=== PATIENT | female | born 1955 | race Caucasian/White ===

== ENCOUNTER 2017-12-09 11:39 | Inpatient (IN) | payer MEDICARE ==
[2017-12-09] MEDS ORDERED: Bisacodyl SUPP* 10 MG SUPP PR PRN (16:04)
[2017-12-09] MEDS ORDERED: fentaNYL PATCH 25 MCG/HR TRANSDERM SCH (17:00)
[2017-12-09] MEDS: Atorvastatin* 40 MG TAB PO SCH (17:30)
[2017-12-09] MEDS ORDERED: fentaNYL Patch Check Q Shift 1 NOTE SCH (19:00)
[2017-12-09] MEDS: Cilostazol TAB* 100 MG PO SCH (21:00)
[2017-12-09] MEDS: Docusate CAP* 100 MG PO SCH (21:00)
[2017-12-09] MEDS ORDERED: oxyCODONE SR TAB(*) 10 MG TAB.SR PO SCH (21:00)
[2017-12-09] MEDS: amLODIPine TAB* 5 MG PO SCH (21:01)
--- NOTE | 2017-12-09 22:26 | HP ---
ADMISSION HISTORY AND PHYSICAL: DATE OF ADMISSION: 12/09/17 REASON FOR ADMISSION: T10 incomplete paraplegia. HISTORY OF ILLNESS: Evelyn Ortiz is a 62-year-old female with a past medical history significant for chronic kidney disease stage 5 as well as polycystic kidney disease. The patient also has coronary artery disease and has had a stent placed in her left anterior descending artery. The patient has had ongoing episodes of hematuria. She first presented to [facility] on 11/14. She was found to have a urinalysis that showed a large amount of red blood cells. Her creatinine had increased to 7.2. A CAT scan of her abdomen showed polycystic kidney disease with marked renal enlargement. She was given an aspirin and a dose of ceftriaxone and transferred to [facility]. At [facility], she had Urology consulted for consideration of bilateral nephrectomies. Urology recommended continuous bladder irrigation because of her hematuria. Her pain did not improve and her hematuria did not improve. Interventional Radiology was consulted for possible renal artery embolization in the setting of severe refractory pain and hematuria. She had bilateral renal embolization done and immediately following the procedure, she was not able to move her legs. MRI of the lumbar spine was done and thoracic spine showing a patchy infarct of her anterior spine extending from T10 to L1. Proprioception was spared; however, she had no functional movement in her legs. Pain also seemed to be absent in her legs. The patient had an EMG done, which showed a normal conduction. Her Plavix was stopped in the setting of hematuria. She did not have DVT prophylaxis except for SCDs because of the hematuria. She was started on dialysis while at [facility]. Her continuous bladder irrigation was stopped today. Her urine remains bloody. She had a lot of difficulty with pain in her flanks, which was felt to be secondary to infarct kidneys. She was on Duragesic, OxyContin, and oxycodone. Because of a paraplegia, she is felt to have acute rehab needs. She is now being admitted for inpatient rehab, so that she might return to independent living. PAST MEDICAL HISTORY: Significant for the aforementioned chronic kidney disease , she has a history of hypertension, gastroesophageal reflux disease, coronary artery disease. ALLERGIES: The patient has allergies listed to CLONIDINE where she gets mouth and lip swelling. She has also had GI reactions to FLAGYL and CIPRO, and reports other reactions to TRENTAL and ZOCOR. SOCIAL HISTORY: She is a nonsmoker, nondrinker. She lives in a trailer with a couple steps to enter with her . REVIEW OF SYSTEMS: The patient reports no current shortness of breath or chest pain. Some flank pain is noted. PHYSICAL EXAMINATION VITAL SIGNS: The patient's temperature is 98.7, blood pressure is 123/56, pulse is 87, respirations 18. HEENT: Extraocular movements appeared to be intact. LUNGS: Sounded clear to auscultation bilaterally. HEART: Sounds were regular. S1 and S2 audible. ABDOMEN: Soft and nontender. EXTREMITIES: Lower extremities showed slightly decreased tone. Her peripheral pulses are intact. NEUROLOGIC: She was awake, alert, and oriented. Muscle strength in her upper extremities appeared to be 5/5. Her sensation changed at about the T10 level at about the level of her umbilicus. Below that level, she did have intact light touch sensation, but decreased pain sensation. Proprioception appeared to be intact. Her muscle strength showed perhaps some medial quadriceps in her right leg 2/5 strength. She could wiggle her toes on both sides. She did not have functional movement of either leg. FUNCTIONAL EXAM: Her transfers are dependent. ASSESSMENT: T10 class C incomplete paraplegia. PLAN: We are going to integrate her into comprehensive and therapeutic rehab program with the following goals: 1. Physical Therapy work with the patient. They are going to work on functional, transfer training, ambulation training with a walker. 2. Occupational Therapy will see the patient, work on her activities of daily living including toileting and toilet transfers. 3. SCDs for DVT prophylaxis. 4. Consult with Dr. Serrato and dialysis 3 times a week for her renal failure. 5. For her pain from the renal infarcts, we will continue her Duragesic patch and her oxycodone. 6. For her coronary artery disease, we are going to continue aspirin, Lipitor, and her beta-rea. We will resume Plavix when her urine clears. 7. For her hematuria, we are continuing to hold Plavix and pharmacologic DVT prophylaxis. We will irrigate as necessary. She does have indwelling Guzman for now. 8. For neurogenic bowel, we will do suppositories as necessary. We will have her on bowel medications. 9. Continue Protonix for gastroesophageal reflux disease. 10. For hypertension, continue Norvasc and her beta-rea. 11. Peripheral vascular disease. Continue Pletal. 12. cloud services architect will be closely involved to make sure that any services and equipment the patient requires are in place prior to discharge. 13. Family training as appropriate. 14. Home with appropriate services. ESTIMATED LENGTH OF STAY: Five weeks. [id number]/CPS #: [id number] YAMILE
[2017-12-10] MEDS: fentaNYL Patch Check Q Shift 1 NOTE SCH ×4 (01:23→23:48)
[2017-12-10] MEDS: Cilostazol TAB* 100 MG PO SCH ×2 (11:05→20:09)
[2017-12-10] MEDS: CMC:Pantoprazole TAB (NF) 40 MG TAB PO SCH (11:05)
[2017-12-10] MEDS: Bisoprolol TAB* 5 MG PO SCH (11:05)
[2017-12-10] MEDS: oxyCODONE TAB* 5 MG TAB PO PRN (11:06)
[2017-12-10] MEDS: Aspirin EC Low Dose* 81 MG TAB.EC PO SCH (11:06)
[2017-12-10] MEDS: Docusate CAP* 100 MG PO SCH ×2 (11:08→20:10)
--- NOTE | 2017-12-10 12:35 | PMRUTEAM ---
PMRU: Goals Current Status: Nursing: Current Status Skin Deviations [Left Buttocks Other ] Skin Deviations [Coccyx] Other Skin Deviations [Right Groin] Previous Access Point Skin Deviations [Left Arm] Bruise Skin Deviations [Left Upper Abrasion Chest] Skin Deviation Description [ stage 1 to l buttock-2cm x3cm. orange barrier Left Buttocks] cream applied Skin Deviation Description [ redness Coccyx] Skin Deviation Description [ Pressure dressing in place Right Groin] Skin Deviation Description [ multiple bruises Left Arm] Physical Therapy: Current Status Bed Mobility Assistance Mod Assist Transfer Moblility Assistance Dependent Ambulation Assistance N/A Occupational Therapy: Current Status Upper Body Dressing Min Assist Lower Body Dressing Total Assist,2 Person Assist Bathing Max Asst Toileting Total Assist Eating Independent Rec Therapy: Current Status Summary of Assessment and New admission - introduce RT services today (12/10 / Clinical Impression 18). Social Work: Current Status Discharge Plan return home with home care svs and family support Potential for Family Training pt's is involved and supportive Anticipated Discharge Home Destination Discharge With home care svs and family support Goals: Occupational Therapy: Initial Goals Goals to be Completed in (Days 21-28 ) Upper Body Bathing Routine Independent Lower Body Bathing Routine Modified Independent with Upper Body Dressing Routine Independent Lower Body Dressing Routine Modified Independent with Toilet Hygeine and Clothing Modified Independent with Management Routine Toilet Transfer Routine Modified Independent with Toilet Transfer Assistive slideboard Devices Functional Transfers for ADL Modified Independent with Functional Transfers for ADl slideboard Assistive Devices Grooming Routine Independent Feeding Routine Independent Social Work: Goals Discharge Plan return home with home care svs and family support Potential for Family Training pt's is involved and supportive Anticipated Discharge Home Destination Discharge With home care svs and family support PHYSICAL THERAPY: Independent bed mobility, independent transfers independent wheelchair mobility Care Plan: Care Plan Cardiovascular- Improve/Maintain Start: 12/10/17 02:01 Freq: QSHIFT Status: Active Target: Protocol: Activity Type Activity Date Activity User E-Sign Co-Sign Detail Recorded Client Recorded Date Recorded By Document 12/10/17 11:44 [id number] [id number] 12/10/17 11:47 [id number] 12/10/17 11:44 PMRU Outcome: Cardiovascular Vital Signs q Shift for 48hrs Then BID Yes Daily Weight Ordered No Current Cardiovascular Outcome/Goal Maintain/ Achieve Baseline HR, BP , Perfusion Maintain/ Achieve Hemodynamic Stability Free of Abnormal Cardiac Symptoms Progression Toward Outcome/Goal Progressing Coping/Psych-Improve/Maintain Start: 12/10/17 02:01 Freq: QSHIFT Status: Active Target: Protocol: Activity Type Activity Date Activity User E-Sign Co-Sign Detail Recorded Client Recorded Date Recorded By Document 12/10/17 11:44 [id number] [id number] 12/10/17 11:47 [id number] 12/10/17 11:44 PMRU Outcome: Coping/Psychosocial Coping Outcome/Goals Verbalization of Acceptance of Rehab Admit Verbalization of Sense of Control Over Health Status Utilization of Appropriate Problem Solving Techniques Willingness to Participate in Treatment Plan and Basic Needs Utilization of Available Support Systems Psychosocial Outcome/Goals Maintain/ Improve Emotional Health Demonstrates Knowledge of Healthy Coping Mechanisms Available Cooperate/ Participate in Plan Progression Toward Outcome/Goals - Progressing Coping Progression Toward Outcome/Goals - Progressing Psychosocial DVT Prophylaxis- Improve/Maintain Start: 12/10/17 02:01 Freq: QSHIFT Status: Active Target: Protocol: Activity Type Activity Date Activity User E-Sign Co-Sign Detail Recorded Client Recorded Date Recorded By Document 12/10/17 11:44 [id number] [id number] 12/10/17 11:47 [id number] 12/10/17 11:44 PMRU Outcome: DVT Prophylaxis Outcome/Goals Remains Free of DVT Demonstrates Knowledge of DVT Prevention/ Treatment Progression Toward Outcome/Goals Progressing Outcome/Goals Met Comment SCD's in place Discharge Planning - Improve/Maintain Start: 12/10/17 02:01 Freq: QSHIFT Status: Active Target: Protocol: Activity Type Activity Date Activity User E-Sign Co-Sign Detail Recorded Client Recorded Date Recorded By Document 12/10/17 02:01 [id number] [email or web address] 12/10/17 02:03 [id number] 12/10/17 02:01 PMRU Outcome: Discharge Planning Update Patient Family No Outcome/Goals Demonstrates Understanding of Discharge Plan Education-Improve/Maintain Start: 12/10/17 02:01 Freq: QSHIFT Status: Active Target: Protocol: Activity Type Activity Date Activity User E-Sign Co-Sign Detail Recorded Client Recorded Date Recorded By Document 12/10/17 11:44 [id number] 12/10/17 11:47 [id number] 12/10/17 11:44 PMRU Outcome: Education Outcome/Goals Demonstrate/ Verbalize Understanding of Written Discharge Instructions Encourage Questions Progression Toward Outcome/Goals Progressing /GI-Improve/Maintain Start: 12/10/17 02:01 Freq: QSHIFT Status: Active Target: Protocol: Activity Type Activity Date Activity User E-Sign Co-Sign Detail Recorded Client Recorded Date Recorded By Document 12/10/17 11:44 [id number] [email or web address] 12/10/17 11:47 [id number] 12/10/17 11:44 PMRU Outcome: Genitourinary/ Gastrointestinal Genitourinary- Outcome/Goals Maintain/ Achieve Urinary Continence Remain Free of Hospital- Acquired UTI Gastrointestinal-Outcome/Goals Maintain/ Achieve Bowel Regularity in Accordance with Pt's Baseline Prevent Constipation Progression Toward Outcome/Goals - Progressing Progression Toward Outcome/Goals - GI Progressing Outcome/Goals Met Comment Guzman in place. dialysis this am Medication Administration Start: 12/10/17 02:01 Freq: QSHIFT Status: Active Target: Protocol: Activity Type Activity Date Activity User E-Sign Co-Sign Detail Recorded Client Recorded Date Recorded By Document 12/10/17 11:44 [id number] [email or web address] 12/10/17 11:47 [id number] 12/10/17 11:44 PMRU Outcome: Medication Administration Assess Patient Knowledge/Teach Med No Education for all Meds Outcome/Goals Patient Independent with Medication Administration at Home Demonstrates Understanding Progression Towards Outcome/Goals Progressing Is Patient Going Home on Lovenox? No Neurological- Improve/Maintain Start: 12/10/17 02:01 Freq: QSHIFT Status: Active Target: Protocol: Activity Type Activity Date Activity User E-Sign Co-Sign Detail Recorded Client Recorded Date Recorded By Document 12/10/17 11:44 [id number] [email or web address] 12/10/17 11:47 [id number] 12/10/17 11:44 PMRU Outcome: Neurological Weakness/Aphasia Weakness Outcome/Goals Maintain/ Achieve Baseline Neurological Status Maintain/ Improve Strength/ROM Progression Toward Outcome/Goals Progressing Outcome/Goals Met Comment Bilateral leg weakness Pain/Comfort- Improve/Maintain Start: 12/10/17 02:01 Freq: QSHIFT Status: Active Target: Protocol: Activity Type Activity Date Activity User E-Sign Co-Sign Detail Recorded Client Recorded Date Recorded By Document 12/10/17 11:44 [id number] 12/10/17 11:47 [id number] 12/10/17 11:44 PMRU Outcome: Pain/Comfort Outcome/Goals Demonstrates Knowledge and Use of Available Comfort Measures Achieves Acceptable Comfort/Pain Level as Determined by Patient/Condit Maintain Comfort Level Allowing Patient to Fully Participate in Rehab Other Outcome/Goals oxycodone given this am Progression Toward Outcome/Goals Progressing Outcome/Goals Met Comment denies pain at this time Safety- Improve/Maintain Start: 12/10/17 02:01 Freq: QSHIFT Status: Active Target: Protocol: Activity Type Activity Date Activity User E-Sign Co-Sign Detail Recorded Client Recorded Date Recorded By Document 12/10/17 11:44 [id number] [email or web address] 12/10/17 11:47 [id number] 12/10/17 11:44 PMRU Outcome: Safety Outcome/Goals Remain Free of Injury or Harm Prevent Falls/ Injury Progression Toward Outcome/Goals Progressing Medicine Note: Length of Stay: 5 weeks Anticipated Discharge Destination: Home Tentative Discharge Date: January 14, 2018 Discharged to: Home
[2017-12-10] MEDS: Atorvastatin* 40 MG TAB PO SCH (17:12)
--- NOTE | 2017-12-10 17:29 | PN ---
Progress Note Date of Service: 12/10/17 Note: USAMA KAPADIA was visited. Therapy notes read and reviewed. Usama was discussed in interdisciplinary team rounds. Goals set. She may need adjustment in therapy times to account for dialysis. She expresses feelings of depression and being overwhelmed. Current Medications: Active Medications Generic Name Dose Route Start Last Admin Trade Name Freq PRN Reason Stop Dose Admin Acetaminophen 650 mg 12/09/17 16:04 Tylenol Tab* PO Q6H PRN FEVER/PAIN Amlodipine Besylate 5 mg 12/09/17 21:00 12/09/17 21:01 Norvasc Tab* PO Not Given 2100 [facility] Ascorbic Acid 500 mg 12/11/17 09:00 Vitamin C Tab* PO DAILY [facility] Aspirin 81 mg 12/10/17 09:00 12/10/17 11:06 Aspirin Ec Low Dose* PO 81 mg DAILY [facility] Administration Atorvastatin Calcium 40 mg 12/09/17 17:00 12/10/17 17:12 Lipitor* PO 40 mg 1700 BR[facility]TON Administration Bisacodyl 10 mg 12/09/17 16:04 Dulcolax Supp* [place] DAILY PRN CONSTIPATION Bisoprolol Fumarate 5 mg 12/10/17 09:00 12/10/17 11:05 Zebeta Tab* PO 5 mg DAILY [facility] Administration Cilostazol 50 mg 12/09/17 21:00 12/10/17 11:05 Pletal Tab* PO 50 mg BID [facility] Administration Docusate Sodium 100 mg 12/09/17 21:00 12/10/17 11:08 Colace Cap* PO Not Given BID [facility] Fentanyl 25 mcg 12/09/17 17:00 12/09/17 19:42 Duragesic Patch 25 Mcg/Hr* TRANSDERM Not Given Q72H [facility] Oxycodone HCl 5 mg 12/09/17 16:22 12/10/17 11:06 Roxycodone Tab* PO 5 mg Q4H PRN Administration PAIN - MODERATE TO SEVERE Pantoprazole Sodium 40 mg 12/10/17 09:00 12/10/17 11:05 Protonix Tab (Nf) PO 40 mg DAILY [facility] Administration Pharmacy Profile Note 1 note 12/09/17 23:00 12/10/17 15:17 Fentanyl Patch Check Q Shift N/A 1 note 0700,1500,2300 BR[facility] Administration Senna 2 tab 12/09/17 16:04 Senokot Tab* PO BEDTIME PRN CONSTIPATION Sertraline HCl 25 mg 12/11/17 09:00 Zoloft* PO DAILY [facility] Vital Signs: Vital Signs Temp Pulse Resp BP Pulse Ox 99.0 F 78 12 126/59 100 12/10/17 16:03 12/10/17 16:03 12/10/17 16:03 12/10/17 16:03 12/10/17 16:03 Exam: LUNGS: Clear bilaterally HEART: reg rhythm ABDOMEN: Soft, +BS EXTREMITIES: No edema : Holley in place draining bloody urine NEUROLOGIC: Decreased sensation below T10. Some quadriceps in RLE, able to wiggle toes bilat. Assessment/Plan: 12/10/17 17:26 1. T10 JAC Class "C" Paraplegia: PT/OT 2. Hematuria: Continue to hold Plavix. May ask urology to comment if Plavix can resume 3. CKD/Renal failure: Hemodialysis. Renal diet 4. Pain from renal infarcts: Fentanyl/Oxycodone 5. Neurogenic bladder: holley. May transition to ICP 6. Neurogenic bowel: Bowel program 7. PVD: Pletal 8. DVT Prophylaxis: SCDs. 9. Anemia of chronic disease: Check CBC in AM 10. Advanced directives: full code 11. Depression: Zoloft starts tomorrow
[2017-12-10] MEDS: amLODIPine TAB* 5 MG PO SCH (20:10)
[2017-12-11] MEDS: fentaNYL Patch Check Q Shift 1 NOTE SCH ×3 (07:16→18:01)
[2017-12-11 08:24] LABS: ABS Basophils 0.1 10^3/ul (0-0.2); ABS Eosinophils 0.1 10^3/ul (0-0.6); ABS Lymphocytes 0.6 10^3/ul (1.0-4.8); ABS Monocytes 0.5 10^3/ul (0-0.8); ABS Neutrophils 5.4 10^3/ul (1.5-7.7); ABS Nucleated RBC 0 10^3/ul; Eosinophil % 1.4 % (0-6); Hematocrit 23 % (35-47); Hemoglobin 7.7 g/dl (12.0-16.0); Lymphocyte % 9.1 % (25-47); Mean Corpuscular HGB Conc 33 g/dl (31-36); Mean Corpuscular Hemoglobin 29 pg (27-31); Mean Corpuscular Volume 87 fL (80-97); Mean Platelet Volume 8 um3 (7.4-10.4); Nucleated Red Blood Cells % 0; Platelet Count 200 10^3/ul (150-450); Red Blood Count 2.65 10^6/ul (4.0-5.4); Red Cell Distribution Width 15 % (10.5-15); White Blood Count 6.6 10^3/ul (3.5-10.8)
[2017-12-11 08:36] LABS: EGFR Non-African American 10.1 (>60)
[2017-12-11] MEDS: Docusate CAP* 100 MG PO SCH ×2 (08:45→20:09)
[2017-12-11] MEDS: CMC:Pantoprazole TAB (NF) 40 MG TAB PO SCH (08:45)
[2017-12-11] MEDS: Sertraline* 25 MG TAB PO SCH (08:45)
[2017-12-11] MEDS: Cilostazol TAB* 100 MG PO SCH ×2 (08:45→20:00)
[2017-12-11] MEDS: Bisoprolol TAB* 5 MG PO SCH (08:45)
[2017-12-11] MEDS: Aspirin EC Low Dose* 81 MG TAB.EC PO SCH (08:45)
[2017-12-11] MEDS: Ascorbic Acid TAB* 500 MG PO SCH (08:45)
[2017-12-11] MEDS ORDERED: fentaNYL PATCH 25 MCG/HR TRANSDERM SCH (11:00)
--- NOTE | 2017-12-11 17:41 | PN ---
Progress Note Date of Service: 12/11/17 Note: USAMA KAPADIA was visited. Therapy notes read and reviewed. She complains of terrible nausea and has little appetite. I wonder if this is from opioids. Will stop Fentanyl. Hope to resume Plavix by Saturday. Holley sill draining bloody urine. Hb/Hct slightly lower Current Medications: Active Medications Generic Name Dose Route Start Last Admin Trade Name Freq PRN Reason Stop Dose Admin Acetaminophen 650 mg 12/09/17 16:04 Tylenol Tab* PO Q6H PRN FEVER/PAIN Amlodipine Besylate 5 mg 12/09/17 21:00 12/10/17 20:10 Norvasc Tab* PO Not Given 2100 BRITTON Ascorbic Acid 500 mg 12/11/17 09:00 12/11/17 08:45 Vitamin C Tab* PO 500 mg DAILY [facility] Administration Aspirin 81 mg 12/10/17 09:00 12/11/17 08:45 Aspirin Ec Low Dose* PO 81 mg DAILY [facility] Administration Atorvastatin Calcium 40 mg 12/09/17 17:00 12/10/17 17:12 Lipitor* PO 40 mg 1700 BRITTON Administration Bisacodyl 10 mg 12/09/17 16:04 Dulcolax Supp* [place] DAILY PRN CONSTIPATION Bisoprolol Fumarate 5 mg 12/10/17 09:00 12/11/17 08:45 Zebeta Tab* PO 5 mg DAILY [facility] Administration Cilostazol 50 mg 12/09/17 21:00 12/11/17 08:45 Pletal Tab* PO 50 mg BID [facility] Administration Docusate Sodium 100 mg 12/09/17 21:00 12/11/17 08:45 Colace Cap* PO 100 mg BID [facility] Administration Oxycodone HCl 5 mg 12/09/17 16:22 12/10/17 11:06 Roxycodone Tab* PO 5 mg Q4H PRN Administration PAIN - MODERATE TO SEVERE Pantoprazole Sodium 40 mg 12/10/17 09:00 12/11/17 08:45 Protonix Tab (Nf) PO 40 mg DAILY [facility] Administration Senna 2 tab 12/09/17 16:04 Senokot Tab* PO BEDTIME PRN CONSTIPATION Sertraline HCl 25 mg 12/11/17 09:00 12/11/17 08:45 Zoloft* PO 25 mg DAILY [facility] Administration Vital Signs: Vital Signs Temp Pulse Resp BP Pulse Ox 98.1 F 74 16 129/62 100 12/11/17 15:54 12/11/17 15:54 12/11/17 15:54 12/11/17 15:54 12/11/17 15:54 Lab Results: Laboratory Results - last 24 hr 12/11/17 12/11/17 08:15 08:15 WBC 6.6 RBC 2.65 L Hgb 7.7 L Hct 23 L MCV 87 MCH 29 MCHC 33 RDW 15 Plt Count 200 MPV 8 Neut % (Auto) 81.5 Lymph % (Auto) 9.1 L Cobb % (Auto) 7.0 Eos % (Auto) 1.4 Baso % (Auto) 1.0 Absolute Neuts (auto) 5.4 Absolute Lymphs (auto) 0.6 L Absolute Monos (auto) 0.5 Absolute Eos (auto) 0.1 Absolute Basos (auto) 0.1 Absolute Nucleated RBC 0 Nucleated RBC % 0 Sodium 136 Potassium 4.4 Chloride 99 L Carbon Dioxide 24 Anion Gap 13 H BUN 28 H Creatinine 4.45 H Est GFR ( Amer) 13.0 Est GFR (Non-Af Amer) 10.1 BUN/Creatinine Ratio 6.3 L Glucose 65 L Calcium 8.3 L Total Bilirubin 0.80 AST 16 ALT 11 Alkaline Phosphatase 101 Total Protein 5.2 L Albumin 2.5 L Globulin 2.7 Albumin/Globulin Ratio 0.9 L Exam: LUNGS: Clear bilaterally HEART: reg rhythm ABDOMEN: Soft, +BS EXTREMITIES: No edema : Holley in place draining bloody urine NEUROLOGIC: Decreased sensation below T10. Some quadriceps in RLE, able to wiggle toes bilat. Assessment/Plan: 12/11/17 17:41 1. T10 JAC Class "C" Paraplegia: PT/OT 2. Hematuria: Continue to hold Plavix. May resume Saturday 3. CKD/Renal failure: Hemodialysis. Renal diet. Follow urine output 4. 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 5. Neurogenic bladder: holley. May transition to ICP 6. Neurogenic bowel: Bowel program 7. PVD: Pletal 8. DVT Prophylaxis: SCDs. 9. Anemia of chronic disease: Check CBC in AM 10. Advanced directives: full code 11. Depression: Zoloft starts tomorrow 12. Nausea: Stop Fentanyl
[2017-12-11] MEDS: Atorvastatin* 40 MG TAB PO SCH (18:02)
[2017-12-11] MEDS: amLODIPine TAB* 5 MG PO SCH (20:00)
[2017-12-12] MEDS: CMC:Pantoprazole TAB (NF) 40 MG TAB PO SCH (14:13)
[2017-12-12] MEDS: Docusate CAP* 100 MG PO SCH ×2 (14:13→19:47)
[2017-12-12] MEDS: Aspirin EC Low Dose* 81 MG TAB.EC PO SCH (14:13)
[2017-12-12] MEDS: Sertraline* 25 MG TAB PO SCH (14:13)
[2017-12-12] MEDS: Bisoprolol TAB* 5 MG PO SCH (14:13)
[2017-12-12] MEDS: Cilostazol TAB* 100 MG PO SCH ×2 (14:13→19:57)
[2017-12-12] MEDS: Ascorbic Acid TAB* 500 MG PO SCH (14:13)
[2017-12-12] MEDS: Ondansetron ODT TAB* 4 MG PO PRN (14:19)
[2017-12-12] MEDS: Atorvastatin* 40 MG TAB PO SCH (16:50)
--- NOTE | 2017-12-12 18:26 | PN ---
Progress Note Date of Service: 12/12/17 Note: USAMA KAPADIA was visited. Therapy notes read and reviewed.She was quite nauseated yesterday. Stopped Fentanyl. Her pain was not significantly worse but her nausea persisted. Started Zofran with good results. Able to drink a shake and eat a little bit today Current Medications: Active Medications Generic Name Dose Route Start Last Admin Trade Name Freq PRN Reason Stop Dose Admin Acetaminophen 650 mg 12/09/17 16:04 Tylenol Tab* PO Q6H PRN FEVER/PAIN Ascorbic Acid 500 mg 12/11/17 09:00 12/12/17 14:13 Vitamin C Tab* PO Not Given DAILY [facility] Aspirin 81 mg 12/10/17 09:00 12/12/17 14:13 Aspirin Ec Low Dose* PO Not Given DAILY [facility] Atorvastatin Calcium 40 mg 12/09/17 17:00 12/12/17 16:50 Lipitor* PO 40 mg 1700 BRITTON Administration Bisacodyl 10 mg 12/09/17 16:04 Dulcolax Supp* [place] DAILY PRN CONSTIPATION Bisoprolol Fumarate 5 mg 12/10/17 09:00 12/12/17 14:13 Zebeta Tab* PO Not Given DAILY [facility] Cilostazol 50 mg 12/09/17 21:00 12/12/17 14:13 Pletal Tab* PO Not Given BID [facility] Docusate Sodium 100 mg 12/09/17 21:00 12/12/17 14:13 Colace Cap* PO Not Given BID [facility] Ondansetron HCl 4 mg 12/12/17 12:50 12/12/17 14:19 Zofran Odt Tab* PO 4 mg Q6H PRN Administration NAUSEA/VOMITING Oxycodone HCl 5 mg 12/09/17 16:22 12/10/17 11:06 Roxycodone Tab* PO 5 mg Q4H PRN Administration PAIN - MODERATE TO SEVERE Pantoprazole Sodium 40 mg 12/10/17 09:00 12/12/17 14:13 Protonix Tab (Nf) PO Not Given DAILY [facility] Senna 2 tab 12/09/17 16:04 Senokot Tab* PO BEDTIME PRN CONSTIPATION Sertraline HCl 25 mg 12/11/17 09:00 12/12/17 14:13 Zoloft* PO Not Given DAILY [facility] Vital Signs: Vital Signs Temp Pulse Resp BP Pulse Ox 98.2 F 87 18 127/60 99 12/12/17 05:35 12/12/17 05:35 12/12/17 05:35 12/12/17 05:35 12/12/17 14:42 Exam: LUNGS: Clear bilaterally HEART: reg rhythm ABDOMEN: Soft, +BS EXTREMITIES: No edema : Holley in place draining dark, bloody urine NEUROLOGIC: Decreased sensation below T10. Some quadriceps in RLE, able to wiggle toes bilat. Assessment/Plan: 12/12/17 18:27 1. T10 JAC Class "C" Paraplegia: PT/OT 2. Hematuria: Continue to hold Plavix. May resume Saturday 3. CKD/Renal failure: Hemodialysis. Renal diet. Follow urine output 4. 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 5. Neurogenic bladder: holley. May transition to ICP 6. Neurogenic bowel: Bowel program 7. PVD: Pletal 8. DVT Prophylaxis: SCDs. 9. Anemia of chronic disease: Check CBC in AM 10. Advanced directives: full code 11. Depression: Zoloft started 12. Nausea: Stopped Fentanyl. Zofran PRN
[2017-12-13] MEDS: oxyCODONE TAB* 5 MG TAB PO PRN (09:39)
[2017-12-13] MEDS: CMC:Pantoprazole TAB (NF) 40 MG TAB PO SCH (09:39)
[2017-12-13] MEDS: Bisoprolol TAB* 5 MG PO SCH (09:39)
[2017-12-13] MEDS: Sertraline* 25 MG TAB PO SCH (09:39)
[2017-12-13] MEDS: Ascorbic Acid TAB* 500 MG PO SCH (09:39)
[2017-12-13] MEDS: Aspirin EC Low Dose* 81 MG TAB.EC PO SCH (09:39)
[2017-12-13] MEDS: Clopidogrel TAB* 75 MG PO SCH (09:39)
[2017-12-13] MEDS: Cilostazol TAB* 100 MG PO SCH ×2 (09:40→21:07)
[2017-12-13] MEDS: Docusate CAP* 100 MG PO SCH ×2 (09:47→20:45)
--- NOTE | 2017-12-13 17:10 | PN ---
Progress Note Date of Service: 12/13/17 Note: USAMA KAPADIA was visited. Therapy notes read and reviewed. She is eating slightly better. Her urine remains bloody. Will check Hb/Hct on Saturday Current Medications: Active Medications Generic Name Dose Route Start Last Admin Trade Name Freq PRN Reason Stop Dose Admin Acetaminophen 650 mg 12/09/17 16:04 Tylenol Tab* PO Q6H PRN FEVER/PAIN Ascorbic Acid 500 mg 12/11/17 09:00 12/13/17 09:39 Vitamin C Tab* PO 500 mg DAILY [facility] Administration Aspirin 81 mg 12/10/17 09:00 12/13/17 09:39 Aspirin Ec Low Dose* PO 81 mg DAILY [facility] Administration Atorvastatin Calcium 40 mg 12/09/17 17:00 12/12/17 16:50 Lipitor* PO 40 mg 1700 [facility] Administration Bisacodyl 10 mg 12/09/17 16:04 Dulcolax Supp* [place] DAILY PRN CONSTIPATION Bisoprolol Fumarate 5 mg 12/10/17 09:00 12/13/17 09:39 Zebeta Tab* PO 5 mg DAILY [facility] Administration Cilostazol 50 mg 12/09/17 21:00 12/13/17 09:40 Pletal Tab* PO 50 mg BID [facility] Administration Clopidogrel Bisulfate 75 mg 12/13/17 09:00 12/13/17 09:39 Plavix Tab* PO 75 mg DAILY [facility] Administration Docusate Sodium 100 mg 12/09/17 21:00 12/13/17 09:47 Colace Cap* PO Not Given BID [facility] Ondansetron HCl 4 mg 12/12/17 12:50 12/12/17 14:19 Zofran Odt Tab* PO 4 mg Q6H PRN Administration NAUSEA/VOMITING Oxycodone HCl 5 mg 12/09/17 16:22 12/13/17 09:39 Roxycodone Tab* PO 5 mg Q4H PRN Administration PAIN - MODERATE TO SEVERE Pantoprazole Sodium 40 mg 12/10/17 09:00 12/13/17 09:39 Protonix Tab (Nf) PO 40 mg DAILY [facility] Administration Senna 2 tab 12/09/17 16:04 Senokot Tab* PO BEDTIME PRN CONSTIPATION Sertraline HCl 25 mg 12/11/17 09:00 12/13/17 09:39 Zoloft* PO 25 mg DAILY [facility] Administration Vital Signs: Vital Signs Temp Pulse Resp BP Pulse Ox 99.5 F 86 18 122/56 98 12/13/17 06:00 12/13/17 06:00 12/13/17 16:31 12/13/17 06:00 12/13/17 08:00 Exam: LUNGS: Clear bilaterally HEART: reg rhythm ABDOMEN: Soft, +BS EXTREMITIES: No edema : Holley in place draining dark, bloody urine NEUROLOGIC: Decreased sensation below T10. Some quadriceps in RLE, able to wiggle toes bilat. Assessment/Plan: 12/13/17 17:10 1. T10 JAC Class "C" Paraplegia: PT/OT 2. Hematuria: Started Plavix. Check CBC 3. CKD/Renal failure: Hemodialysis. Renal diet. Follow urine output 4. 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 5. Neurogenic bladder: holley. May transition to ICP 6. Neurogenic bowel: Bowel program 7. PVD: Pletal 8. DVT Prophylaxis: SCDs. 9. Anemia of chronic disease: Check CBC in AM Saturday 10. Advanced directives: full code 11. Depression: Zoloft started 12. Nausea: Stopped Fentanyl. Zofran PRN
[2017-12-13] MEDS: Atorvastatin* 40 MG TAB PO SCH (17:25)
[2017-12-14] MEDS: oxyCODONE TAB* 5 MG TAB PO PRN (10:37)
[2017-12-14] MEDS: Ascorbic Acid TAB* 500 MG PO SCH (12:28)
[2017-12-14] MEDS: CMC:Pantoprazole TAB (NF) 40 MG TAB PO SCH (12:28)
[2017-12-14] MEDS: Aspirin EC Low Dose* 81 MG TAB.EC PO SCH (12:28)
[2017-12-14] MEDS: Clopidogrel TAB* 75 MG PO SCH (12:28)
[2017-12-14] MEDS: Sertraline* 25 MG TAB PO SCH (12:28)
[2017-12-14] MEDS: Cilostazol TAB* 100 MG PO SCH ×2 (12:29→21:40)
[2017-12-14] MEDS: Bisoprolol TAB* 5 MG PO SCH (12:29)
[2017-12-14] MEDS: Docusate CAP* 100 MG PO SCH ×2 (12:59→21:37)
--- NOTE | 2017-12-14 16:37 | PN ---
Progress Note Date of Service: 12/14/17 Note: USAMA KAPADIA was visited. Therapy notes read and reviewed. She was quite wiped out from dialysis this morning. She has been tolerating Plavix. Can irrigate bladder nightly. Current Medications: Active Medications Generic Name Dose Route Start Last Admin Trade Name Freq PRN Reason Stop Dose Admin Acetaminophen 650 mg 12/09/17 16:04 Tylenol Tab* PO Q6H PRN FEVER/PAIN Ascorbic Acid 500 mg 12/11/17 09:00 12/14/17 12:28 Vitamin C Tab* PO 500 mg DAILY [facility] Administration Aspirin 81 mg 12/10/17 09:00 12/14/17 12:28 Aspirin Ec Low Dose* PO 81 mg DAILY [facility] Administration Atorvastatin Calcium 40 mg 12/09/17 17:00 12/13/17 17:25 Lipitor* PO 40 mg 1700 [facility] Administration Bisacodyl 10 mg 12/09/17 16:04 Dulcolax Supp* [place] DAILY PRN CONSTIPATION Bisoprolol Fumarate 5 mg 12/10/17 09:00 12/14/17 12:29 Zebeta Tab* PO 5 mg DAILY [facility] Administration Cilostazol 50 mg 12/09/17 21:00 12/14/17 12:29 Pletal Tab* PO 50 mg BID [facility] Administration Clopidogrel Bisulfate 75 mg 12/13/17 09:00 12/14/17 12:28 Plavix Tab* PO 75 mg DAILY [facility] Administration Docusate Sodium 100 mg 12/09/17 21:00 12/14/17 12:59 Colace Cap* PO Not Given BID [facility] Ondansetron HCl 4 mg 12/12/17 12:50 12/12/17 14:19 Zofran Odt Tab* PO 4 mg Q6H PRN Administration NAUSEA/VOMITING Oxycodone HCl 5 mg 12/09/17 16:22 12/14/17 10:37 Roxycodone Tab* PO 5 mg Q4H PRN Administration PAIN - MODERATE TO SEVERE Pantoprazole Sodium 40 mg 12/10/17 09:00 12/14/17 12:28 Protonix Tab (Nf) PO 40 mg DAILY [facility] Administration Senna 2 tab 12/09/17 16:04 Senokot Tab* PO BEDTIME PRN CONSTIPATION Sertraline HCl 25 mg 12/11/17 09:00 12/14/17 12:28 Zoloft* PO 25 mg DAILY [facility] Administration Vital Signs: Vital Signs Temp Pulse Resp BP Pulse Ox 98.8 F 76 16 137/66 98 12/14/17 15:51 12/14/17 15:51 12/14/17 15:51 12/14/17 15:51 12/14/17 15:51 Exam: LUNGS: Clear bilaterally HEART: reg rhythm ABDOMEN: Soft, +BS EXTREMITIES: No edema : Holley in place draining dark, bloody urine NEUROLOGIC: Decreased sensation below T10. Some quadriceps in RLE, able to wiggle toes bilat. Assessment/Plan: 12/14/17 16:38 1. T10 JAC Class "C" Paraplegia: PT/OT 2. Hematuria: Started Plavix. Check CBC 3. CKD/Renal failure: Hemodialysis. Renal diet. Follow urine output 4. 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 5. Neurogenic bladder: holley. May transition to ICP 6. Neurogenic bowel: Bowel program. Stools have been loose 7. PVD: Pletal 8. DVT Prophylaxis: SCDs. 9. Anemia of chronic disease: Check CBC in AM Saturday 10. Advanced directives: full code 11. Depression: Zoloft started 12. Nausea: Stopped Fentanyl. Zofran PRN
[2017-12-14] MEDS: Atorvastatin* 40 MG TAB PO SCH (17:28)
[2017-12-15] MEDS: Aspirin EC Low Dose* 81 MG TAB.EC PO SCH (11:51)
[2017-12-15] MEDS: Bisoprolol TAB* 5 MG PO SCH (11:52)
[2017-12-15] MEDS: Ascorbic Acid TAB* 500 MG PO SCH (11:52)
[2017-12-15] MEDS: Clopidogrel TAB* 75 MG PO SCH (11:52)
[2017-12-15] MEDS: Cilostazol TAB* 100 MG PO SCH ×2 (11:52→22:14)
[2017-12-15] MEDS: CMC:Pantoprazole TAB (NF) 40 MG TAB PO SCH (11:52)
[2017-12-15] MEDS: Sertraline* 50 MG TAB PO SCH (11:52)
[2017-12-15] MEDS: Docusate CAP* 100 MG PO SCH ×2 (11:54→22:10)
[2017-12-15] MEDS ORDERED: Prochlorperazine SUPP* 25 MG SUPP PR PRN (16:03)
--- NOTE | 2017-12-15 16:06 | PN ---
Progress Note Date of Service: 12/15/17 Note: USAMA KAPADIA was visited. Nursing notes read and reviewed. Very nauseated today. She doesn't want the Zofran. It makes her gag. Will try compazine suppository Current Medications: Active Medications Generic Name Dose Route Start Last Admin Trade Name Freq PRN Reason Stop Dose Admin Acetaminophen 650 mg 12/09/17 16:04 Tylenol Tab* PO Q6H PRN FEVER/PAIN Ascorbic Acid 500 mg 12/11/17 09:00 12/15/17 11:52 Vitamin C Tab* PO 500 mg DAILY [facility] Administration Aspirin 81 mg 12/10/17 09:00 12/15/17 11:51 Aspirin Ec Low Dose* PO 81 mg DAILY [facility] Administration Atorvastatin Calcium 40 mg 12/09/17 17:00 12/14/17 17:28 Lipitor* PO 40 mg 1700 [facility] Administration Bisacodyl 10 mg 12/09/17 16:04 Dulcolax Supp* [place] DAILY PRN CONSTIPATION Bisoprolol Fumarate 5 mg 12/10/17 09:00 12/15/17 11:52 Zebeta Tab* PO 5 mg DAILY [facility] Administration Cilostazol 50 mg 12/09/17 21:00 12/15/17 11:52 Pletal Tab* PO 50 mg BID [facility] Administration Clopidogrel Bisulfate 75 mg 12/13/17 09:00 12/15/17 11:52 Plavix Tab* PO 75 mg DAILY [facility] Administration Docusate Sodium 100 mg 12/09/17 21:00 12/15/17 11:54 Colace Cap* PO Not Given BID [facility] Ondansetron HCl 4 mg 12/12/17 12:50 12/12/17 14:19 Zofran Odt Tab* PO 4 mg Q6H PRN Administration NAUSEA/VOMITING Oxycodone HCl 5 mg 12/09/17 16:22 12/14/17 10:37 Roxycodone Tab* PO 5 mg Q4H PRN Administration PAIN - MODERATE TO SEVERE Pantoprazole Sodium 40 mg 12/10/17 09:00 12/15/17 11:52 Protonix Tab (Nf) PO 40 mg DAILY [facility] Administration Prochlorperazine 25 mg 12/15/17 16:03 Compazine Supp* [place] Q12H PRN NAUSEA Senna 2 tab 12/09/17 16:04 Senokot Tab* PO BEDTIME PRN CONSTIPATION Sertraline HCl 50 mg 12/15/17 09:00 12/15/17 11:52 Zoloft* PO 50 mg DAILY [facility] Administration Vital Signs: Vital Signs Temp Pulse Resp BP Pulse Ox 99.0 F 99 16 119/63 100 12/15/17 15:35 12/15/17 15:35 12/15/17 15:35 12/15/17 15:35 12/15/17 15:35 Exam: LUNGS: Clear bilaterally HEART: reg rhythm ABDOMEN: Soft, +BS EXTREMITIES: No edema : Holley in place draining dark, bloody urine NEUROLOGIC: Decreased sensation below T10. Some quadriceps in RLE, able to wiggle toes bilat. Assessment/Plan: 12/15/17 16:06 1. T10 JAC Class "C" Paraplegia: PT/OT 2. Hematuria: Started Plavix. Check CBC 3. CKD/Renal failure: Hemodialysis. Renal diet. Follow urine output 4. 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 5. Neurogenic bladder: holley. May transition to ICP 6. Neurogenic bowel: Bowel program. Stools have been loose 7. PVD: Pletal 8. DVT Prophylaxis: SCDs. 9. Anemia of chronic disease: Check CBC in AM Saturday 10. Advanced directives: full code 11. Depression: Zoloft started 12. Nausea: Compazine Suppository PRN
[2017-12-15] MEDS: Atorvastatin* 40 MG TAB PO SCH (17:23)
[2017-12-16] MEDS: Sertraline* 50 MG TAB PO SCH (10:30)
[2017-12-16] MEDS: Clopidogrel TAB* 75 MG PO SCH (10:30)
[2017-12-16] MEDS: Bisoprolol TAB* 5 MG PO SCH (10:30)
[2017-12-16] MEDS: Ascorbic Acid TAB* 500 MG PO SCH (10:30)
[2017-12-16] MEDS: Docusate CAP* 100 MG PO SCH ×2 (10:30→19:33)
[2017-12-16] MEDS: Aspirin EC Low Dose* 81 MG TAB.EC PO SCH (10:30)
[2017-12-16] MEDS: Cilostazol TAB* 100 MG PO SCH ×2 (10:30→19:33)
[2017-12-16] MEDS: CMC:Pantoprazole TAB (NF) 40 MG TAB PO SCH (10:30)
--- NOTE | 2017-12-16 17:35 | PN ---
Progress Note Date of Service: 12/16/17 Note: USAMA KAPADIA was visited. Therapy notes read and reviewed. She remains nauseated and doesn't want to eat much. She is also a little apathetic. tried a Compazine Suppository with little effect. Will ask Dr. Serrato for any advice Current Medications: Active Medications Generic Name Dose Route Start Last Admin Trade Name Freq PRN Reason Stop Dose Admin Acetaminophen 650 mg 12/09/17 16:04 Tylenol Tab* PO Q6H PRN FEVER/PAIN Ascorbic Acid 500 mg 12/11/17 09:00 12/16/17 10:30 Vitamin C Tab* PO Not Given DAILY [facility] Aspirin 81 mg 12/10/17 09:00 12/16/17 10:30 Aspirin Ec Low Dose* PO Not Given DAILY [facility] Atorvastatin Calcium 40 mg 12/09/17 17:00 12/15/17 17:23 Lipitor* PO Not Given 1700 [facility] Bisacodyl 10 mg 12/09/17 16:04 Dulcolax Supp* [place] DAILY PRN CONSTIPATION Bisoprolol Fumarate 5 mg 12/10/17 09:00 12/16/17 10:30 Zebeta Tab* PO Not Given DAILY [facility] Cilostazol 50 mg 12/09/17 21:00 12/16/17 10:30 Pletal Tab* PO Not Given BID [facility] Clopidogrel Bisulfate 75 mg 12/13/17 09:00 12/16/17 10:30 Plavix Tab* PO Not Given DAILY [facility] Docusate Sodium 100 mg 12/09/17 21:00 12/16/17 10:30 Colace Cap* PO Not Given BID [facility] Ondansetron HCl 4 mg 12/12/17 12:50 12/12/17 14:19 Zofran Odt Tab* PO 4 mg Q6H PRN Administration NAUSEA/VOMITING Oxycodone HCl 5 mg 12/09/17 16:22 12/14/17 10:37 Roxycodone Tab* PO 5 mg Q4H PRN Administration PAIN - MODERATE TO SEVERE Pantoprazole Sodium 40 mg 12/10/17 09:00 12/16/17 10:30 Protonix Tab (Nf) PO Not Given DAILY [facility] Prochlorperazine 25 mg 12/15/17 16:03 12/16/17 11:29 Compazine Supp* [place] 25 mg Q12H PRN Administration NAUSEA Senna 2 tab 12/09/17 16:04 Senokot Tab* PO BEDTIME PRN CONSTIPATION Sertraline HCl 50 mg 12/15/17 09:00 12/16/17 10:30 Zoloft* PO Not Given DAILY [facility] Vital Signs: Vital Signs Temp Pulse Resp BP Pulse Ox 98.8 F 98 12 125/61 99 12/16/17 06:50 12/16/17 06:50 12/16/17 06:50 12/16/17 06:50 12/16/17 06:50 Exam: LUNGS: Clear bilaterally HEART: reg rhythm ABDOMEN: Soft, +BS EXTREMITIES: No edema : Holley in place draining dark, bloody urine NEUROLOGIC: Decreased sensation below T10. Some quadriceps in RLE, able to wiggle toes bilat. Assessment/Plan: 12/16/17 17:35 1. T10 JAC Class "C" Paraplegia: PT/OT 2. Hematuria: On Plavix. Stable 3. CKD/Renal failure: Hemodialysis. Renal diet. Follow urine output 4. 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 5. Neurogenic bladder: holley. May transition to ICP 6. Neurogenic bowel: Bowel program. Stools have been loose 7. PVD: Pletal 8. DVT Prophylaxis: SCDs. 9. Anemia of chronic disease: Check CBC 10. Advanced directives: full code 11. Depression: Zoloft started. Unclear if any effect 12. Nausea: Compazine Suppository PRN, Consider Marinol
[2017-12-16] MEDS: Atorvastatin* 40 MG TAB PO SCH (17:38)
--- NOTE | 2017-12-17 13:00 | PMRUTEAM ---
PMRU: Goals Current Status: Nursing: Current Status Skin Deviations [Left Buttocks Other ] Skin Deviations [Coccyx] Skin Tear Skin Deviations [Right Groin] Previous Access Point Skin Deviations [Left Arm] Bruise Skin Deviations [Left Upper Abrasion Chest] Skin Deviation Description [ redness Left Buttocks] Skin Deviation Description [ open area, dressing applied Coccyx] Skin Deviation Description [ redness Right Groin] Skin Deviation Description [ multiple bruises Left Arm] Skin Deviation Description [ healing Left Upper Chest] Bladder Current Status Holley in place Bowel Current Status incontinent Nutrition Current Status inadequate Medication Current Status declining medications at this time. Physical Therapy: Current Status Bed Mobility Assistance Max Assist,2 or More Person Assist Transfer Moblility Assistance Total Assist,2 or More Person Assist Transfer/Bed Mobility Tunde Lift Recommended Devices Ambulation Assistance Unable Manual Wheelchair Control/ Bilateral UE's Technique Wheelchair Propulsion Ability Standby Assistance Wheelchair Distance (ft) 110' Occupational Therapy: Current Status Upper Body Dressing Mod Assist Lower Body Dressing Total Assist Bathing Max Asst Toileting Total Assist Toilet Transfer Total Assist,2 Person Assist Shower Transfer Total Assist,2 Person Assist Eating Supervision Rec Therapy: Current Status Summary of Assessment and RT assessment complete and pt. is aware of RT Clinical Impression services. Pt. has been resting or with visitors much of the afternoon time. Pt. did express interest in continued leisure visits which will be provided to her. Treatment Goals Pt. will engage in leisure activities while on the unit. Treatment Plan Provide RT services and encourage involvement. Provide emotional support as needed. Social Work: Current Status Discharge Plan return home with home care svs and family support Potential for Family Training pt's is involved and supportive Anticipated Discharge Home Destination Discharge With home care svs and family support Nutrition: Current Status Monitoring poor po intake; follow-up planned this afternoon. Most meds also refused by pt. c/o nausea; Compazine given; no Zofran since 12/12. Zoloft started 12/15. K 4.4 (12/11); anticipate weekly labs tomorrow. Goals: Physical Therapy: Initial Goals Bed Mobility Assistance Independent Transfer Mobility Assistance Independent Transfer/Bed Mobility Slide Board Recommended Devices Wheelchair Propulsion Ability Independent Occupational Therapy: Initial Goals Goals to be Completed in (Days 21-28 ) Upper Body Bathing Routine Independent Lower Body Bathing Routine Modified Independent with Upper Body Dressing Routine Independent Lower Body Dressing Routine Modified Independent with Toilet Hygeine and Clothing Modified Independent with Management Routine Toilet Transfer Routine Modified Independent with Toilet Transfer Assistive slideboard Devices Functional Transfers for ADL Modified Independent with Functional Transfers for ADl slideboard Assistive Devices Grooming Routine Independent Feeding Routine Independent Nursing: Goals Bladder Goal independent straight catheterization Bowel Goal changing self Nutrition Goal 75% of meals Medication Goal independent Nutrition: Goals Intervention Goals 1. Improved oral intake to support maintenance of lean body mass and rehab progress. 2. Maintain controlled renal labs per dialysis parameters. 3. Pt verbalizes understanding of renal diet. 4. Tolerates oral intake w/o GI distress. Social Work: Goals Discharge Plan return home with home care svs and family support Potential for Family Training pt's is involved and supportive Anticipated Discharge Home Destination Discharge With home care svs and family support Care Plan: Care Plan ADL's - Improve/Maintain Start: 12/10/17 02:01 Freq: DAILY Status: Active Target: Protocol: Activity Type Activity Date Activity User E-Sign Co-Sign Detail Recorded Client Recorded Date Recorded By Document 12/13/17 14:32 [id number] 12/13/17 14:32 [id number] 12/13/17 14:32 PMRU Outcome: ADL's/ADL Transfers Orders/Interventions Occupational Therapy Evaluation & Treatment Communication Tool in Patient Room Patient to receive OT 5x/wk for 60-120 Therex min/day Self Care Management Group Therapy UE/LE ADL's with Assist Yes: mod I ADL Transfers with Assist Yes: mod I Toileting: Transfers,Clothing Management Yes: mod I ,Hygeine w/Assist Progression Toward Outcome/Goals Progressing Outcome/Goals Met Pt tolerates heavier weights , more reps and more activity today compared to yesterday. Spirits are higher. Endurance improving. Cardiovascular- Improve/Maintain Start: 12/10/17 02:01 Freq: DAILY Status: Active Target: Protocol: Activity Type Activity Date Activity User E-Sign Co-Sign Detail Recorded Client Recorded Date Recorded By Document 12/17/17 11:52 [id number] 12/17/17 11:53 [id number] 12/17/17 11:52 PMRU Outcome: Cardiovascular Vital Signs q Shift for 48hrs Then BID Yes Daily Weight Ordered No Current Cardiovascular Outcome/Goal Maintain/ Achieve Baseline HR, BP , Perfusion Maintain/ Achieve Hemodynamic Stability Free of Abnormal Cardiac Symptoms Progression Toward Outcome/Goal Progressing Coping/Psych-Improve/Maintain Start: 12/10/17 02:01 Freq: DAILY Status: Active Target: Protocol: Activity Type Activity Date Activity User E-Sign Co-Sign Detail Recorded Client Recorded Date Recorded By Document 12/17/17 11:52 [id number] 12/17/17 11:53 [id number] 12/17/17 11:52 PMRU Outcome: Coping/Psychosocial Coping Outcome/Goals Verbalization of Acceptance of Rehab Admit Verbalization of Sense of Control Over Health Status Utilization of Appropriate Problem Solving Techniques Willingness to Participate in Treatment Plan and Basic Needs Utilization of Available Support Systems Psychosocial Outcome/Goals Maintain/ Improve Emotional Health Demonstrates Knowledge of Healthy Coping Mechanisms Available Cooperate/ Participate in Plan Progression Toward Outcome/Goals - Not Progressing Coping Progression Toward Outcome/Goals - Not Progressing Psychosocial DVT Prophylaxis- Improve/Maintain Start: 12/10/17 02:01 Freq: DAILY Status: Active Target: Protocol: Activity Type Activity Date Activity User E-Sign Co-Sign Detail Recorded Client Recorded Date Recorded By Document 12/17/17 11:52 [id number] 12/17/17 11:53 [id number] 12/17/17 11:52 PMRU Outcome: DVT Prophylaxis Outcome/Goals Remains Free of DVT Demonstrates Knowledge of DVT Prevention/ Treatment Progression Toward Outcome/Goals Progressing Discharge Planning - Improve/Maintain Start: 12/10/17 02:01 Freq: DAILY Status: Active Target: Protocol: Activity Type Activity Date Activity User E-Sign Co-Sign Detail Recorded Client Recorded Date Recorded By Document 12/17/17 11:52 [id number] 12/17/17 11:53 [id number] 12/17/17 11:52 PMRU Outcome: Discharge Planning Identify Patient Needs yes Update Patient Family No Outcome/Goals Demonstrates Understanding of Discharge Plan Progression Toward Outcome/Goals Progressing Education-Improve/Maintain Start: 12/10/17 02:01 Freq: DAILY Status: Active Target: Protocol: Activity Type Activity Date Activity User E-Sign Co-Sign Detail Recorded Client Recorded Date Recorded By Document 12/17/17 11:52 [id number] 12/17/17 11:53 [id number] 12/17/17 11:52 PMRU Outcome: Education Outcome/Goals Demonstrate/ Verbalize Understanding of Written Discharge Instructions Encourage Questions Progression Toward Outcome/Goals Progressing /GI-Improve/Maintain Start: 12/10/17 02:01 Freq: DAILY Status: Active Target: Protocol: Activity Type Activity Date Activity User E-Sign Co-Sign Detail Recorded Client Recorded Date Recorded By Document 12/17/17 11:52 [id number] [id number] 12/17/17 11:53 [id number] 12/17/17 11:52 PMRU Outcome: Genitourinary/ Gastrointestinal Genitourinary- Outcome/Goals Maintain/ Achieve Urinary Continence Remain Free of Hospital- Acquired UTI Gastrointestinal-Outcome/Goals Maintain/ Achieve Bowel Regularity in Accordance with Pt's Baseline Prevent Constipation Progression Toward Outcome/Goals - Not Progressing Progression Toward Outcome/Goals - GI Not Progressing Outcome/Goals Met Comment holley in place, pt nauseous - did not want any inverventions Medication Administration Start: 12/10/17 02:01 Freq: DAILY Status: Active Target: Protocol: Activity Type Activity Date Activity User E-Sign Co-Sign Detail Recorded Client Recorded Date Recorded By Document 12/17/17 11:52 [id number] 12/17/17 11:53 [id number] 12/17/17 11:52 PMRU Outcome: Medication Administration Assess Patient Knowledge/Teach Med No Education for all Meds Outcome/Goals Patient Independent with Medication Administration at Home Demonstrates Understanding Progression Towards Outcome/Goals Progressing Outcome/Goals Met Comment declining meds Is Patient Going Home on Lovenox? No Mobility- Improve/Maintain Start: 12/10/17 02:01 Freq: DAILY Status: Active Target: Protocol: Activity Type Activity Date Activity User E-Sign Co-Sign Detail Recorded Client Recorded Date Recorded By Document 12/13/17 17:11 [id number] 12/13/17 17:11 [id number] 12/13/17 17:11 PMRU Outcome: Mobility Physical Therapy Evaluation and Yes Treatment Activity OOB with Assistance Yes Assistance Yes Patient to be seen 5x/wk for 60-120 min/ Therex day for: Mobility Training W/C Mobility Balance Outcome/Goals Improve Mobility Status Demonstrates Proper Use of Assistive Devices Free from Complications of Immobility Progression Toward Outcome/Goals Progressing Bed Mobility Yes: independent Transfers Yes: independent with slide board W/C Mobility x ft Yes: independent W/C mobility to 150' Neurological- Improve/Maintain Start: 12/10/17 02:01 Freq: DAILY Status: Active Target: Protocol: Activity Type Activity Date Activity User E-Sign Co-Sign Detail Recorded Client Recorded Date Recorded By Document 12/17/17 11:52 [id number] 12/17/17 11:53 [id number] 12/17/17 11:52 PMRU Outcome: Neurological Weakness/Aphasia Weakness Outcome/Goals Maintain/ Achieve Baseline Neurological Status Maintain/ Improve Strength/ROM Progression Toward Outcome/Goals Not Progressing Pain/Comfort- Improve/Maintain Start: 12/10/17 02:01 Freq: DAILY Status: Active Target: Protocol: Activity Type Activity Date Activity User E-Sign Co-Sign Detail Recorded Client Recorded Date Recorded By Document 12/17/17 11:52 [id number] 12/17/17 11:53 [id number] 12/17/17 11:52 PMRU Outcome: Pain/Comfort Outcome/Goals Demonstrates Knowledge and Use of Available Comfort Measures Achieves Acceptable Comfort/Pain Level as Determined by Patient/Condit Maintain Comfort Level Allowing Patient to Fully Participate in Rehab Progression Toward Outcome/Goals Progressing Outcome/Goals Met Comment denies at this time Safety- Improve/Maintain Start: 12/10/17 02:01 Freq: DAILY Status: Active Target: Protocol: Activity Type Activity Date Activity User E-Sign Co-Sign Detail Recorded Client Recorded Date Recorded By Document 12/17/17 11:52 [id number] 12/17/17 11:53 [id number] 12/17/17 11:52 PMRU Outcome: Safety Outcome/Goals Remain Free of Injury or Harm Prevent Falls/ Injury Progression Toward Outcome/Goals Progressing Medicine Note: Length of Stay: 4 weeks Anticipated Discharge Destination: Home Tentative Discharge Date: 01/14/18 Discharged to: home
[2017-12-17] MEDS: Clopidogrel TAB* 75 MG PO SCH (13:15)
[2017-12-17] MEDS: Sertraline* 50 MG TAB PO SCH (13:15)
[2017-12-17] MEDS: Docusate CAP* 100 MG PO SCH ×2 (13:18→19:08)
[2017-12-17] MEDS: Aspirin EC Low Dose* 81 MG TAB.EC PO SCH (14:04)
[2017-12-17] MEDS: Ascorbic Acid TAB* 500 MG PO SCH (14:05)
[2017-12-17] MEDS: Cilostazol TAB* 100 MG PO SCH ×2 (14:41→19:08)
[2017-12-17] MEDS: Bisoprolol TAB* 5 MG PO SCH (14:41)
[2017-12-17] MEDS: CMC:Pantoprazole TAB (NF) 40 MG TAB PO SCH (14:41)
[2017-12-17] MEDS: Atorvastatin* 40 MG TAB PO SCH (15:55)
--- NOTE | 2017-12-17 16:45 | PN ---
Progress Note Date of Service: 12/17/17 Note: USAMA KAPADIA was visited. Therapy notes read and reviewed. Usama was discussed in interdisciplinary team rounds. She has been limited by nausea and fatigue but feels good today. Will try Reglan for bowels/nausea Current Medications: Active Medications Generic Name Dose Route Start Last Admin Trade Name Freq PRN Reason Stop Dose Admin Acetaminophen 650 mg 12/09/17 16:04 Tylenol Tab* PO Q6H PRN FEVER/PAIN Ascorbic Acid 500 mg 12/11/17 09:00 12/17/17 14:05 Vitamin C Tab* PO 500 mg DAILY BR[facility]TON Administration Aspirin 81 mg 12/10/17 09:00 12/17/17 14:04 Aspirin Ec Low Dose* PO 81 mg DAILY [facility] Administration Atorvastatin Calcium 40 mg 12/09/17 17:00 12/17/17 15:55 Lipitor* PO 40 mg 1700 BR[facility]TON Administration Bisacodyl 10 mg 12/09/17 16:04 Dulcolax Supp* [place] DAILY PRN CONSTIPATION Bisoprolol Fumarate 5 mg 12/10/17 09:00 12/17/17 14:41 Zebeta Tab* PO 5 mg DAILY [facility]TON Administration Cilostazol 50 mg 12/09/17 21:00 12/17/17 14:41 Pletal Tab* PO 50 mg BID BRITTON Administration Clopidogrel Bisulfate 75 mg 12/13/17 09:00 12/17/17 13:15 Plavix Tab* PO 75 mg DAILY [facility] Administration Docusate Sodium 100 mg 12/09/17 21:00 12/17/17 13:18 Colace Cap* PO Not Given BID BR[facility]TON Metoclopramide HCl 5 mg 12/17/17 16:30 Reglan Tab* PO AC BR[facility]TON Ondansetron HCl 4 mg 12/12/17 12:50 12/12/17 14:19 Zofran Odt Tab* PO 4 mg Q6H PRN Administration NAUSEA/VOMITING Oxycodone HCl 5 mg 12/09/17 16:22 12/14/17 10:37 Roxycodone Tab* PO 5 mg Q4H PRN Administration PAIN - MODERATE TO SEVERE Pantoprazole Sodium 40 mg 12/10/17 09:00 12/17/17 14:41 Protonix Tab (Nf) PO 40 mg DAILY [facility] Administration Prochlorperazine 25 mg 12/15/17 16:03 12/16/17 11:29 Compazine Supp* [place] 25 mg Q12H PRN Administration NAUSEA Senna 2 tab 12/09/17 16:04 Senokot Tab* PO BEDTIME PRN CONSTIPATION Sertraline HCl 50 mg 12/15/17 09:00 12/17/17 13:15 Zoloft* PO 50 mg DAILY BR[facility] Administration Vital Signs: Vital Signs Temp Pulse Resp BP Pulse Ox 98.7 F 94 18 130/69 99 12/17/17 16:01 12/17/17 16:01 12/17/17 16:01 12/17/17 16:01 12/17/17 16:01 Exam: LUNGS: Clear bilaterally HEART: reg rhythm ABDOMEN: Soft, +BS EXTREMITIES: No edema : Holley in place draining dark, bloody urine NEUROLOGIC: Decreased sensation below T10. Some quadriceps in RLE, able to wiggle toes bilat. Assessment/Plan: 12/17/17 16:46 1. T10 JAC Class "C" Paraplegia: PT/OT 2. Hematuria: Stable 3. CKD/Renal failure: Hemodialysis. Renal diet. Follow urine output 4. 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 5. Neurogenic bladder: holley. May transition to ICP 6. Neurogenic bowel: Bowel program. Stools have been loose 7. PVD: Pletal 8. DVT Prophylaxis: SCDs. 9. Anemia of chronic disease: Check CBC 10. Advanced directives: full code 11. Depression: Zoloft started. Unclear if any effect 12. Nausea: Compazine Suppository PRN, Consider Marinol. Will add Reglan
[2017-12-17] MEDS: Metoclopramide TAB* 10 MG PO SCH (16:47)
[2017-12-18] MEDS: Metoclopramide TAB* 10 MG PO SCH ×3 (06:36→16:54)
[2017-12-18 07:22] LABS: Hematocrit 21 % (35-47); Hemoglobin 6.8 g/dl (12.0-16.0); Mean Corpuscular HGB Conc 33 g/dl (31-36); Mean Corpuscular Hemoglobin 29 pg (27-31); Mean Corpuscular Volume 88 fL (80-97); Mean Platelet Volume 8 um3 (7.4-10.4); Platelet Count 141 10^3/ul (150-450); Red Blood Count 2.37 10^6/ul (4.0-5.4); Red Cell Distribution Width 15 % (10.5-15); White Blood Count 5.4 10^3/ul (3.5-10.8)
[2017-12-18 07:40] LABS: EGFR Non-African American 11.9 (>60)
[2017-12-18 07:46] LABS: ABS Basophils 0 10^3/ul (0-0.2); ABS Eosinophils 0 10^3/ul (0-0.6); ABS Lymphocytes 0.3 10^3/ul (1.0-4.8); ABS Monocytes 0.4 10^3/ul (0-0.8); ABS Neutrophils 4.5 10^3/ul (1.5-7.7); ABS Nucleated RBC 0 10^3/ul; Eosinophil % 0.9 % (0-6); Lymphocyte % 5.7 % (25-47); Nucleated Red Blood Cells % 0
[2017-12-18] MEDS: Aspirin EC Low Dose* 81 MG TAB.EC PO SCH (08:24)
[2017-12-18] MEDS: Clopidogrel TAB* 75 MG PO SCH (08:24)
[2017-12-18] MEDS: Cilostazol TAB* 100 MG PO SCH ×2 (09:07→20:47)
[2017-12-18] MEDS: CMC:Pantoprazole TAB (NF) 40 MG TAB PO SCH (09:08)
[2017-12-18] MEDS: Docusate CAP* 100 MG PO SCH ×2 (09:09→20:47)
[2017-12-18] MEDS: Bisoprolol TAB* 5 MG PO SCH (09:09)
[2017-12-18] MEDS: Ascorbic Acid TAB* 500 MG PO SCH (09:51)
[2017-12-18] MEDS: Sertraline* 50 MG TAB PO SCH (09:51)
[2017-12-18] MEDS: Scopolamine 1.5 mg* PATCH TRANSDERM SCH (18:05)
--- NOTE | 2017-12-18 18:25 | PN ---
Progress Note Date of Service: 12/18/17 Note: USAMA KAPADIA was visited. Therapy notes read and reviewed. She continue to have trouble with nausea but refuses Zofran and didn't think Compazine suppositories helped. Her oral intake is not good. Will ask hospitalists to consult. She is anemic and likely needs Epogen. Will d/w Dr. Serrato. She remains on HD //. Her BP dropped in therapy, likely due to long periods of bedrest and paraplegia. Will ask therapy to work on sitting up more Current Medications: Active Medications Generic Name Dose Route Start Last Admin Trade Name Freq PRN Reason Stop Dose Admin Acetaminophen 650 mg 12/09/17 16:04 Tylenol Tab* PO Q6H PRN FEVER/PAIN Ascorbic Acid 500 mg 12/11/17 09:00 12/18/17 09:51 Vitamin C Tab* PO 500 mg DAILY [facility] Administration Aspirin 81 mg 12/10/17 09:00 12/18/17 08:24 Aspirin Ec Low Dose* PO 81 mg DAILY [facility] Administration Atorvastatin Calcium 40 mg 12/09/17 17:00 12/17/17 15:55 Lipitor* PO 40 mg 1700 BR[facility]TON Administration Bisacodyl 10 mg 12/09/17 16:04 Dulcolax Supp* [place] DAILY PRN CONSTIPATION Bisoprolol Fumarate 5 mg 12/10/17 09:00 12/18/17 09:09 Zebeta Tab* PO 5 mg DAILY BR[facility] Administration Cilostazol 50 mg 12/09/17 21:00 12/18/17 09:07 Pletal Tab* PO 50 mg BID BR[facility]TON Administration Clopidogrel Bisulfate 75 mg 12/13/17 09:00 12/18/17 08:24 Plavix Tab* PO 75 mg DAILY BR[facility]TON Administration Docusate Sodium 100 mg 12/09/17 21:00 12/18/17 09:09 Colace Cap* PO Not Given BID BR[facility]TON Metoclopramide HCl 5 mg 12/17/17 16:30 12/18/17 16:54 Reglan Tab* PO Not Given AC BRITTON Ondansetron HCl 4 mg 12/12/17 12:50 12/12/17 14:19 Zofran Odt Tab* PO 4 mg Q6H PRN Administration NAUSEA/VOMITING Oxycodone HCl 5 mg 12/09/17 16:22 12/14/17 10:37 Roxycodone Tab* PO 5 mg Q4H PRN Administration PAIN - MODERATE TO SEVERE Pantoprazole Sodium 40 mg 12/10/17 09:00 12/18/17 09:08 Protonix Tab (Nf) PO 40 mg DAILY [facility] Administration Scopolamine 1 patch 12/18/17 18:00 12/18/17 18:05 Transderm-Scop 1.5 Mg Patch* TRANSDERM 1 patch Q72H [facility] Administration Senna 2 tab 12/09/17 16:04 Senokot Tab* PO BEDTIME PRN CONSTIPATION Sertraline HCl 50 mg 12/15/17 09:00 12/18/17 09:51 Zoloft* PO 50 mg DAILY BR[facility] Administration Vital Signs: Vital Signs Temp Pulse Resp BP Pulse Ox 98.4 F 92 12 117/62 99 12/18/17 16:30 12/18/17 16:30 12/18/17 16:45 12/18/17 16:30 12/18/17 16:45 Lab Results: Laboratory Results - last 24 hr 12/18/17 12/18/17 06:55 06:55 WBC 5.4 RBC 2.37 L Hgb 6.8 L Hct 21 L MCV 88 MCH 29 MCHC 33 RDW 15 Plt Count 141 L MPV 8 Neut % (Auto) 85.7 H Lymph % (Auto) 5.7 L [place] % (Auto) 6.9 Eos % (Auto) 0.9 Baso % (Auto) 0.8 Absolute Neuts (auto) 4.5 Absolute Lymphs (auto) 0.3 L Absolute Monos (auto) 0.4 Absolute Eos (auto) 0 Absolute Basos (auto) 0 Absolute Nucleated RBC 0 Nucleated RBC % 0 Sodium 132 L Potassium 3.9 Chloride 96 L Carbon Dioxide 25 Anion Gap 11 BUN 18 Creatinine 3.85 H Est GFR ( Amer) 15.4 Est GFR (Non-Af Amer) 11.9 BUN/Creatinine Ratio 4.7 L Glucose 91 Calcium 8.3 L Total Bilirubin 0.80 AST 13 ALT 4 L Alkaline Phosphatase 70 Total Protein 5.1 L Albumin 2.3 L Globulin 2.8 Albumin/Globulin Ratio 0.8 L Exam: LUNGS: Clear bilaterally HEART: reg rhythm ABDOMEN: Soft, BS audible EXTREMITIES: No edema : Holley in place draining dark, bloody urine NEUROLOGIC: Decreased sensation below T10. Some quadriceps in RLE, able to wiggle toes bilat. Assessment/Plan: 12/18/17 18:25 1. T10 JAC Class "C" Paraplegia: PT/OT 2. Hematuria: Stable 3. CKD/Renal failure: Hemodialysis. Renal diet. Follow urine output 4. 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 5. Neurogenic bladder: holley. May transition to ICP 6. Neurogenic bowel: Bowel program. Stools have been loose 7. PVD: Pletal 8. DVT Prophylaxis: SCDs. 9. Anemia of chronic disease: Check CBC 10. Advanced directives: full code 11. Depression: Zoloft started. Unclear if any effect. Will ask for psychiatry consult 12. Nausea: Try Scopolamine patch. Have asked hospitalists to see, Consider Marinol. Added Adonay, patient refused this at 430 pm today
[2017-12-18] MEDS: Atorvastatin* 40 MG TAB PO SCH (20:47)
[2017-12-19] MEDS: Ondansetron ODT TAB* 4 MG PO PRN (11:31)
[2017-12-19] MEDS: Metoclopramide TAB* 10 MG PO SCH ×2 (12:23→16:42)
[2017-12-19] MEDS: Ascorbic Acid TAB* 500 MG PO SCH (12:24)
[2017-12-19] MEDS: Cilostazol TAB* 100 MG PO SCH ×2 (13:11→20:52)
[2017-12-19] MEDS: Docusate CAP* 100 MG PO SCH ×2 (13:11→20:52)
[2017-12-19] MEDS: Aspirin EC Low Dose* 81 MG TAB.EC PO SCH (13:11)
[2017-12-19] MEDS: Sertraline* 50 MG TAB PO SCH (13:11)
[2017-12-19] MEDS: CMC:Pantoprazole TAB (NF) 40 MG TAB PO SCH (13:11)
[2017-12-19] MEDS: Bisoprolol TAB* 5 MG PO SCH (13:11)
[2017-12-19] MEDS: Clopidogrel TAB* 75 MG PO SCH (13:11)
[2017-12-19] MEDS: Atorvastatin* 40 MG TAB PO SCH (16:42)
--- NOTE | 2017-12-19 17:40 | PN ---
Progress Note Date of Service: 12/19/17 Note: USAMA KAPADIA was visited. Therapy notes read and reviewed. The Envelope Sealing Machine Operator and I met with Usama and her . She is quite resistant to all suggestions to help her with regards to living situation, dialysis, etc. Often refuses pills to help with nausea. She had a CT scan of abd/pelvis in [place]. She has little appetite and complains of nausea. When I ask why she's refusing medicines ordered to help with nausea, she replies, "I don't want any more pills." I have asked psychiatry to see. I have told her she won't be able to stay if she doesn't try to do therapy. Current Medications: Active Medications Generic Name Dose Route Start Last Admin Trade Name Freq PRN Reason Stop Dose Admin Acetaminophen 650 mg 12/09/17 16:04 Tylenol Tab* PO Q6H PRN FEVER/PAIN Ascorbic Acid 500 mg 12/11/17 09:00 12/19/17 12:24 Vitamin C Tab* PO Not Given DAILY [facility] Aspirin 81 mg 12/10/17 09:00 12/19/17 13:11 Aspirin Ec Low Dose* PO Not Given DAILY [facility] Atorvastatin Calcium 40 mg 12/09/17 17:00 12/19/17 16:42 Lipitor* PO Not Given 1700 BR[facility] Bisacodyl 10 mg 12/09/17 16:04 Dulcolax Supp* [place] DAILY PRN CONSTIPATION Bisoprolol Fumarate 5 mg 12/10/17 09:00 12/19/17 13:11 Zebeta Tab* PO Not Given DAILY [facility] Cilostazol 50 mg 12/09/17 21:00 12/19/17 13:11 Pletal Tab* PO Not Given BID BR[facility]TON Clopidogrel Bisulfate 75 mg 12/13/17 09:00 12/19/17 13:11 Plavix Tab* PO Not Given DAILY BR[facility] Docusate Sodium 100 mg 12/09/17 21:00 12/19/17 13:11 Colace Cap* PO Not Given BID BRITTON Metoclopramide HCl 5 mg 12/17/17 16:30 12/19/17 16:42 Reglan Tab* PO Not Given AC BRITTON Ondansetron HCl 4 mg 12/12/17 12:50 12/19/17 11:31 Zofran Odt Tab* PO 4 mg Q6H PRN Administration NAUSEA/VOMITING Oxycodone HCl 5 mg 12/09/17 16:22 12/14/17 10:37 Roxycodone Tab* PO 5 mg Q4H PRN Administration PAIN - MODERATE TO SEVERE Pantoprazole Sodium 40 mg 12/10/17 09:00 12/19/17 13:11 Protonix Tab (Nf) PO Not Given DAILY [facility] Pharmacy Profile Note 1 note 12/21/17 18:00 Scopolamine Patch Remove* PATCH OFF Q72H BR[facility]TON Scopolamine 1 patch 12/18/17 18:00 12/18/17 18:05 Transderm-Scop 1.5 Mg Patch* TRANSDERM 1 patch Q72H [facility] Administration Senna 2 tab 12/09/17 16:04 Senokot Tab* PO BEDTIME PRN CONSTIPATION Sertraline HCl 50 mg 12/15/17 09:00 12/19/17 13:11 Zoloft* PO Not Given DAILY [facility] Vital Signs: Vital Signs Temp Pulse Resp BP Pulse Ox 98.9 F 97 16 124/60 94 12/19/17 15:01 12/19/17 15:01 12/19/17 15:01 12/19/17 15:01 12/19/17 16:43 Exam: LUNGS: Clear bilaterally HEART: reg rhythm ABDOMEN: Soft, BS audible EXTREMITIES: No edema, LE starting to atrophy : Holley in place draining dark, bloody urine NEUROLOGIC: Decreased sensation below T10. Some quadriceps in RLE, able to wiggle toes bilat. Assessment/Plan: 12/19/17 17:41 1. T10 JAC Class "C" Paraplegia: PT/OT 2. Hematuria: Stable 3. CKD/Renal failure: Hemodialysis. Renal diet. Follow urine output 4. 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 5. Neurogenic bladder: holley. May transition to ICP 6. Neurogenic bowel: Bowel program. Stools have been loose 7. PVD: Pletal 8. DVT Prophylaxis: SCDs. 9. Anemia of chronic disease: Check CBC 10. Advanced directives: full code 11. Depression: Zoloft started. Unclear if any effect. Will ask for psychiatry consult 12. Nausea: Try Scopolamine patch. Have asked hospitalists to see, Consider Marinol. Added Reglan, patient often refuses
[2017-12-20] MEDS: Metoclopramide TAB* 10 MG PO SCH ×3 (06:15→16:44)
[2017-12-20] MEDS: Cilostazol TAB* 100 MG PO SCH ×2 (09:11→21:05)
[2017-12-20] MEDS: Ascorbic Acid TAB* 500 MG PO SCH (09:12)
[2017-12-20] MEDS: Clopidogrel TAB* 75 MG PO SCH (09:12)
[2017-12-20] MEDS: Sertraline* 50 MG TAB PO SCH (09:12)
[2017-12-20] MEDS: Aspirin EC Low Dose* 81 MG TAB.EC PO SCH (09:12)
[2017-12-20] MEDS: CMC:Pantoprazole TAB (NF) 40 MG TAB PO SCH (09:12)
[2017-12-20] MEDS: Ondansetron ODT TAB* 4 MG PO PRN (09:12)
[2017-12-20] MEDS: Bisoprolol TAB* 5 MG PO SCH (09:12)
[2017-12-20] MEDS: Docusate CAP* 100 MG PO SCH (09:17)
--- NOTE | 2017-12-20 10:28 | PN ---
Progress Note Date of Service: 12/20/17 Note: USAMA KAPADIA was visited. Therapy and nursing notes read and reviewed. She ate a few crackers this morning. Yesterday she had a boost in dialysis and vomited it in PT. She has a very poor appetite and is even not interested in fluids. She normally does not eat much, but more than she is now. She notes when she sits up she does feel some abdominal discomfort as if something is pulling her inside and then she will often ask to lay back down. Stools are noted to be loose and not formed. She has been incontinent of stool. She has rectal sensation but is not aware when she has liquid stool. No chest pain, shortness of breath or abdominal pain. Current Medications: Active Medications Generic Name Dose Route Start Last Admin Trade Name Freq PRN Reason Stop Dose Admin Acetaminophen 650 mg 12/09/17 16:04 Tylenol Tab* PO Q6H PRN FEVER/PAIN Ascorbic Acid 500 mg 12/11/17 09:00 12/20/17 09:12 Vitamin C Tab* PO 500 mg DAILY [facility] Administration Aspirin 81 mg 12/10/17 09:00 12/20/17 09:12 Aspirin Ec Low Dose* PO 81 mg DAILY [facility] Administration Atorvastatin Calcium 40 mg 12/09/17 17:00 12/19/17 16:42 Lipitor* PO Not Given 1700 BR[facility]TON Bisacodyl 10 mg 12/09/17 16:04 Dulcolax Supp* [place] DAILY PRN CONSTIPATION Bisoprolol Fumarate 5 mg 12/10/17 09:00 12/20/17 09:12 Zebeta Tab* PO 5 mg DAILY [facility] Administration Cilostazol 50 mg 12/09/17 21:00 12/20/17 09:11 Pletal Tab* PO 50 mg BID BR[facility]TON Administration Clopidogrel Bisulfate 75 mg 12/13/17 09:00 12/20/17 09:12 Plavix Tab* PO 75 mg DAILY [facility] Administration Docusate Sodium 100 mg 12/20/17 10:06 Colace Cap* PO BID PRN CONSTIPATION Metoclopramide HCl 5 mg 12/17/17 16:30 12/20/17 06:15 Reglan Tab* PO 5 mg AC BR[facility]TON Administration Ondansetron HCl 4 mg 12/12/17 12:50 12/20/17 09:12 Zofran Odt Tab* PO 4 mg Q6H PRN Administration NAUSEA/VOMITING Oxycodone HCl 5 mg 12/09/17 16:22 12/14/17 10:37 Roxycodone Tab* PO 5 mg Q4H PRN Administration PAIN - MODERATE TO SEVERE Pantoprazole Sodium 40 mg 12/10/17 09:00 12/20/17 09:12 Protonix Tab (Nf) PO 40 mg DAILY BR[facility]TON Administration Pharmacy Profile Note 1 note 12/21/17 18:00 Scopolamine Patch Remove* PATCH OFF Q72H BR[facility]TON Psyllium Hydrophilic Mucilloid 1 pkt 12/20/17 11:00 Metamucil Macho* PO DAILY BRITTON Scopolamine 1 patch 12/18/17 18:00 12/18/17 18:05 Transderm-Scop 1.5 Mg Patch* TRANSDERM 1 patch Q72H [facility] Administration Senna 2 tab 12/09/17 16:04 Senokot Tab* PO BEDTIME PRN CONSTIPATION Sertraline HCl 50 mg 12/15/17 09:00 12/20/17 09:12 Zoloft* PO 50 mg DAILY BRITTON Administration Vital Signs: Vital Signs Temp Pulse Resp BP Pulse Ox 98.0 F 91 14 131/59 96 12/20/17 06:10 12/20/17 06:10 12/20/17 06:10 12/20/17 06:10 12/20/17 06:10 Exam: Exam: GEN: No acute distress. Alert and appropriate. LUNGS: Clear bilaterally HEART: regular rate and rhythm ABDOMEN: Soft, +BS, non-distended. Mild discomfort to palpation in LLQ. EXTREMITIES: No edema : Holley in place draining dark, bloody urine NEUROLOGIC: She can feel light touch below the level of the injury and into her feet. She just demonstrates trace toe movements. 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 1. T10 JAC B Paraplegia with lack of significant anti-gravity motor function below the level of injury. I d/w her noted dizziness when up with therapy and reasons why this can happen (venostasis, deconditioned autonomics from being supine, dialysis, hydration status). Will start to ARUNA wrap legs to groin QAM before out of bed and consider abdominal binder. If BP drops are consistently noted consider use of midodrine or florinef. 2. Hematuria: Stable 3. CKD/Renal failure: Hemodialysis. Renal diet. Follow urine output 4. 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 Could consider low dose gabapentin. 5. Neurogenic bladder: holley. May transition to ICP 6. Neurogenic bowel: Bowel program. Stools have been loose. Change colace to prn and add metamucil to bulk stool. I d/w patient this may take a few days and also depends on her oral intake. 7. PVD: Pletal. Also on plavix. 8. DVT Prophylaxis: SCDs. 9. Anemia of chronic disease: Check CBC tomorrow. 10. Advanced directives: full code 11. Depression: Zoloft started. Unclear if any effect. Pending psychiatry consult 12. Nausea: On Scopolamine patch. I called hospitalists this morning to remind of consult as nothing documented yet. Patient thinks may have seen someone yesterday. Consider Marinol. On Reglan but patient often refuses. 12/20/17 10:28
--- NOTE | 2017-12-20 12:44 | CONSULT ---
Consult Consult: Pt seen 12/19 7pm. Full consult dictated. in re: intractable nausea. Challenging case. # Would continue the zofran, reglan, compazine and scopalamine patch. Only intermittently taking the anti-nausea medications which obviously have impact on their effectiveness. Per RN seems to be fixated on the devastating injury complication and acute depression may be playing a role. # Consider gastric empyting study if not performed at [facility]. Given embolization gone awry may have been possible to effect envervation of stomach or GI tract? # Consider blood transfusion given continued hematuria, tachycardia and hgb 6.8 on 12/18. # is hyponatremic but not markedly so and Uremia seems controlled. Continue HD.
[2017-12-20] MEDS: Psyllium PAK PO SCH (13:37)
[2017-12-20] MEDS: Atorvastatin* 40 MG TAB PO SCH (16:45)
--- NOTE | 2017-12-20 20:37 | CONS ---
CONSULTATION REPORT: DATE OF EVALUATION: 12/19/17 CONSULTING PROVIDER: Brice Bey MD CONSULTING HOSPITALIST: Lawson Vaughan MD REASON FOR CONSULT: Intractable nausea in the setting of T10 incomplete paraplegia. HISTORY OF PRESENT ILLNESS: Evelyn Ortiz is an unfortunate 62-year-old female with past medical history of polycystic kidney disease with end-stage renal disease, coronary artery disease, status post stents to the left anterior descending artery. She had presented to [facility] on November 14 with complaints of ongoing hematuria and pain. This was confirmed on UA and the CT of her abdomen demonstrated polycystic kidney disease with marked renal enlargement. She was transferred to [facility] where Urology evaluated her and recommended continuous bladder irrigation. However, her pain did not improve neither did her hematuria. At the [facility], Interventional Radiology was consulted for possible renal artery embolization and in the setting of her refractory pain and hematuria and she had this bilateral renal embolization done. Extremely unfortunately, she had complication as immediately following the procedure, she was unable to move her legs and MRI of the lumbar spine and thoracic spine showed patchy infarct of her anterior spine extending from T10 to L1. Proprioception was spared and pain was absent and she had weakness. The EMG demonstrated normal conduction. There was concern that the embolization affected the artery of Adamkiewicz. She needed to be started on dialysis at [facility]. Her CBI was stopped. She had been on Duragesic, OxyContin and oxycodone. She was transferred on 12/09/17 to [facility] for acute rehab needs with the goal of returning to independent living. Since that time and she states immediately after the surgery, she has had intractable nausea and dry heaving. She states nothing helps including Reglan, Zofran, Compazine. She has been only intermittently accepting these medications. Today , she was able to tolerate 2 saltine crackers. She did vomit a shake almost immediately after returning from hemodialysis. She did get scopolamine patch yesterday and Compazine suppository on 12/16/17. She had Zofran today. Prior today, she has not had any Zofran since the first. She got Reglan on 12/17/17 p.m. and 12/18/17 a.m., but had refused since then. Per nursing report, the patient seems to not have come to terms with devastating injury complications that she had suffered and talks about it with her family members constantly. She also attest to some left lower quadrant abdominal pain and that seems worse when working with physical therapy. She does have intact sensation she says in her lower extremities and can wiggle her toes. CURRENT MEDICATIONS: Include; 1. Tylenol 650 mg p.o. q.6 hours p.r.n. 2. Ascorbic acid 500 mg p.o. daily. 3. Aspirin 81 mg daily. 4. Atorvastatin 40 mg q.h.s. 5. Dulcolax suppository 10 mg P.R. daily p.r.n. 6. Zebeta 5 mg p.o. daily. 7. Cilostazol 50 mg p.o. b.i.d. 8. Plavix 75 mg p.o. daily. 9. Docusate 100 mg p.o. b.i.d. p.r.n. 10. Reglan 5 mg p.o. q.a.c. 11. Zofran 4 mg p.o. q. 6 hours p.r.n. 12. Oxycodone 5 mg p.o. q.4 hours p.r.n. 13. Protonix 40 mg p.o. daily. 14. Saline 1 packet daily. 15. Scopolamine patch 1 patch transdermally q.72 hours. 16. Senna 2 tabs p.o. at bedtime p.r.n. 17. Zoloft 50 mg p.o. daily. ALLERGIES: Include: 1. CLONIDINE causing severe swelling of the face, lips, and throat. 2. CIPRO causing GI upset. 3. SIMVASTATIN, unknown. 4. CODEINE, GI upset. 5. FLAGYL, GI upset. FAMILY MEDICAL HISTORY: Significant for brain cancer and uterine cancer (sister ). SOCIAL HISTORY: She is a nonsmoker, nondrinker. Lives in a trailer with her . REVIEW OF SYSTEMS: The patient denies chest pain, shortness of breath. Does attest to left lower quadrant abdominal pain. Per Nursing, she does have continued hematuria and she is incontinent of her bowel function. She has a Guzman in place. PHYSICAL EXAM: General Appearance: No acute distress, lying in bed. Vital Signs: Temperature 98.9, blood pressure 124/60, satting 94% on room air with respiratory rate 16, heart rate 97. HEENT: Normocephalic, atraumatic. Pupils are equal, round and reactive to light. No scleral icterus. Lungs: Clear to auscultation anteriorly. Cardiovascular: Regular rate and rhythm. No murmurs , rubs, or gallops. Abdomen: Slight tenderness to left lower quadrant. Soft, nondistended. Skin: No lesions. No rashes. Neuro Exam: The patient preserved care program resident strength bilaterally, able to wiggle her toes bilaterally. Attest to being able to feel in her thighs. Guzman with dark maroon urine. DIAGNOSTIC STUDIES/LAB DATA: Labs from 12/18/17 showed a hemoglobin of 6.8, hematocrit of 21, platelets of 141. Sodium of 132, potassium 3.9, chloride 96, carbon dioxide 25, BUN 18, creatinine 3.85. IMAGING: None here. ASSESSMENT AND PLAN: Evelyn Ortiz is a very unfortunate 62-year-old female with history of polycystic disease, recent hematuria and attempted bilateral renal artery embolization, which was complicated by substantial damage or embolization to the artery of Adamkiewicz resulting in partial T10 paraplegia and this course has been complicated by intractable nausea and dry heaving. This nausea started ever since her neurological insult. The patient seems and per report of nurse to be anxious/depression and possibly has not accepted her devastating neurological injury, which is of course quite unfortunate. On review of the MAR, it seems like she is intermittently able to swallow and keep down her pills, but only intermittently getting the antinausea medications. Of course, it is a little difficult to see if the Reglan, Zofran, and Compazine ( now with addition of scopolamine patch) will work if she is not actually taking them. It seems like she is now able to handle at least some crackers today in the setting of actually giving the Zofran. Consideration could be given for either a GI consult or gastric emptying study to see if she has functional gastroparesis. She is now end-stage renal disease and potential uremia could have been a cause, but she seems to be controlled in that aspect and obviously we will need to continue her hemodialysis as per original schedule. Her sodium is a little bit low at 132, not likely to cause this level of nausea. Would continue to check BMPs no less frequently than 1 week. She is anemic to 6.8 on last check and tachycardic. Could consider transfusing 1 unit especially given that she has continued bloody output in her Guzman and it might make her feel a little bit better. Otherwise, it is a challenging case. Will have to do more research about artery of Adamkiewicz injury to see if there is any other further etiology of her nausea, but will continue the Zofran, Phenergan, Compazine, and scopolamine patches you are doing and perhaps a psychiatric consult if she is not improving mood zhao. Thank you for this interesting consult. [id number]/CPS #: [id number] YAMILE
--- NOTE | 2017-12-20 22:08 | PN ---
Subjective Date of Service: 12/20/17 Interval History: Patient states that she is feeling better today, was able to drink some fluids today. Denies vomit or nausea at this time, Denies chest pain or shortness of breath. Family History: Unchanged from Admission Social History: Unchanged from Admission Past Medical History: Unchanged from Admission Objective Active Medications: Acetaminophen (Tylenol Tab*) 650 mg PO Q6H PRN PRN Reason: FEVER/PAIN Ascorbic Acid (Vitamin C Tab*) 500 mg PO DAILY [facility] Last Admin: 12/20/17 09:12 Dose: 500 mg Aspirin (Aspirin Ec Low Dose*) 81 mg PO DAILY [facility] Last Admin: 12/20/17 09:12 Dose: 81 mg Atorvastatin Calcium (Lipitor*) 40 mg PO 1700 [facility] Last Admin: 12/20/17 16:45 Dose: 40 mg Bisacodyl (Dulcolax Supp*) 10 mg [place] DAILY PRN PRN Reason: CONSTIPATION Bisoprolol Fumarate (Zebeta Tab*) 5 mg PO DAILY [facility] Last Admin: 12/20/17 09:12 Dose: 5 mg Cilostazol (Pletal Tab*) 50 mg PO BID [facility] Last Admin: 12/20/17 09:11 Dose: 50 mg Clopidogrel Bisulfate (Plavix Tab*) 75 mg PO DAILY [facility] Last Admin: 12/20/17 09:12 Dose: 75 mg Docusate Sodium (Colace Cap*) 100 mg PO BID PRN PRN Reason: CONSTIPATION Metoclopramide HCl (Reglan Tab*) 5 mg PO AC [facility] Last Admin: 12/20/17 16:44 Dose: 5 mg Ondansetron HCl (Zofran Odt Tab*) 4 mg PO Q6H PRN PRN Reason: NAUSEA/VOMITING Last Admin: 12/20/17 09:12 Dose: 4 mg Oxycodone HCl (Roxycodone Tab*) 5 mg PO Q4H PRN PRN Reason: PAIN - MODERATE TO SEVERE Last Admin: 12/14/17 10:37 Dose: 5 mg Pantoprazole Sodium (Protonix Tab (Nf)) 40 mg PO DAILY [facility] Last Admin: 12/20/17 09:12 Dose: 40 mg Pharmacy Profile Note (Scopolamine Patch Remove*) 1 note PATCH OFF Q72H [facility] Psyllium Hydrophilic Mucilloid (Metamucil Macho*) 1 pkt PO DAILY [facility] Last Admin: 12/20/17 13:37 Dose: 1 pkt Scopolamine (Transderm-Scop 1.5 Mg Patch*) 1 patch TRANSDERM Q72H [facility] Last Admin: 12/18/17 18:05 Dose: 1 patch Senna (Senokot Tab*) 2 tab PO BEDTIME PRN PRN Reason: CONSTIPATION Sertraline HCl (Zoloft*) 50 mg PO DAILY [facility] Last Admin: 12/20/17 09:12 Dose: 50 mg Vital Signs - 8 hr 12/20/17 12/20/17 15:41 16:12 Temperature 99.1 F Pulse Rate 84 Respiratory 18 Rate Blood Pressure 113/55 (mmHg) O2 Sat by Pulse 100 100 Oximetry Oxygen Devices in Use Now: None Appearance: appears comfort resting in bed, smiling appears in good spirits Eyes: No Scleral Icterus Ears/Nose/Mouth/Throat: Clear Oropharnyx, Mucous Membranes Moist Neck: NL Appearance and Movements; NL JVP, Trachea Midline Respiratory: Symmetrical Chest Expansion and Respiratory Effort, Clear to Auscultation Cardiovascular: RRR, No Edema Abdominal: - - left lower abd with tenderness with palpation, soft, BS + x4 Extremities: No Edema, No Clubbing, Cyanosis Skin: No Rash or Ulcers Neurological: Alert and Oriented x 3 Nutrition: Taking PO's, - - sips Result Diagrams: 12/18/17 06:55 12/18/17 06:55 Assess/Plan/Problems-Billing IMPRESSION/PLAN: 62yo woman with PCKD s/p renal hemorrhage and 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 1. T10 JAC B Paraplegia with lack of significant anti-gravity motor function below the level of injury. I d/w her noted dizziness when up with therapy and reasons why this can happen (venostasis, deconditioned autonomics from being supine, dialysis, hydration status. - Patient Problems (1) Nausea Current Visit: Yes Status: Acute Code(s): R11.0 - NAUSEA SNOMED Code(s): 183112525 Comment: Patient was seen in follow up today for Nausea. Patient reports that she is feeling better, she has been tolerating her nausea medications. She reports that she went to the lobby today. ~ I agree with Dr. Vaughan recommendations; continue nausea medications; gastric study; ~GI consult if the nausea continue and is unrelieved with current medications ~could start remeron 15 mg po daily for appetite stimulation Status and Disposition: At this time we will sign off, thank you for this consultation. We will follow as needed in the future.
--- NOTE | 2017-12-20 22:58 | CONS ---
PSYCHIATRIC CONSULTATION: DATE OF ADMISSION: 12/09/17 DATE OF CONSULTATION: 12/20/17 ATTENDING PHYSICIAN: Brice Bey MD CONSULTING CLINICIAN: Koffi Flores MD REASON FOR CONSULT: Depression. SUBJECTIVE HISTORY: Psychiatry is asked to see this 62-year-old white female with no prior mental health history who arrived as a transfer from [facility] to the physical medicine and rehabilitation unit following an untoward event resulting from an Interventional Radiology bilateral renal artery embolization. Apparently, the patient procedure did not go well and she experienced an infarct to her anterior spine extending from T10 to L1. Although proprioception is spared, she has no functional movements in her legs and she is essentially paraplegic. The patient has been minimally cooperative with the therapies involved in her stay on physical medicine unit. She has been perceived as depressed and isolative. I did speak with attending clinician, Brice Bey, who states that he began becoming concerned about her mood and started her on a trial of sertraline 50 mg p.o. daily on 12/15/17. When I meet with the patient, she is currently being visited by her friends and family and seems to have experienced an emotional lift from this. There are some complicating psychosocial factors that they are working on with the staff including trying to find a handicap accessible place for her to live. A further complicating factor is that there are limitations in the availability of renal dialysis in [facility] and public transportation options will not cross [facility]. The primary team is trying to encourage her to consider moving to the [facility] so that she can access appropriate dialysis services; however, the patient is resistant to this. As I meet with her, she is calm and cooperative. When asked about her reactions to her recent bad news, she states "why me." The patient is resistant to moving out of [facility] stating that she enjoys watching her grandchildren on weekends and would like to remain in the [facility]. She does openly endorse depressed mood stating that she often cries, shuts her blinds and avoids watching TV or doing things for fun. She does indicate that she has good communication with her family and and that they are extremely supportive; however, she is feeling somewhat of a burden to them. When asked what her future game plan is, she is future oriented indicating that she wants to find a new home in the [facility] , which is handicap accessible. I did screen her for neurovegetative symptoms of depression and she endorse difficulty sleeping, poor energy, appetite loss, psychomotor retardation and thoughts that she would be better off . She did , however, deny any suicidal plan. She also denied anhedonia, guilt, or concentration disturbances. PAST PSYCHIATRIC HISTORY: Noncontributory for any history of psychiatric hospitalization, medication treatment or therapies. She has never had any suicidality. No history of violence or homicidality. She denies any history of abuse or neglect. She denies any history of traumatic brain injury. SUBSTANCE ABUSE HISTORY: Significant for social alcohol use but never more than 2 to 3 drinks at a time. She indicates that she quit smoking tobacco 20 years ago. The patient has no history of illicit drug abuse. PAST MEDICAL HISTORY: Significant for chronic kidney disease, hypertension, gastroesophageal reflux disease, coronary artery disease, and recent bilateral renal embolization of her renal arteries. CURRENT MEDICATIONS: Include Zoloft 50 mg p.o. daily. FAMILY HISTORY: Noncontributory. SOCIAL HISTORY: The patient was born and raised in [place]. She is the youngest of 4 children. She has 2 older siblings who are and she has a sister, who resides in [place]. The patient has been x1 for the past 23 years. They have 3 children together. She has 1 son and 1 daughter and then a second son, who was put up for adoption and is now estranged. She has a 10th grade education dropping out in order to start working. 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 She last worked 10 years ago but has been on disability since with kidney disease. The patient has 2 grand kids whom she enjoys taking care of. She has no history of service. She is neither shinto nor spiritual. She has no active legal problems. Her hobbies include playing euchre at the local [employer] club in [place]. MENTAL STATUS EXAM: The patient is an aging white female, who is paraplegic. She has braces on her bilateral lower extremities. She is clean, well-groomed, makes good eye contact and is fairly easy to establish a rapport with. Her speech has a normal rate, tone, and volume. Mood is depressed with a constricted affect. Thought process is linear, goal directed. Thought content is significant for her desire to leave the hospital and get into a new house, so that she can be with friends and family. She is denying formal suicidal ideations, although she does admit to passive thoughts of to the effect that she would perhaps be better off . She denies homicidality. The patient denies auditory or visual hallucinations. Insight and judgment are fair given her willingness to accept antidepressant therapy for depression. Cognitively, she is awake and alert with what would appear to be an average intellect. DIAGNOSES: Are as follows: [place] I: Major depressive disorder, single episode, severe without psychotic features. [place] II: Deferred. ASSESSMENT: The patient is a 62-year-old white female with no past psychiatric history who is currently experiencing bilateral paralysis secondary to infarct of her anterior spine resulting from bilateral renal embolization at an outside hospital. Since discovering she no longer has the use of her legs and is incontinent, she is understandably quite upset by this and experiencing symptoms of depression. She has accepted a trial of low dose sertraline therapy , although when I asked her about offering counseling or therapy in an outpatient setting, she declined this. RECOMMENDATIONS: Recommendations to primary team, Psychiatry feels that the patient is not a danger to herself and she is psychiatrically cleared for discharge back to the patient community. I do not see any benefit from her coming to the behavioral science unit. I do see that sertraline is a good option for her and she is tolerating this well so far. We recommend leaving the dose at 50 mg p.o. daily, although she could increase this as high as 200 mg in the future if needed for beneficial effect. Psychiatry will continue to follow the patient as long as she is on the rehab unit. If there are further questions or concerns, we can be contacted by the primary team. I want to thank you for the consult of this interesting and very tragic patient situation. [id number]/[facility] #: [id number] YAMILE
--- NOTE | 2017-12-21 10:06 | PN ---
Progress Note Date of Service: 12/21/17 Note: USAMA KAPADIA was visited in dialysis. Therapy and nursing notes read and reviewed. She had a pretty good day yesterday and ate her dinner. Appreciate consults from hospitalists and psychiatry. Usama did eat dinner last night. She has not had anything to eat or drink yet today. She agreed to try also using the abdominal binder to see if that helps her with some of her pain and trunk stability when up, but has not tried it yet. No chest pain, shortness of breath or abdominal pain. She is irritated by the holley right right and feels like she wants to push it out. Current Medications: Active Medications Generic Name Dose Route Start Last Admin Trade Name Freq PRN Reason Stop Dose Admin Acetaminophen 650 mg 12/09/17 16:04 Tylenol Tab* PO Q6H PRN FEVER/PAIN Ascorbic Acid 500 mg 12/11/17 09:00 12/20/17 09:12 Vitamin C Tab* PO 500 mg DAILY [facility] Administration Aspirin 81 mg 12/10/17 09:00 12/20/17 09:12 Aspirin Ec Low Dose* PO 81 mg DAILY [facility] Administration Atorvastatin Calcium 40 mg 12/09/17 17:00 12/20/17 16:45 Lipitor* PO 40 mg 1700 [facility] Administration Bisacodyl 10 mg 12/09/17 16:04 Dulcolax Supp* MA DAILY PRN CONSTIPATION Bisoprolol Fumarate 5 mg 12/10/17 09:00 12/20/17 09:12 Zebeta Tab* PO 5 mg DAILY [facility] Administration Cilostazol 50 mg 12/09/17 21:00 12/20/17 21:05 Pletal Tab* PO 50 mg BID [facility] Administration Clopidogrel Bisulfate 75 mg 12/13/17 09:00 12/20/17 09:12 Plavix Tab* PO 75 mg DAILY [facility] Administration Docusate Sodium 100 mg 12/20/17 10:06 Colace Cap* PO BID PRN CONSTIPATION Metoclopramide HCl 5 mg 12/17/17 16:30 12/20/17 16:44 Reglan Tab* PO 5 mg AC [facility] Administration Ondansetron HCl 4 mg 12/12/17 12:50 12/20/17 09:12 Zofran Odt Tab* PO 4 mg Q6H PRN Administration NAUSEA/VOMITING Oxycodone HCl 5 mg 12/09/17 16:22 12/14/17 10:37 Roxycodone Tab* PO 5 mg Q4H PRN Administration PAIN - MODERATE TO SEVERE Pantoprazole Sodium 40 mg 12/10/17 09:00 12/20/17 09:12 Protonix Tab (Nf) PO 40 mg DAILY [facility] Administration Pharmacy Profile Note 1 note 12/21/17 18:00 Scopolamine Patch Remove* PATCH OFF Q72H [facility] Psyllium Hydrophilic Mucilloid 1 pkt 12/20/17 11:00 12/20/17 13:37 Metamucil Macho* PO 1 pkt DAILY [facility] Administration Scopolamine 1 patch 12/18/17 18:00 12/18/17 18:05 Transderm-Scop 1.5 Mg Patch* TRANSDERM 1 patch Q72H [facility] Administration Senna 2 tab 12/09/17 16:04 Senokot Tab* PO BEDTIME PRN CONSTIPATION Sertraline HCl 50 mg 12/15/17 09:00 12/20/17 09:12 Zoloft* PO 50 mg DAILY [facility] Administration Vital Signs: Vital Signs Temp Pulse Resp BP Pulse Ox 99.2 F 91 18 123/56 95 12/21/17 06:06 12/21/17 06:06 12/21/17 06:06 12/21/17 06:06 12/21/17 06:06 Exam: GEN: No acute distress. Alert and appropriate. LUNGS: Clear bilaterally HEART: regular rate and rhythm ABDOMEN: Soft, +BS, non-distended. Mild discomfort to palpation in LLQ. EXTREMITIES: No edema : Holley in place draining dark, bloody urine NEUROLOGIC: She can feel light touch below the level of the injury and into her feet. She just demonstrates trace toe movements and trace right quads and hip movements. 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 1. T10 JAC C Paraplegia with lack of significant anti-gravity motor function below the level of injury. ARUNA wrap legs to groin QAM before out of bed and trial of abdominal binder. If BP drops are consistently noted consider use of midodrine or florinef. 2. Hematuria: Stable. 3. CKD/Renal failure: Hemodialysis. Renal diet. Follow urine output 4. Pain from renal infarcts and possible neuropathic pain in zone of partial preservation: Has Oxycodone PRN, that she has not used. Could consider low dose gabapentin. Trial of abdominal binder. 5. Neurogenic bladder: holley. May transition to ICP. I d/w nursing bladder scan x1 to make sure holley is draining since she feels urgency. Holley probably due for change next week. 6. Neurogenic bowel: Bowel program. Stools have been loose. Changed colace to prn and added metamucil to bulk stool. 7. PVD: Pletal. Also on plavix s/p cardiac stents. 8. DVT Prophylaxis: SCDs. 9. Anemia of chronic disease: Check CBC Saturday. Received EPO in dialysis last week. 10. Advanced directives: full code 11. Depression: Zoloft started. s/p psychiatry consult. Can consider increasing zoloft. 12. Nausea: Seemed better yesterday and so far this morning. On Scopolamine patch and scheduled reglan which she takes intermittently. prn zofran. s/p hospitalist consult. If persists consider GI consultation. Remeron may also help stimulate appetite, but if started should probably d/c zoloft. 12/21/17 10:15
[2017-12-21] MEDS: Metoclopramide TAB* 10 MG PO SCH ×3 (10:10→16:45)
[2017-12-21] MEDS: Psyllium PAK PO SCH (11:51)
[2017-12-21] MEDS: Sertraline* 50 MG TAB PO SCH (11:52)
[2017-12-21] MEDS: Ascorbic Acid TAB* 500 MG PO SCH (11:52)
[2017-12-21] MEDS: CMC:Pantoprazole TAB (NF) 40 MG TAB PO SCH (11:52)
[2017-12-21] MEDS: Bisoprolol TAB* 5 MG PO SCH (11:52)
[2017-12-21] MEDS: Cilostazol TAB* 100 MG PO SCH ×2 (11:53→20:52)
[2017-12-21] MEDS: Aspirin EC Low Dose* 81 MG TAB.EC PO SCH (11:53)
[2017-12-21] MEDS: Clopidogrel TAB* 75 MG PO SCH (11:53)
[2017-12-21] MEDS: Ondansetron ODT TAB* 4 MG PO PRN (14:48)
[2017-12-21] MEDS: Atorvastatin* 40 MG TAB PO SCH (16:45)
[2017-12-21] MEDS: Scopolamine 1.5 mg* PATCH TRANSDERM SCH (16:46)
[2017-12-21] MEDS: Scopolamine PATCH Remove* 1 NOTE MISC PATCH OFF SCH (16:47)
[2017-12-22 06:57] LABS: ABS Basophils 0 10^3/ul (0-0.2); ABS Eosinophils 0.1 10^3/ul (0-0.6); ABS Lymphocytes 0.4 10^3/ul (1.0-4.8); ABS Monocytes 0.7 10^3/ul (0-0.8); ABS Neutrophils 2.8 10^3/ul (1.5-7.7); ABS Nucleated RBC 0 10^3/ul; Eosinophil % 1.6 % (0-6); Hematocrit 18 % (35-47); Lymphocyte % 9.2 % (25-47); Mean Corpuscular HGB Conc 33 g/dl (31-36); Mean Corpuscular Hemoglobin 29 pg (27-31); Mean Corpuscular Volume 87 fL (80-97); Mean Platelet Volume 7 um3 (7.4-10.4); Nucleated Red Blood Cells % 0.3; Platelet Count 264 10^3/ul (150-450); Red Cell Distribution Width 15 % (10.5-15); White Blood Count 3.9 10^3/ul (3.5-10.8)
[2017-12-22] MEDS: Metoclopramide TAB* 10 MG PO SCH ×3 (07:43→17:04)
[2017-12-22] MEDS ORDERED: Epoetin Alfa* 10,000 UNITS/ML VIAL SUBCUT ONE (08:30)
[2017-12-22] MEDS: Aspirin EC Low Dose* 81 MG TAB.EC PO SCH (08:49)
[2017-12-22] MEDS: Cilostazol TAB* 100 MG PO SCH (08:49)
[2017-12-22] MEDS: CMC:Pantoprazole TAB (NF) 40 MG TAB PO SCH (08:49)
[2017-12-22] MEDS: Ascorbic Acid TAB* 500 MG PO SCH (08:49)
[2017-12-22] MEDS: Bisoprolol TAB* 5 MG PO SCH (08:49)
[2017-12-22] MEDS: Sertraline* 50 MG TAB PO SCH (08:49)
[2017-12-22] MEDS: Clopidogrel TAB* 75 MG PO SCH (08:52)
[2017-12-22] MEDS ORDERED: Acetaminophen TAB* 325 MG PO ONE (09:42)
[2017-12-22] MEDS ORDERED: diPHENhydraMINE PO* 25 MG PO ONE (09:42)
--- NOTE | 2017-12-22 10:16 | PN ---
Progress Note Date of Service: 12/22/17 Note: USAMA KAPADIA was visited. Nursing notes read and reviewed (no therapy yesterday). I was called this morning with CBC results. See below. No chest pain, shortness of breath or new abdominal pain. She feels discomfort in her lower abdomen when sitting up and attempts to lift her legs. She did not have this discomfort at other hospital but was not trying to mobilize down there. No vomiting yesterday, but did feel nauseous after metamucil. She did not take metamucil this morning after her pills, but plans to take it later. Had liquid stool yesterday. Ate some soup and fruit yesterday. No lightheadedness or dizziness. Current Medications: Active Medications Generic Name Dose Route Start Last Admin Trade Name Freq PRN Reason Stop Dose Admin Acetaminophen 650 mg 12/09/17 16:04 Tylenol Tab* PO Q6H PRN FEVER/PAIN Ascorbic Acid 500 mg 12/11/17 09:00 12/22/17 08:49 Vitamin C Tab* PO 500 mg DAILY [facility] Administration Aspirin 81 mg 12/10/17 09:00 12/22/17 08:49 Aspirin Ec Low Dose* PO 81 mg DAILY [facility] Administration Atorvastatin Calcium 40 mg 12/09/17 17:00 12/21/17 16:45 Lipitor* PO 40 mg 1700 [facility] Administration Bisacodyl 10 mg 12/09/17 16:04 Dulcolax Supp* ID DAILY PRN CONSTIPATION Bisoprolol Fumarate 5 mg 12/10/17 09:00 12/22/17 08:49 Zebeta Tab* PO 5 mg DAILY [facility] Administration Cilostazol 50 mg 12/09/17 21:00 12/22/17 08:49 Pletal Tab* PO 50 mg BID [facility] Administration Clopidogrel Bisulfate 75 mg 12/13/17 09:00 12/22/17 08:52 Plavix Tab* PO Not Given DAILY [facility] Docusate Sodium 100 mg 12/20/17 10:06 Colace Cap* PO BID PRN CONSTIPATION Metoclopramide HCl 5 mg 12/17/17 16:30 12/22/17 07:43 Reglan Tab* PO 5 mg AC [facility] Administration Ondansetron HCl 4 mg 12/12/17 12:50 12/21/17 14:48 Zofran Odt Tab* PO 4 mg Q6H PRN Administration NAUSEA/VOMITING Oxycodone HCl 5 mg 12/09/17 16:22 12/14/17 10:37 Roxycodone Tab* PO 5 mg Q4H PRN Administration PAIN - MODERATE TO SEVERE Pantoprazole Sodium 40 mg 12/10/17 09:00 12/22/17 08:49 Protonix Tab (Nf) PO 40 mg DAILY [facility] Administration Pharmacy Profile Note 1 note 12/21/17 18:00 12/21/17 16:47 Scopolamine Patch Remove* PATCH OFF 1 patch Q72H [facility] Administration Psyllium Hydrophilic Mucilloid 1 pkt 12/20/17 11:00 12/21/17 11:51 Metamucil Macho* PO 1 pkt DAILY [facility] Administration Scopolamine 1 patch 12/18/17 18:00 12/21/17 16:46 Transderm-Scop 1.5 Mg Patch* TRANSDERM 1 patch Q72H [facility] Administration Senna 2 tab 12/09/17 16:04 Senokot Tab* PO BEDTIME PRN CONSTIPATION Sertraline HCl 50 mg 12/15/17 09:00 12/22/17 08:49 Zoloft* PO 50 mg DAILY [facility] Administration Vital Signs: Vital Signs Temp Pulse Resp BP Pulse Ox 99.8 F 93 20 116/56 95 12/22/17 06:25 12/22/17 06:25 12/22/17 09:48 12/22/17 06:25 12/22/17 06:25 Lab Results: Laboratory Results - last 24 hr 12/22/17 12/22/17 06:16 06:16 WBC 3.9 RBC 2.10 L Hgb 6.0 L* Hct 18 L MCV 87 MCH 29 MCHC 33 RDW 15 Plt Count 264 MPV 7 L Neut % (Auto) 70.8 Lymph % (Auto) 9.2 L [place] % (Auto) 17.6 H Eos % (Auto) 1.6 Baso % (Auto) 0.8 Absolute Neuts (auto) 2.8 Absolute Lymphs (auto) 0.4 L Absolute Monos (auto) 0.7 Absolute Eos (auto) 0.1 Absolute Basos (auto) 0 Absolute Nucleated RBC 0 Nucleated RBC % 0.3 Hypochromasia 2+ Stomatocytes 1+ Blood Type O Negative Antibody Screen Negative Crossmatch See Detail Exam: GEN: No acute distress. Alert and appropriate. LUNGS: Clear bilaterally HEART: regular rate and rhythm ABDOMEN: Soft, +BS, non-distended. Mild discomfort to palpation in LLQ as before. With passive hip flexion she feels some discomfort bilaterally on the ipsilateral side, left more than right. EXTREMITIES: No edema : Holley in place draining dark, bloody urine NEUROLOGIC: She can feel light touch below the level of the injury and into her feet. She just demonstrates trace toe and ankle movements bilaterally and right quads and hip. 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 1. T10 JAC C Paraplegia with lack of significant anti-gravity motor function below the level of injury. ARUNA wrap legs to groin QAM before out of bed and trial of abdominal binder. If BP drops are consistently noted consider use of midodrine or florinef. 2. Anemia/Hematuria: Ongoing. Unclear how much kidneys contribute to slow blood loss. I discussed case with Dr. Serrato this morning due to worsening anemia despite EPO in dialysis. He advised she is not a transplant candidate and therefore can give 2u pRBCs blood transfusion and also additional dose of 10, 000 units of EPO today. He also recommended iron panel and hemeoccult stool. She is on pletal for PVD and plavix for cardiac stent. I asked nursing to hold AM plavix and have consulted the hospitalists to assist with any further evaluation of her blood loss and management (question need for additional imaging when last CT Abd/Pelvis at [facility] was 12/03/17; as well as risk/ benefit of anti-platelet agents in setting of her anemia). Iron panel and Vit B12 and folate added onto lab draws from 12/18/17 on recommendation of hospitalists since they would be pre-transfusion. I d/w patient and her all the above. I advised of risks of transfusion as well including mismatch, itching, fever, infectious diseases. She consented to transfusions. She has had them before, including at [facility]. Recheck CBC this afternoon after transfusion and tomorrow AM. 3. CKD/Renal failure: Hemodialysis Q Tu/Th/Sat. Renal diet. Follow urine output 4. Lower Abdominal Pain has been presumed from renal infarcts, but worses with passive and active attempts at ROM. Could be musculoskeletal, neuropathic or intra-abdominal. Once again, await input of hospitalists on utility of any additional imaging. Has Oxycodone PRN. Trial of abdominal binder. 5. Neurogenic bladder: holley. May transition to ICP. Bladder scan last night was 0cc. Holley probably due for change next week. 6. Neurogenic bowel: Bowel program. Stools have been loose. Changed colace to prn and added metamucil to bulk stool. 7. PVD: Pletal. Also on plavix s/p cardiac stents, which was held this AM due to anemia. Await hospitalist input on risks/benefits. 8. DVT Prophylaxis: SCDs. Anti-coagulation is contraindicated due to bleeding. 9. Anemia of chronic disease: Has been getting EPO in dialysis. See above. 10. Depression: Zoloft started. s/p psychiatry consult. Can consider increasing zoloft. 11. Nausea/Poor appetite: Seems better since did not vomit yesterday. On Scopolamine patch and scheduled reglan which she takes intermittently. prn zofran. s/p hospitalist consult. If persists consider GI consultation. Remeron may also help stimulate appetite, but if started should probably d/c zoloft. 12. Advanced directives: full code 12/22/17 10:24
--- NOTE | 2017-12-22 15:53 | PN ---
Subjective Date of Service: 12/22/17 Interval History: Asked to see patient due to hemoglobin of 6.0. Patient transfused 2u pRBC this morning and given 10,000u of Epogen in addition to having received it several times at dialysis. Dr. Serrato also believes that her drop in Hemoglobin is greater than just a lack of erythropoesis. Reticulocyte count unable to be added on to lab work this morning due to type and screen. Patient is feeling ok , denies nausea. Feeling like Reglan is helping greatly. Denies palpitations, CP , SOB, has gotten lightheaded a couple times with exertion in therapy. Complains of 4/10 pain in B/L lower quadrants. Persistent 4/10 pain in flanks unchanged from previous admission. Review of old records shows a hemoglobin of 8.5 on 12/03. Hemoglobin listed on D/C summary 10.5. Patient states she was transfused at [place], but cannot remember date. Patient states she has also needed transfusions before but cannot remember what her blood counts were. Patient states that she was on Pletal for claudication with ambulation and that it helped significantly. Patient has not been able to walk in PT. Patient had a stent placed in 2004 and follows with a distribution center supervisor through [place] who has kept her on the Plavix since then but patient cannot explain a rationale. Family History: Unchanged from Admission Social History: Unchanged from Admission Past Medical History: Unchanged from Admission Objective Active Medications: Acetaminophen (Tylenol Tab*) 650 mg PO Q6H PRN PRN Reason: FEVER/PAIN Ascorbic Acid (Vitamin C Tab*) 500 mg PO DAILY [facility] Last Admin: 12/22/17 08:49 Dose: 500 mg Aspirin (Aspirin Ec Low Dose*) 81 mg PO DAILY [facility] Last Admin: 12/22/17 08:49 Dose: 81 mg Atorvastatin Calcium (Lipitor*) 40 mg PO 1700 [facility] Last Admin: 12/21/17 16:45 Dose: 40 mg Bisacodyl (Dulcolax Supp*) 10 mg [place] DAILY PRN PRN Reason: CONSTIPATION Bisoprolol Fumarate (Zebeta Tab*) 5 mg PO DAILY [facility] Last Admin: 12/22/17 08:49 Dose: 5 mg Docusate Sodium (Colace Cap*) 100 mg PO BID PRN PRN Reason: CONSTIPATION Metoclopramide HCl (Reglan Tab*) 5 mg PO AC [facility] Last Admin: 12/22/17 12:08 Dose: 5 mg Ondansetron HCl (Zofran Odt Tab*) 4 mg PO Q6H PRN PRN Reason: NAUSEA/VOMITING Last Admin: 12/21/17 14:48 Dose: 4 mg Oxycodone HCl (Roxycodone Tab*) 5 mg PO Q4H PRN PRN Reason: PAIN - MODERATE TO SEVERE Last Admin: 12/14/17 10:37 Dose: 5 mg Pantoprazole Sodium (Protonix Tab (Nf)) 40 mg PO DAILY [facility] Last Admin: 12/22/17 08:49 Dose: 40 mg Pharmacy Profile Note (Scopolamine Patch Remove*) 1 note PATCH OFF Q72H [facility] Last Admin: 12/21/17 16:47 Dose: 1 patch Psyllium Hydrophilic Mucilloid (Metamucil Macho*) 1 pkt PO DAILY [facility] Last Admin: 12/21/17 11:51 Dose: 1 pkt Scopolamine (Transderm-Scop 1.5 Mg Patch*) 1 patch TRANSDERM Q72H [facility] Last Admin: 12/21/17 16:46 Dose: 1 patch Senna (Senokot Tab*) 2 tab PO BEDTIME PRN PRN Reason: CONSTIPATION Sertraline HCl (Zoloft*) 50 mg PO DAILY [facility] Last Admin: 12/22/17 08:49 Dose: 50 mg Vital Signs - 8 hr 12/22/17 12/22/17 12/22/17 09:48 09:49 10:22 Temperature 98.6 F 99.5 F Pulse Rate 98 96 Respiratory 20 Rate Blood Pressure 114/56 121/60 (mmHg) O2 Sat by Pulse 95 97 Oximetry 12/22/17 12/22/17 12/22/17 10:27 12:03 12:09 Temperature 98.2 F Pulse Rate 91 Respiratory 18 18 Rate Blood Pressure 112/59 (mmHg) O2 Sat by Pulse 97 99 Oximetry 12/22/17 12/22/17 12/22/17 12:39 13:06 14:25 Temperature 98.4 F 98.2 F 98.5 F Pulse Rate 92 85 86 Respiratory 18 16 Rate Blood Pressure 117/54 114/69 127/73 (mmHg) O2 Sat by Pulse 98 99 99 Oximetry Oxygen Devices in Use Now: None Appearance: Patient is a 62yo female who appears stated age and is sitting in the bed in NAD. Eyes: No Scleral Icterus, PERRLA Ears/Nose/Mouth/Throat: NL Teeth, Lips, Gums, Clear Oropharnyx, Mucous Membranes Moist Neck: NL Appearance and Movements; NL JVP, Trachea Midline, - - Dialysis catheter present. Respiratory: Symmetrical Chest Expansion and Respiratory Effort, Clear to Auscultation Cardiovascular: NL Sounds; No Murmurs; No JVD, RRR, No Edema, - - Pulses 2+ in radial, 1+ in DP/PT. Abdominal: No Hepatosplenomegaly, - - Normal sounds, Tenderness to palpation in B/L LQ. No mass palpable. No pulsations or ecchymosis. Lymphatic: No Cervical Adenopathy Extremities: No Edema, No Clubbing, Cyanosis, - - Fistula with palpable thrill in right antecubitum. Bruise on left upper arm. Skin: No Nodules or Sclerosis, - - Area of ecchymosis on left upper arm. Neurological: Alert and Oriented x 3, - - 5/5 strength in B/L UE. 1/5 in B/L LE. Sensation to light touch intact to B/L LE. Reflexes 2+ in left biceps. 3+ in B/L Patellar and achilles areas. Babinski's non-reactive. 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 A/P: Anemia: Patient's anemia is likely somewhat multifactorial from Anemia of Chronic Disease, CKD, and acute blood loss anemia. Patient has been treated with Epogen with dialysis and this likely should be continued. Patient may have had a drop in her hemoglobin of 3 points from discharge from [place] to Admission to [facility] if the hemoglobin listed in the discharge summary is correct. CT scan of abdomen without contrast ordered to look for hematoma. Patient has continues hematuria with at least 1 blood clot noted in the holley tubing on examination. This is a likely source of patient's anemia. Patient is on 3 current agents with anti-platelet properties. Will discontinue Plavix and Pletal , continue aspirin. These should be resumed based on clinical course. Plavix should be held until follow up with cardiology. Reticulocyte count not able to be ordered. Iron studies indicated AOCD and ferritin is >1500, lot likely SARAH BETH. Recheck H/H this afternoon and tomorrow morning as ordered. CAD: Patient had a stent placed in 2004. Unknown type, but there is no indication for dual antiplatelet therapy at this point. Continue Aspirin, Lipitor, and Bisoprolol. No signs of ACS. Hemoglobin target should be above 8.0 due to coronary disease. Paraplegia: Continue PT/OT per primary team N/V: Continue scheduled reglan Thank you for this consult, we will continue to follow along. Status and Disposition: At this time we will sign off, thank you for this consultation. We will follow as needed in the future.
[2017-12-22 16:43] LABS: ABS Basophils 0 10^3/ul (0-0.2); ABS Eosinophils 0.1 10^3/ul (0-0.6); ABS Lymphocytes 0.4 10^3/ul (1.0-4.8); ABS Monocytes 0.9 10^3/ul (0-0.8); ABS Neutrophils 3.1 10^3/ul (1.5-7.7); ABS Nucleated RBC 0 10^3/ul; Eosinophil % 2.3 % (0-6); Hematocrit 25 % (35-47); Hemoglobin 8.4 g/dl (12.0-16.0); Lymphocyte % 9.6 % (25-47); Mean Corpuscular HGB Conc 34 g/dl (31-36); Mean Corpuscular Hemoglobin 28 pg (27-31); Mean Corpuscular Volume 84 fL (80-97); Mean Platelet Volume 7 um3 (7.4-10.4); Nucleated Red Blood Cells % 0.1; Platelet Count 290 10^3/ul (150-450); Red Blood Count 2.99 10^6/ul (4.0-5.4); Red Cell Distribution Width 17 % (10.5-15); White Blood Count 4.5 10^3/ul (3.5-10.8)
--- NOTE | 2017-12-22 16:59 | RAD ---
INDICATION: Abdominal pain. Paraplegic. Concern for hematoma. COMPARISON: No relevant prior exams available on the [facility] PACS for comparison. TECHNIQUE: Multidetector CT images were obtained from the lung bases to the ischial tuberosities. Evaluation of the viscera is limited without IV contrast. Multiplanar reformation. REPORT: Small dependent pleural effusions with mild associated basilar atelectasis. Small pericardial effusion. Bilateral markedly enlarged kidneys with innumerable cysts and additional cysts within the liver consistent with polycystic kidney disease. A few bilateral renal stones are noted. Negative for ureteral dilatation or stone. Phleboliths noted adjacent to the distal ureters. Catheterized decompressed urinary bladder. No uterus visualized. Unremarkable adnexal regions. Post cholecystectomy likely accounting for prominence of the common bile duct measuring up to 1.5 cm diameter. No conspicuous calcified stone or lesion evident along the common bile duct. Unremarkable pancreas and spleen. No suspicious finding of the unopacified upper GI, small bowel, or retrocecal appendix. Moderate colonic diverticulosis at the sigmoid colon without findings of acute diverticulitis. Negative for ascites, free air, hernias. Negative for lymphadenopathy. Atherosclerotic calcification of normal diameter abdominal aorta and iliac arteries. Physiologic partial distention of the IVC. Negative for suspicious focal osseous lesions or fractures. Bilateral subcutaneous edema at the flanks, dependent posterior back subcutaneous tissue plane, and visualized thighs. Negative for superficial or deep soft tissue hematoma. IMPRESSION: 1. No evidence for superficial soft tissue or retroperitoneal hematoma. 2. Massively enlarged kidneys due to polycystic kidney disease. Small burden of nephrolithiasis without evidence for obstructive uropathy. 3. Post cholecystectomy likely accounting for prominence of the common bile duct measuring up to 1.5 cm diameter. No conspicuous calcified stone or lesion evident along the common bile duct. 4. Normal appendix documented. Colonic diverticulosis without findings of diverticulitis.
[2017-12-22] MEDS: Psyllium PAK PO SCH (17:04)
[2017-12-22] MEDS: Atorvastatin* 40 MG TAB PO SCH (17:04)
[2017-12-23 06:23] LABS: ABS Basophils 0 10^3/ul (0-0.2); ABS Eosinophils 0.1 10^3/ul (0-0.6); ABS Lymphocytes 0.4 10^3/ul (1.0-4.8); ABS Monocytes 0.7 10^3/ul (0-0.8); ABS Neutrophils 2.8 10^3/ul (1.5-7.7); ABS Nucleated RBC 0 10^3/ul; Eosinophil % 1.3 % (0-6); Hematocrit 25 % (35-47); Hemoglobin 8.2 g/dl (12.0-16.0); Lymphocyte % 9.8 % (25-47); Mean Corpuscular HGB Conc 33 g/dl (31-36); Mean Corpuscular Hemoglobin 28 pg (27-31); Mean Corpuscular Volume 84 fL (80-97); Mean Platelet Volume 7 um3 (7.4-10.4); Nucleated Red Blood Cells % 0.1; Platelet Count 296 10^3/ul (150-450); Red Blood Count 2.93 10^6/ul (4.0-5.4); Red Cell Distribution Width 17 % (10.5-15)
[2017-12-23] MEDS: oxyCODONE TAB* 5 MG TAB PO PRN ×4 (07:21→16:42)
[2017-12-23] MEDS: Ascorbic Acid TAB* 500 MG PO SCH (09:52)
[2017-12-23] MEDS: CMC:Pantoprazole TAB (NF) 40 MG TAB PO SCH (09:52)
[2017-12-23] MEDS: Sertraline* 50 MG TAB PO SCH (09:52)
[2017-12-23] MEDS: Aspirin EC Low Dose* 81 MG TAB.EC PO SCH (09:53)
[2017-12-23] MEDS: Bisoprolol TAB* 5 MG PO SCH (09:53)
[2017-12-23] MEDS: Metoclopramide TAB* 10 MG PO SCH ×3 (09:53→16:38)
[2017-12-23] MEDS ORDERED: Morphine INJ* 2 MG/ML 1 ML CARPUJECT IV ONE ×2 (11:13→13:07)
[2017-12-23] MEDS: Psyllium PAK PO SCH (11:13)
[2017-12-23] MEDS ORDERED: oxyCODONE TAB* 5 MG TAB PO ONE (12:15)
--- NOTE | 2017-12-23 17:05 | PN ---
Progress Note Date of Service: 12/23/17 Note: USAMA KAPADIA was visited. Therapy notes read and reviewed. Events of weekend noted. She dropped her crit and was transfused. She is reporting a lot of pain in her LLQ today. Had CT of Abd over weekend. Large cystic kidneys, no hematomas , no diverticular disease. Current Medications: Active Medications Generic Name Dose Route Start Last Admin Trade Name Freq PRN Reason Stop Dose Admin Acetaminophen 650 mg 12/09/17 16:04 Tylenol Tab* PO Q6H PRN FEVER/PAIN Ascorbic Acid 500 mg 12/11/17 09:00 12/23/17 09:52 Vitamin C Tab* PO 500 mg DAILY [facility] Administration Aspirin 81 mg 12/10/17 09:00 12/23/17 09:53 Aspirin Ec Low Dose* PO 81 mg DAILY [facility] Administration Atorvastatin Calcium 40 mg 12/09/17 17:00 12/22/17 17:04 Lipitor* PO 40 mg 1700 [facility] Administration Bisacodyl 10 mg 12/09/17 16:04 Dulcolax Supp* IN DAILY PRN CONSTIPATION Bisoprolol Fumarate 5 mg 12/10/17 09:00 12/23/17 09:53 Zebeta Tab* PO 5 mg DAILY [facility] Administration Docusate Sodium 100 mg 12/20/17 10:06 Colace Cap* PO BID PRN CONSTIPATION Metoclopramide HCl 5 mg 12/17/17 16:30 12/23/17 16:38 Reglan Tab* PO 5 mg AC [facility] Administration Ondansetron HCl 4 mg 12/12/17 12:50 12/21/17 14:48 Zofran Odt Tab* PO 4 mg Q6H PRN Administration NAUSEA/VOMITING Oxycodone HCl 5 mg 12/09/17 16:22 12/23/17 16:42 Roxycodone Tab* PO 5 mg Q4H PRN Administration PAIN - MODERATE TO SEVERE Pantoprazole Sodium 40 mg 12/10/17 09:00 12/23/17 09:52 Protonix Tab (Nf) PO 40 mg DAILY [facility] Administration Pharmacy Profile Note 1 note 12/21/17 18:00 12/21/17 16:47 Scopolamine Patch Remove* PATCH OFF 1 patch Q72H [facility] Administration Psyllium Hydrophilic Mucilloid 1 pkt 12/20/17 11:00 12/23/17 11:13 Metamucil Macho* PO Not Given DAILY [facility] Scopolamine 1 patch 12/18/17 18:00 12/21/17 16:46 Transderm-Scop 1.5 Mg Patch* TRANSDERM 1 patch Q72H [facility] Administration Senna 2 tab 12/09/17 16:04 Senokot Tab* PO BEDTIME PRN CONSTIP[facility] Sertraline HCl 50 mg 12/15/17 09:00 12/23/17 09:52 Zoloft* PO 50 mg DAILY [facility] Administration Vital Signs: Vital Signs Temp Pulse Resp BP Pulse Ox 98.2 F 82 18 115/58 97 12/23/17 15:35 12/23/17 15:35 12/23/17 16:44 12/23/17 15:35 12/23/17 15:46 Lab Results: Laboratory Results - last 24 hr 12/23/17 05:51 WBC 4.0 RBC 2.93 L Hgb 8.2 L Hct 25 L MCV 84 MCH 28 MCHC 33 RDW 17 H Plt Count 296 MPV 7 L Neut % (Auto) 69.9 Lymph % (Auto) 9.8 L [place] % (Auto) 18.3 H Eos % (Auto) 1.3 Baso % (Auto) 0.7 Absolute Neuts (auto) 2.8 Absolute Lymphs (auto) 0.4 L Absolute Monos (auto) 0.7 Absolute Eos (auto) 0.1 Absolute Basos (auto) 0 Absolute Nucleated RBC 0 Nucleated RBC % 0.1 Exam: LUNGS: Clear bilaterally HEART: reg rhythm ABDOMEN: Soft, BS audible EXTREMITIES: No edema, LE starting to atrophy : Holley in place draining dark, bloody urine NEUROLOGIC: Decreased sensation below T10. Some quadriceps in RLE, able to wiggle toes bilat. Assessment/Plan: 1. T10 JAC Class "C" Paraplegia: PT/OT 2. Hematuria/Anemia: Transfused 2 units over weekend. Off Plavix and pletal now. Last Hb/Hct Stable 3. CKD/Renal failure: Hemodialysis. Renal diet. Follow urine output 4. 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 Required Morphine IV today. Oxycodone PRN. 5. Neurogenic bladder: holley needs to be changed. May transition to ICP 6. Neurogenic bowel: Bowel program. Stools have been loose 7. PVD: off pletal 8. DVT Prophylaxis: SCDs. 9. Anemia of chronic disease: See above. Had drop in crit. CT scan did not show any diverticulum 10. Advanced directives: full code 11. Depression: Zoloft started. Unclear if any effect. Psychiatrist will follow up and may increase Zoloft 12. Nausea: Try Scopolamine patch. Have asked hospitalists to see, Consider Marinol. Added Adonay 12/23/17 17:05 12/23/17 17:07 12/23/17 17:12
[2017-12-23] MEDS: Atorvastatin* 40 MG TAB PO SCH (18:46)
--- NOTE | 2017-12-23 18:55 | PN ---
Subjective Date of Service: 12/23/17 Interval History: Left lower abdominal pain worse today Family History: Unchanged from Admission Social History: Unchanged from Admission Past Medical History: Unchanged from Admission Objective Active Medications: Acetaminophen (Tylenol Tab*) 650 mg PO Q6H PRN PRN Reason: FEVER/PAIN Ascorbic Acid (Vitamin C Tab*) 500 mg PO DAILY [facility] Last Admin: 12/23/17 09:52 Dose: 500 mg Aspirin (Aspirin Ec Low Dose*) 81 mg PO DAILY [facility] Last Admin: 12/23/17 09:53 Dose: 81 mg Atorvastatin Calcium (Lipitor*) 40 mg PO 1700 [facility] Last Admin: 12/23/17 18:46 Dose: Not Given Bisacodyl (Dulcolax Supp*) 10 mg [place] DAILY PRN PRN Reason: CONSTIPATION Bisoprolol Fumarate (Zebeta Tab*) 5 mg PO DAILY [facility] Last Admin: 12/23/17 09:53 Dose: 5 mg Docusate Sodium (Colace Cap*) 100 mg PO BID PRN PRN Reason: CONSTIPATION Metoclopramide HCl (Reglan Tab*) 5 mg PO AC [facility] Last Admin: 12/23/17 16:38 Dose: 5 mg Morphine Sulfate (Morphine Inj (Syringe)*) 2 mg IV Q6H PRN PRN Reason: PAIN - MODERATE TO SEVERE Ondansetron HCl (Zofran Odt Tab*) 4 mg PO Q6H PRN PRN Reason: NAUSEA/VOMITING Last Admin: 12/21/17 14:48 Dose: 4 mg Oxycodone HCl (Roxycodone Tab*) 5 mg PO Q4H PRN PRN Reason: PAIN - MODERATE TO SEVERE Last Admin: 12/23/17 16:42 Dose: 5 mg Pantoprazole Sodium (Protonix Tab (Nf)) 40 mg PO DAILY [facility] Last Admin: 12/23/17 09:52 Dose: 40 mg Pharmacy Profile Note (Scopolamine Patch Remove*) 1 note PATCH OFF Q72H [facility] Last Admin: 12/21/17 16:47 Dose: 1 patch Psyllium Hydrophilic Mucilloid (Metamucil Macho*) 1 pkt PO DAILY [facility] Last Admin: 12/23/17 11:13 Dose: Not Given Scopolamine (Transderm-Scop 1.5 Mg Patch*) 1 patch TRANSDERM Q72H [facility] Last Admin: 12/21/17 16:46 Dose: 1 patch Senna (Senokot Tab*) 2 tab PO BEDTIME PRN PRN Reason: CONSTIPATION Sertraline HCl (Zoloft*) 50 mg PO DAILY [facility] Last Admin: 12/23/17 09:52 Dose: 50 mg Vital Signs - 8 hr 12/23/17 12/23/17 12/23/17 11:03 11:26 12:12 Temperature Pulse Rate 91 Respiratory 22 20 Rate Blood Pressure 125/61 (mmHg) O2 Sat by Pulse 99 Oximetry 12/23/17 12/23/17 12/23/17 12:44 13:51 15:35 Temperature 98.2 F Pulse Rate 82 Respiratory 20 20 18 Rate Blood Pressure 115/58 (mmHg) O2 Sat by Pulse 97 Oximetry 12/23/17 12/23/17 12/23/17 15:39 15:46 16:42 Temperature Pulse Rate Respiratory 18 18 Rate Blood Pressure (mmHg) O2 Sat by Pulse 97 Oximetry 12/23/17 12/23/17 16:44 18:47 Temperature Pulse Rate Respiratory 18 18 Rate Blood Pressure (mmHg) O2 Sat by Pulse Oximetry Oxygen Devices in Use Now: None Appearance: chronically ill, NAD Eyes: No Scleral Icterus, PERRLA Ears/Nose/Mouth/Throat: Mucous Membranes Moist Neck: NL Appearance and Movements; NL JVP, Trachea Midline Respiratory: Symmetrical Chest Expansion and Respiratory Effort, Clear to Auscultation Cardiovascular: RRR Abdominal: - - TTP LLQ Neurological: Alert and Oriented x 3 Lines/Tubes/Other Access: Clean, Dry and Intact Guzman - draining blood and clots Result Diagrams: 12/23/17 05:51 12/18/17 06:55 Assess/Plan/Problems-Billing 62 F h/o PCKD on ESRD admitted to [facility] s/p renal artery embolization complicated by paraplegia now with anemia - Patient Problems (1) Anemia Comment: Only clear source of loss is hematuria Receiving epo per nephrology recommendations Continue to trend. Holding plavix and platel If continues to downtrend would recommend uro consult but options are limited ( ie nephroctomy? (2) Hematuria Comment: Holding antiplatelets and blood thinners except ASA (3) Abdominal pain Comment: Suspect PCKD monitor no e/o for other source from CT A/P Status and Disposition: Will sign off Please call with additional questions
[2017-12-24] MEDS: Morphine INJ* 2 MG/ML 1 ML CARPUJECT IV PRN ×2 (05:41→11:12)
[2017-12-24] MEDS: Metoclopramide TAB* 10 MG PO SCH ×3 (07:30→16:51)
--- NOTE | 2017-12-24 12:39 | PMRUTEAM ---
PMRU: Goals Current Status: Nursing: Current Status Skin Deviations [Bilateral Pressure Ulcer Heel] Skin Deviations [Left Buttocks Abrasion ] Skin Deviations [Coccyx] Other Skin Deviations [Right Groin] Other Skin Deviations [Left Arm] Bruise Skin Deviations [Left Upper Abrasion Chest] Skin Deviation Description [ lotion in place Bilateral Heel] Skin Deviation Description [ Mepilex in place Left Buttocks] Skin Deviation Description [ mepelex Coccyx] Skin Deviation Description [ redness catheter possitioning leg bag switch sites Right Groin] . Skin Deviation Description [ multiple bruises Left Arm] Skin Deviation Description [ healing Left Upper Chest] Bladder Current Status Holley in place Bowel Current Status incontinent Nutrition Current Status inadequate Medication Current Status declining medications at this time. Physical Therapy: Current Status Bed Mobility Assistance Total Assist,2 or More Person Assist Transfer Moblility Assistance Max Assist Transfer/Bed Mobility Tunde Lift Recommended Devices Ambulation Assistance Unable Manual Wheelchair Control/ Bilateral UE's Technique Wheelchair Propulsion Ability Standby Assistance Wheelchair Distance (ft) 450 Objective Comments patient demonstrates improving overall mobility in W/C this session self propelling over longer distance and demonstrating improving conservation of movement. patient demosntrates improved short radius turns. Occupational Therapy: Current Status Upper Body Dressing Mod Assist Lower Body Dressing Total Assist,2 Person Assist Bathing Max Asst Toileting Total Assist,2 Person Assist Toilet Transfer Total Assist,2 Person Assist Shower Transfer Total Assist,2 Person Assist Eating Supervision Rec Therapy: Current Status Summary of Assessment and RT assessment complete and pt. is aware of RT Clinical Impression services. Pt. has been engaged in leisure visits during which patient expresses herself openly about her emotions. Pt. has not been interested in leisure activities but states she enjoys visits . Treatment Goals Pt. will engage in leisure activities as tolerated while on the unit. Treatment Plan Provide RT services and encourage involvement. Provide emotional support as needed. Social Work: Current Status Discharge Plan return home with home care svs and family support Potential for Family Training pt's is involved and supportive Anticipated Discharge Home Destination Discharge With home care svs and family support Nutrition: Current Status Monitoring pt just returned from dialysis. Anticipate weekly labs in a.m. Received 2 units PRBCs 12/23. Following today's dialysis, c/o abd pain and nausea; depression, nausea, poor intake continue ( however, she IS accepting Zoloft, Reglan, and scop patch this week; Zofran last given 12/21). Despite med compliance, po intake insignificant with only a few crackers and bites of soups and fruit eaten in the past few days; vanilla Ensure Enlive noted for pt in unit pantry. c/o "constant , cramping, stabbing" pain. Last BM 12/21 ( neurogenic bowel and bladder); morphine (2mg prn) continues. Will cont to stay involved and encourage po intake. When/if pt willing to take prescribed meds, suggest daily MVI and ? Marinol to help stimulate appetite. She is presently meeting criteria for severe protein-calorie malnutrition in setting of acute illness (wt loss 16.5% in past two weeks and <50% intake of EEE for > 5 days). Goals: Physical Therapy: Initial Goals Bed Mobility Assistance Independent Transfer Mobility Assistance Independent Transfer/Bed Mobility Slide Board Recommended Devices Wheelchair Propulsion Ability Independent Occupational Therapy: Initial Goals Goals to be Completed in (Days 21-28 ) Upper Body Bathing Routine Independent Lower Body Bathing Routine Modified Independent with Upper Body Dressing Routine Independent Lower Body Dressing Routine Modified Independent with Toilet Hygeine and Clothing Modified Independent with Management Routine Toilet Transfer Routine Modified Independent with Toilet Transfer Assistive slideboard Devices Functional Transfers for ADL Modified Independent with Functional Transfers for ADl slideboard Assistive Devices Grooming Routine Independent Feeding Routine Independent Nursing: Goals Bladder Goal independent straight catheterization Bowel Goal changing self Nutrition Goal 75% of meals Medication Goal independent Nutrition: Goals Intervention Goals 1. Improved oral intake to support maintenance of lean body mass and rehab progress. 2. Maintain controlled renal labs per dialysis parameters. 3. Pt verbalizes understanding of renal diet. 4. Tolerates oral intake w/o GI distress. Social Work: Goals Discharge Plan return home with home care svs and family support Potential for Family Training pt's is involved and supportive Anticipated Discharge Home Destination Discharge With home care svs and family support Care Plan: Care Plan ADL's - Improve/Maintain Start: 12/10/17 02:01 Freq: DAILY Status: Active Target: Protocol: Activity Type Activity Date Activity User E-Sign Co-Sign Detail Recorded Client Recorded Date Recorded By Document 12/24/17 11:50 [id number] 12/24/17 11:50 [id number] 12/24/17 11:50 PMRU Outcome: ADL's/ADL Transfers Orders/Interventions Occupational Therapy Evaluation & Treatment Communication Tool in Patient Room Patient to receive OT 5x/wk for 60-120 Therex min/day Self Care Management Group Therapy UE/LE ADL's with Assist Yes: mod I ADL Transfers with Assist Yes: mod I Toileting: Transfers,Clothing Management Yes: mod I ,Hygeine w/Assist Progression Toward Outcome/Goals Not Progressing Outcome/Goals Met Pt continues to be significantly limited by LLQ pain that pt reports is " expanding". Pt moaning, grimacing and asking process description writer " what are they going to do with me now?" Seems very distraught. Nsg in to provide pain medication and MD in to visit with pt shortly after. Cardiovascular- Improve/Maintain Start: 12/10/17 02:01 Freq: DAILY Status: Active Target: Protocol: Activity Type Activity Date Activity User E-Sign Co-Sign Detail Recorded Client Recorded Date Recorded By Document 12/24/17 00:20 [id number] 12/24/17 00:21 [id number] 12/24/17 00:20 PMRU Outcome: Cardiovascular Vital Signs q Shift for 48hrs Then BID Yes Daily Weight Ordered No Current Cardiovascular Outcome/Goal Maintain/ Achieve Baseline HR, BP , Perfusion Maintain/ Achieve Hemodynamic Stability Free of Abnormal Cardiac Symptoms Progression Toward Outcome/Goal Progressing Coping/Psych-Improve/Maintain Start: 12/10/17 02:01 Freq: DAILY Status: Active Target: Protocol: Activity Type Activity Date Activity User E-Sign Co-Sign Detail Recorded Client Recorded Date Recorded By Document 12/24/17 00:20 [id number] [id number] 12/24/17 00:21 [id number] 12/24/17 00:20 PMRU Outcome: Coping/Psychosocial Coping Outcome/Goals Verbalization of Acceptance of Rehab Admit Verbalization of Sense of Control Over Health Status Utilization of Appropriate Problem Solving Techniques Willingness to Participate in Treatment Plan and Basic Needs Utilization of Available Support Systems Psychosocial Outcome/Goals Maintain/ Improve Emotional Health Demonstrates Knowledge of Healthy Coping Mechanisms Available Cooperate/ Participate in Plan Progression Toward Outcome/Goals - Progressing Coping Progression Toward Outcome/Goals - Progressing Psychosocial DVT Prophylaxis- Improve/Maintain Start: 12/10/17 02:01 Freq: DAILY Status: Active Target: Protocol: Activity Type Activity Date Activity User E-Sign Co-Sign Detail Recorded Client Recorded Date Recorded By Document 12/24/17 00:20 [id number] 12/24/17 00:21 [id number] 12/24/17 00:20 PMRU Outcome: DVT Prophylaxis Outcome/Goals Remains Free of DVT Demonstrates Knowledge of DVT Prevention/ Treatment Progression Toward Outcome/Goals Progressing Discharge Planning - Improve/Maintain Start: 12/10/17 02:01 Freq: DAILY Status: Active Target: Protocol: Activity Type Activity Date Activity User E-Sign Co-Sign Detail Recorded Client Recorded Date Recorded By Document 12/24/17 00:20 [id number] 12/24/17 00:21 [id number] 12/24/17 00:20 PMRU Outcome: Discharge Planning Identify Patient Needs yes Update Patient Family No Outcome/Goals Demonstrates Understanding of Discharge Plan Progression Toward Outcome/Goals Progressing Education-Improve/Maintain Start: 12/10/17 02:01 Freq: DAILY Status: Active Target: Protocol: Activity Type Activity Date Activity User E-Sign Co-Sign Detail Recorded Client Recorded Date Recorded By Document 12/24/17 00:20 [id number] 12/24/17 00:21 [id number] 12/24/17 00:20 PMRU Outcome: Education Outcome/Goals Demonstrate/ Verbalize Understanding of Written Discharge Instructions Encourage Questions Progression Toward Outcome/Goals Progressing /GI-Improve/Maintain Start: 12/10/17 02:01 Freq: DAILY Status: Active Target: Protocol: Activity Type Activity Date Activity User E-Sign Co-Sign Detail Recorded Client Recorded Date Recorded By Document 12/24/17 00:20 [id number] 12/24/17 00:21 [id number] 12/24/17 00:20 PMRU Outcome: Genitourinary/ Gastrointestinal Genitourinary- Outcome/Goals Maintain/ Achieve Adequate Urinary Output Remain Free of Hospital- Acquired UTI Gastrointestinal-Outcome/Goals Maintain/ Achieve Bowel Regularity in Accordance with Pt's Baseline Prevent Constipation Progression Toward Outcome/Goals - Not Progressing Progression Toward Outcome/Goals - GI Not Progressing Outcome/Goals Met Comment holley in place Medication Administration Start: 12/10/17 02:01 Freq: DAILY Status: Active Target: Protocol: Activity Type Activity Date Activity User E-Sign Co-Sign Detail Recorded Client Recorded Date Recorded By Document 12/24/17 00:20 [id number] 12/24/17 00:21 [id number] 12/24/17 00:20 PMRU Outcome: Medication Administration Assess Patient Knowledge/Teach Med No Education for all Meds Outcome/Goals Patient Independent with Medication Administration at Home Demonstrates Understanding Progression Towards Outcome/Goals Progressing Is Patient Going Home on Lovenox? No Mobility- Improve/Maintain Start: 12/10/17 02:01 Freq: DAILY Status: Active Target: Protocol: Activity Type Activity Date Activity User E-Sign Co-Sign Detail Recorded Client Recorded Date Recorded By Document 12/20/17 17:38 [id number] 12/20/17 17:38 [id number] 12/20/17 17:38 PMRU Outcome: Mobility Physical Therapy Evaluation and Yes Treatment Activity OOB with Assistance Yes Assistance Yes Patient to be seen 5x/wk for 60-120 min/ Therex day for: Mobility Training W/C Mobility Balance Outcome/Goals Improve Mobility Status Demonstrates Proper Use of Assistive Devices Free from Complications of Immobility Progression Toward Outcome/Goals Progressing Bed Mobility Yes: independent Transfers Yes: independent with slide board W/C Mobility x ft Yes: independent W/C mobility to 150' Neurological- Improve/Maintain Start: 12/10/17 02:01 Freq: DAILY Status: Active Target: Protocol: Activity Type Activity Date Activity User E-Sign Co-Sign Detail Recorded Client Recorded Date Recorded By Document 12/24/17 00:20 [id number] [email or web address] 12/24/17 00:21 [id number] 12/24/17 00:20 PMRU Outcome: Neurological Weakness/Aphasia Weakness Outcome/Goals Maintain/ Achieve Baseline Neurological Status Maintain/ Improve Strength/ROM Progression Toward Outcome/Goals Not Progressing Pain/Comfort- Improve/Maintain Start: 12/10/17 02:01 Freq: DAILY Status: Active Target: Protocol: Activity Type Activity Date Activity User E-Sign Co-Sign Detail Recorded Client Recorded Date Recorded By Document 12/24/17 00:20 [id number] [id number] 12/24/17 00:21 [id number] 12/24/17 00:20 PMRU Outcome: Pain/Comfort Outcome/Goals Demonstrates Knowledge and Use of Available Comfort Measures Achieves Acceptable Comfort/Pain Level as Determined by Patient/Condit Maintain Comfort Level Allowing Patient to Fully Participate in Rehab Progression Toward Outcome/Goals Not Progressing Safety- Improve/Maintain Start: 12/10/17 02:01 Freq: DAILY Status: Active Target: Protocol: Activity Type Activity Date Activity User E-Sign Co-Sign Detail Recorded Client Recorded Date Recorded By Document 12/24/17 00:20 [id number] [id number] 12/24/17 00:21 [id number] 12/24/17 00:20 PMRU Outcome: Safety Outcome/Goals Remain Free of Injury or Harm Prevent Falls/ Injury Progression Toward Outcome/Goals Progressing Medicine Note: Length of Stay: TBD Anticipated Discharge Destination: SNF vs. Home Tentative Discharge Date: TBD Discharged to: SNF vs. Home
[2017-12-24] MEDS: fentaNYL PATCH 25 MCG/HR TRANSDERM SCH (13:53)
--- NOTE | 2017-12-24 14:11 | CONSULT ---
Identification - Patient Identification Reason for Psychiatric Consultation: Patient Distress -: Patient is a 62 year old, F admitted on 12/09/17. - MHU Identification Employment Status: Disabled Hx Psychiatric Hospitalization: No History - Objective HPI: Evelyn is seen for follow up. Over the past day and a half she has developed new -onset LLQ abdominal pain that is very troubling to her and she clearly demonstrates somatic distress. I met with [facility] staff, who indicate that she remains disengaged with rehabilitative treatment and is not improving in terms of adaptive functioning, s/p paraplegia. On exam, Evelyn is calm and interactive , albeit frustrated with her pain situation. She remains insistent that she return to [facility] to reside, despite logistical limitations with respect to the availability of hemodialysis. She is tolerating sertraline well and continues to deny SI. Lab Results: Laboratory Tests 12/11/17 12/11/17 12/18/17 08:15 08:15 06:55 WBC 6.6 5.4 RBC 2.65 L 2.37 L RBC (Retic) Hgb 7.7 L 6.8 L Hct 23 L 21 L HCT (Retic) MCV 87 88 MCH 29 29 MCHC 33 33 RDW 15 15 Plt Count 200 141 L MPV 8 8 Neut % (Auto) 81.5 85.7 H Lymph % (Auto) 9.1 L 5.7 L [place] % (Auto) 7.0 6.9 Eos % (Auto) 1.4 0.9 Baso % (Auto) 1.0 0.8 Absolute Neuts (auto) 5.4 4.5 Absolute Lymphs (auto) 0.6 L 0.3 L Absolute Monos (auto) 0.5 0.4 Absolute Eos (auto) 0.1 0 Absolute Basos (auto) 0.1 0 Absolute Nucleated RBC 0 0 Nucleated RBC % 0 0 Hypochromasia Stomatocytes Retic Count, Calc Corrected Retic Count Retic Shift Factor Retic Production Index Immature Retic Fraction Mean Retic Volume Sodium 136 Potassium 4.4 Chloride 99 L Carbon Dioxide 24 Anion Gap 13 H BUN 28 H Creatinine 4.45 H Est GFR ( Amer) 13.0 Est GFR (Non-Af Amer) 10.1 BUN/Creatinine Ratio 6.3 L Glucose 65 L Calcium 8.3 L Iron TIBC % Saturation Unsat Iron Binding Ferritin Total Bilirubin 0.80 AST 16 ALT 11 Alkaline Phosphatase 101 Total Protein 5.2 L Albumin 2.5 L Globulin 2.7 Albumin/Globulin Ratio 0.9 L Vitamin B12 Folate Blood Type Antibody Screen Crossmatch 12/18/17 12/22/17 12/22/17 06:55 06:16 06:16 WBC 3.9 RBC 2.10 L RBC (Retic) Cancelled Hgb 6.0 L* Hct 18 L HCT (Retic) Cancelled MCV 87 MCH 29 MCHC 33 RDW 15 Plt Count 264 MPV 7 L Neut % (Auto) 70.8 Lymph % (Auto) 9.2 L [place] % (Auto) 17.6 H Eos % (Auto) 1.6 Baso % (Auto) 0.8 Absolute Neuts (auto) 2.8 Absolute Lymphs (auto) 0.4 L Absolute Monos (auto) 0.7 Absolute Eos (auto) 0.1 Absolute Basos (auto) 0 Absolute Nucleated RBC 0 Nucleated RBC % 0.3 Hypochromasia 2+ Stomatocytes 1+ Retic Count, Calc Cancelled Corrected Retic Count Cancelled Retic Shift Factor Cancelled Retic Production Index Cancelled Immature Retic Fraction Cancelled Mean Retic Volume Cancelled Sodium 132 L Potassium 3.9 Chloride 96 L Carbon Dioxide 25 Anion Gap 11 BUN 18 Creatinine 3.85 H Est GFR ( Amer) 15.4 Est GFR (Non-Af Amer) 11.9 BUN/Creatinine Ratio 4.7 L Glucose 91 Calcium 8.3 L Iron 26 L TIBC 105 L % Saturation 25 Unsat Iron Binding 79 Ferritin > 1500.0 H Total Bilirubin 0.80 AST 13 ALT 4 L Alkaline Phosphatase 70 Total Protein 5.1 L Albumin 2.3 L Globulin 2.8 Albumin/Globulin Ratio 0.8 L Vitamin B12 795 Folate 5.85 Blood Type O Negative Antibody Screen Negative Crossmatch See Detail 12/22/17 12/23/17 16:35 05:51 WBC 4.5 4.0 RBC 2.99 L 2.93 L RBC (Retic) Hgb 8.4 L 8.2 L Hct 25 L 25 L HCT (Retic) MCV 84 84 MCH 28 28 MCHC 34 33 RDW 17 H 17 H Plt Count 290 296 MPV 7 L 7 L Neut % (Auto) 67.7 69.9 Lymph % (Auto) 9.6 L 9.8 L [place] % (Auto) 19.3 H 18.3 H Eos % (Auto) 2.3 1.3 Baso % (Auto) 1.1 0.7 Absolute Neuts (auto) 3.1 2.8 Absolute Lymphs (auto) 0.4 L 0.4 L Absolute Monos (auto) 0.9 H 0.7 Absolute Eos (auto) 0.1 0.1 Absolute Basos (auto) 0 0 Absolute Nucleated RBC 0 0 Nucleated RBC % 0.1 0.1 Hypochromasia Stomatocytes Retic Count, Calc Corrected Retic Count Retic Shift Factor Retic Production Index Immature Retic Fraction Mean Retic Volume Sodium Potassium Chloride Carbon Dioxide Anion Gap BUN Creatinine Est GFR ( Amer) Est GFR (Non-Af Amer) BUN/Creatinine Ratio Glucose Calcium Iron TIBC % Saturation Unsat Iron Binding Ferritin Total Bilirubin AST ALT Alkaline Phosphatase Total Protein Albumin Globulin Albumin/Globulin Ratio Vitamin B12 Folate Blood Type Antibody Screen Crossmatch Exam Appearance: Other - Frail appearing Hygiene: Normal Grooming: Fairly Well Kept Psychomotor Activities: Abnormal-Decreased Exhibits Abnormal Movement: No Attitude and Relatedness: Cooperative - Speech Quality: Unpressured Latencies: Normal Quantity: Appropriate Patient's Decription of Mood: "Sad" Observed Affect: Constricted Affect Consistent with: Dysphoria Patient's Thought Process: Coherent Thought Content: No Passive Wish, No Suicidal Planning, No Homicidal Ideation, No Paranoid Ideation Experiencing Hallucinations: No, Sensorium is Clear Type of Hallucinations: Visual: No, Auditory: No, Command: No Level of Consciousness: Alert Orientation: Yes Intact, Yes Orientated to Time, Yes Orientated to Place, Yes Orientated to Person Impulse Control: Tenuous Insight and Judgement: Fair Impression - Impression Clinical Impression: 62 y.o. , white female with no prior mental health history admitted to [facility] following inadvertent ischemic event following bilateral renal artery embolization at outside hospital rendering her paraplegic at T10 spinal level. The patient is depressed with associated neurovegetative symptoms of depression necessitating antidepressant therapy. Merits Inpatient Hospitalization: No Problem List - MHU Problems Type of Problem: Mood Status of Problem: Active Plan - Treatment Plan Treatment Plan: We recommend increase of sertraline from 50 to 100mg daily. Psychiatry will continue to follow and provide supportive care. Continued Medication Management: Start Medication Medications: Current Medications Acetaminophen (Tylenol Tab*) 650 mg PO Q6H PRN PRN Reason: FEVER/PAIN Ascorbic Acid (Vitamin C Tab*) 500 mg PO DAILY [facility] Last Admin: 12/23/17 09:52 Dose: 500 mg Aspirin (Aspirin Ec Low Dose*) 81 mg PO DAILY [facility] Last Admin: 12/23/17 09:53 Dose: 81 mg Atorvastatin Calcium (Lipitor*) 40 mg PO 1700 [facility] Last Admin: 12/23/17 18:46 Dose: Not Given Bisacodyl (Dulcolax Supp*) 10 mg [place] DAILY PRN PRN Reason: CONSTIPATION Bisoprolol Fumarate (Zebeta Tab*) 5 mg PO DAILY [facility] Last Admin: 12/23/17 09:53 Dose: 5 mg Docusate Sodium (Colace Cap*) 100 mg PO BID PRN PRN Reason: CONSTIPATION Fentanyl (Duragesic Patch 25 Mcg/Hr*) 25 mcg TRANSDERM Q72H [facility] Last Admin: 12/24/17 13:53 Dose: 25 mcg Metoclopramide HCl (Reglan Tab*) 5 mg PO AC [facility] Last Admin: 12/24/17 12:00 Dose: Not Given Morphine Sulfate (Morphine Inj (Syringe)*) 2 mg IV Q6H PRN PRN Reason: PAIN - MODERATE TO SEVERE Last Admin: 12/24/17 11:12 Dose: 2 mg Ondansetron HCl (Zofran Odt Tab*) 4 mg PO Q6H PRN PRN Reason: NAUSEA/VOMITING Last Admin: 12/21/17 14:48 Dose: 4 mg Oxycodone HCl (Roxycodone Tab*) 5 mg PO Q4H PRN PRN Reason: PAIN - MODERATE TO SEVERE Last Admin: 12/23/17 16:42 Dose: 5 mg Pantoprazole Sodium (Protonix Tab (Nf)) 40 mg PO DAILY [facility] Last Admin: 12/23/17 09:52 Dose: 40 mg Pharmacy Profile Note (Scopolamine Patch Remove*) 1 note PATCH OFF Q72H [facility] Last Admin: 12/21/17 16:47 Dose: 1 patch Pharmacy Profile Note (Fentanyl Patch Check Q Shift) 1 note N/A 0700,1900 [facility] Psyllium Hydrophilic Mucilloid (Metamucil Macho*) 1 pkt PO DAILY [facility] Last Admin: 12/23/17 11:13 Dose: Not Given Scopolamine (Transderm-Scop 1.5 Mg Patch*) 1 patch TRANSDERM Q72H [facility] Last Admin: 12/21/17 16:46 Dose: 1 patch Senna (Senokot Tab*) 2 tab PO BEDTIME PRN PRN Reason: CONSTIPATION Sertraline HCl (Zoloft*) 100 mg PO DAILY [facility]
[2017-12-24] MEDS: CMC:Pantoprazole TAB (NF) 40 MG TAB PO SCH (15:28)
[2017-12-24] MEDS: Ascorbic Acid TAB* 500 MG PO SCH (15:28)
[2017-12-24] MEDS: Aspirin EC Low Dose* 81 MG TAB.EC PO SCH (15:29)
[2017-12-24] MEDS: Bisoprolol TAB* 5 MG PO SCH (15:29)
[2017-12-24] MEDS: Psyllium PAK PO SCH (15:53)
[2017-12-24] MEDS: Sertraline* 50 MG TAB PO SCH (16:08)
--- NOTE | 2017-12-24 16:37 | PN ---
Progress Note Date of Service: 12/24/17 Note: USAMA KAPADIA was visited. Therapy notes read and reviewed. She was discussed in interdisciplinary team rounds. She was having more LLQ pain since Saturday. I have restarted her on a Fentanyl patch. I have asked for her holley to be changed. She had a low grade fever today. Current Medications: Active Medications Generic Name Dose Route Start Last Admin Trade Name Freq PRN Reason Stop Dose Admin Acetaminophen 650 mg 12/09/17 16:04 Tylenol Tab* PO Q6H PRN FEVER/PAIN Ascorbic Acid 500 mg 12/11/17 09:00 12/24/17 15:28 Vitamin C Tab* PO 500 mg DAILY [facility] Administration Aspirin 81 mg 12/10/17 09:00 12/24/17 15:29 Aspirin Ec Low Dose* PO 81 mg DAILY [facility] Administration Atorvastatin Calcium 40 mg 12/09/17 17:00 12/23/17 18:46 Lipitor* PO Not Given 1700 [facility] Bisacodyl 10 mg 12/09/17 16:04 Dulcolax Supp* [place] DAILY PRN CONSTIPATION Bisoprolol Fumarate 5 mg 12/10/17 09:00 12/24/17 15:29 Zebeta Tab* PO 5 mg DAILY [facility] Administration Docusate Sodium 100 mg 12/20/17 10:06 Colace Cap* PO BID PRN CONSTIPATION Fentanyl 25 mcg 12/24/17 12:00 12/24/17 13:53 Duragesic Patch 25 Mcg/Hr* TRANSDERM 25 mcg Q72H [facility] Administration Metoclopramide HCl 5 mg 12/17/17 16:30 12/24/17 12:00 Reglan Tab* PO Not Given AC [facility] Morphine Sulfate 2 mg 12/23/17 17:15 12/24/17 11:12 Morphine Inj (Syringe)* IV 2 mg Q6H PRN Administration PAIN - MODERATE TO SEVERE Ondansetron HCl 4 mg 12/12/17 12:50 12/21/17 14:48 Zofran Odt Tab* PO 4 mg Q6H PRN Administration NAUSEA/VOMITING Oxycodone HCl 5 mg 12/09/17 16:22 12/23/17 16:42 Roxycodone Tab* PO 5 mg Q4H PRN Administration PAIN - MODERATE TO SEVERE Pantoprazole Sodium 40 mg 12/10/17 09:00 12/24/17 15:28 Protonix Tab (Nf) PO 40 mg DAILY [facility] Administration Pharmacy Profile Note 1 note 12/21/17 18:00 12/21/17 16:47 Scopolamine Patch Remove* PATCH OFF 1 patch Q72H [facility] Administration Pharmacy Profile Note 1 note 12/24/17 19:00 Fentanyl Patch Check Q Shift N/A 0700,1900 [facility] Psyllium Hydrophilic Mucilloid 1 pkt 12/20/17 11:00 12/24/17 15:53 Metamucil Macho* PO Not Given DAILY [facility] Scopolamine 1 patch 12/18/17 18:00 12/21/17 16:46 Transderm-Scop 1.5 Mg Patch* TRANSDERM 1 patch Q72H [facility] Administration Senna 2 tab 12/09/17 16:04 Senokot Tab* PO BEDTIME PRN CONSTIPATION Sertraline HCl 100 mg 12/25/17 09:00 Zoloft* PO DAILY [facility] Vital Signs: Vital Signs Temp Pulse Resp BP Pulse Ox 100.8 F 105 18 126/57 97 12/24/17 15:31 12/24/17 15:31 12/24/17 15:31 12/24/17 15:31 12/24/17 15:31 Lab Results: Laboratory Results - last 24 hr 12/18/17 06:55 Transferrin 73 L Exam: LUNGS: Clear bilaterally HEART: reg rhythm ABDOMEN: Soft. LLQ tender to palpation. Bowel sounds audible EXTREMITIES: No edema, LE starting to atrophy. Lower extremity girths were symmetric. : Holley in place draining dark, bloody urine NEUROLOGIC: Decreased sensation below T10. Some quadriceps in RLE, able to wiggle toes bilat. Assessment/Plan: 1. T10 JAC Class "C" Paraplegia: PT/OT 2. Hematuria/Anemia: Transfused 2 units over weekend. Off Plavix and pletal now. Last Hb/Hct Stable 3. CKD/Renal failure: Hemodialysis. Renal diet. Follow urine output 4. 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 Started Fentanyl Patch, 25 mcg/hr today. Oxycodone PRN. 5. Neurogenic bladder: holley needs to be changed. 6. Neurogenic bowel: Bowel program. Stools have been loose 7. PVD: off pletal 8. DVT Prophylaxis: SCDs. 9. Anemia of chronic disease: See above. Had drop in crit. CT scan did not show any diverticulum by report (no contrast) 10. Advanced directives: full code 11. Depression: Zoloft started. Unclear if any effect. Psychiatrist will follow up and may increase Zoloft 12. Nausea: On Scopolamine patch. Have asked hospitalists to see, Consider Marinol. Added Reglan 12/24/17 16:39 12/24/17 16:39 12/24/17 16:42
[2017-12-24] MEDS: Acetaminophen TAB* 325 MG PO PRN (16:51)
[2017-12-24] MEDS: Atorvastatin* 40 MG TAB PO SCH (16:51)
[2017-12-24] MEDS: Scopolamine 1.5 mg* PATCH TRANSDERM SCH (18:06)
[2017-12-24] MEDS: Scopolamine PATCH Remove* 1 NOTE MISC PATCH OFF SCH (18:09)
[2017-12-24] MEDS: fentaNYL Patch Check Q Shift 1 NOTE SCH (23:36)
[2017-12-25] MEDS: Morphine INJ* 2 MG/ML 1 ML CARPUJECT IV PRN (05:45)
[2017-12-25] MEDS: Metoclopramide TAB* 10 MG PO SCH ×3 (05:51→16:42)
[2017-12-25] MEDS: fentaNYL Patch Check Q Shift 1 NOTE SCH ×2 (07:15→23:19)
[2017-12-25 08:09] LABS: ABS Basophils 0 10^3/ul (0-0.2); ABS Eosinophils 0.1 10^3/ul (0-0.6); ABS Lymphocytes 0.4 10^3/ul (1.0-4.8); ABS Monocytes 0.7 10^3/ul (0-0.8); ABS Neutrophils 5.1 10^3/ul (1.5-7.7); ABS Nucleated RBC 0 10^3/ul; Hematocrit 25 % (35-47); Hemoglobin 8.4 g/dl (12.0-16.0); Lymphocyte % 6.3 % (25-47); Mean Corpuscular HGB Conc 33 g/dl (31-36); Mean Corpuscular Hemoglobin 29 pg (27-31); Mean Corpuscular Volume 86 fL (80-97); Mean Platelet Volume 7 um3 (7.4-10.4); Nucleated Red Blood Cells % 0; Platelet Count 279 10^3/ul (150-450); Red Blood Count 2.96 10^6/ul (4.0-5.4); Red Cell Distribution Width 17 % (10.5-15); White Blood Count 6.4 10^3/ul (3.5-10.8)
[2017-12-25 08:11] LABS: EGFR Non-African American 13.7 (>60)
[2017-12-25] MEDS: Aspirin EC Low Dose* 81 MG TAB.EC PO SCH (09:12)
[2017-12-25] MEDS: Ascorbic Acid TAB* 500 MG PO SCH (09:12)
[2017-12-25] MEDS: Sertraline* 100 MG TAB PO SCH (09:12)
[2017-12-25] MEDS: oxyCODONE TAB* 5 MG TAB PO PRN (09:13)
[2017-12-25] MEDS: Psyllium PAK PO SCH (09:18)
[2017-12-25] MEDS: CMC:Pantoprazole TAB (NF) 40 MG TAB PO SCH (09:23)
[2017-12-25] MEDS: Bisoprolol TAB* 5 MG PO SCH (09:23)
[2017-12-25] MEDS: Atorvastatin* 40 MG TAB PO SCH (16:42)
--- NOTE | 2017-12-25 18:24 | PN ---
Progress Note Date of Service: 12/25/17 Note: USAMA KAPADIA was visited. Therapy notes read and reviewed. She had a fairly good day today. She was able to participate in therapy and she ate better. Pain was better controlled. Current Medications: Active Medications Generic Name Dose Route Start Last Admin Trade Name Freq PRN Reason Stop Dose Admin Acetaminophen 650 mg 12/09/17 16:04 12/24/17 16:51 Tylenol Tab* PO 650 mg Q6H PRN Administration FEVER/PAIN Ascorbic Acid 500 mg 12/11/17 09:00 12/25/17 09:12 Vitamin C Tab* PO 500 mg DAILY [facility] Administration Aspirin 81 mg 12/10/17 09:00 12/25/17 09:12 Aspirin Ec Low Dose* PO 81 mg DAILY [facility] Administration Atorvastatin Calcium 40 mg 12/09/17 17:00 12/25/17 16:42 Lipitor* PO 40 mg 1700 [facility] Administration Bisacodyl 10 mg 12/09/17 16:04 Dulcolax Supp* [place] DAILY PRN CONSTIPATION Bisoprolol Fumarate 5 mg 12/10/17 09:00 12/25/17 09:23 Zebeta Tab* PO 5 mg DAILY [facility] Administration Docusate Sodium 100 mg 12/20/17 10:06 Colace Cap* PO BID PRN CONSTIPATION Fentanyl 25 mcg 12/24/17 12:00 12/24/17 13:53 Duragesic Patch 25 Mcg/Hr* TRANSDERM 25 mcg Q72H [facility] Administration Metoclopramide HCl 5 mg 12/17/17 16:30 12/25/17 16:42 Reglan Tab* PO 5 mg AC [facility] Administration Morphine Sulfate 2 mg 12/23/17 17:15 12/25/17 05:45 Morphine Inj (Syringe)* IV 2 mg Q6H PRN Administration PAIN - MODERATE TO SEVERE Ondansetron HCl 4 mg 12/12/17 12:50 12/21/17 14:48 Zofran Odt Tab* PO 4 mg Q6H PRN Administration NAUSEA/VOMITING Oxycodone HCl 5 mg 12/09/17 16:22 12/25/17 09:13 Roxycodone Tab* PO 5 mg Q4H PRN Administration PAIN - MODERATE TO SEVERE Pantoprazole Sodium 40 mg 12/10/17 09:00 12/25/17 09:23 Protonix Tab (Nf) PO 40 mg DAILY [facility] Administration Pharmacy Profile Note 1 note 12/21/17 18:00 12/24/17 18:09 Scopolamine Patch Remove* PATCH OFF 1 patch Q72H [facility] Administration Pharmacy Profile Note 1 note 12/24/17 19:00 12/25/17 07:15 Fentanyl Patch Check Q Shift N/A 1 note 0700,1900 [facility] Administration Psyllium Hydrophilic Mucilloid 1 pkt 12/20/17 11:00 12/25/17 09:18 Metamucil Macho* PO Not Given DAILY [facility] Scopolamine 1 patch 12/18/17 18:00 12/24/17 18:06 Transderm-Scop 1.5 Mg Patch* TRANSDERM 1 patch Q72H [facility] Administration Senna 2 tab 12/09/17 16:04 Senokot Tab* PO BEDTIME PRN CONSTIPATION Sertraline HCl 100 mg 12/25/17 09:00 12/25/17 09:12 Zoloft* PO 100 mg DAILY [facility] Administration Vital Signs: Vital Signs Temp Pulse Resp BP Pulse Ox 99.8 F 93 18 99/50 95 12/25/17 15:33 12/25/17 15:33 12/25/17 15:33 12/25/17 15:33 12/25/17 17:52 Lab Results: Laboratory Results - last 24 hr 12/25/17 12/25/17 07:18 07:18 WBC 6.4 RBC 2.96 L Hgb 8.4 L Hct 25 L MCV 86 MCH 29 MCHC 33 RDW 17 H Plt Count 279 MPV 7 L Neut % (Auto) 80.6 Lymph % (Auto) 6.3 L Garland % (Auto) 11.5 H Eos % (Auto) 1.0 Baso % (Auto) 0.6 Absolute Neuts (auto) 5.1 Absolute Lymphs (auto) 0.4 L Absolute Monos (auto) 0.7 Absolute Eos (auto) 0.1 Absolute Basos (auto) 0 Absolute Nucleated RBC 0 Nucleated RBC % 0 Sodium 135 Potassium 4.0 Chloride 99 L Carbon Dioxide 30 Anion Gap 6 BUN 19 Creatinine 3.42 H Est GFR ( Amer) 17.6 Est GFR (Non-Af Amer) 13.7 BUN/Creatinine Ratio 5.6 L Glucose 107 H Calcium 8.1 L Total Bilirubin 0.70 AST 13 ALT 4 L Alkaline Phosphatase 101 Total Protein 5.1 L Albumin 2.1 L Globulin 3.0 Albumin/Globulin Ratio 0.7 L Exam: LUNGS: Clear bilaterally HEART: reg rhythm ABDOMEN: Soft. LLQ tender to palpation. Bowel sounds audible EXTREMITIES: No edema, LE starting to atrophy. Lower extremity girths were symmetric. : Holley in place draining dark, bloody urine NEUROLOGIC: Decreased sensation below T10. Some quadriceps in RLE, able to wiggle toes bilat, some dorsiflexion Assessment/Plan: 1. T10 JAC Class "C" Paraplegia: PT/OT 2. Hematuria/Anemia: Transfused 2 units over weekend. Off Plavix and pletal now. Today's Hb/Hct Stable 3. CKD/Renal failure: Hemodialysis. Renal diet. Follow urine output 4. 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 Started Fentanyl Patch, 25 mcg/hr today. Morphine IV, Oxycodone PRN. 5. Neurogenic bladder: holley needs to be changed. 6. Neurogenic bowel: Bowel program. Stools have been loose 7. PVD: off pletal 8. DVT Prophylaxis: SCDs. 9. Anemia of chronic disease: See above. Had drop in crit. CT scan did not show any diverticulum by report (no contrast) 10. Advanced directives: full code 11. Depression: Zoloft increased to [address] Flores. 12. Nausea: On Scopolamine patch. Added Reglan. Better today 12/25/17 18:25
[2017-12-26] MEDS: Morphine INJ* 2 MG/ML 1 ML CARPUJECT IV PRN (05:31)
[2017-12-26] MEDS: Metoclopramide TAB* 10 MG PO SCH ×3 (06:23→16:04)
[2017-12-26] MEDS: Bisoprolol TAB* 5 MG PO SCH (12:34)
[2017-12-26] MEDS: Ascorbic Acid TAB* 500 MG PO SCH (12:34)
[2017-12-26] MEDS: CMC:Pantoprazole TAB (NF) 40 MG TAB PO SCH (12:34)
[2017-12-26] MEDS: Sertraline* 100 MG TAB PO SCH (12:34)
[2017-12-26] MEDS: Aspirin EC Low Dose* 81 MG TAB.EC PO SCH (12:34)
[2017-12-26] MEDS: Psyllium PAK PO SCH (12:36)
[2017-12-26] MEDS: fentaNYL Patch Check Q Shift 1 NOTE SCH ×2 (12:37→23:08)
[2017-12-26] MEDS: Atorvastatin* 40 MG TAB PO SCH (16:57)
--- NOTE | 2017-12-26 20:25 | PN ---
Progress Note Date of Service: 12/26/17 Note: USAMA KAPADIA was visited. Therapy notes read and reviewed. She had a good day today and was able to participate in therapies. Her pain is better controlled. Current Medications: Active Medications Generic Name Dose Route Start Last Admin Trade Name Freq PRN Reason Stop Dose Admin Acetaminophen 650 mg 12/09/17 16:04 12/24/17 16:51 Tylenol Tab* PO 650 mg Q6H PRN Administration FEVER/PAIN Ascorbic Acid 500 mg 12/11/17 09:00 12/26/17 12:34 Vitamin C Tab* PO 500 mg DAILY [facility] Administration Aspirin 81 mg 12/10/17 09:00 12/26/17 12:34 Aspirin Ec Low Dose* PO 81 mg DAILY [facility] Administration Atorvastatin Calcium 40 mg 12/09/17 17:00 12/26/17 16:57 Lipitor* PO 40 mg 1700 [facility] Administration Bisacodyl 10 mg 12/09/17 16:04 Dulcolax Supp* [place] DAILY PRN CONSTIPATION Bisoprolol Fumarate 5 mg 12/10/17 09:00 12/26/17 12:34 Zebeta Tab* PO 5 mg DAILY [facility] Administration Docusate Sodium 100 mg 12/20/17 10:06 Colace Cap* PO BID PRN CONSTIPATION Fentanyl 25 mcg 12/24/17 12:00 12/24/17 13:53 Duragesic Patch 25 Mcg/Hr* TRANSDERM 25 mcg Q72H [facility] Administration Metoclopramide HCl 5 mg 12/17/17 16:30 12/26/17 16:04 Reglan Tab* PO Not Given [facility] Morphine Sulfate 2 mg 12/23/17 17:15 12/26/17 05:31 Morphine Inj (Syringe)* IV 2 mg Q6H PRN Administration PAIN - MODERATE TO SEVERE Ondansetron HCl 4 mg 12/12/17 12:50 12/21/17 14:48 Zofran Odt Tab* PO 4 mg Q6H PRN Administration NAUSEA/VOMITING Oxycodone HCl 5 mg 12/09/17 16:22 12/25/17 09:13 Roxycodone Tab* PO 5 mg Q4H PRN Administration PAIN - MODERATE TO SEVERE Pantoprazole Sodium 40 mg 12/10/17 09:00 12/26/17 12:34 Protonix Tab (Nf) PO 40 mg DAILY [facility] Administration Pharmacy Profile Note 1 note 12/21/17 18:00 12/24/17 18:09 Scopolamine Patch Remove* PATCH OFF 1 patch Q72H [facility] Administration Pharmacy Profile Note 1 note 12/24/17 19:00 12/26/17 12:37 Fentanyl Patch Check Q Shift N/A 1 note 0700,1900 [facility] Administration Psyllium Hydrophilic Mucilloid 1 pkt 12/20/17 11:00 12/26/17 12:36 Metamucil Macho* PO Not Given DAILY [facility] Scopolamine 1 patch 12/18/17 18:00 12/24/17 18:06 Transderm-Scop 1.5 Mg Patch* TRANSDERM 1 patch Q72H [facility] Administration Senna 2 tab 12/09/17 16:04 Senokot Tab* PO BEDTIME PRN CONSTIPATION Sertraline HCl 100 mg 12/25/17 09:00 12/26/17 12:34 Zoloft* PO 100 mg DAILY [facility] Administration Vital Signs: Vital Signs Temp Pulse Resp BP Pulse Ox 98.3 F 94 18 103/55 95 12/26/17 16:07 12/26/17 16:07 12/26/17 16:07 12/26/17 16:07 12/26/17 16:07 Exam: LUNGS: Clear bilaterally HEART: reg rhythm ABDOMEN: Soft. LLQ tender to palpation. Bowel sounds audible EXTREMITIES: No edema, LE starting to atrophy. Lower extremity girths were symmetric. : Holley in place draining dark, bloody urine NEUROLOGIC: Decreased sensation below T10. Some quadriceps in RLE, able to wiggle toes bilat, some dorsiflexion Assessment/Plan: 1. T10 JAC Class "C" Paraplegia: PT/OT 2. Hematuria/Anemia: Transfused 2 units last weekend. Off Plavix and pletal now. Hb/Hct Stable 3. CKD/Renal failure: Hemodialysis. Renal diet. Follow urine output 4. 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 On Fentanyl Patch, 25 mcg/hr. Morphine IV, Oxycodone PRN. 5. Neurogenic bladder: holley changed. 6. Neurogenic bowel: Bowel program. Stools have been loose 7. PVD: off pletal 8. DVT Prophylaxis: SCDs. 9. Anemia of chronic disease: See above. Had drop in crit. CT scan did not show any diverticulum by report (no contrast) 10. Advanced directives: full code 11. Depression: Zoloft increased to [address] Flores. 12. Nausea: On Scopolamine patch. Added Reglan. Better today 12/26/17 20:25
[2017-12-27] MEDS: fentaNYL Patch Check Q Shift 1 NOTE SCH ×3 (07:01→23:01)
[2017-12-27] MEDS: Ascorbic Acid TAB* 500 MG PO SCH (08:23)
[2017-12-27] MEDS: Aspirin EC Low Dose* 81 MG TAB.EC PO SCH (08:23)
[2017-12-27] MEDS: Bisoprolol TAB* 5 MG PO SCH (08:23)
[2017-12-27] MEDS: Sertraline* 100 MG TAB PO SCH (08:23)
[2017-12-27] MEDS: Metoclopramide TAB* 10 MG PO SCH ×3 (08:23→16:37)
[2017-12-27] MEDS: CMC:Pantoprazole TAB (NF) 40 MG TAB PO SCH (08:23)
[2017-12-27] MEDS: Psyllium PAK PO SCH (08:24)
[2017-12-27] MEDS: Docusate CAP* 100 MG PO PRN ×2 (10:41→17:27)
[2017-12-27] MEDS: oxyCODONE TAB* 5 MG TAB PO PRN (10:41)
[2017-12-27] MEDS: fentaNYL PATCH 25 MCG/HR TRANSDERM SCH (12:44)
--- NOTE | 2017-12-27 15:54 | PN ---
Progress Note Date of Service: 12/27/17 Note: USAMA KAPADIA was visited. Therapy notes read and reviewed. She was again able to do all her therapy. She has not had a bowel movement in a few days. Will make sure she gets Colace and Senokot. Current Medications: Active Medications Generic Name Dose Route Start Last Admin Trade Name Freq PRN Reason Stop Dose Admin Acetaminophen 650 mg 12/09/17 16:04 12/24/17 16:51 Tylenol Tab* PO 650 mg Q6H PRN Administration FEVER/PAIN Ascorbic Acid 500 mg 12/11/17 09:00 12/27/17 08:23 Vitamin C Tab* PO 500 mg DAILY [facility] Administration Aspirin 81 mg 12/10/17 09:00 12/27/17 08:23 Aspirin Ec Low Dose* PO 81 mg DAILY [facility] Administration Atorvastatin Calcium 40 mg 12/09/17 17:00 12/26/17 16:57 Lipitor* PO 40 mg 1700 [facility] Administration Bisacodyl 10 mg 12/09/17 16:04 Dulcolax Supp* [place] DAILY PRN CONSTIPATION Bisoprolol Fumarate 5 mg 12/10/17 09:00 12/27/17 08:23 Zebeta Tab* PO 5 mg DAILY [facility] Administration Docusate Sodium 100 mg 12/20/17 10:06 12/27/17 10:41 Colace Cap* PO 100 mg BID PRN Administration CONSTIPATION Fentanyl 25 mcg 12/24/17 12:00 12/27/17 12:44 Duragesic Patch 25 Mcg/Hr* TRANSDERM 25 mcg Q72H [facility] Administration Metoclopramide HCl 5 mg 12/17/17 16:30 12/27/17 12:27 Reglan Tab* PO 5 mg AC [facility] Administration Morphine Sulfate 2 mg 12/23/17 17:15 12/26/17 05:31 Morphine Inj (Syringe)* IV 2 mg Q6H PRN Administration PAIN - MODERATE TO SEVERE Ondansetron HCl 4 mg 12/12/17 12:50 12/21/17 14:48 Zofran Odt Tab* PO 4 mg Q6H PRN Administration NAUSEA/VOMITING Oxycodone HCl 5 mg 12/09/17 16:22 12/27/17 10:41 Roxycodone Tab* PO 5 mg Q4H PRN Administration PAIN - MODERATE TO SEVERE Pantoprazole Sodium 40 mg 12/10/17 09:00 12/27/17 08:23 Protonix Tab (Nf) PO 40 mg DAILY [facility] Administration Pharmacy Profile Note 1 note 12/21/17 18:00 12/24/17 18:09 Scopolamine Patch Remove* PATCH OFF 1 patch Q72H [facility] Administration Pharmacy Profile Note 1 note 12/24/17 19:00 12/27/17 15:00 Fentanyl Patch Check Q Shift N/A 1 note 0700,1900 [facility] Administration Psyllium Hydrophilic Mucilloid 1 pkt 12/20/17 11:00 12/27/17 08:24 Metamucil Macho* PO Not Given DAILY [facility] Scopolamine 1 patch 12/18/17 18:00 12/24/17 18:06 Transderm-Scop 1.5 Mg Patch* TRANSDERM 1 patch Q72H [facility] Administration Senna 2 tab 12/09/17 16:04 Senokot Tab* PO BEDTIME PRN CONSTIPATION Sertraline HCl 100 mg 12/25/17 09:00 12/27/17 08:23 Zoloft* PO 100 mg DAILY [facility] Administration Vital Signs: Vital Signs Temp Pulse Resp BP Pulse Ox 99.8 F 89 18 123/59 96 12/27/17 06:21 12/27/17 06:21 12/27/17 12:44 12/27/17 06:21 12/27/17 09:12 Exam: LUNGS: Clear bilaterally HEART: reg rhythm ABDOMEN: Soft. LLQ tender to palpation. Bowel sounds audible EXTREMITIES: No edema, LE starting to atrophy. Lower extremity girths were symmetric. : Holley in place draining dark, bloody urine NEUROLOGIC: Decreased sensation below T10. Some quadriceps in RLE, able to wiggle toes bilat, some dorsiflexion Assessment/Plan: 1. T10 JAC Class "C" Paraplegia: PT/OT 2. Hematuria/Anemia: Transfused 2 units last weekend. Off Plavix and pletal now. Hb/Hct Stable 3. CKD/Renal failure: Hemodialysis. Renal diet. Follow urine output 4. 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 On Fentanyl Patch, 25 mcg/hr. Morphine IV, Oxycodone PRN. 5. Neurogenic bladder: holley changed. 6. Neurogenic bowel: Bowel program. 7. PVD: off pletal 8. DVT Prophylaxis: SCDs. 9. Anemia of chronic disease: See above. Had drop in crit. CT scan did not show any diverticulum by report (no contrast) 10. Advanced directives: full code 11. Depression: Zoloft increased to [address] Flores. 12. Nausea: On Scopolamine patch. Added Reglan. Better today 12/26/17 20:25 12/27/17 15:54
[2017-12-27] MEDS: Senna TAB PO PRN (17:26)
[2017-12-27] MEDS: Scopolamine 1.5 mg* PATCH TRANSDERM SCH (17:27)
[2017-12-27] MEDS: Scopolamine PATCH Remove* 1 NOTE MISC PATCH OFF SCH (17:27)
[2017-12-27] MEDS: Atorvastatin* 40 MG TAB PO SCH (17:27)
[2017-12-28] MEDS: oxyCODONE TAB* 5 MG TAB PO PRN ×2 (05:36→16:50)
[2017-12-28] MEDS: fentaNYL Patch Check Q Shift 1 NOTE SCH ×3 (07:03→19:12)
--- NOTE | 2017-12-28 10:39 | PN ---
Progress Note Date of Service: 12/28/17 Note: USAMA KAPADIA was visited. Nursing notes read and reviewed. She is back from dialysis. Overall doing okay. Pain still present but controlled. Current Medications: Active Medications Generic Name Dose Route Start Last Admin Trade Name Freq PRN Reason Stop Dose Admin Acetaminophen 650 mg 12/09/17 16:04 12/24/17 16:51 Tylenol Tab* PO 650 mg Q6H PRN Administration FEVER/PAIN Ascorbic Acid 500 mg 12/11/17 09:00 12/27/17 08:23 Vitamin C Tab* PO 500 mg DAILY [facility] Administration Aspirin 81 mg 12/10/17 09:00 12/27/17 08:23 Aspirin Ec Low Dose* PO 81 mg DAILY [facility] Administration Atorvastatin Calcium 40 mg 12/09/17 17:00 12/27/17 17:27 Lipitor* PO 40 mg 1700 [facility] Administration Bisacodyl 10 mg 12/09/17 16:04 Dulcolax Supp* [place] DAILY PRN CONSTIPATION Bisoprolol Fumarate 5 mg 12/10/17 09:00 12/27/17 08:23 Zebeta Tab* PO 5 mg DAILY [facility] Administration Docusate Sodium 100 mg 12/20/17 10:06 12/27/17 17:27 Colace Cap* PO 100 mg BID PRN Administration CONSTIPATION Fentanyl 25 mcg 12/24/17 12:00 12/27/17 12:44 Duragesic Patch 25 Mcg/Hr* TRANSDERM 25 mcg Q72H [facility] Administration Metoclopramide HCl 5 mg 12/17/17 16:30 12/27/17 16:37 Reglan Tab* PO Not Given [facility] Morphine Sulfate 2 mg 12/23/17 17:15 12/26/17 05:31 Morphine Inj (Syringe)* IV 2 mg Q6H PRN Administration PAIN - MODERATE TO SEVERE Ondansetron HCl 4 mg 12/12/17 12:50 12/21/17 14:48 Zofran Odt Tab* PO 4 mg Q6H PRN Administration NAUSEA/VOMITING Oxycodone HCl 5 mg 12/09/17 16:22 12/28/17 05:36 Roxycodone Tab* PO 5 mg Q4H PRN Administration PAIN - MODERATE TO SEVERE Pantoprazole Sodium 40 mg 12/10/17 09:00 12/27/17 08:23 Protonix Tab (Nf) PO 40 mg DAILY [facility] Administration Pharmacy Profile Note 1 note 12/21/17 18:00 12/27/17 17:27 Scopolamine Patch Remove* PATCH OFF 1 patch Q72H [facility] Administration Pharmacy Profile Note 1 note 12/24/17 19:00 12/28/17 07:03 Fentanyl Patch Check Q Shift N/A Not Given 0700,1900 [facility] Psyllium Hydrophilic Mucilloid 1 pkt 12/20/17 11:00 12/27/17 08:24 Metamucil Macho* PO Not Given DAILY [facility] Scopolamine 1 patch 12/18/17 18:00 12/27/17 17:27 Transderm-Scop 1.5 Mg Patch* TRANSDERM 1 patch Q72H [facility] Administration Senna 2 tab 12/09/17 16:04 12/27/17 17:26 Senokot Tab* PO 2 tab BEDTIME PRN Administration CONSTIPATION Sertraline HCl 100 mg 12/25/17 09:00 12/27/17 08:23 Zoloft* PO 100 mg DAILY [facility] Administration Vital Signs: Vital Signs Temp Pulse Resp BP Pulse Ox 99.1 F 91 18 125/61 97 12/28/17 05:35 12/28/17 05:35 12/28/17 05:36 12/28/17 05:35 12/28/17 05:35 Exam: LUNGS: Clear bilaterally HEART: reg rhythm ABDOMEN: Soft. LLQ tender to palpation. Bowel sounds audible EXTREMITIES: No edema, LE starting to atrophy. Lower extremity girths were symmetric. : Holley in place draining dark, bloody urine NEUROLOGIC: Decreased sensation below T10. Some quadriceps in RLE, able to wiggle toes bilat Assessment/Plan: 1. T10 JAC Class "C" Paraplegia: PT/OT 2. Hematuria/Anemia: Transfused 2 units last weekend. Off Plavix and pletal now. Hb/Hct Stable. CT scan did not show any diverticulum by report (no contrast ) 3. CKD/Renal failure: Hemodialysis. Renal diet. Follow urine output 4. 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 On Fentanyl Patch, 25 mcg/hr. Morphine IV, Oxycodone PRN. 5. Neurogenic bladder: holley changed. 6. Neurogenic bowel: Bowel program. 7. PVD: off pletal 8. DVT Prophylaxis: SCDs. 9. Advanced directives: full code 10. Depression: Zoloft increased to [address] Flores. Spirits better 11. Nausea: On Scopolamine patch. Often refuses Reglan. Better still considering Marinol 12/28/17 10:40
[2017-12-28] MEDS: Metoclopramide TAB* 10 MG PO SCH ×3 (11:37→16:47)
[2017-12-28] MEDS: Psyllium PAK PO SCH (11:39)
[2017-12-28] MEDS: CMC:Pantoprazole TAB (NF) 40 MG TAB PO SCH (11:39)
[2017-12-28] MEDS: Sertraline* 100 MG TAB PO SCH (11:39)
[2017-12-28] MEDS: Bisoprolol TAB* 5 MG PO SCH (11:39)
[2017-12-28] MEDS: Ascorbic Acid TAB* 500 MG PO SCH (11:39)
[2017-12-28] MEDS: Aspirin EC Low Dose* 81 MG TAB.EC PO SCH (11:39)
[2017-12-28] MEDS: Atorvastatin* 40 MG TAB PO SCH (16:47)
[2017-12-29] MEDS: fentaNYL Patch Check Q Shift 1 NOTE SCH ×2 (07:11→19:15)
[2017-12-29] MEDS: Metoclopramide TAB* 10 MG PO SCH ×3 (08:00→16:57)
[2017-12-29] MEDS: CMC:Pantoprazole TAB (NF) 40 MG TAB PO SCH (08:41)
[2017-12-29] MEDS: Ascorbic Acid TAB* 500 MG PO SCH (08:41)
[2017-12-29] MEDS: Aspirin EC Low Dose* 81 MG TAB.EC PO SCH (08:41)
[2017-12-29] MEDS: Bisoprolol TAB* 5 MG PO SCH (08:41)
[2017-12-29] MEDS: Sertraline* 100 MG TAB PO SCH (08:41)
[2017-12-29] MEDS: Psyllium PAK PO SCH (09:12)
[2017-12-29] MEDS: Ondansetron ODT TAB* 4 MG PO PRN (09:17)
[2017-12-29] MEDS: Morphine INJ* 2 MG/ML 1 ML CARPUJECT IV PRN (10:44)
--- NOTE | 2017-12-29 11:32 | PN ---
Progress Note Date of Service: 12/29/17 Note: USAMA KAPADIA was visited. Nursing notes read and reviewed. She is coomplaining of a sore throat. LLQ pain remains. Holley draining bloody urine. Appetite remains poor Current Medications: Active Medications Generic Name Dose Route Start Last Admin Trade Name Freq PRN Reason Stop Dose Admin Acetaminophen 650 mg 12/09/17 16:04 12/24/17 16:51 Tylenol Tab* PO 650 mg Q6H PRN Administration FEVER/PAIN Ascorbic Acid 500 mg 12/11/17 09:00 12/29/17 08:41 Vitamin C Tab* PO 500 mg DAILY [facility] Administration Aspirin 81 mg 12/10/17 09:00 12/29/17 08:41 Aspirin Ec Low Dose* PO 81 mg DAILY [facility] Administration Atorvastatin Calcium 40 mg 12/09/17 17:00 12/28/17 16:47 Lipitor* PO 40 mg 1700 [facility] Administration Bisacodyl 10 mg 12/09/17 16:04 Dulcolax Supp* [place] DAILY PRN CONSTIPATION Bisoprolol Fumarate 5 mg 12/10/17 09:00 12/29/17 08:41 Zebeta Tab* PO 5 mg DAILY [facility] Administration Docusate Sodium 100 mg 12/20/17 10:06 12/27/17 17:27 Colace Cap* PO 100 mg BID PRN Administration CONSTIPATION Fentanyl 25 mcg 12/24/17 12:00 12/27/17 12:44 Duragesic Patch 25 Mcg/Hr* TRANSDERM 25 mcg Q72H [facility] Administration Metoclopramide HCl 5 mg 12/17/17 16:30 12/29/17 08:00 Reglan Tab* PO Not Given [facility] Morphine Sulfate 2 mg 12/23/17 17:15 12/29/17 10:44 Morphine Inj (Syringe)* IV 2 mg Q6H PRN Administration PAIN - MODERATE TO SEVERE Ondansetron HCl 4 mg 12/12/17 12:50 12/29/17 09:17 Zofran Odt Tab* PO 4 mg Q6H PRN Administration NAUSEA/VOMITING Oxycodone HCl 5 mg 12/09/17 16:22 12/28/17 16:50 Roxycodone Tab* PO 5 mg Q4H PRN Administration PAIN - MODERATE TO SEVERE Pantoprazole Sodium 40 mg 12/10/17 09:00 12/29/17 08:41 Protonix Tab (Nf) PO 40 mg DAILY [facility] Administration Pharmacy Profile Note 1 note 12/21/17 18:00 12/27/17 17:27 Scopolamine Patch Remove* PATCH OFF 1 patch Q72H [facility] Administration Pharmacy Profile Note 1 note 12/24/17 19:00 12/29/17 07:11 Fentanyl Patch Check Q Shift N/A 1 note 0700,1900 [facility] Administration Psyllium Hydrophilic Mucilloid 1 pkt 12/20/17 11:00 12/29/17 09:12 Metamucil Macho* PO Not Given DAILY [facility] Scopolamine 1 patch 12/18/17 18:00 12/27/17 17:27 Transderm-Scop 1.5 Mg Patch* TRANSDERM 1 patch Q72H [facility] Administration Senna 2 tab 12/09/17 16:04 12/27/17 17:26 Senokot Tab* PO 2 tab BEDTIME PRN Administration CONSTIPATION Sertraline HCl 100 mg 12/25/17 09:00 12/29/17 08:41 Zoloft* PO 100 mg DAILY [facility] Administration Vital Signs: Vital Signs Temp Pulse Resp BP Pulse Ox 99.8 F 89 18 128/60 98 12/29/17 06:41 12/29/17 06:41 12/29/17 10:44 12/29/17 06:41 12/29/17 08:00 Exam: HEENT: Throat examined. No injection, no thrush LUNGS: Clear bilaterally HEART: reg rhythm ABDOMEN: Soft. LLQ tender to palpation. Bowel sounds audible EXTREMITIES: No edema, LE starting to atrophy. Lower extremity girths were symmetric. : Holley in place draining dark, bloody urine NEUROLOGIC: Decreased sensation below T10. Some quadriceps in RLE, able to wiggle toes bilat Assessment/Plan: 1. T10 JAC Class "C" Paraplegia: PT/OT 2. Hematuria/Anemia: Transfused 2 units last weekend. Off Plavix and pletal now. Hb/Hct Stable. CT scan did not show any diverticulum by report (no contrast ) 3. CKD/Renal failure: Hemodialysis. Renal diet. Follow urine output 4. 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 On Fentanyl Patch, 25 mcg/hr. Morphine IV, Oxycodone PRN. 5. Neurogenic bladder: holley changed. 6. Neurogenic bowel: Bowel program. 7. PVD: off pletal 8. DVT Prophylaxis: SCDs. 9. Advanced directives: full code 10. Depression: Zoloft increased to [address] Flores. Spirits better 11. Nausea: On Scopolamine patch. Often refuses Reglan. Better still considering Marinol 12. Sore Throat: will order salt water rinse 12/29/17 11:33
[2017-12-29] MEDS ORDERED: Phenol 1.4% Spray* 177 ML BTL MT PRN (11:39)
[2017-12-29] MEDS: Atorvastatin* 40 MG TAB PO SCH (16:57)
[2017-12-30] MEDS: fentaNYL Patch Check Q Shift 1 NOTE SCH ×2 (07:06→23:01)
[2017-12-30] MEDS: Metoclopramide TAB* 10 MG PO SCH ×3 (08:46→17:23)
[2017-12-30] MEDS: Aspirin EC Low Dose* 81 MG TAB.EC PO SCH (08:47)
[2017-12-30] MEDS: Sertraline* 100 MG TAB PO SCH (08:47)
[2017-12-30] MEDS: Ascorbic Acid TAB* 500 MG PO SCH (08:47)
[2017-12-30] MEDS: CMC:Pantoprazole TAB (NF) 40 MG TAB PO SCH (08:47)
[2017-12-30] MEDS: Bisoprolol TAB* 5 MG PO SCH (08:47)
[2017-12-30] MEDS: Docusate CAP* 100 MG PO PRN ×2 (08:47→17:23)
[2017-12-30] MEDS: Psyllium PAK PO SCH (08:48)
[2017-12-30] MEDS: fentaNYL PATCH 25 MCG/HR TRANSDERM SCH (13:44)
--- NOTE | 2017-12-30 14:12 | CONSULT ---
Identification - Patient Identification Reason for Psychiatric Consultation: Patient Distress -: Patient is a 62 year old, F admitted on 12/09/17. - MHU Identification Employment Status: Disabled Hx Psychiatric Hospitalization: No History - Objective HPI: Evelyn is seen for follow up. She is in the treatment gym and my understanding from [facility] staff is that she has been more participatory, with an improved affect , over the past week. "I think I'm gonna be here until about the 14 of January. My found a new place for us to move into and he's working on getting a van." I note that she appears more comfortable than at our last meeting. She still complains of LLQ abdominal pain, but states that it's under control with pain meds. She is tolerating sertraline well and continues to deny SI. Lab Results: Laboratory Tests 12/11/17 12/11/17 12/18/17 08:15 08:15 06:55 WBC 6.6 5.4 RBC 2.65 L 2.37 L RBC (Retic) Hgb 7.7 L 6.8 L Hct 23 L 21 L HCT (Retic) MCV 87 88 MCH 29 29 MCHC 33 33 RDW 15 15 Plt Count 200 141 L MPV 8 8 Neut % (Auto) 81.5 85.7 H Lymph % (Auto) 9.1 L 5.7 L [place] % (Auto) 7.0 6.9 Eos % (Auto) 1.4 0.9 Baso % (Auto) 1.0 0.8 Absolute Neuts (auto) 5.4 4.5 Absolute Lymphs (auto) 0.6 L 0.3 L Absolute Monos (auto) 0.5 0.4 Absolute Eos (auto) 0.1 0 Absolute Basos (auto) 0.1 0 Absolute Nucleated RBC 0 0 Nucleated RBC % 0 0 Hypochromasia Stomatocytes Retic Count, Calc Corrected Retic Count Retic Shift Factor Retic Production Index Immature Retic Fraction Mean Retic Volume Sodium 136 Potassium 4.4 Chloride 99 L Carbon Dioxide 24 Anion Gap 13 H BUN 28 H Creatinine 4.45 H Est GFR ( Amer) 13.0 Est GFR (Non-Af Amer) 10.1 BUN/Creatinine Ratio 6.3 L Glucose 65 L Calcium 8.3 L Iron TIBC % Saturation Unsat Iron Binding Transferrin Ferritin Total Bilirubin 0.80 AST 16 ALT 11 Alkaline Phosphatase 101 Total Protein 5.2 L Albumin 2.5 L Globulin 2.7 Albumin/Globulin Ratio 0.9 L Vitamin B12 Folate Blood Type Antibody Screen Crossmatch 12/18/17 12/18/17 12/22/17 06:55 06:55 06:16 WBC 3.9 RBC 2.10 L RBC (Retic) Cancelled Hgb 6.0 L* Hct 18 L HCT (Retic) Cancelled MCV 87 MCH 29 MCHC 33 RDW 15 Plt Count 264 MPV 7 L Neut % (Auto) 70.8 Lymph % (Auto) 9.2 L [place] % (Auto) 17.6 H Eos % (Auto) 1.6 Baso % (Auto) 0.8 Absolute Neuts (auto) 2.8 Absolute Lymphs (auto) 0.4 L Absolute Monos (auto) 0.7 Absolute Eos (auto) 0.1 Absolute Basos (auto) 0 Absolute Nucleated RBC 0 Nucleated RBC % 0.3 Hypochromasia 2+ Stomatocytes 1+ Retic Count, Calc Cancelled Corrected Retic Count Cancelled Retic Shift Factor Cancelled Retic Production Index Cancelled Immature Retic Fraction Cancelled Mean Retic Volume Cancelled Sodium 132 L Potassium 3.9 Chloride 96 L Carbon Dioxide 25 Anion Gap 11 BUN 18 Creatinine 3.85 H Est GFR ( Amer) 15.4 Est GFR (Non-Af Amer) 11.9 BUN/Creatinine Ratio 4.7 L Glucose 91 Calcium 8.3 L Iron 26 L TIBC 105 L % Saturation 25 Unsat Iron Binding 79 Transferrin 73 L Ferritin > 1500.0 H Total Bilirubin 0.80 AST 13 ALT 4 L Alkaline Phosphatase 70 Total Protein 5.1 L Albumin 2.3 L Globulin 2.8 Albumin/Globulin Ratio 0.8 L Vitamin B12 795 Folate 5.85 Blood Type Antibody Screen Crossmatch 12/22/17 12/22/17 12/23/17 06:16 16:35 05:51 WBC 4.5 4.0 RBC 2.99 L 2.93 L RBC (Retic) Hgb 8.4 L 8.2 L Hct 25 L 25 L HCT (Retic) MCV 84 84 MCH 28 28 MCHC 34 33 RDW 17 H 17 H Plt Count 290 296 MPV 7 L 7 L Neut % (Auto) 67.7 69.9 Lymph % (Auto) 9.6 L 9.8 L [place] % (Auto) 19.3 H 18.3 H Eos % (Auto) 2.3 1.3 Baso % (Auto) 1.1 0.7 Absolute Neuts (auto) 3.1 2.8 Absolute Lymphs (auto) 0.4 L 0.4 L Absolute Monos (auto) 0.9 H 0.7 Absolute Eos (auto) 0.1 0.1 Absolute Basos (auto) 0 0 Absolute Nucleated RBC 0 0 Nucleated RBC % 0.1 0.1 Hypochromasia Stomatocytes Retic Count, Calc Corrected Retic Count Retic Shift Factor Retic Production Index Immature Retic Fraction Mean Retic Volume Sodium Potassium Chloride Carbon Dioxide Anion Gap BUN Creatinine Est GFR ( Amer) Est GFR (Non-Af Amer) BUN/Creatinine Ratio Glucose Calcium Iron TIBC % Saturation Unsat Iron Binding Transferrin Ferritin Total Bilirubin AST ALT Alkaline Phosphatase Total Protein Albumin Globulin Albumin/Globulin Ratio Vitamin B12 Folate Blood Type O Negative Antibody Screen Negative Crossmatch See Detail 12/25/17 12/25/17 07:18 07:18 WBC 6.4 RBC 2.96 L RBC (Retic) Hgb 8.4 L Hct 25 L HCT (Retic) MCV 86 MCH 29 MCHC 33 RDW 17 H Plt Count 279 MPV 7 L Neut % (Auto) 80.6 Lymph % (Auto) 6.3 L [place] % (Auto) 11.5 H Eos % (Auto) 1.0 Baso % (Auto) 0.6 Absolute Neuts (auto) 5.1 Absolute Lymphs (auto) 0.4 L Absolute Monos (auto) 0.7 Absolute Eos (auto) 0.1 Absolute Basos (auto) 0 Absolute Nucleated RBC 0 Nucleated RBC % 0 Hypochromasia Stomatocytes Retic Count, Calc Corrected Retic Count Retic Shift Factor Retic Production Index Immature Retic Fraction Mean Retic Volume Sodium 135 Potassium 4.0 Chloride 99 L Carbon Dioxide 30 Anion Gap 6 BUN 19 Creatinine 3.42 H Est GFR ( Amer) 17.6 Est GFR (Non-Af Amer) 13.7 BUN/Creatinine Ratio 5.6 L Glucose 107 H Calcium 8.1 L Iron TIBC % Saturation Unsat Iron Binding Transferrin Ferritin Total Bilirubin 0.70 AST 13 ALT 4 L Alkaline Phosphatase 101 Total Protein 5.1 L Albumin 2.1 L Globulin 3.0 Albumin/Globulin Ratio 0.7 L Vitamin B12 Folate Blood Type Antibody Screen Crossmatch Exam Appearance: Other - Frail appearing Hygiene: Normal Grooming: Fairly Well Kept Psychomotor Activities: Normal Exhibits Abnormal Movement: No Attitude and Relatedness: Cooperative - Speech Quality: Unpressured Latencies: Normal Quantity: Appropriate Patient's Decription of Mood: "Okay" Observed Affect: Fair Affect Consistent with: Euthymia Patient's Thought Process: Coherent Thought Content: No Passive Wish, No Suicidal Planning, No Homicidal Ideation, No Paranoid Ideation Experiencing Hallucinations: No, Sensorium is Clear Type of Hallucinations: Visual: No, Auditory: No, Command: No Level of Consciousness: Alert Orientation: Yes Intact, Yes Orientated to Time, Yes Orientated to Place, Yes Orientated to Person Impulse Control: Tenuous Insight and Judgement: Fair Impression - Impression Clinical Impression: 62 y.o. 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 The patient is depressed with associated neurovegetative symptoms of depression necessitating antidepressant therapy. Merits Inpatient Hospitalization: No Problem List - MHU Problems Type of Problem: Mood Status of Problem: Resolved Plan - Treatment Plan Treatment Plan: The patient's mood appears to be improving. She is tolerating sertraline 100mg daily without untoward effects. Psychiatry will continue to follow and provide supportive care. Continued Medication Management: Start Medication Medications: Current Medications Acetaminophen (Tylenol Tab*) 650 mg PO Q6H PRN PRN Reason: FEVER/PAIN Last Admin: 12/24/17 16:51 Dose: 650 mg Ascorbic Acid (Vitamin C Tab*) 500 mg PO DAILY [facility] Last Admin: 12/30/17 08:47 Dose: 500 mg Aspirin (Aspirin Ec Low Dose*) 81 mg PO DAILY [facility] Last Admin: 12/30/17 08:47 Dose: 81 mg Atorvastatin Calcium (Lipitor*) 40 mg PO 1700 [facility] Last Admin: 12/29/17 16:57 Dose: 40 mg Bisacodyl (Dulcolax Supp*) 10 mg RI DAILY PRN PRN Reason: CONSTIPATION Bisoprolol Fumarate (Zebeta Tab*) 5 mg PO DAILY [facility] Last Admin: 12/30/17 08:47 Dose: 5 mg Docusate Sodium (Colace Cap*) 100 mg PO BID PRN PRN Reason: CONSTIPATION Last Admin: 12/30/17 08:47 Dose: 100 mg Fentanyl (Duragesic Patch 25 Mcg/Hr*) 25 mcg TRANSDERM Q72H [facility] Last Admin: 12/30/17 13:44 Dose: 25 mcg Metoclopramide HCl (Reglan Tab*) 5 mg PO AC [facility] Last Admin: 12/30/17 12:05 Dose: 5 mg Morphine Sulfate (Morphine Inj (Syringe)*) 2 mg IV Q6H PRN PRN Reason: PAIN - MODERATE TO SEVERE Last Admin: 12/29/17 10:44 Dose: 2 mg Ondansetron HCl (Zofran Odt Tab*) 4 mg PO Q6H PRN PRN Reason: NAUSEA/VOMITING Last Admin: 12/29/17 09:17 Dose: 4 mg Oxycodone HCl (Roxycodone Tab*) 5 mg PO Q4H PRN PRN Reason: PAIN - MODERATE TO SEVERE Last Admin: 12/28/17 16:50 Dose: 5 mg Pantoprazole Sodium (Protonix Tab (Nf)) 40 mg PO DAILY [facility] Last Admin: 12/30/17 08:47 Dose: 40 mg Pharmacy Profile Note (Scopolamine Patch Remove*) 1 note PATCH OFF Q72H [facility] Last Admin: 12/27/17 17:27 Dose: 1 patch Pharmacy Profile Note (Fentanyl Patch Check Q Shift) 1 note N/A 0700,1900 [facility] Last Admin: 12/30/17 07:06 Dose: 1 note Phenol/Menthol (Chloroseptic Throat [place]*) 1 spray [place] TID PRN PRN Reason: SORE THROAT Last Admin: 12/29/17 12:34 Dose: 1 spray Psyllium Hydrophilic Mucilloid (Metamucil [place]*) 1 pkt PO DAILY [facility] Last Admin: 12/30/17 08:48 Dose: Not Given Scopolamine (Transderm-Scop 1.5 Mg Patch*) 1 patch TRANSDERM Q72H [facility] Last Admin: 12/27/17 17:27 Dose: 1 patch Senna (Senokot Tab*) 2 tab PO BEDTIME PRN PRN Reason: CONSTIPATION Last Admin: 12/27/17 17:26 Dose: 2 tab Sertraline HCl (Zoloft*) 100 mg PO DAILY [facility] Last Admin: 12/30/17 08:47 Dose: 100 mg - Discharge Plan Discharge Plan: Outpatient Follow Up
[2017-12-30] MEDS: oxyCODONE TAB* 5 MG TAB PO PRN (14:42)
--- NOTE | 2017-12-30 17:21 | PN ---
Progress Note Date of Service: 12/30/17 Note: USAMA KAPADIA was visited. Therapy notes read and reviewed. Chlora_Septic spray helped with sore throat. Did 3 hours of therapy today and she has been a little more upbeat. Appetite not great. Current Medications: Active Medications Generic Name Dose Route Start Last Admin Trade Name Freq PRN Reason Stop Dose Admin Acetaminophen 650 mg 12/09/17 16:04 12/24/17 16:51 Tylenol Tab* PO 650 mg Q6H PRN Administration FEVER/PAIN Ascorbic Acid 500 mg 12/11/17 09:00 12/30/17 08:47 Vitamin C Tab* PO 500 mg DAILY [facility] Administration Aspirin 81 mg 12/10/17 09:00 12/30/17 08:47 Aspirin Ec Low Dose* PO 81 mg DAILY [facility] Administration Atorvastatin Calcium 40 mg 12/09/17 17:00 12/29/17 16:57 Lipitor* PO 40 mg 1700 [facility] Administration Bisacodyl 10 mg 12/09/17 16:04 Dulcolax Supp* [place] DAILY PRN CONSTIPATION Bisoprolol Fumarate 5 mg 12/10/17 09:00 12/30/17 08:47 Zebeta Tab* PO 5 mg DAILY [facility] Administration Docusate Sodium 100 mg 12/20/17 10:06 12/30/17 08:47 Colace Cap* PO 100 mg BID PRN Administration CONSTIPATION Fentanyl 25 mcg 12/24/17 12:00 12/30/17 13:44 Duragesic Patch 25 Mcg/Hr* TRANSDERM 25 mcg Q72H [facility] Administration Metoclopramide HCl 5 mg 12/17/17 16:30 12/30/17 12:05 Reglan Tab* PO 5 mg AC [facility] Administration Morphine Sulfate 2 mg 12/23/17 17:15 12/29/17 10:44 Morphine Inj (Syringe)* IV 2 mg Q6H PRN Administration PAIN - MODERATE TO SEVERE Ondansetron HCl 4 mg 12/12/17 12:50 12/29/17 09:17 Zofran Odt Tab* PO 4 mg Q6H PRN Administration NAUSEA/VOMITING Oxycodone HCl 5 mg 12/09/17 16:22 12/30/17 14:42 Roxycodone Tab* PO 5 mg Q4H PRN Administration PAIN - MODERATE TO SEVERE Pantoprazole Sodium 40 mg 12/10/17 09:00 12/30/17 08:47 Protonix Tab (Nf) PO 40 mg DAILY [facility] Administration Pharmacy Profile Note 1 note 12/21/17 18:00 12/27/17 17:27 Scopolamine Patch Remove* PATCH OFF 1 patch Q72H [facility] Administration Pharmacy Profile Note 1 note 12/24/17 19:00 12/30/17 07:06 Fentanyl Patch Check Q Shift N/A 1 note 0700,1900 [facility] Administration Phenol/Menthol 1 spray 12/29/17 11:39 12/29/17 12:34 Chloroseptic Throat [place]* MT 1 spray TID PRN Administration SORE THROAT Psyllium Hydrophilic Mucilloid 1 pkt 12/20/17 11:00 12/30/17 08:48 Metamucil Macho* PO Not Given DAILY [facility] Scopolamine 1 patch 12/18/17 18:00 12/27/17 17:27 Transderm-Scop 1.5 Mg Patch* TRANSDERM 1 patch Q72H [facility] Administration Senna 2 tab 12/09/17 16:04 12/27/17 17:26 Senokot Tab* PO 2 tab BEDTIME PRN Administration CONSTIPATION Sertraline HCl 100 mg 12/25/17 09:00 12/30/17 08:47 Zoloft* PO 100 mg DAILY [facility] Administration Vital Signs: Vital Signs Temp Pulse Resp BP Pulse Ox 98.4 F 81 18 85/41 96 12/30/17 16:19 12/30/17 16:19 12/30/17 17:19 12/30/17 16:19 12/30/17 16:19 Exam: LUNGS: Clear bilaterally HEART: reg rhythm ABDOMEN: Soft. LLQ tender to palpation. Bowel sounds audible EXTREMITIES: No edema, LE starting to atrophy. Lower extremity girths were symmetric. : Holley in place draining dark, bloody urine NEUROLOGIC: Decreased sensation below T10. Some quadriceps in RLE, able to wiggle toes bilat Assessment/Plan: 1. T10 JAC Class "C" Paraplegia: PT/OT 2. Hematuria/Anemia: Off Plavix and pletal now. Hb/Hct Stable. CT scan did not show any diverticulum by report (no contrast) 3. CKD/Renal failure: Hemodialysis. Renal diet. Follow urine output 4. 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 On Fentanyl Patch, 25 mcg/hr. Morphine IV, Oxycodone PRN. 5. Neurogenic bladder: holley changed. 6. Neurogenic bowel: Bowel program. 7. PVD: off pletal 8. DVT Prophylaxis: SCDs. 9. Advanced directives: full code 10. Depression: Zoloft increased [place] [address] Flores. Spirits better 11. Nausea: On Scopolamine patch. Often refuses Reglan. Better, but still considering Marinol 12. Sore Throat: responded to Chlora-Septic 12/30/17 17:22
[2017-12-30] MEDS: Scopolamine 1.5 mg* PATCH TRANSDERM SCH (17:23)
[2017-12-30] MEDS: Atorvastatin* 40 MG TAB PO SCH (17:24)
[2017-12-30] MEDS: Scopolamine PATCH Remove* 1 NOTE MISC PATCH OFF SCH (17:24)
[2017-12-31] MEDS: oxyCODONE TAB* 5 MG TAB PO PRN (05:43)
[2017-12-31] MEDS: fentaNYL Patch Check Q Shift 1 NOTE SCH ×3 (06:15→22:58)
[2017-12-31] MEDS: Metoclopramide TAB* 10 MG PO SCH ×3 (08:22→17:34)
[2017-12-31] MEDS: CMC:Pantoprazole TAB (NF) 40 MG TAB PO SCH (10:37)
[2017-12-31] MEDS: Bisoprolol TAB* 5 MG PO SCH (10:37)
[2017-12-31] MEDS: Aspirin EC Low Dose* 81 MG TAB.EC PO SCH (10:37)
[2017-12-31] MEDS: Ascorbic Acid TAB* 500 MG PO SCH (10:37)
[2017-12-31] MEDS: Sertraline* 100 MG TAB PO SCH (10:37)
[2017-12-31] MEDS: Psyllium PAK PO SCH (10:38)
--- NOTE | 2017-12-31 12:52 | PMRUTEAM ---
PMRU: Goals Current Status: Nursing: Current Status Skin Deviations [Bilateral Pressure Ulcer Heel] Skin Deviations [Left Buttocks Abrasion ] Skin Deviations [Coccyx] Pressure Ulcer Skin Deviations [Right Groin] Other Skin Deviations [Left Arm] Bruise Skin Deviations [Left Upper Abrasion Chest] Skin Deviation Description [ mepilex in place Bilateral Heel] Skin Deviation Description [ meplex in place Left Buttocks] Skin Deviation Description [ mepilex in place Coccyx] Skin Deviation Description [ redness catheter possitioning leg bag switch sites Right Groin] . Skin Deviation Description [ multiple bruises Left Arm] Skin Deviation Description [ healing Left Upper Chest] Bladder Current Status Holley in place Bowel Current Status incontinent Nutrition Current Status inadequate Medication Current Status declining medications at this time. Physical Therapy: Current Status Bed Mobility Assistance Total Assist,2 or More Person Assist Transfer Moblility Assistance Total Assist,2 or More Person Assist Transfer/Bed Mobility EZ Stand Recommended Devices Ambulation Assistance Unable Manual Wheelchair Control/ Bilateral UE's Technique Wheelchair Propulsion Ability Standby Assistance Wheelchair Distance (ft) 150' Objective Comments patient demonstrates improving overall mobility in W/C this session self propelling over longer distance and demonstrating improving conservation of movement. patient demosntrates improved short radius turns. Occupational Therapy: Current Status Upper Body Dressing Min Assist Lower Body Dressing Total Assist,2 Person Assist Bathing Mod Assist,2 Person Assist Toileting Total Assist,2 Person Assist Toilet Transfer Total Assist,2 Person Assist Toilet Transfer Progress N/A Shower Transfer Total Assist,2 Person Assist Shower Transfer Progress NAVARRO but unable d/t port Eating Supervision Eating Progress set-up Rec Therapy: Current Status Summary of Assessment and RT assessment complete and pt. is aware of RT Clinical Impression services. Pt. has been engaged in leisure visits during which patient expresses herself openly about her emotions. Pt. has not been interested in leisure activities but states she enjoys visits . Treatment Goals Pt. will engage in leisure activities as tolerated while on the unit. Treatment Plan Provide RT services and encourage involvement. Provide emotional support as needed. Social Work: Current Status Discharge Plan return home with home care and family support Potential for Family Training pt's is attentive and involved Anticipated Discharge Home Destination Discharge With home care svs and family support Nutrition: Current Status Monitoring pt dialyzed this a.m.; post-dialysis wt 141.5# ( add'l 2# wt loss since last 2/13). Weekly labs expected tomorrow a.m. PO intake remains poor despite various attempts to encourage. Had 50ml emesis 12/29. Only taking bites of soft fruit and some vanilla milkshake (sent daily at lunch; otherwise as requested). She is accepting daily Zoloft, most bowel meds (otherthan Metamucil), and scop patch. Last BM 12/28. Pt accepting minimal nutrition intervention, perhaps addition of Remeron would help. Will discuss at team meeting today. Goals: Physical Therapy: Initial Goals Bed Mobility Assistance Independent Transfer Mobility Assistance Independent Transfer/Bed Mobility Slide Board Recommended Devices Wheelchair Propulsion Ability Independent Physical Therapy: Updated Goals Bed Mobility Assistance Independent Transfer Mobility Assistance Independent Transfer/Bed Mobility Slide Board Recommended Devices Wheelchair Propulsion Ability Independent Wheelchair Distance (ft) 150' Occupational Therapy: Initial Goals Goals to be Completed in (Days 21-28 ) Upper Body Bathing Routine Independent Lower Body Bathing Routine Modified Independent with Upper Body Dressing Routine Independent Lower Body Dressing Routine Modified Independent with Toilet Hygeine and Clothing Modified Independent with Management Routine Toilet Transfer Routine Modified Independent with Toilet Transfer Assistive slideboard Devices Functional Transfers for ADL Modified Independent with Functional Transfers for ADl slideboard Assistive Devices Grooming Routine Independent Feeding Routine Independent Nursing: Goals Bladder Goal independent straight catheterization Bowel Goal changing self Nutrition Goal 75% of meals Medication Goal independent Nutrition: Goals Intervention Goals 1. Improved oral intake to support maintenance of lean body mass and rehab progress. 2. Maintain controlled renal labs per dialysis parameters. 3. Pt verbalizes understanding of renal diet. 4. Tolerates oral intake w/o GI distress. Social Work: Goals Discharge Plan return home with home care and family support Potential for Family Training pt's is attentive and involved Anticipated Discharge Home Destination Discharge With home care svs and family support Care Plan: Care Plan ADL's - Improve/Maintain Start: 12/10/17 02:01 Freq: DAILY Status: Active Target: Protocol: Activity Type Activity Date Activity User E-Sign Co-Sign Detail Recorded Client Recorded Date Recorded By Document 12/31/17 10:53 [id number] 12/31/17 10:53 [id number] 12/31/17 10:53 PMRU Outcome: ADL's/ADL Transfers Orders/Interventions Occupational Therapy Evaluation & Treatment Communication Tool in Patient Room Patient to receive OT 5x/wk for 60-120 Therex min/day Self Care Management Group Therapy UE/LE ADL's with Assist Yes: mod I ADL Transfers with Assist Yes: mod I Toileting: Transfers,Clothing Management Yes: mod I ,Hygeine w/Assist Progression Toward Outcome/Goals Not Progressing Outcome/Goals Met Limited functional progress d/t abdominal pain with hip flexion and dizziness when upright. Cardiovascular- Improve/Maintain Start: 12/10/17 02:01 Freq: DAILY Status: Active Target: Protocol: Activity Type Activity Date Activity User E-Sign Co-Sign Detail Recorded Client Recorded Date Recorded By Document 12/30/17 23:25 [id number] 12/30/17 23:28 [id number] 12/30/17 23:25 PMRU Outcome: Cardiovascular Vital Signs q Shift for 48hrs Then BID Yes Daily Weight Ordered No Current Cardiovascular Outcome/Goal Maintain/ Achieve Baseline HR, BP , Perfusion Maintain/ Achieve Hemodynamic Stability Free of Abnormal Cardiac Symptoms Progression Toward Outcome/Goal Progressing Coping/Psych-Improve/Maintain Start: 12/10/17 02:01 Freq: DAILY Status: Active Target: Protocol: Activity Type Activity Date Activity User E-Sign Co-Sign Detail Recorded Client Recorded Date Recorded By Document 12/30/17 23:25 [id number] 12/30/17 23:28 [id number] 12/30/17 23:25 PMRU Outcome: Coping/Psychosocial Coping Outcome/Goals Verbalization of Acceptance of Rehab Admit Verbalization of Sense of Control Over Health Status Utilization of Appropriate Problem Solving Techniques Willingness to Participate in Treatment Plan and Basic Needs Utilization of Available Support Systems Psychosocial Outcome/Goals Maintain/ Improve Emotional Health Demonstrates Knowledge of Healthy Coping Mechanisms Available Cooperate/ Participate in Plan Progression Toward Outcome/Goals - Not Progressing Coping Progression Toward Outcome/Goals - Not Progressing Psychosocial DVT Prophylaxis- Improve/Maintain Start: 12/10/17 02:01 Freq: DAILY Status: Active Target: Protocol: Activity Type Activity Date Activity User E-Sign Co-Sign Detail Recorded Client Recorded Date Recorded By Document 12/30/17 23:25 [id number] 12/30/17 23:28 [id number] 12/30/17 23:25 PMRU Outcome: DVT Prophylaxis Outcome/Goals Remains Free of DVT Demonstrates Knowledge of DVT Prevention/ Treatment TEDS Stockings on Every AM, Off at HS Progression Toward Outcome/Goals Progressing Discharge Planning - Improve/Maintain Start: 12/10/17 02:01 Freq: DAILY Status: Active Target: Protocol: Activity Type Activity Date Activity User E-Sign Co-Sign Detail Recorded Client Recorded Date Recorded By Document 12/30/17 10:41 [id number] 12/30/17 10:42 [id number] 12/30/17 10:41 PMRU Outcome: Discharge Planning Identify Patient Needs yes Update Patient Family No Outcome/Goals Demonstrates Understanding of Discharge Plan Progression Toward Outcome/Goals Progressing Education-Improve/Maintain Start: 12/10/17 02:01 Freq: DAILY Status: Active Target: Protocol: Activity Type Activity Date Activity User E-Sign Co-Sign Detail Recorded Client Recorded Date Recorded By Document 12/30/17 17:59 [id number] 12/30/17 18:03 [id number] 12/30/17 17:59 PMRU Outcome: Education Outcome/Goals Demonstrate/ Verbalize Understanding of Written Discharge Instructions Encourage Questions Progression Toward Outcome/Goals Not Progressing /GI-Improve/Maintain Start: 12/10/17 02:01 Freq: DAILY Status: Active Target: Protocol: Activity Type Activity Date Activity User E-Sign Co-Sign Detail Recorded Client Recorded Date Recorded By Document 12/30/17 23:25 [id number] 12/30/17 23:28 [id number] 12/30/17 23:25 PMRU Outcome: Genitourinary/ Gastrointestinal Genitourinary- Outcome/Goals Maintain/ Achieve Adequate Urinary Output Remain Free of Hospital- Acquired UTI Gastrointestinal-Outcome/Goals Maintain/ Achieve Bowel Regularity in Accordance with Pt's Baseline Prevent Constipation Progression Toward Outcome/Goals - Not Progressing Progression Toward Outcome/Goals - GI Not Progressing Outcome/Goals Met Comment holley in place Medication Administration Start: 12/10/17 02:01 Freq: DAILY Status: Active Target: Protocol: Activity Type Activity Date Activity User E-Sign Co-Sign Detail Recorded Client Recorded Date Recorded By Document 12/30/17 17:59 [id number] 12/30/17 18:03 [id number] 12/30/17 17:59 PMRU Outcome: Medication Administration Assess Patient Knowledge/Teach Med No Education for all Meds Outcome/Goals Patient Independent with Medication Administration at Home Demonstrates Understanding Progression Towards Outcome/Goals Progressing Is Patient Going Home on Lovenox? No Mobility- Improve/Maintain Start: 12/10/17 02:01 Freq: DAILY Status: Active Target: Protocol: Activity Type Activity Date Activity User E-Sign Co-Sign Detail Recorded Client Recorded Date Recorded By Document 12/30/17 12:13 [id number] 12/30/17 12:13 [id number] 12/30/17 12:13 PMRU Outcome: Mobility Physical Therapy Evaluation and Yes Treatment Activity OOB with Assistance Yes Assistance Yes Patient to be seen 5x/wk for 60-120 min/ Therex day for: Mobility Training W/C Mobility Balance Outcome/Goals Improve Mobility Status Demonstrates Proper Use of Assistive Devices Free from Complications of Immobility Progression Toward Outcome/Goals Progressing Bed Mobility Yes: independent Transfers Yes: independent with slide board W/C Mobility x ft Yes: independent W/C mobility to 150' Neurological- Improve/Maintain Start: 12/10/17 02:01 Freq: DAILY Status: Active Target: Protocol: Activity Type Activity Date Activity User E-Sign Co-Sign Detail Recorded Client Recorded Date Recorded By Document 12/30/17 23:25 [id number] [email or web address] 12/30/17 23:28 [id number] 12/30/17 23:25 PMRU Outcome: Neurological Weakness/Aphasia Weakness Outcome/Goals Maintain/ Achieve Baseline Neurological Status Maintain/ Improve Strength/ROM Progression Toward Outcome/Goals Not Progressing Pain/Comfort- Improve/Maintain Start: 12/10/17 02:01 Freq: DAILY Status: Active Target: Protocol: Activity Type Activity Date Activity User E-Sign Co-Sign Detail Recorded Client Recorded Date Recorded By Document 12/30/17 23:25 [id number] 12/30/17 23:28 [id number] 12/30/17 23:25 PMRU Outcome: Pain/Comfort Outcome/Goals Demonstrates Knowledge and Use of Available Comfort Measures Achieves Acceptable Comfort/Pain Level as Determined by Patient/Condit Maintain Comfort Level Allowing Patient to Fully Participate in Rehab Progression Toward Outcome/Goals Progressing Outcome/Goals Met Comment denies pain at this time Safety- Improve/Maintain Start: 12/10/17 02:01 Freq: DAILY Status: Active Target: Protocol: Activity Type Activity Date Activity User E-Sign Co-Sign Detail Recorded Client Recorded Date Recorded By Document 12/30/17 23:25 [id number] 12/30/17 23:28 [id number] 12/30/17 23:25 PMRU Outcome: Safety Outcome/Goals Remain Free of Injury or Harm Prevent Falls/ Injury Progression Toward Outcome/Goals Progressing Medicine Note: Length of Stay: 2 weeks Anticipated Discharge Destination: Home Tentative Discharge Date: 01/14/18 Discharged to: [facility]
--- NOTE | 2017-12-31 17:27 | PN ---
Progress Note Date of Service: 12/31/17 Note: USAMA KAPADIA was visited. Therapy notes read and reviewed. She was discussed in interdisciplinary team rounds. Remains with little appetite. Will try Remeron. Will give a bag of D5NS. She refuses NGT. Will have meeting with patient and Current Medications: Active Medications Generic Name Dose Route Start Last Admin Trade Name Freq PRN Reason Stop Dose Admin Acetaminophen 650 mg 12/09/17 16:04 12/24/17 16:51 Tylenol Tab* PO 650 mg Q6H PRN Administration FEVER/PAIN Ascorbic Acid 500 mg 12/11/17 09:00 12/31/17 10:37 Vitamin C Tab* PO 500 mg DAILY BRITTON Administration Aspirin 81 mg 12/10/17 09:00 12/31/17 10:37 Aspirin Ec Low Dose* PO 81 mg DAILY BRITTON Administration Atorvastatin Calcium 40 mg 12/09/17 17:00 12/30/17 17:24 Lipitor* PO 40 mg 1700 BRITTON Administration Bisacodyl 10 mg 12/09/17 16:04 Dulcolax Supp* [place] DAILY PRN CONSTIPATION Bisoprolol Fumarate 5 mg 12/10/17 09:00 12/31/17 10:37 Zebeta Tab* PO 5 mg DAILY BRITTON Administration Docusate Sodium 100 mg 12/20/17 10:06 12/30/17 17:23 Colace Cap* PO 100 mg BID PRN Administration CONSTIPATION Fentanyl 25 mcg 12/24/17 12:00 12/30/17 13:44 Duragesic Patch 25 Mcg/Hr* TRANSDERM 25 mcg Q72H BRITTON Administration Metoclopramide HCl 5 mg 12/17/17 16:30 12/31/17 10:37 Reglan Tab* PO 5 mg AC BRITTON Administration Mirtazapine 15 mg 12/31/17 21:00 Remeron Tab* PO BEDTIME BRITTON Morphine Sulfate 2 mg 12/23/17 17:15 12/29/17 10:44 Morphine Inj (Syringe)* IV 2 mg Q6H PRN Administration PAIN - MODERATE TO SEVERE Ondansetron HCl 4 mg 12/12/17 12:50 12/29/17 09:17 Zofran Odt Tab* PO 4 mg Q6H PRN Administration NAUSEA/VOMITING Oxycodone HCl 5 mg 12/09/17 16:22 12/31/17 05:43 Roxycodone Tab* PO 5 mg Q4H PRN Administration PAIN - MODERATE TO SEVERE Pantoprazole Sodium 40 mg 12/10/17 09:00 12/31/17 10:37 Protonix Tab (Nf) PO 40 mg DAILY BRITTON Administration Pharmacy Profile Note 1 note 12/21/17 18:00 12/30/17 17:24 Scopolamine Patch Remove* PATCH OFF 1 patch Q72H BRITTON Administration Pharmacy Profile Note 1 note 12/24/17 19:00 12/31/17 15:09 Fentanyl Patch Check Q Shift N/A 1 note 0700,1900 BRITTON Administration Phenol/Menthol 1 spray 12/29/17 11:39 12/29/17 12:34 Chloroseptic Throat [place]* MT 1 spray TID PRN Administration SORE THROAT Psyllium Hydrophilic Mucilloid 1 pkt 12/20/17 11:00 12/31/17 10:38 Metamucil [place]* PO Not Given DAILY BRITTON Scopolamine 1 patch 12/18/17 18:00 12/30/17 17:23 Transderm-Scop 1.5 Mg Patch* TRANSDERM 1 patch Q72H BRITTON Administration Senna 2 tab 12/09/17 16:04 12/27/17 17:26 Senokot Tab* PO 2 tab BEDTIME PRN Administration CONSTIPATION Sertraline HCl 100 mg 12/25/17 09:00 12/31/17 10:37 Zoloft* PO 100 mg DAILY BRITTON Administration Vital Signs: Vital Signs Temp Pulse Resp BP Pulse Ox 99.3 F 80 18 113/62 96 12/31/17 05:29 12/31/17 05:29 12/31/17 05:43 12/31/17 05:29 12/31/17 10:57 Exam: LUNGS: Clear bilaterally HEART: reg rhythm ABDOMEN: Soft. LLQ tender to palpation. Bowel sounds audible EXTREMITIES: No edema, LE atrophied. Lower extremity girths were symmetric. : Holley in place draining dark, bloody urine NEUROLOGIC: Decreased sensation below T10. Some quadriceps in RLE, able to wiggle toes bilat Assessment/Plan: 1. T10 JAC Class "C" Paraplegia: PT/OT 2. Hematuria/Anemia: Off Plavix and pletal now. Hb/Hct Stable. CT scan did not show any diverticulum by report (no contrast) 3. CKD/Renal failure: Hemodialysis. Renal diet. Follow urine output 4. 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 On Fentanyl Patch, 25 mcg/hr. Morphine IV, Oxycodone PRN. 5. Neurogenic bladder: holley changed. 6. Neurogenic bowel: Bowel program. 7. PVD: off pletal 8. DVT Prophylaxis: SCDs. 9. Advanced directives: full code 10. Depression: Zoloft increased [place] [address] Flores. Spirits better 11. Nausea: On Scopolamine patch. Often refuses Reglan. 12. Anorexia: will try Remeron 13. Sore Throat: responded to Chlora-Septic 12/31/17 17:28
[2017-12-31] MEDS: Atorvastatin* 40 MG TAB PO SCH (17:34)
[2017-12-31] MEDS: D5W 1/2 NS 1000 ML BAG* 1,000 ML IV SCH (19:00)
[2017-12-31] MEDS: Mirtazapine TAB* 15 MG PO SCH (20:04)
[2017-12-31] MEDS: Senna TAB PO PRN (20:04)
[2018-01-01] MEDS: fentaNYL Patch Check Q Shift 1 NOTE SCH ×2 (06:58→23:13)
[2018-01-01] MEDS: D5W 1/2 NS 1000 ML BAG* 1,000 ML IV SCH (07:12)
[2018-01-01 07:54] LABS: ABS Basophils 0 10^3/ul (0-0.2); ABS Eosinophils 0 10^3/ul (0-0.6); ABS Lymphocytes 0.4 10^3/ul (1.0-4.8); ABS Monocytes 0.5 10^3/ul (0-0.8); ABS Neutrophils 11.1 10^3/ul (1.5-7.7); ABS Nucleated RBC 0 10^3/ul; Eosinophil % 0.2 % (0-6); Hematocrit 22 % (35-47); Lymphocyte % 3.6 % (25-47); Mean Corpuscular HGB Conc 32 g/dl (31-36); Mean Corpuscular Hemoglobin 28 pg (27-31); Mean Corpuscular Volume 86 fL (80-97); Mean Platelet Volume 7 um3 (7.4-10.4); Nucleated Red Blood Cells % 0.1; Platelet Count 297 10^3/ul (150-450); Red Blood Count 2.52 10^6/ul (4.0-5.4); Red Cell Distribution Width 17 % (10.5-15); White Blood Count 12.1 10^3/ul (3.5-10.8)
[2018-01-01] MEDS: Ascorbic Acid TAB* 500 MG PO SCH (08:25)
[2018-01-01] MEDS: CMC:Pantoprazole TAB (NF) 40 MG TAB PO SCH (08:26)
[2018-01-01] MEDS: Bisoprolol TAB* 5 MG PO SCH (08:26)
[2018-01-01] MEDS: Metoclopramide TAB* 10 MG PO SCH ×3 (08:26→17:33)
[2018-01-01] MEDS: Psyllium PAK PO SCH (08:26)
[2018-01-01] MEDS: Sertraline* 100 MG TAB PO SCH (08:26)
[2018-01-01] MEDS: Aspirin EC Low Dose* 81 MG TAB.EC PO SCH (09:13)
[2018-01-01] MEDS ORDERED: Mineral Oil ENEMA* 1 BOTTLE PR ONE (11:00)
[2018-01-01] MEDS ORDERED: Midazolam* 1 MG/ML 10 ML VIAL (10 MG) ONE (13:45)
[2018-01-01] MEDS ORDERED: fentaNYL* 50 MCG/ML 2 ML VIAL (100 MCG VIAL) ONE (13:46)
[2018-01-01] MEDS: Atorvastatin* 40 MG TAB PO SCH (17:32)
--- NOTE | 2018-01-01 19:41 | PN ---
Progress Note Date of Service: 01/01/18 Note: USAMA KAPADIA was visited. Therapy notes read and reviewed. She had an episode of BRBPR today in the guest services officer. Labs showed Hemoglobin had dropped to 7. Gastro called and she had a colonoscopy which found a few small erosions in the rectum. Dr. Moncada felt she may have rectal ulcer syndrome from chronic constipation. Ordered Anusol HC suppositories and Miralax. She was transfused 1 unit PRBCs Current Medications: Active Medications Generic Name Dose Route Start Last Admin Trade Name Freq PRN Reason Stop Dose Admin Acetaminophen 650 mg 12/09/17 16:04 12/24/17 16:51 Tylenol Tab* PO 650 mg Q6H PRN Administration FEVER/PAIN Ascorbic Acid 500 mg 12/11/17 09:00 01/01/18 08:25 Vitamin C Tab* PO 500 mg DAILY BRITTON Administration Aspirin 81 mg 12/10/17 09:00 01/01/18 09:13 Aspirin Ec Low Dose* PO Not Given DAILY BRITTON Atorvastatin Calcium 40 mg 12/09/17 17:00 01/01/18 17:32 Lipitor* PO 40 mg 1700 BRITTON Administration Bisacodyl 10 mg 12/09/17 16:04 Dulcolax Supp* [place] DAILY PRN CONSTIPATION Bisoprolol Fumarate 5 mg 12/10/17 09:00 01/01/18 08:26 Zebeta Tab* PO 5 mg DAILY BRITTON Administration Docusate Sodium 100 mg 12/20/17 10:06 12/30/17 17:23 Colace Cap* PO 100 mg BID PRN Administration CONSTIPATION Fentanyl 25 mcg 12/24/17 12:00 12/30/17 13:44 Duragesic Patch 25 Mcg/Hr* TRANSDERM 25 mcg Q72H BRITTON Administration Hydrocortisone 25 mg 01/01/18 21:00 Anusol Hc Supp* LA BID BRITTON Dextrose/Sodium Chloride 1,000 mls @ 75 mls/hr 12/31/17 18:00 01/01/18 07:12 D5w 1/2 Ns 1000 Ml Bag* IV 75 mls/hr PER RATE BRITTON Administration Metoclopramide HCl 5 mg 12/17/17 16:30 01/01/18 17:33 Reglan Tab* PO 5 mg AC BRITTON Administration Mineral Oil 1 bottle 01/02/18 08:00 Fleet Mineral Oil Enema* LA 01/02/18 08:01 ONCE ONE Mirtazapine 15 mg 12/31/17 21:00 12/31/17 20:04 Remeron Tab* PO 15 mg BEDTIME BRITTON Administration Morphine Sulfate 2 mg 12/23/17 17:15 12/29/17 10:44 Morphine Inj (Syringe)* IV 2 mg Q6H PRN Administration PAIN - MODERATE TO SEVERE Ondansetron HCl 4 mg 12/12/17 12:50 12/29/17 09:17 Zofran Odt Tab* PO 4 mg Q6H PRN Administration NAUSEA/VOMITING Oxycodone HCl 5 mg 12/09/17 16:22 12/31/17 05:43 Roxycodone Tab* PO 5 mg Q4H PRN Administration PAIN - MODERATE TO SEVERE Pantoprazole Sodium 40 mg 12/10/17 09:00 01/01/18 08:26 Protonix Tab (Nf) PO 40 mg DAILY BRITTON Administration Pharmacy Profile Note 1 note 12/21/17 18:00 12/30/17 17:24 Scopolamine Patch Remove* PATCH OFF 1 patch Q72H BRITTON Administration Pharmacy Profile Note 1 note 12/24/17 19:00 01/01/18 06:58 Fentanyl Patch Check Q Shift N/A 1 note 0700,1900 BRITTON Administration Phenol/Menthol 1 spray 12/29/17 11:39 12/29/17 12:34 Chloroseptic Throat [place]* MT 1 spray TID PRN Administration SORE THROAT Polyethylene Glycol/Electrolytes 17 gm 01/02/18 09:00 Miralax* PO DAILY BRITTON Scopolamine 1 patch 12/18/17 18:00 12/30/17 17:23 Transderm-Scop 1.5 Mg Patch* TRANSDERM 1 patch Q72H BRITTON Administration Senna 2 tab 12/09/17 16:04 12/31/17 20:04 Senokot Tab* PO 2 tab BEDTIME PRN Administration CONSTIPATION Sertraline HCl 100 mg 12/25/17 09:00 01/01/18 08:26 Zoloft* PO 100 mg DAILY BRITTON Administration Vital Signs: Vital Signs Temp Pulse Resp BP Pulse Ox 99.2 F 88 16 106/57 96 01/01/18 16:00 01/01/18 16:00 01/01/18 16:00 01/01/18 16:00 01/01/18 16:00 Lab Results: Laboratory Results - last 24 hr 01/01/18 01/01/18 01/01/18 07:23 07:26 07:26 WBC 12.1 H RBC 2.52 L Hgb 7.0 L Hct 22 L MCV 86 MCH 28 MCHC 32 RDW 17 H Plt Count 297 MPV 7 L Neut % (Auto) 91.6 H Lymph % (Auto) 3.6 L [place] % (Auto) 4.4 Eos % (Auto) 0.2 Baso % (Auto) 0.2 Absolute Neuts (auto) 11.1 H Absolute Lymphs (auto) 0.4 L Absolute Monos (auto) 0.5 Absolute Eos (auto) 0 Absolute Basos (auto) 0 Absolute Nucleated RBC 0 Nucleated RBC % 0.1 Sodium 135 Potassium 3.5 Chloride 99 L Carbon Dioxide 31 Anion Gap 5 BUN 19 Creatinine 2.84 H Est GFR ( Amer) 21.8 Est GFR (Non-Af Amer) 17.0 BUN/Creatinine Ratio 6.7 L Glucose 120 H Calcium 7.9 L Total Bilirubin 0.80 AST 14 ALT 5 L Alkaline Phosphatase 139 H Total Protein 5.4 L Albumin 1.9 L Globulin 3.5 Albumin/Globulin Ratio 0.5 L Blood Type O Negative Antibody Screen Negative Crossmatch See Detail Exam: LUNGS: Clear bilaterally HEART: reg rhythm ABDOMEN: Soft. LLQ tender to palpation. Bowel sounds audible EXTREMITIES: No edema, LE atrophied. Lower extremity girths were symmetric. : Holley in place draining dark, bloody urine NEUROLOGIC: Decreased sensation below T10. Some quadriceps in RLE, able to wiggle toes bilat Assessment/Plan: 1. T10 JAC Class "C" Paraplegia: PT/OT 2. Anemia: Off Plavix and pletal now. Hb/Hct dropped. She had flex sig by Dr. Moncada showing ulcers in rectum 3. CKD/Renal failure: Hemodialysis. Renal diet. Follow urine output 4. 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 On Fentanyl Patch, 25 mcg/hr. Morphine IV, Oxycodone PRN. 5. Neurogenic bladder: holley changed. 6. Neurogenic bowel: Bowel program. 7. PVD: off pletal 8. DVT Prophylaxis: SCDs. 9. Advanced directives: full code 10. Depression: Zoloft increased [place] [address] Flores. Spirits better 11. Nausea: On Scopolamine patch. Often refuses Reglan. 12. Anorexia: started Remeron 13. Sore Throat: responded to Chlora-Septic 01/01/18 19:42
--- NOTE | 2018-01-01 19:47 | CONS ---
CC: Dr. Brice Bey * GASTROENTEROLOGY CONSULTATION: DATE OF CONSULT: 01/01/18 REFERRING PHYSICIAN: Dr. Brice Bey. HISTORY OF PRESENT ILLNESS: Thank you for asking me to see Ms. Ortiz. As you know, she is an unfortunate 62-year-old female with a history of stage V renal disease and polycystic kidney disease as well as coronary artery disease. In November, she was admitted to another facility with a hematocrit of 7.2. She underwent interventional radiology with renal artery embolization for severe pain and hematuria. 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 The patient is on dialysis and has been transferred to [facility] for inpatient rehab. The patient was admitted with markedly low hematocrit of 23; subsequently, this dropped to 18. On 12/22/17, the patient did receive transfusion. Her hematocrit has been running in the region of 25, but today has dropped back down to 22 and she has been noted to have some bright red blood per rectum. According to the patient and her , she has been severely constipated for quite some time. Apparent manual disimpaction was attempted yesterday, but unsuccessful. PAST MEDICAL HISTORY: As described above as well as hypertension; coronary artery disease, status post stent placement. ALLERGIES: To CLONIDINE, FLAGYL, CIPRO, TRENTAL, and ZOCOR. SOCIAL HISTORY: The patient has lived at home with her . No tobacco or alcohol abuse. REVIEW OF SYSTEMS: A 10-point review of systems is performed and is otherwise negative. PHYSICAL EXAM: Ms. Ortiz is a chronically ill-appearing 62-year-old female. Temperature is 99.4, heart rate of 88, blood pressure 101/53. HEENT Exam: There is no scleral icterus. Heart has regular rate and rhythm. Lungs are clear. Abdomen is soft. There is no significant distention or tenderness. Bowel sounds are present. Skin is warm and dry. Neuro Exam: Alert and oriented x3. PERTINENT LABORATORY STUDIES: As described above with an iron of 26, TIBC of 105, and percent saturation of 25, ferritin of greater than 1500. IMPRESSION: Ms. Ortiz seems to have anemia of chronic disease with normocytic , normochromic indices. She has had some recent rectal bleeding. She has been severely constipated. 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 RECOMMENDATIONS: We are going to perform flexible sigmoidoscopy following mineral oil enema to attempt to identify the source of bleeding. Further recommendations based on the results of that study. [id number]/[facility] #: [id number] [facility]
[2018-01-01] MEDS: Hydrocortisone SUPP* 25 MG SUPP (2.5%) PR SCH (21:57)
[2018-01-01] MEDS: Mirtazapine TAB* 15 MG PO SCH (21:58)
[2018-01-02] MEDS: Morphine INJ* 2 MG/ML 1 ML CARPUJECT IV PRN (05:35)
[2018-01-02] MEDS: Metoclopramide TAB* 10 MG PO SCH ×3 (05:41→17:47)
[2018-01-02] MEDS: fentaNYL Patch Check Q Shift 1 NOTE SCH ×2 (07:15→23:39)
[2018-01-02] MEDS ORDERED: Mineral Oil ENEMA* 1 BOTTLE PR ONE (08:00)
[2018-01-02 10:40] LABS: ABS Basophils 0 10^3/ul (0-0.2); ABS Eosinophils 0 10^3/ul (0-0.6); ABS Lymphocytes 0.5 10^3/ul (1.0-4.8); ABS Monocytes 0.7 10^3/ul (0-0.8); ABS Nucleated RBC 0 10^3/ul; Eosinophil % 0.1 % (0-6); Hematocrit 28 % (35-47); Lymphocyte % 3.2 % (25-47); Mean Corpuscular HGB Conc 32 g/dl (31-36); Mean Corpuscular Hemoglobin 28 pg (27-31); Mean Corpuscular Volume 85 fL (80-97); Mean Platelet Volume 7 um3 (7.4-10.4); Nucleated Red Blood Cells % 0; Platelet Count 303 10^3/ul (150-450); Red Blood Count 3.25 10^6/ul (4.0-5.4); Red Cell Distribution Width 17 % (10.5-15); White Blood Count 15.2 10^3/ul (3.5-10.8)
--- NOTE | 2018-01-02 10:50 | PRO ---
CC: Brice Bey MD. GASTROENTEROLOGY PROCEDURE REPORT: DATE OF PROCEDURE: 01/01/18 REFERRED BY: Brice Bey MD. PROCEDURE: Unprepped flexible sigmoidoscopy. PREOPERATIVE DIAGNOSIS: Rectal bleeding in this 62-year-old female with severe anemia and disease co nsistent with anemia of chronic disease. The patient does have known renal failure and is on dialysi s. She has had severe constipation. POSTOPERATIVE DIAGNOSES: 1. Extremely poor preparation with abundant retained stool within the rectum and distal sigmoid colo n, abundant irrigation is performed. 2. A few small erosions noted in the distal rectum consistent with rectal ulcer syndrome secondary t o severe constipation. PROCEDURE MEDICATIONS: Versed 1 mg IV. INSTRUMENT: PCF-190 Olympus variable high-definition pediatric colonoscope. DESCRIPTION OF PROCEDURE: Informed consent was obtained prior to performing this procedure. The ins trument was introduced into the anus and passed to the rectum under direct visualization. There was abundant soft stool present within the rectum and distal sigmoid colon, abundant irrigation was perfo rmed, visualization was extremely poor. There was however noted to be a couple of small erosions in the distal rectum that had overlying exudate. One actually started oozing slightly right above the a nal verge with irrigation and removal of the exudate. The instrument was withdrawn from the patient. The patient tolerated the procedure well and there were no complications. RECOMMENDATIONS: I suspect upon findings that this is rectal ulcer syndrome secondary to severe cons tipation. She is on multiple pain medications. I will stop her Metamucil and begin MiraLAX daily as well as mineral oil enema daily until good results. I will place her on a low fiber diet and began Anusol hydrocortisone suppositories twice a day for healing. Dulcolax suppository may be given as ne eded on top of what else I am prescribing. Monitor hematocrit and transfuse as needed. [id number]/[facility] #: [id number]
[2018-01-02] MEDS: fentaNYL PATCH 25 MCG/HR TRANSDERM SCH (13:28)
[2018-01-02] MEDS: Bisoprolol TAB* 5 MG PO SCH (15:53)
[2018-01-02] MEDS: Ascorbic Acid TAB* 500 MG PO SCH (15:53)
[2018-01-02] MEDS: CMC:Pantoprazole TAB (NF) 40 MG TAB PO SCH (15:53)
[2018-01-02] MEDS: Sertraline* 100 MG TAB PO SCH (15:53)
[2018-01-02] MEDS: Aspirin EC Low Dose* 81 MG TAB.EC PO SCH (15:53)
[2018-01-02] MEDS: Polyethylene Glycol 3350* 17 GM PACKET PO SCH (16:00)
[2018-01-02] MEDS: Hydrocortisone SUPP* 25 MG SUPP (2.5%) PR SCH ×2 (16:01→20:11)
[2018-01-02] MEDS: Scopolamine 1.5 mg* PATCH TRANSDERM SCH (17:42)
[2018-01-02] MEDS: Atorvastatin* 40 MG TAB PO SCH (17:48)
[2018-01-02] MEDS: Scopolamine PATCH Remove* 1 NOTE MISC PATCH OFF SCH (17:53)
--- NOTE | 2018-01-02 18:22 | RAD ---
INDICATION: Fever. Cough COMPARISON: None TECHNIQUE: An AP portable view obtained at 1805 hours is submitted. FINDINGS: Bones/Soft Tissues: There are no acute bony findings. There is double lumen right-sided central venous catheter in appropriate position. Cardiomediastinal: The cardiomediastinal silhouette is normal. Lungs: There are no infiltrates. There is minimal linear change left lung base most consistent with atelectasis. Pleura: There are no pleural effusions. Other: None IMPRESSION: NO ACTIVE DISEASE.
[2018-01-02] MEDS: Mirtazapine TAB* 15 MG PO SCH (20:10)
--- NOTE | 2018-01-02 20:17 | PN ---
Progress Note Date of Service: 01/02/18 Note: USAMA KAPADIA was visited. Therapy notes read and reviewed. Family meeting held today with patient, her daughter and to discuss post discharge plans. They acknowledge she cannot return to her current home. believes he has secured accessible housing. Will need to see when they can move in. Usama and her family realize she may have to go to a SNF if housing not available until March 11. Medically, her Hb up to 9 today. Still refuses to allow NGT feedings. Her WBC climbing and she had a slight fever this am. Blood cultures, CXR, U/A ordered. CXR: No active disease Current Medications: Active Medications Generic Name Dose Route Start Last Admin Trade Name Freq PRN Reason Stop Dose Admin Acetaminophen 650 mg 12/09/17 16:04 12/24/17 16:51 Tylenol Tab* PO 650 mg Q6H PRN Administration FEVER/PAIN Ascorbic Acid 500 mg 12/11/17 09:00 01/02/18 15:53 Vitamin C Tab* PO 500 mg DAILY [facility] Administration Aspirin 81 mg 12/10/17 09:00 01/02/18 15:53 Aspirin Ec Low Dose* PO 81 mg DAILY [facility] Administration Atorvastatin Calcium 40 mg 12/09/17 17:00 01/02/18 17:48 Lipitor* PO Not Given 1700 [facility] Bisacodyl 10 mg 12/09/17 16:04 Dulcolax Supp* [place] DAILY PRN CONSTIPATION Bisoprolol Fumarate 5 mg 12/10/17 09:00 01/02/18 15:53 Zebeta Tab* PO 5 mg DAILY [facility] Administration Docusate Sodium 100 mg 12/20/17 10:06 12/30/17 17:23 Colace Cap* PO 100 mg BID PRN Administration CONSTIPATION Fentanyl 25 mcg 12/24/17 12:00 01/02/18 13:28 Duragesic Patch 25 Mcg/Hr* TRANSDERM 25 mcg Q72H BR[facility] Administration Hydrocortisone 25 mg 01/01/18 21:00 01/02/18 20:11 Anusol Hc Supp* SD Not Given BID BR[facility]TON Metoclopramide HCl 5 mg 12/17/17 16:30 01/02/18 17:47 Reglan Tab* PO Not Given AC BR[facility] Mirtazapine 15 mg 12/31/17 21:00 01/02/18 20:10 Remeron Tab* PO 15 mg BEDTIME BR[facility] Administration Morphine Sulfate 2 mg 12/23/17 17:15 01/02/18 05:35 Morphine Inj (Syringe)* IV 2 mg Q6H PRN Administration PAIN - MODERATE TO SEVERE Ondansetron HCl 4 mg 12/12/17 12:50 12/29/17 09:17 Zofran Odt Tab* PO 4 mg Q6H PRN Administration NAUSEA/VOMITING Oxycodone HCl 5 mg 12/09/17 16:22 12/31/17 05:43 Roxycodone Tab* PO 5 mg Q4H PRN Administration PAIN - MODERATE TO SEVERE Pantoprazole Sodium 40 mg 12/10/17 09:00 01/02/18 15:53 Protonix Tab (Nf) PO 40 mg DAILY BR[facility] Administration Pharmacy Profile Note 1 note 12/21/17 18:00 01/02/18 17:53 Scopolamine Patch Remove* PATCH OFF 1 patch Q72H BR[facility] Administration Pharmacy Profile Note 1 note 12/24/17 19:00 01/02/18 07:15 Fentanyl Patch Check Q Shift N/A Not Given 0700,1900 [facility] Phenol/Menthol 1 spray 12/29/17 11:39 12/29/17 12:34 Chloroseptic Throat [place]* MT 1 spray TID PRN Administration SORE THROAT Polyethylene Glycol/Electrolytes 17 gm 01/02/18 09:00 01/02/18 16:00 Miralax* PO Not Given DAILY BR[facility] Scopolamine 1 patch 12/18/17 18:00 01/02/18 17:42 Transderm-Scop 1.5 Mg Patch* TRANSDERM 1 patch Q72H BR[facility] Administration Senna 2 tab 12/09/17 16:04 12/31/17 20:04 Senokot Tab* PO 2 tab BEDTIME PRN Administration CONSTIPATION Sertraline HCl 100 mg 12/25/17 09:00 01/02/18 15:53 Zoloft* PO 100 mg DAILY [facility] Administration Vital Signs: Vital Signs Temp Pulse Resp BP Pulse Ox 99.8 F 88 18 107/60 97 01/02/18 15:53 01/02/18 15:53 01/02/18 16:15 01/02/18 15:53 01/02/18 16:15 Lab Results: Laboratory Results - last 24 hr 01/02/18 10:28 WBC 15.2 H RBC 3.25 L Hgb 9.0 L Hct 28 L MCV 85 MCH 28 MCHC 32 RDW 17 H Plt Count 303 MPV 7 L Neut % (Auto) 92.0 H Lymph % (Auto) 3.2 L [place] % (Auto) 4.4 Eos % (Auto) 0.1 Baso % (Auto) 0.3 Absolute Neuts (auto) 14.0 H Absolute Lymphs (auto) 0.5 L Absolute Monos (auto) 0.7 Absolute Eos (auto) 0 Absolute Basos (auto) 0 Absolute Nucleated RBC 0 Nucleated RBC % 0 Exam: LUNGS: Clear bilaterally HEART: reg rhythm ABDOMEN: Soft. LLQ tender to palpation. Bowel sounds audible EXTREMITIES: No edema, LE atrophied. Lower extremity girths were symmetric. : Holley in place draining dark, bloody urine NEUROLOGIC: Decreased sensation below T10. Some quadriceps in RLE, able to wiggle toes bilat Assessment/Plan: 1. T10 JAC Class "C" Paraplegia: PT/OT 2. Anemia: Off Plavix and pletal now. Hb/Hct dropped, now up to 08/07. She had flex sig by Dr. Moncada showing ulcers in rectum 3. CKD/Renal failure: Hemodialysis. Renal diet. Follow urine output 4. 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 On Fentanyl Patch, 25 mcg/hr. Morphine IV, Oxycodone PRN. 5. Neurogenic bladder: holley changed. 6. Neurogenic bowel: Bowel program. 7. PVD: off pletal 8. DVT Prophylaxis: SCDs. 9. Advanced directives: full code 10. Depression: Zoloft increased to [address] Flores. Spirits better 11. Nausea: On Scopolamine patch. Often refuses Reglan. 12. Anorexia: started Remeron, ?results. Refuses NGT 13. Leukocytosis: follow up blood cultures, U/A 01/02/18 20:20
[2018-01-03] MEDS: fentaNYL Patch Check Q Shift 1 NOTE SCH ×2 (07:20→19:57)
[2018-01-03 07:56] LABS: ABS Basophils 0 10^3/ul (0-0.2); ABS Eosinophils 0 10^3/ul (0-0.6); ABS Lymphocytes 0.5 10^3/ul (1.0-4.8); ABS Monocytes 0.5 10^3/ul (0-0.8); ABS Neutrophils 9.9 10^3/ul (1.5-7.7); ABS Nucleated RBC 0 10^3/ul; Eosinophil % 0.4 % (0-6); Hematocrit 25 % (35-47); Lymphocyte % 4.6 % (25-47); Mean Corpuscular HGB Conc 32 g/dl (31-36); Mean Corpuscular Hemoglobin 27 pg (27-31); Mean Corpuscular Volume 85 fL (80-97); Mean Platelet Volume 7 um3 (7.4-10.4); Nucleated Red Blood Cells % 0; Platelet Count 285 10^3/ul (150-450); Red Blood Count 2.94 10^6/ul (4.0-5.4); Red Cell Distribution Width 17 % (10.5-15); White Blood Count 11.1 10^3/ul (3.5-10.8)
[2018-01-03] MEDS: Aspirin EC Low Dose* 81 MG TAB.EC PO SCH (08:43)
[2018-01-03] MEDS: Sertraline* 100 MG TAB PO SCH (08:43)
[2018-01-03] MEDS: CMC:Pantoprazole TAB (NF) 40 MG TAB PO SCH (08:43)
[2018-01-03] MEDS: Ascorbic Acid TAB* 500 MG PO SCH (08:43)
[2018-01-03] MEDS: Metoclopramide TAB* 10 MG PO SCH ×3 (08:43→16:58)
[2018-01-03] MEDS: Bisoprolol TAB* 5 MG PO SCH (08:43)
[2018-01-03] MEDS: Acetaminophen TAB* 325 MG PO PRN (08:44)
[2018-01-03] MEDS: Hydrocortisone SUPP* 25 MG SUPP (2.5%) PR SCH ×2 (08:46→20:07)
[2018-01-03] MEDS: Polyethylene Glycol 3350* 17 GM PACKET PO SCH (08:53)
--- NOTE | 2018-01-03 10:12 | PN ---
Progress Note Date of Service: 01/03/18 Note: USAMA KAPADIA was visited. Nursing and therapy notes read and reviewed. She had a fever this morning of 101.9 and received tylenol. She is now sweating. She has not been aware of feeling febrile or having chills. She actually feels pretty good today. No chest pain, shortness of breath or abdominal pain. The holley no longer irritates her as it was 2 weeks ago. No nausea, but her appetite is still poor. Current Medications: Active Medications Generic Name Dose Route Start Last Admin Trade Name Freq PRN Reason Stop Dose Admin Acetaminophen 650 mg 12/09/17 16:04 01/03/18 08:44 Tylenol Tab* PO 650 mg Q6H PRN Administration FEVER/PAIN Ascorbic Acid 500 mg 12/11/17 09:00 01/03/18 08:43 Vitamin C Tab* PO 500 mg DAILY BR[facility] Administration Aspirin 81 mg 12/10/17 09:00 01/03/18 08:43 Aspirin Ec Low Dose* PO 81 mg DAILY BR[facility] Administration Atorvastatin Calcium 40 mg 12/09/17 17:00 01/02/18 17:48 Lipitor* PO Not Given 1700 [facility] Bisacodyl 10 mg 12/09/17 16:04 Dulcolax Supp* [place] DAILY PRN CONSTIPATION Bisoprolol Fumarate 5 mg 12/10/17 09:00 01/03/18 08:43 Zebeta Tab* PO 5 mg DAILY [facility] Administration Docusate Sodium 100 mg 12/20/17 10:06 12/30/17 17:23 Colace Cap* PO 100 mg BID PRN Administration CONSTIPATION Fentanyl 25 mcg 12/24/17 12:00 01/02/18 13:28 Duragesic Patch 25 Mcg/Hr* TRANSDERM 25 mcg Q72H [facility] Administration Hydrocortisone 25 mg 01/01/18 21:00 01/03/18 08:46 Anusol Hc Supp* RI 25 mg BID BR[facility]TON Administration Metoclopramide HCl 5 mg 12/17/17 16:30 01/03/18 08:43 Reglan Tab* PO 5 mg AC [facility] Administration Mirtazapine 15 mg 12/31/17 21:00 01/02/18 20:10 Remeron Tab* PO 15 mg BEDTIME BR[facility] Administration Morphine Sulfate 2 mg 12/23/17 17:15 01/02/18 05:35 Morphine Inj (Syringe)* IV 2 mg Q6H PRN Administration PAIN - MODERATE TO SEVERE Ondansetron HCl 4 mg 12/12/17 12:50 12/29/17 09:17 Zofran Odt Tab* PO 4 mg Q6H PRN Administration NAUSEA/VOMITING Oxycodone HCl 5 mg 12/09/17 16:22 12/31/17 05:43 Roxycodone Tab* PO 5 mg Q4H PRN Administration PAIN - MODERATE TO SEVERE Pantoprazole Sodium 40 mg 12/10/17 09:00 01/03/18 08:43 Protonix Tab (Nf) PO 40 mg DAILY [facility] Administration Pharmacy Profile Note 1 note 12/21/17 18:00 01/02/18 17:53 Scopolamine Patch Remove* PATCH OFF 1 patch Q72H [facility] Administration Pharmacy Profile Note 1 note 12/24/17 19:00 01/03/18 07:20 Fentanyl Patch Check Q Shift N/A 1 note 0700,1900 [facility] Administration Phenol/Menthol 1 spray 12/29/17 11:39 12/29/17 12:34 Chloroseptic Throat [place]* MT 1 spray TID PRN Administration SORE THROAT Polyethylene Glycol/Electrolytes 17 gm 01/02/18 09:00 01/03/18 08:53 Miralax* PO Not Given DAILY [facility] Scopolamine 1 patch 12/18/17 18:00 01/02/18 17:42 Transderm-Scop 1.5 Mg Patch* TRANSDERM 1 patch Q72H [facility] Administration Senna 2 tab 12/09/17 16:04 12/31/17 20:04 Senokot Tab* PO 2 tab BEDTIME PRN Administration CONSTIPATION Sertraline HCl 100 mg 12/25/17 09:00 01/03/18 08:43 Zoloft* PO 100 mg DAILY [facility] Administration Vital Signs: Vital Signs 01/02/18 01/02/18 01/02/18 13:28 15:53 16:15 Temperature 99.8 F Pulse Rate 88 Respiratory 16 18 18 Rate Blood Pressure 107/60 (mmHg) O2 Sat by Pulse 97 97 Oximetry 01/03/18 06:27 Temperature 101.9 F Pulse Rate 87 Respiratory 18 Rate Blood Pressure 115/59 (mmHg) O2 Sat by Pulse 96 Oximetry Lab Results: Laboratory Results - last 24 hr 01/02/18 01/03/18 10:28 07:17 WBC 15.2 H 11.1 H RBC 3.25 L 2.94 L Hgb 9.0 L 8.0 L Hct 28 L 25 L MCV 85 85 MCH 28 27 MCHC 32 32 RDW 17 H 17 H Plt Count 303 285 MPV 7 L 7 L Neut % (Auto) 92.0 H 89.7 H Lymph % (Auto) 3.2 L 4.6 L [place] % (Auto) 4.4 4.9 Eos % (Auto) 0.1 0.4 Baso % (Auto) 0.3 0.4 Absolute Neuts (auto) 14.0 H 9.9 H Absolute Lymphs (auto) 0.5 L 0.5 L Absolute Monos (auto) 0.7 0.5 Absolute Eos (auto) 0 0 Absolute Basos (auto) 0 0 Absolute Nucleated RBC 0 0 Nucleated RBC % 0 0 Exam: GEN: no acute distress. alert and appropriate. LUNGS: Clear bilaterally HEART: regular rate and rhythm ABDOMEN: Soft. LLQ flaker tender to palpation. Bowel sounds audible. non distended. EXTREMITIES: No edema. Developing hammer toes at rest, but no rigid. : Holley in place draining gerber cloudy urine. NEUROLOGIC: Decreased sensation below T10. Some quadriceps in RLE, able to wiggle toes bilat Chest x-ray 01/02/18 was normal. 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 1. T10 JAC Class "C" Paraplegia: PT/OT 2. Anemia: Off Plavix and pletal. Gets EPO in dialysis. s/p transfusion on 01/01 and Hb/Hct was up to 9/ yesterday, but back down to 8/25 today. She had flex sig by Dr. Moncada showing ulcers in rectum. Recheck CBC in AM to see if stabilizing. 3. CKD/Renal failure: Hemodialysis //Sat. Renal diet. Follow urine output 4. 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 On Fentanyl Patch, 25 mcg/hr. Morphine IV, Oxycodone PRN. 5. Neurogenic bladder: holley changed since admit. 6. Neurogenic bowel: Bowel program now includes miralax and anusol hc per GI. 7. PVD: off pletal 8. DVT Prophylaxis: SCDs. 9. Advanced directives: full code 10. Depression: Zoloft increased to [address] Flores which seems to have helped. 11. Nausea: On Scopolamine patch. Often refuses scheduled Reglan. 12. Anorexia: started Remeron, but not clearly helping. Refuses NGT 13. Leukocytosis and fever: improved today, but higher fever than she has had. CXR was negative 01/02/18. Blood cultures drawn and pending. UA is just being sent now as nursing had difficulty getting enough urine for a specimen. follow up blood cultures and U/A. 01/03/18 10:12 01/03/18 10:18
[2018-01-03 11:27] LABS: Urine Blood 3+ (Negative); Urine Ketones Negative (Negative); Urine Protein 1+(30 mg/dL) (Negative); Urine Urobilinogen Negative (Negative)
[2018-01-03 11:29] LABS: Urine Appearance Turbid
[2018-01-03] MEDS ORDERED: Gentamicin ADULT (*) 150 MG in NS 0.9% 100 ML* 100 ML IVPB ONE (13:00)
[2018-01-03] MEDS: Atorvastatin* 40 MG TAB PO SCH (16:59)
[2018-01-03] MEDS: Mirtazapine TAB* 15 MG PO SCH (19:55)
[2018-01-04 05:52] LABS: ABS Basophils 0 10^3/ul (0-0.2); ABS Eosinophils 0 10^3/ul (0-0.6); ABS Lymphocytes 0.5 10^3/ul (1.0-4.8); ABS Monocytes 0.6 10^3/ul (0-0.8); ABS Neutrophils 12.3 10^3/ul (1.5-7.7); ABS Nucleated RBC 0 10^3/ul; Eosinophil % 0.2 % (0-6); Hematocrit 24 % (35-47); Hemoglobin 7.7 g/dl (12.0-16.0); Lymphocyte % 3.6 % (25-47); Mean Corpuscular HGB Conc 32 g/dl (31-36); Mean Corpuscular Hemoglobin 27 pg (27-31); Mean Corpuscular Volume 86 fL (80-97); Mean Platelet Volume 7 um3 (7.4-10.4); Nucleated Red Blood Cells % 0; Platelet Count 283 10^3/ul (150-450); Red Blood Count 2.84 10^6/ul (4.0-5.4); Red Cell Distribution Width 17 % (10.5-15); White Blood Count 13.4 10^3/ul (3.5-10.8)
[2018-01-04] MEDS: fentaNYL Patch Check Q Shift 1 NOTE SCH ×2 (07:34→19:54)
[2018-01-04] MEDS: Metoclopramide TAB* 10 MG PO SCH ×3 (07:35→16:57)
--- NOTE | 2018-01-04 09:58 | PN ---
Progress Note Date of Service: 01/04/18 Note: USAMA KAPADIA was visited. Nursing and therapy notes read and reviewed. Returned an hour early from dialysis due to stool incontinence. No chest pain, shortness of breath or new abdominal pain. Tolerated 1x dose of gentamycin yesterday afternoon. Current Medications: Active Medications Generic Name Dose Route Start Last Admin Trade Name Freq PRN Reason Stop Dose Admin Acetaminophen 650 mg 12/09/17 16:04 01/03/18 08:44 Tylenol Tab* PO 650 mg Q6H PRN Administration FEVER/PAIN Ascorbic Acid 500 mg 12/11/17 09:00 01/03/18 08:43 Vitamin C Tab* PO 500 mg DAILY [facility] Administration Aspirin 81 mg 12/10/17 09:00 01/03/18 08:43 Aspirin Ec Low Dose* PO 81 mg DAILY [facility] Administration Atorvastatin Calcium 40 mg 12/09/17 17:00 01/03/18 16:59 Lipitor* PO 40 mg 1700 [facility] Administration Bisacodyl 10 mg 12/09/17 16:04 Dulcolax Supp* [place] DAILY PRN CONSTIPATION Bisoprolol Fumarate 5 mg 12/10/17 09:00 01/03/18 08:43 Zebeta Tab* PO 5 mg DAILY [facility] Administration Docusate Sodium 100 mg 12/20/17 10:06 12/30/17 17:23 Colace Cap* PO 100 mg BID PRN Administration CONSTIPATION Fentanyl 25 mcg 12/24/17 12:00 01/02/18 13:28 Duragesic Patch 25 Mcg/Hr* TRANSDERM 25 mcg Q72H [facility] Administration Hydrocortisone 25 mg 01/01/18 21:00 01/03/18 20:07 Anusol Hc Supp* AL Not Given BID [facility] Metoclopramide HCl 5 mg 12/17/17 16:30 01/04/18 07:35 Reglan Tab* PO Not Given AC [facility] Mirtazapine 15 mg 12/31/17 21:00 01/03/18 19:55 Remeron Tab* PO 15 mg BEDTIME [facility] Administration Morphine Sulfate 2 mg 12/23/17 17:15 01/02/18 05:35 Morphine Inj (Syringe)* IV 2 mg Q6H PRN Administration PAIN - MODERATE TO SEVERE Ondansetron HCl 4 mg 12/12/17 12:50 12/29/17 09:17 Zofran Odt Tab* PO 4 mg Q6H PRN Administration NAUSEA/VOMITING Oxycodone HCl 5 mg 12/09/17 16:22 12/31/17 05:43 Roxycodone Tab* PO 5 mg Q4H PRN Administration PAIN - MODERATE TO SEVERE Pantoprazole Sodium 40 mg 12/10/17 09:00 01/03/18 08:43 Protonix Tab (Nf) PO 40 mg DAILY [facility] Administration Pharmacy Profile Note 1 note 12/21/17 18:00 01/02/18 17:53 Scopolamine Patch Remove* PATCH OFF 1 patch Q72H [facility] Administration Pharmacy Profile Note 1 note 12/24/17 19:00 01/04/18 07:34 Fentanyl Patch Check Q Shift N/A Not Given 0700,1900 [facility] Phenol/Menthol 1 spray 12/29/17 11:39 12/29/17 12:34 Chloroseptic Throat [place]* MT 1 spray TID PRN Administration SORE THROAT Polyethylene Glycol/Electrolytes 17 gm 01/02/18 09:00 01/03/18 08:53 Miralax* PO Not Given DAILY [facility] Scopolamine 1 patch 12/18/17 18:00 01/02/18 17:42 Transderm-Scop 1.5 Mg Patch* TRANSDERM 1 patch Q72H [facility] Administration Senna 2 tab 12/09/17 16:04 12/31/17 20:04 Senokot Tab* PO 2 tab BEDTIME PRN Administration CONSTIPATION Sertraline HCl 100 mg 12/25/17 09:00 01/03/18 08:43 Zoloft* PO 100 mg DAILY [facility] Administration Vital Signs: Vital Signs 01/03/18 01/03/18 01/03/18 15:47 19:04 19:39 Temperature 98.2 F Pulse Rate 75 Respiratory 18 Rate Blood Pressure 107/58 107/58 (mmHg) O2 Sat by Pulse 98 98 Oximetry 01/04/18 05:36 Temperature 100.8 F Pulse Rate 90 Respiratory 18 Rate Blood Pressure 115/60 (mmHg) O2 Sat by Pulse 95 Oximetry Lab Results: Laboratory Results - last 24 hr 01/03/18 01/04/18 10:15 05:26 WBC 13.4 H RBC 2.84 L Hgb 7.7 L Hct 24 L MCV 86 MCH 27 MCHC 32 RDW 17 H Plt Count 283 MPV 7 L Neut % (Auto) 91.6 H Lymph % (Auto) 3.6 L [place] % (Auto) 4.4 Eos % (Auto) 0.2 Baso % (Auto) 0.2 Absolute Neuts (auto) 12.3 H Absolute Lymphs (auto) 0.5 L Absolute Monos (auto) 0.6 Absolute Eos (auto) 0 Absolute Basos (auto) 0 Absolute Nucleated RBC 0 Nucleated RBC % 0 Urine Color Urine Appearance Turbid Urine pH 7.0 Ur Specific [place] 1.010 Urine Protein 1+(30 mg/dl) H Urine Ketones Negative Urine Blood 3+ H Urine Nitrate Negative Urine Bilirubin Negative Urine Urobilinogen Negative Ur Leukocyte Esterase 3+ H Urine WBC (Auto) 3+(>20/hpf) H Urine RBC (Auto) Trace(0-2/hpf) Urine Bacteria 2+ H Urine Glucose Negative Urine Ascorbic Acid * H Blood cultures negative to date. No information yet on urine culture. Exam: GEN: no acute distress. alert and appropriate. LUNGS: Clear bilaterally HEART: regular rate and rhythm ABDOMEN: +BS, soft. LLQ glass cut off tender to palpation. non distended. EXTREMITIES: No edema. : Holley in place draining gerber cloudy urine. NEUROLOGIC: Decreased sensation below T10. Some quadriceps in RLE, able to wiggle toes bilat Chest x-ray 01/02/18 was normal. 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 1. T10 JAC Class "C" Paraplegia: PT/OT 2. Anemia: Off Plavix and pletal. Gets EPO in dialysis. s/p transfusion on 01/01 and Hb/Hct was up to 08/07 but is drifting down again very slowly. She had flex sig by Dr. Moncada showing ulcers in rectum. Recheck CBC Saturday. 3. CKD/Renal failure: Hemodialysis //Sat. Renal diet. Follow urine output 4. 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 On Fentanyl Patch, 25 mcg/hr. Morphine IV, Oxycodone PRN. 5. Neurogenic bladder: holley changed since admit. 6. Neurogenic bowel: Bowel program now includes miralax and anusol hc per GI. 7. PVD: off pletal 8. DVT Prophylaxis: SCDs. 9. Advanced directives: full code 10. Depression: Zoloft increased [place] [address] Flores which seems to have helped. 11. Nausea: On Scopolamine patch. Often refuses scheduled Reglan. 12. Anorexia: started Remeron, but not clearly helping. Refuses NGT 13. Leukocytosis and fever with UA consistent with UTI/pyelonephritis: Blood and urine cultures pending. Received 1 dose of IV gentamycin 150mg on 01/03/18. 01/04/18 09:55
[2018-01-04] MEDS: Polyethylene Glycol 3350* 17 GM PACKET PO SCH (10:10)
[2018-01-04] MEDS: Sertraline* 100 MG TAB PO SCH (10:11)
[2018-01-04] MEDS: Bisoprolol TAB* 5 MG PO SCH (10:11)
[2018-01-04] MEDS: Ascorbic Acid TAB* 500 MG PO SCH (10:11)
[2018-01-04] MEDS: CMC:Pantoprazole TAB (NF) 40 MG TAB PO SCH (10:11)
[2018-01-04] MEDS: Aspirin EC Low Dose* 81 MG TAB.EC PO SCH (10:11)
[2018-01-04] MEDS: Hydrocortisone SUPP* 25 MG SUPP (2.5%) PR SCH ×2 (11:56→19:47)
[2018-01-04] MEDS: Atorvastatin* 40 MG TAB PO SCH (16:57)
[2018-01-04] MEDS: Mirtazapine TAB* 15 MG PO SCH (19:52)
[2018-01-05] MEDS: fentaNYL Patch Check Q Shift 1 NOTE SCH ×2 (06:58→18:55)
[2018-01-05] MEDS: Ondansetron ODT TAB* 4 MG PO PRN (09:36)
[2018-01-05] MEDS: Metoclopramide TAB* 10 MG PO SCH ×3 (09:53→17:19)
--- NOTE | 2018-01-05 09:59 | PN ---
Progress Note Date of Service: 01/05/18 Note: USAMA KAPADIA was visited. Nursing notes read and reviewed. She just "nibbiled " some dinner last night and is not interested in any breakfast this morning. No chest pain, shortness of breath or new abdominal pain. Current Medications: Active Medications Generic Name Dose Route Start Last Admin Trade Name Freq PRN Reason Stop Dose Admin Acetaminophen 650 mg 12/09/17 16:04 01/03/18 08:44 Tylenol Tab* PO 650 mg Q6H PRN Administration FEVER/PAIN Ascorbic Acid 500 mg 12/11/17 09:00 01/04/18 10:11 Vitamin C Tab* PO 500 mg DAILY BRITTON Administration Aspirin 81 mg 12/10/17 09:00 01/04/18 10:11 Aspirin Ec Low Dose* PO 81 mg DAILY BRITTON Administration Atorvastatin Calcium 40 mg 12/09/17 17:00 01/04/18 16:57 Lipitor* PO 40 mg 1700 BRITTON Administration Bisacodyl 10 mg 12/09/17 16:04 Dulcolax Supp* [place] DAILY PRN CONSTIPATION Bisoprolol Fumarate 5 mg 12/10/17 09:00 01/04/18 10:11 Zebeta Tab* PO 5 mg DAILY BRITTON Administration Docusate Sodium 100 mg 12/20/17 10:06 12/30/17 17:23 Colace Cap* PO 100 mg BID PRN Administration CONSTIPATION Fentanyl 25 mcg 12/24/17 12:00 01/02/18 13:28 Duragesic Patch 25 Mcg/Hr* TRANSDERM 25 mcg Q72H BRITTON Administration Hydrocortisone 25 mg 01/01/18 21:00 01/04/18 19:47 Anusol Hc Supp* [place] 25 mg BID BRITTON Administration Metoclopramide HCl 5 mg 12/17/17 16:30 01/04/18 16:57 Reglan Tab* PO 5 mg AC BRITTON Administration Mirtazapine 15 mg 12/31/17 21:00 01/04/18 19:52 Remeron Tab* PO 15 mg BEDTIME BRITTON Administration Morphine Sulfate 2 mg 12/23/17 17:15 01/02/18 05:35 Morphine Inj (Syringe)* IV 2 mg Q6H PRN Administration PAIN - MODERATE TO SEVERE Ondansetron HCl 4 mg 12/12/17 12:50 01/05/18 09:36 Zofran Odt Tab* PO 4 mg Q6H PRN Administration NAUSEA/VOMITING Oxycodone HCl 5 mg 12/09/17 16:22 12/31/17 05:43 Roxycodone Tab* PO 5 mg Q4H PRN Administration PAIN - MODERATE TO SEVERE Pantoprazole Sodium 40 mg 12/10/17 09:00 01/04/18 10:11 Protonix Tab (Nf) PO 40 mg DAILY BRITTON Administration Pharmacy Profile Note 1 note 12/21/17 18:00 01/02/18 17:53 Scopolamine Patch Remove* PATCH OFF 1 patch Q72H BRITTON Administration Pharmacy Profile Note 1 note 12/24/17 19:00 01/05/18 06:58 Fentanyl Patch Check Q Shift N/A 1 note 0700,1900 [facility] Administration Phenol/Menthol 1 spray 12/29/17 11:39 12/29/17 12:34 Chloroseptic Throat [place]* MT 1 spray TID PRN Administration SORE THROAT Polyethylene Glycol/Electrolytes 17 gm 01/02/18 09:00 01/04/18 10:10 Miralax* PO Not Given DAILY [facility] Scopolamine 1 patch 12/18/17 18:00 01/02/18 17:42 Transderm-Scop 1.5 Mg Patch* TRANSDERM 1 patch Q72H BRITTON Administration Senna 2 tab 12/09/17 16:04 12/31/17 20:04 Senokot Tab* PO 2 tab BEDTIME PRN Administration CONSTIPATION Sertraline HCl 100 mg 12/25/17 09:00 01/04/18 10:11 Zoloft* PO 100 mg DAILY BRITTON Administration Vital Signs: Vital Signs 01/04/18 01/04/18 01/04/18 10:30 17:02 20:00 Temperature 98.3 F Pulse Rate 86 Respiratory 18 18 Rate Blood Pressure 101/53 (mmHg) O2 Sat by Pulse 95 97 Oximetry 01/05/18 04:10 Temperature 98.5 F Pulse Rate 85 Respiratory 16 Rate Blood Pressure 115/55 (mmHg) O2 Sat by Pulse 97 Oximetry Lab Results: Microbiology 01/03/18 10:15 Urine Culture - Final Urine Pseudomonas Aeruginosa 01/02/18 18:59 Aerobic Blood Culture - Preliminary Blood Venous No Growth Day 2 Anaerobic Blood Culture - Preliminary No Growth Day 2 Exam: GEN: no acute distress. alert and appropriate. LUNGS: Clear bilaterally HEART: regular rate and rhythm ABDOMEN: +BS, soft. LLQ mixing machine tender to palpation. non distended. EXTREMITIES: No edema. : Holley in place draining cloudy urine which seems clearer. NEUROLOGIC: Decreased sensation below T10. 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 1. T10 JAC Class "C" Paraplegia: PT/OT 2. Anemia: Off Plavix and pletal. Gets EPO in dialysis. s/p transfusion on 01/01 and Hb/Hct was up to 08/07 but is drifting down again very slowly. She had flex sig by Dr. Moncada showing ulcers in rectum. Recheck CBC Saturday. 3. CKD/Renal failure: Hemodialysis //Sat. Renal diet. Follow urine output 4. 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 On Fentanyl Patch, 25 mcg/hr. Morphine IV, Oxycodone PRN. 5. Neurogenic bladder: holley changed since admit. 6. Neurogenic bowel: Bowel program now includes miralax and anusol hc per GI. 7. PVD: off pletal 8. DVT Prophylaxis: SCDs. 9. Advanced directives: full code 10. Depression: Zoloft increased [place] [address] Flores. Also on Remeron at hs. 11. Nausea: On Scopolamine patch. Often refuses scheduled Reglan. 12. Anorexia: started Remeron, but not clearly helping. Refuses NGT 13. Leukocytosis and fever with UTI/pyelonephritis of pseudomonas aeruginosa sensitive to gentamicin: No fever in 24hrs and last tylenol was 2 days ago. Blood cultures pending and negative to date. Received 1 dose of IV gentamycin 150mg on 01/03/18. 01/05/18 09:56
[2018-01-05] MEDS: Morphine INJ* 2 MG/ML 1 ML CARPUJECT IV PRN (10:36)
[2018-01-05] MEDS: Aspirin EC Low Dose* 81 MG TAB.EC PO SCH (12:30)
[2018-01-05] MEDS: Hydrocortisone SUPP* 25 MG SUPP (2.5%) PR SCH ×2 (12:30→20:14)
[2018-01-05] MEDS: CMC:Pantoprazole TAB (NF) 40 MG TAB PO SCH (12:30)
[2018-01-05] MEDS: Sertraline* 100 MG TAB PO SCH (12:30)
[2018-01-05] MEDS: Ascorbic Acid TAB* 500 MG PO SCH (12:31)
[2018-01-05] MEDS: Bisoprolol TAB* 5 MG PO SCH (12:31)
[2018-01-05] MEDS: Polyethylene Glycol 3350* 17 GM PACKET PO SCH (12:34)
[2018-01-05] MEDS: fentaNYL PATCH 25 MCG/HR TRANSDERM SCH (13:28)
[2018-01-05] MEDS: Atorvastatin* 40 MG TAB PO SCH (17:18)
[2018-01-05] MEDS: Scopolamine 1.5 mg* PATCH TRANSDERM SCH (17:19)
[2018-01-05] MEDS: Scopolamine PATCH Remove* 1 NOTE MISC PATCH OFF SCH (17:21)
[2018-01-05] MEDS: Mirtazapine TAB* 15 MG PO SCH (20:11)
[2018-01-06 06:53] LABS: ABS Basophils 0 10^3/ul (0-0.2); ABS Eosinophils 0 10^3/ul (0-0.6); ABS Lymphocytes 0.5 10^3/ul (1.0-4.8); ABS Monocytes 0.5 10^3/ul (0-0.8); ABS Neutrophils 10.8 10^3/ul (1.5-7.7); ABS Nucleated RBC 0 10^3/ul; Eosinophil % 0.3 % (0-6); Hematocrit 24 % (35-47); Hemoglobin 7.3 g/dl (12.0-16.0); Lymphocyte % 4.1 % (25-47); Mean Corpuscular HGB Conc 31 g/dl (31-36); Mean Corpuscular Hemoglobin 27 pg (27-31); Mean Corpuscular Volume 86 fL (80-97); Mean Platelet Volume 7 um3 (7.4-10.4); Nucleated Red Blood Cells % 0; Platelet Count 343 10^3/ul (150-450); Red Blood Count 2.77 10^6/ul (4.0-5.4); Red Cell Distribution Width 17 % (10.5-15); White Blood Count 11.9 10^3/ul (3.5-10.8)
[2018-01-06] MEDS: fentaNYL Patch Check Q Shift 1 NOTE SCH ×3 (06:57→23:06)
[2018-01-06] MEDS: Aspirin EC Low Dose* 81 MG TAB.EC PO SCH (10:03)
[2018-01-06] MEDS: CMC:Pantoprazole TAB (NF) 40 MG TAB PO SCH (10:03)
[2018-01-06] MEDS: Bisoprolol TAB* 5 MG PO SCH (10:03)
[2018-01-06] MEDS: Sertraline* 100 MG TAB PO SCH (10:03)
[2018-01-06] MEDS: Ascorbic Acid TAB* 500 MG PO SCH (10:03)
[2018-01-06] MEDS: Metoclopramide TAB* 10 MG PO SCH ×3 (10:03→16:00)
[2018-01-06] MEDS: Polyethylene Glycol 3350* 17 GM PACKET PO SCH (10:05)
[2018-01-06] MEDS: Hydrocortisone SUPP* 25 MG SUPP (2.5%) PR SCH ×2 (10:57→19:52)
[2018-01-06] MEDS: oxyCODONE TAB* 5 MG TAB PO PRN (11:45)
[2018-01-06] MEDS: Atorvastatin* 40 MG TAB PO SCH (16:00)
--- NOTE | 2018-01-06 17:14 | PN ---
Progress Note Date of Service: 01/06/18 Note: USAMA KAPADIA was visited. Therapy notes read and reviewed. Events of weekend noted. She received one dose of gent for pseudomonas in urine. No fevers since. Hb slowly drifting down, but Hct is still 24. Remains with little appetite Current Medications: Active Medications Generic Name Dose Route Start Last Admin Trade Name Freq PRN Reason Stop Dose Admin Acetaminophen 650 mg 12/09/17 16:04 01/03/18 08:44 Tylenol Tab* PO 650 mg Q6H PRN Administration FEVER/PAIN Ascorbic Acid 500 mg 12/11/17 09:00 01/06/18 10:03 Vitamin C Tab* PO 500 mg DAILY BRITTON Administration Aspirin 81 mg 12/10/17 09:00 01/06/18 10:03 Aspirin Ec Low Dose* PO 81 mg DAILY BRITTON Administration Atorvastatin Calcium 40 mg 12/09/17 17:00 01/06/18 16:00 Lipitor* PO 40 mg 1700 BRITTON Administration Bisacodyl 10 mg 12/09/17 16:04 Dulcolax Supp* [place] DAILY PRN CONSTIPATION Bisoprolol Fumarate 5 mg 12/10/17 09:00 01/06/18 10:03 Zebeta Tab* PO 5 mg DAILY BRITTON Administration Docusate Sodium 100 mg 12/20/17 10:06 12/30/17 17:23 Colace Cap* PO 100 mg BID PRN Administration CONSTIPATION Fentanyl 25 mcg 12/24/17 12:00 01/05/18 13:28 Duragesic Patch 25 Mcg/Hr* TRANSDERM 25 mcg Q72H BRITTON Administration Hydrocortisone 25 mg 01/01/18 21:00 01/06/18 10:57 Anusol Hc Supp* [place] 25 mg BID BRITTON Administration Metoclopramide HCl 5 mg 12/17/17 16:30 01/06/18 16:00 Reglan Tab* PO 5 mg AC BRITTON Administration Mirtazapine 15 mg 12/31/17 21:00 01/05/18 20:11 Remeron Tab* PO 15 mg BEDTIME BRITTON Administration Morphine Sulfate 2 mg 12/23/17 17:15 01/05/18 10:36 Morphine Inj (Syringe)* IV 2 mg Q6H PRN Administration PAIN - MODERATE TO SEVERE Ondansetron HCl 4 mg 12/12/17 12:50 01/05/18 09:36 Zofran Odt Tab* PO 4 mg Q6H PRN Administration NAUSEA/VOMITING Oxycodone HCl 5 mg 12/09/17 16:22 01/06/18 11:45 Roxycodone Tab* PO 5 mg Q4H PRN Administration PAIN - MODERATE TO SEVERE Pantoprazole Sodium 40 mg 12/10/17 09:00 01/06/18 10:03 Protonix Tab (Nf) PO 40 mg DAILY BRITTON Administration Pharmacy Profile Note 1 note 12/21/17 18:00 01/05/18 17:21 Scopolamine Patch Remove* PATCH OFF 1 patch Q72H BRITTON Administration Pharmacy Profile Note 1 note 12/24/17 19:00 01/06/18 06:57 Fentanyl Patch Check Q Shift N/A 1 note 0700,1900 [facility] Administration Phenol/Menthol 1 spray 12/29/17 11:39 12/29/17 12:34 Chloroseptic Throat [place]* MT 1 spray TID PRN Administration SORE THROAT Polyethylene Glycol/Electrolytes 17 gm 01/02/18 09:00 01/06/18 10:05 Miralax* PO Not Given DAILY [facility] Scopolamine 1 patch 12/18/17 18:00 01/05/18 17:19 Transderm-Scop 1.5 Mg Patch* TRANSDERM 1 patch Q72H BRITTON Administration Senna 2 tab 12/09/17 16:04 12/31/17 20:04 Senokot Tab* PO 2 tab BEDTIME PRN Administration CONSTIPATION Sertraline HCl 100 mg 12/25/17 09:00 01/06/18 10:03 Zoloft* PO 100 mg DAILY BRITTON Administration Vital Signs: Vital Signs Temp Pulse Resp BP Pulse Ox 99.7 F 88 24 101/51 95 01/06/18 15:57 01/06/18 15:57 01/06/18 15:57 01/06/18 15:57 01/06/18 15:57 Lab Results: Laboratory Results - last 24 hr 01/06/18 06:22 WBC 11.9 H RBC 2.77 L Hgb 7.3 L Hct 24 L MCV 86 MCH 27 MCHC 31 RDW 17 H Plt Count 343 MPV 7 L Neut % (Auto) 90.7 H Lymph % (Auto) 4.1 L Major % (Auto) 4.5 Eos % (Auto) 0.3 Baso % (Auto) 0.4 Absolute Neuts (auto) 10.8 H Absolute Lymphs (auto) 0.5 L Absolute Monos (auto) 0.5 Absolute Eos (auto) 0 Absolute Basos (auto) 0 Absolute Nucleated RBC 0 Nucleated RBC % 0 Exam: LUNGS: Clear bilaterally HEART: regular rate and rhythm ABDOMEN: +BS, soft. LLQ still runner to palpation. non distended. EXTREMITIES: No edema. : Holley in place draining cloudy urine which seems clearer. NEUROLOGIC: Decreased sensation below T10. Some quadriceps in RLE, able to wiggle toes bilat Assessment/Plan: 1. T10 JAC Class "C" Paraplegia: PT/OT 2. Anemia: Off Plavix and pletal. Gets EPO in dialysis. s/p transfusion on 01/01 and Hb/Hct was up to 08/07 but is drifting down again very slowly. She had flex sig by Dr. Moncada showing ulcers in rectum. 3. CKD/Renal failure: Hemodialysis //Sat. Renal diet. Follow urine output 4. 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 On Fentanyl Patch, 25 mcg/hr. Morphine IV, Oxycodone PRN. 5. Neurogenic bladder: holley changed since admit. 6. Neurogenic bowel: Bowel program now includes miralax and anusol hc per GI. 7. PVD: off pletal 8. DVT Prophylaxis: SCDs. 9. Advanced directives: full code 10. Depression: Zoloft increased to [address] Flores. Also on Remeron at hs. 11. Nausea: On Scopolamine patch. Often refuses scheduled Reglan. Nausea better 12. Anorexia: started Remeron, but not clearly helping. Refuses NGT 13. Leukocytosis and fever with UTI/pyelonephritis of pseudomonas aeruginosa sensitive to gentamicin: No fever since 01/04. Blood cultures negative. CXR: NAD. Received 1 dose of IV gentamycin 150mg. 01/06/18 17:17
[2018-01-06] MEDS: Mirtazapine TAB* 15 MG PO SCH (19:52)
[2018-01-07] MEDS: Morphine INJ* 2 MG/ML 1 ML CARPUJECT IV PRN (05:33)
[2018-01-07] MEDS: fentaNYL Patch Check Q Shift 1 NOTE SCH ×2 (07:24→18:56)
[2018-01-07] MEDS: Aspirin EC Low Dose* 81 MG TAB.EC PO SCH (08:17)
[2018-01-07] MEDS: Hydrocortisone SUPP* 25 MG SUPP (2.5%) PR SCH ×2 (08:17→19:13)
[2018-01-07] MEDS: Metoclopramide TAB* 10 MG PO SCH ×3 (08:18→16:46)
[2018-01-07] MEDS: Ascorbic Acid TAB* 500 MG PO SCH (08:18)
[2018-01-07] MEDS: CMC:Pantoprazole TAB (NF) 40 MG TAB PO SCH (08:18)
[2018-01-07] MEDS: Bisoprolol TAB* 5 MG PO SCH (08:18)
[2018-01-07] MEDS: Polyethylene Glycol 3350* 17 GM PACKET PO SCH ×2 (08:18→08:19)
[2018-01-07] MEDS: Sertraline* 100 MG TAB PO SCH (08:18)
--- NOTE | 2018-01-07 12:55 | PMRUTEAM ---
PMRU: Goals Current Status: Nursing: Current Status Skin Deviations [Bilateral Pressure Ulcer Heel] Skin Deviations [Left Buttocks Pressure Ulcer ] Skin Deviations [Coccyx] Pressure Ulcer Skin Deviations [Right Groin] Other Skin Deviations [Left Arm] Bruise Skin Deviations [Left Upper Abrasion Chest] Skin Deviation Description [ mepilex in place Bilateral Heel] Skin Deviation Description [ blanchable redness Left Buttocks] Skin Deviation Description [ mepilex in place Coccyx] Skin Deviation Description [ redness catheter possitioning leg bag switch sites Right Groin] . Skin Deviation Description [ - Left Arm] Skin Deviation Description [ healing Left Upper Chest] Bladder Current Status Guzman in place Bowel Current Status incontinent Nutrition Current Status inadequate Medication Current Status declining medications at this time. Physical Therapy: Current Status Bed Mobility Assistance Mod Assist Transfer Moblility Assistance Total Assist,2 or More Person Assist Transfer/Bed Mobility Tunde Lift Recommended Devices Ambulation Assistance Unable Manual Wheelchair Control/ Bilateral UE's Technique Wheelchair Propulsion Ability Standby Assistance Wheelchair Distance (ft) 150 Objective Comments patient demonstrates improving core stability and balance this date. patient improving envelope of controll for movement in unsuported sitting balance. patient continues to hve difficulty moving from semi reclined to upright and from forward flexed to upright without assist of hands, but again demosntrates expanding window. working on increasing sitting balance and UE strength to allow for progression to slide board transfer. patient also demonstrates improving endurance and skill in W/C mobiltiy this date. Occupational Therapy: Current Status Upper Body Dressing Mod Assist Lower Body Dressing Total Assist,2 Person Assist Bathing Mod Assist,2 Person Assist Toileting Total Assist Toilet Transfer Total Assist,2 Person Assist Toilet Transfer Progress N/A Shower Transfer Total Assist,2 Person Assist Shower Transfer Progress TUNDE but unable d/t port Eating Supervision Eating Progress set-up Rec Therapy: Current Status Summary of Assessment and RT assessment complete and pt. is aware of RT Clinical Impression services. Pt. has been engaged in leisure visits during which patient expresses herself openly about her emotions. Pt. has not been interested in leisure activities but states she enjoys visits . Treatment Goals Pt. will engage in leisure activities as tolerated while on the unit. Treatment Plan Provide RT services and encourage involvement. Provide emotional support as needed. Social Work: Current Status Discharge Plan transfer to a SNF for continued therapy Potential for Family Training n/a Anticipated Discharge [facility] Facility Destination Discharge With ongoing therapy at a [facility] Nutrition: Current Status Monitoring Intake remains 25-50% of meals. Pt still c/o poor appetite, but seems in better spirits than she has been lately per partner at bedside today. Pt receives a van milkshake with L; pt states she has been drinking most of it. Noted about half still left on bedside table this afternoon. Pt states that her partner helped her mend her dentures so should could wear them (they had gotten too large given her wt loss). Made some further suggestions for items she can request as needed; pt verbalized understanding. Partner had also brought in some items from home: canned soups, marshmallow Peeps. BMs noted every other day; some soft/liquid. Goals: Physical Therapy: Initial Goals Bed Mobility Assistance Independent Transfer Mobility Assistance Independent Transfer/Bed Mobility Slide Board Recommended Devices Wheelchair Propulsion Ability Independent Physical Therapy: Updated Goals Bed Mobility Assistance Independent Transfer Mobility Assistance Independent Transfer/Bed Mobility Slide Board Recommended Devices Wheelchair Propulsion Ability Independent Wheelchair Distance (ft) 150' Occupational Therapy: Initial Goals Goals to be Completed in (Days 21-28 ) Upper Body Bathing Routine Independent Lower Body Bathing Routine Modified Independent with Upper Body Dressing Routine Independent Lower Body Dressing Routine Modified Independent with Toilet Hygeine and Clothing Modified Independent with Management Routine Toilet Transfer Routine Modified Independent with Toilet Transfer Assistive slideboard Devices Functional Transfers for ADL Modified Independent with Functional Transfers for ADl slideboard Assistive Devices Grooming Routine Independent Feeding Routine Independent Nursing: Goals Bladder Goal independent straight catheterization Bowel Goal changing self Nutrition Goal 75% of meals Medication Goal independent Nutrition: Goals Intervention Goals 1. Improved oral intake to support maintenance of lean body mass and rehab progress. 2. Maintain controlled renal labs per dialysis parameters. 3. Pt verbalizes understanding of renal diet. 4. Tolerates oral intake w/o GI distress. Social Work: Goals Discharge Plan transfer to a SNF for continued therapy Potential for Family Training n/a Anticipated Discharge [facility] Facility Destination Discharge With ongoing therapy at a [facility] Care Plan: Care Plan ADL's - Improve/Maintain Start: 12/10/17 02:01 Freq: DAILY Status: Active Target: Protocol: Activity Type Activity Date Activity User E-Sign Co-Sign Detail Recorded Client Recorded Date Recorded By Document 01/07/18 11:03 [id number] [id number] 01/07/18 11:03 [id number] 01/07/18 11:03 PMRU Outcome: ADL's/ADL Transfers Orders/Interventions Occupational Therapy Evaluation & Treatment Communication Tool in Patient Room Patient to receive OT 5x/wk for 60-120 Therex min/day Self Care Management Group Therapy UE/LE ADL's with Assist Yes: mod I ADL Transfers with Assist Yes: mod I Toileting: Transfers,Clothing Management Yes: mod I ,Hygeine w/Assist Progression Toward Outcome/Goals Not Progressing Outcome/Goals Met Discharge planning in process. Pt has plateaued. Cardiovascular- Improve/Maintain Start: 12/10/17 02:01 Freq: DAILY Status: Active Target: Protocol: Activity Type Activity Date Activity User E-Sign Co-Sign Detail Recorded Client Recorded Date Recorded By Document 01/06/18 23:39 [id number] 01/06/18 23:40 [id number] 01/06/18 23:39 PMRU Outcome: Cardiovascular Vital Signs q Shift for 48hrs Then BID Yes Daily Weight Ordered No Current Cardiovascular Outcome/Goal Maintain/ Achieve Baseline HR, BP , Perfusion Improve HR Within Prescribed Parameters Maintain/ Achieve Hemodynamic Stability Free of Abnormal Cardiac Symptoms Progression Toward Outcome/Goal Progressing Coping/Psych-Improve/Maintain Start: 12/10/17 02:01 Freq: DAILY Status: Active Target: Protocol: Activity Type Activity Date Activity User E-Sign Co-Sign Detail Recorded Client Recorded Date Recorded By Document 01/06/18 23:39 [id number] 01/06/18 23:40 [id number] 01/06/18 23:39 PMRU Outcome: Coping/Psychosocial Coping Outcome/Goals Verbalization of Acceptance of Rehab Admit Verbalization of Sense of Control Over Health Status Utilization of Appropriate Problem Solving Techniques Willingness to Participate in Treatment Plan and Basic Needs Utilization of Available Support Systems Absence of Destructive Behavior to Self/Others Psychosocial Outcome/Goals Maintain/ Improve Emotional Health Demonstrates Knowledge of Healthy Coping Mechanisms Available Cooperate/ Participate in Plan Progression Toward Outcome/Goals - Not Progressing Coping Progression Toward Outcome/Goals - Not Progressing Psychosocial DVT Prophylaxis- Improve/Maintain Start: 12/10/17 02:01 Freq: DAILY Status: Active Target: Protocol: Activity Type Activity Date Activity User E-Sign Co-Sign Detail Recorded Client Recorded Date Recorded By Document 01/06/18 23:39 [id number] 01/06/18 23:40 [id number] 01/06/18 23:39 PMRU Outcome: DVT Prophylaxis Outcome/Goals Remains Free of DVT Complies with DVT Prophylaxis /Treatment Demonstrates Knowledge of DVT Prevention/ Treatment TEDS Stockings on Every AM, Off at HS Progression Toward Outcome/Goals Progressing Discharge Planning - Improve/Maintain Start: 12/10/17 02:01 Freq: DAILY Status: Active Target: Protocol: Activity Type Activity Date Activity User E-Sign Co-Sign Detail Recorded Client Recorded Date Recorded By Document 01/06/18 23:39 [id number] [id number] 01/06/18 23:40 [id number] 01/06/18 23:39 PMRU Outcome: Discharge Planning Identify Patient Needs yes Update Patient Family No Outcome/Goals Demonstrates Understanding of Discharge Plan Progression Toward Outcome/Goals Progressing Education-Improve/Maintain Start: 12/10/17 02:01 Freq: DAILY Status: Active Target: Protocol: Activity Type Activity Date Activity User E-Sign Co-Sign Detail Recorded Client Recorded Date Recorded By Document 01/06/18 23:39 [id number] [id number] 01/06/18 23:40 [id number] 01/06/18 23:39 PMRU Outcome: Education Outcome/Goals Demonstrate/ Verbalize Understanding of Written Discharge Instructions Demonstrates Skills Encourage Questions Progression Toward Outcome/Goals Progressing /GI-Improve/Maintain Start: 12/10/17 02:01 Freq: DAILY Status: Active Target: Protocol: Activity Type Activity Date Activity User E-Sign Co-Sign Detail Recorded Client Recorded Date Recorded By Document 01/06/18 23:39 [id number] [id number] 01/06/18 23:40 [id number] 01/06/18 23:39 PMRU Outcome: Genitourinary/ Gastrointestinal Genitourinary- Outcome/Goals Maintain/ Achieve Urinary Continence Maintain/ Achieve Adequate Urinary Output Gastrointestinal-Outcome/Goals Maintain/ Achieve Bowel Regularity in Accordance with Pt's Baseline Remain Free of Emesis Progression Toward Outcome/Goals - Not Progressing Progression Toward Outcome/Goals - GI Not Progressing Outcome/Goals Met Comment Guzman in place Medication Administration Start: 12/10/17 02:01 Freq: DAILY Status: Active Target: Protocol: Activity Type Activity Date Activity User E-Sign Co-Sign Detail Recorded Client Recorded Date Recorded By Document 01/06/18 23:39 [id number] [facility]-C03 01/06/18 23:40 [id number] 01/06/18 23:39 PMRU Outcome: Medication Administration Assess Patient Knowledge/Teach Med No Education for all Meds Outcome/Goals Patient Independent with Medication Administration at Home Family/ Caregiver Administer Medications at Home Progression Towards Outcome/Goals Progressing Is Patient Going Home on Lovenox? No Mobility- Improve/Maintain Start: 12/10/17 02:01 Freq: DAILY Status: Active Target: Protocol: Activity Type Activity Date Activity User E-Sign Co-Sign Detail Recorded Client Recorded Date Recorded By Document 01/03/18 18:20 [id number] 01/03/18 18:20 [id number] 01/03/18 18:20 PMRU Outcome: Mobility Physical Therapy Evaluation and Yes Treatment Activity OOB with Assistance Yes Assistance Yes Patient to be seen 5x/wk for 60-120 min/ Therex day for: Mobility Training W/C Mobility Balance Outcome/Goals Improve Mobility Status Demonstrates Proper Use of Assistive Devices Free from Complications of Immobility Progression Toward Outcome/Goals Progressing Bed Mobility Yes: independent Transfers Yes: independent with slide board W/C Mobility x ft Yes: independent W/C mobility to 150' Neurological- Improve/Maintain Start: 12/10/17 02:01 Freq: DAILY Status: Active Target: Protocol: Activity Type Activity Date Activity User E-Sign Co-Sign Detail Recorded Client Recorded Date Recorded By Document 01/06/18 23:39 [id number] 01/06/18 23:40 [id number] 01/06/18 23:39 PMRU Outcome: Neurological Weakness/Aphasia Weakness Weakness/Aphasia Comment paraplegia Outcome/Goals Maintain/ Achieve Baseline Neurological Status Improve Neurological Status Maintain/ Improve Strength/ROM Progression Toward Outcome/Goals Not Progressing Pain/Comfort- Improve/Maintain Start: 12/10/17 02:01 Freq: DAILY Status: Active Target: Protocol: Activity Type Activity Date Activity User E-Sign Co-Sign Detail Recorded Client Recorded Date Recorded By Document 01/06/18 23:39 [id number] 01/06/18 23:40 [id number] 01/06/18 23:39 PMRU Outcome: Pain/Comfort Outcome/Goals Demonstrates Knowledge and Use of Available Comfort Measures Achieves Acceptable Comfort/Pain Level as Determined by Patient/Condit Maintain Comfort Level Allowing Patient to Fully Participate in Rehab Progression Toward Outcome/Goals Progressing Outcome/Goals Met Comment pt denies at this time Safety- Improve/Maintain Start: 12/10/17 02:01 Freq: DAILY Status: Active Target: Protocol: Activity Type Activity Date Activity User E-Sign Co-Sign Detail Recorded Client Recorded Date Recorded By Document 01/06/18 23:39 [id number] 01/06/18 23:40 [id number] 01/06/18 23:39 PMRU Outcome: Safety Outcome/Goals Remain Free of Injury or Harm Cooperates with Safety Measures for Least Restrictive Environment Prevent Falls/ Injury Progression Toward Outcome/Goals Progressing Medicine Note: Length of Stay: 1 week Anticipated Discharge Destination: [facility] Facility Tentative Discharge Date: January 15, 2018 Discharged to: [facility]
[2018-01-07] MEDS: Atorvastatin* 40 MG TAB PO SCH (16:46)
--- NOTE | 2018-01-07 18:32 | PN ---
Progress Note Date of Service: 01/07/18 Note: USAMA KAPADIA was visited. Therapy notes read and reviewed. Discussed in interdisciplinary team rounds. She remains with anorexia. Nausea has diminished as has LLQ pain, though both present to some extent. Functional gains have been minimal. She will be transferred to subacute rehab until accessible home can be found. Need to arrange dialysis transportation to/from subacute rehab Current Medications: Active Medications Generic Name Dose Route Start Last Admin Trade Name Freq PRN Reason Stop Dose Admin Acetaminophen 650 mg 12/09/17 16:04 01/03/18 08:44 Tylenol Tab* PO 650 mg Q6H PRN Administration FEVER/PAIN Ascorbic Acid 500 mg 12/11/17 09:00 01/07/18 08:18 Vitamin C Tab* PO 500 mg DAILY [facility] Administration Aspirin 81 mg 12/10/17 09:00 01/07/18 08:17 Aspirin Ec Low Dose* PO 81 mg DAILY [facility] Administration Atorvastatin Calcium 40 mg 12/09/17 17:00 01/07/18 16:46 Lipitor* PO 40 mg 1700 [facility] Administration Bisacodyl 10 mg 12/09/17 16:04 Dulcolax Supp* [place] DAILY PRN CONSTIPATION Bisoprolol Fumarate 5 mg 12/10/17 09:00 01/07/18 08:18 Zebeta Tab* PO 5 mg DAILY [facility] Administration Docusate Sodium 100 mg 12/20/17 10:06 12/30/17 17:23 Colace Cap* PO 100 mg BID PRN Administration CONSTIPATION Fentanyl 25 mcg 12/24/17 12:00 01/05/18 13:28 Duragesic Patch 25 Mcg/Hr* TRANSDERM 25 mcg Q72H [facility] Administration Hydrocortisone 25 mg 01/01/18 21:00 01/07/18 08:17 Anusol Hc Supp* [place] 25 mg BID [facility] Administration Metoclopramide HCl 5 mg 12/17/17 16:30 01/07/18 16:46 Reglan Tab* PO 5 mg AC [facility] Administration Mirtazapine 15 mg 12/31/17 21:00 01/06/18 19:52 Remeron Tab* PO 15 mg BEDTIME [facility] Administration Morphine Sulfate 2 mg 12/23/17 17:15 01/07/18 05:33 Morphine Inj (Syringe)* IV 2 mg Q6H PRN Administration PAIN - MODERATE TO SEVERE Ondansetron HCl 4 mg 12/12/17 12:50 01/05/18 09:36 Zofran Odt Tab* PO 4 mg Q6H PRN Administration NAUSEA/VOMITING Oxycodone HCl 5 mg 12/09/17 16:22 01/06/18 11:45 Roxycodone Tab* PO 5 mg Q4H PRN Administration PAIN - MODERATE TO SEVERE Pantoprazole Sodium 40 mg 12/10/17 09:00 01/07/18 08:18 Protonix Tab (Nf) PO 40 mg DAILY [facility] Administration Pharmacy Profile Note 1 note 12/21/17 18:00 01/05/18 17:21 Scopolamine Patch Remove* PATCH OFF 1 patch Q72H [facility] Administration Pharmacy Profile Note 1 note 12/24/17 19:00 01/07/18 07:24 Fentanyl Patch Check Q Shift N/A 1 note 0700,1900 [facility] Administration Phenol/Menthol 1 spray 12/29/17 11:39 12/29/17 12:34 Chloroseptic Throat [place]* MT 1 spray TID PRN Administration SORE THROAT Polyethylene Glycol/Electrolytes 17 gm 01/02/18 09:00 01/07/18 08:19 Miralax* PO Not Given DAILY [facility] Scopolamine 1 patch 12/18/17 18:00 01/05/18 17:19 Transderm-Scop 1.5 Mg Patch* TRANSDERM 1 patch Q72H [facility] Administration Senna 2 tab 12/09/17 16:04 12/31/17 20:04 Senokot Tab* PO 2 tab BEDTIME PRN Administration CONSTIPATION Sertraline HCl 100 mg 12/25/17 09:00 01/07/18 08:18 Zoloft* PO 100 mg DAILY [facility] Administration Vital Signs: Vital Signs Temp Pulse Resp BP Pulse Ox 98.5 F 79 18 107/63 100 01/07/18 15:47 01/07/18 15:47 01/07/18 15:47 01/07/18 15:47 01/07/18 15:47 Exam: LUNGS: Clear bilaterally HEART: regular rate and rhythm ABDOMEN: +BS, soft. LLQ less tender to palpation. non distended. EXTREMITIES: No edema. : Holley in place draining cloudy urine which seems clearer. NEUROLOGIC: Decreased sensation below T10. Some quadriceps in RLE, able to wiggle toes bilat Assessment/Plan: 1. T10 JAC Class "C" Paraplegia: PT/OT 2. Anemia: Off Plavix and pletal. Gets EPO in dialysis. Seems likely to be coming from [facility] 3. ESRD: Hemodialysis //Sat. Follow urine output 4. 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 On Fentanyl Patch, 25 mcg/hr. Morphine IV, Oxycodone PRN. 5. Neurogenic bladder: holley changed December 25. 6. Neurogenic bowel: Bowel program now includes miralax and anusol hc per GI. 7. PVD: off pletal 8. DVT Prophylaxis: SCDs. 9. Advanced directives: full code 10. Depression: Zoloft increased to [address] Flores. Also on Remeron at hs. 11. Nausea: On Scopolamine patch. Has been taking Reglan. Nausea better 12. Anorexia: started Remeron, but not clearly helping. Refuses NGT. Diet liberalized to regular 13. Leukocytosis and fever with UTI/pyelonephritis of pseudomonas aeruginosa sensitive to gentamicin: No fever since 01/04. Blood cultures negative. CXR: NAD. Received 1 dose of IV gentamycin 150mg. 01/07/18 18:32 01/07/18 18:37
[2018-01-07] MEDS: Mirtazapine TAB* 15 MG PO SCH (19:16)
[2018-01-08] MEDS: Acetaminophen TAB* 325 MG PO PRN (06:24)
[2018-01-08] MEDS: fentaNYL Patch Check Q Shift 1 NOTE SCH ×2 (07:41→23:24)
[2018-01-08] MEDS: Metoclopramide TAB* 10 MG PO SCH ×3 (09:05→17:20)
[2018-01-08 09:10] LABS: ABS Basophils 0 10^3/ul (0-0.2); ABS Eosinophils 0 10^3/ul (0-0.6); ABS Lymphocytes 0.5 10^3/ul (1.0-4.8); ABS Monocytes 0.6 10^3/ul (0-0.8); ABS Nucleated RBC 0 10^3/ul; Eosinophil % 0.5 % (0-6); Hematocrit 22 % (35-47); Hemoglobin 6.9 g/dl (12.0-16.0); Lymphocyte % 5.3 % (25-47); Mean Corpuscular HGB Conc 32 g/dl (31-36); Mean Corpuscular Hemoglobin 27 pg (27-31); Mean Corpuscular Volume 85 fL (80-97); Mean Platelet Volume 7 um3 (7.4-10.4); Nucleated Red Blood Cells % 0; Platelet Count 345 10^3/ul (150-450); Red Blood Count 2.55 10^6/ul (4.0-5.4); Red Cell Distribution Width 17 % (10.5-15); White Blood Count 10.2 10^3/ul (3.5-10.8)
[2018-01-08 09:21] LABS: EGFR Non-African American 16.2 (>60)
[2018-01-08] MEDS: Hydrocortisone SUPP* 25 MG SUPP (2.5%) PR SCH ×2 (09:46→19:45)
[2018-01-08] MEDS: CMC:Pantoprazole TAB (NF) 40 MG TAB PO SCH (09:46)
[2018-01-08] MEDS: Sertraline* 100 MG TAB PO SCH (09:46)
[2018-01-08] MEDS: Ascorbic Acid TAB* 500 MG PO SCH (09:46)
[2018-01-08] MEDS: Aspirin EC Low Dose* 81 MG TAB.EC PO SCH (09:46)
[2018-01-08] MEDS: Bisoprolol TAB* 5 MG PO SCH (09:46)
[2018-01-08] MEDS: Polyethylene Glycol 3350* 17 GM PACKET PO SCH (10:00)
[2018-01-08] MEDS: fentaNYL PATCH 25 MCG/HR TRANSDERM SCH (14:27)
--- NOTE | 2018-01-08 14:36 | CONSULT ---
Identification - Patient Identification Reason for Psychiatric Consultation: Incapacitating Symptoms -: Patient is a 62 year old, F admitted on 12/09/17. - MHU Identification Employment Status: Disabled Hx Psychiatric Hospitalization: No History - Objective HPI: Evelyn is seen for follow up. She is in relatively good spirits and denies either depressed mood or suicidal thoughts. She is tolerating both sertraline and mirtazapine. Unfortunately, her appetite remains poor with very limited intake and some associated loss of weight. "I try to eat, it just doesn't appeal to me." Evelyn is apparently out of hospital days for the acute rehab setting and has been accepted for step-down to subacute rehab. The patient disagrees with this, first, because she continues to have blood loss and anemia , likely secondary to hematuria, and second, because she doesn't want to go to [facility] here in [facility]. Her and her , Sushil, who is interviewed separately in her room, would prefer [facility] placement at [facility], because it's closer to home. There is question about dialysis availability, but they indicate they could take the shuttle to [facility] for this and her would accompany her. Despite these stressors, the patient indicates that her mood is improving and her concurs with this. Lab Results: Laboratory Tests 12/11/17 12/11/17 12/18/17 08:15 08:15 06:55 WBC 6.6 5.4 RBC 2.65 L 2.37 L RBC (Retic) Hgb 7.7 L 6.8 L Hct 23 L 21 L HCT (Retic) MCV 87 88 MCH 29 29 MCHC 33 33 RDW 15 15 Plt Count 200 141 L MPV 8 8 Neut % (Auto) 81.5 85.7 H Lymph % (Auto) 9.1 L 5.7 L Barren % (Auto) 7.0 6.9 Eos % (Auto) 1.4 0.9 Baso % (Auto) 1.0 0.8 Absolute Neuts (auto) 5.4 4.5 Absolute Lymphs (auto) 0.6 L 0.3 L Absolute Monos (auto) 0.5 0.4 Absolute Eos (auto) 0.1 0 Absolute Basos (auto) 0.1 0 Absolute Nucleated RBC 0 0 Nucleated RBC % 0 0 Hypochromasia Stomatocytes Retic Count, Calc Corrected Retic Count Retic Shift Factor Retic Production Index Immature Retic Fraction Mean Retic Volume Sodium 136 Potassium 4.4 Chloride 99 L Carbon Dioxide 24 Anion Gap 13 H BUN 28 H Creatinine 4.45 H Est GFR ( Amer) 13.0 Est GFR (Non-Af Amer) 10.1 BUN/Creatinine Ratio 6.3 L Glucose 65 L Calcium 8.3 L Iron TIBC % Saturation Unsat Iron Binding Transferrin Ferritin Total Bilirubin 0.80 AST 16 ALT 11 Alkaline Phosphatase 101 Total Protein 5.2 L Albumin 2.5 L Globulin 2.7 Albumin/Globulin Ratio 0.9 L Vitamin B12 Folate Urine Color Urine Appearance Urine pH Ur Specific [place] Urine Protein Urine Ketones Urine Blood Urine Nitrate Urine Bilirubin Urine Urobilinogen Ur Leukocyte Esterase Urine WBC (Auto) Urine RBC (Auto) Urine Bacteria Urine Glucose Urine Ascorbic Acid Blood Type Antibody Screen Crossmatch 12/18/17 12/18/17 12/22/17 06:55 06:55 06:16 WBC 3.9 RBC 2.10 L RBC (Retic) Cancelled Hgb 6.0 L* Hct 18 L HCT (Retic) Cancelled MCV 87 MCH 29 MCHC 33 RDW 15 Plt Count 264 MPV 7 L Neut % (Auto) 70.8 Lymph % (Auto) 9.2 L Barren % (Auto) 17.6 H Eos % (Auto) 1.6 Baso % (Auto) 0.8 Absolute Neuts (auto) 2.8 Absolute Lymphs (auto) 0.4 L Absolute Monos (auto) 0.7 Absolute Eos (auto) 0.1 Absolute Basos (auto) 0 Absolute Nucleated RBC 0 Nucleated RBC % 0.3 Hypochromasia 2+ Stomatocytes 1+ Retic Count, Calc Cancelled Corrected Retic Count Cancelled Retic Shift Factor Cancelled Retic Production Index Cancelled Immature Retic Fraction Cancelled Mean Retic Volume Cancelled Sodium 132 L Potassium 3.9 Chloride 96 L Carbon Dioxide 25 Anion Gap 11 BUN 18 Creatinine 3.85 H Est GFR ( Amer) 15.4 Est GFR (Non-Af Amer) 11.9 BUN/Creatinine Ratio 4.7 L Glucose 91 Calcium 8.3 L Iron 26 L TIBC 105 L % Saturation 25 Unsat Iron Binding 79 Transferrin 73 L Ferritin > 1500.0 H Total Bilirubin 0.80 AST 13 ALT 4 L Alkaline Phosphatase 70 Total Protein 5.1 L Albumin 2.3 L Globulin 2.8 Albumin/Globulin Ratio 0.8 L Vitamin B12 795 Folate 5.85 Urine Color Urine Appearance Urine pH Ur Specific [place] Urine Protein Urine Ketones Urine Blood Urine Nitrate Urine Bilirubin Urine Urobilinogen Ur Leukocyte Esterase Urine WBC (Auto) Urine RBC (Auto) Urine Bacteria Urine Glucose Urine Ascorbic Acid Blood Type Antibody Screen Crossmatch 12/22/17 12/22/17 12/23/17 06:16 16:35 05:51 WBC 4.5 4.0 RBC 2.99 L 2.93 L RBC (Retic) Hgb 8.4 L 8.2 L Hct 25 L 25 L HCT (Retic) MCV 84 84 MCH 28 28 MCHC 34 33 RDW 17 H 17 H Plt Count 290 296 MPV 7 L 7 L Neut % (Auto) 67.7 69.9 Lymph % (Auto) 9.6 L 9.8 L Barren % (Auto) 19.3 H 18.3 H Eos % (Auto) 2.3 1.3 Baso % (Auto) 1.1 0.7 Absolute Neuts (auto) 3.1 2.8 Absolute Lymphs (auto) 0.4 L 0.4 L Absolute Monos (auto) 0.9 H 0.7 Absolute Eos (auto) 0.1 0.1 Absolute Basos (auto) 0 0 Absolute Nucleated RBC 0 0 Nucleated RBC % 0.1 0.1 Hypochromasia Stomatocytes Retic Count, Calc Corrected Retic Count Retic Shift Factor Retic Production Index Immature Retic Fraction Mean Retic Volume Sodium Potassium Chloride Carbon Dioxide Anion Gap BUN Creatinine Est GFR ( Amer) Est GFR (Non-Af Amer) BUN/Creatinine Ratio Glucose Calcium Iron TIBC % Saturation Unsat Iron Binding Transferrin Ferritin Total Bilirubin AST ALT Alkaline Phosphatase Total Protein Albumin Globulin Albumin/Globulin Ratio Vitamin B12 Folate Urine Color Urine Appearance Urine pH Ur Specific [place] Urine Protein Urine Ketones Urine Blood Urine Nitrate Urine Bilirubin Urine Urobilinogen Ur Leukocyte Esterase Urine WBC (Auto) Urine RBC (Auto) Urine Bacteria Urine Glucose Urine Ascorbic Acid Blood Type O Negative Antibody Screen Negative Crossmatch See Detail 12/25/17 12/25/17 01/01/18 07:18 07:18 07:23 WBC 6.4 RBC 2.96 L RBC (Retic) Hgb 8.4 L Hct 25 L HCT (Retic) MCV 86 MCH 29 MCHC 33 RDW 17 H Plt Count 279 MPV 7 L Neut % (Auto) 80.6 Lymph % (Auto) 6.3 L Barren % (Auto) 11.5 H Eos % (Auto) 1.0 Baso % (Auto) 0.6 Absolute Neuts (auto) 5.1 Absolute Lymphs (auto) 0.4 L Absolute Monos (auto) 0.7 Absolute Eos (auto) 0.1 Absolute Basos (auto) 0 Absolute Nucleated RBC 0 Nucleated RBC % 0 Hypochromasia Stomatocytes Retic Count, Calc Corrected Retic Count Retic Shift Factor Retic Production Index Immature Retic Fraction Mean Retic Volume Sodium 135 Potassium 4.0 Chloride 99 L Carbon Dioxide 30 Anion Gap 6 BUN 19 Creatinine 3.42 H Est GFR ( Amer) 17.6 Est GFR (Non-Af Amer) 13.7 BUN/Creatinine Ratio 5.6 L Glucose 107 H Calcium 8.1 L Iron TIBC % Saturation Unsat Iron Binding Transferrin Ferritin Total Bilirubin 0.70 AST 13 ALT 4 L Alkaline Phosphatase 101 Total Protein 5.1 L Albumin 2.1 L Globulin 3.0 Albumin/Globulin Ratio 0.7 L Vitamin B12 Folate Urine Color Urine Appearance Urine pH Ur Specific [place] Urine Protein Urine Ketones Urine Blood Urine Nitrate Urine Bilirubin Urine Urobilinogen Ur Leukocyte Esterase Urine WBC (Auto) Urine RBC (Auto) Urine Bacteria Urine Glucose Urine Ascorbic Acid Blood Type O Negative Antibody Screen Negative Crossmatch See Detail 01/01/18 01/01/18 01/02/18 07:26 07:26 10:28 WBC 12.1 H 15.2 H RBC 2.52 L 3.25 L RBC (Retic) Hgb 7.0 L 9.0 L Hct 22 L 28 L HCT (Retic) MCV 86 85 MCH 28 28 MCHC 32 32 RDW 17 H 17 H Plt Count 297 303 MPV 7 L 7 L Neut % (Auto) 91.6 H 92.0 H Lymph % (Auto) 3.6 L 3.2 L Barren % (Auto) 4.4 4.4 Eos % (Auto) 0.2 0.1 Baso % (Auto) 0.2 0.3 Absolute Neuts (auto) 11.1 H 14.0 H Absolute Lymphs (auto) 0.4 L 0.5 L Absolute Monos (auto) 0.5 0.7 Absolute Eos (auto) 0 0 Absolute Basos (auto) 0 0 Absolute Nucleated RBC 0 0 Nucleated RBC % 0.1 0 Hypochromasia Stomatocytes Retic Count, Calc Corrected Retic Count Retic Shift Factor Retic Production Index Immature Retic Fraction Mean Retic Volume Sodium 135 Potassium 3.5 Chloride 99 L Carbon Dioxide 31 Anion Gap 5 BUN 19 Creatinine 2.84 H Est GFR ( Amer) 21.8 Est GFR (Non-Af Amer) 17.0 BUN/Creatinine Ratio 6.7 L Glucose 120 H Calcium 7.9 L Iron TIBC % Saturation Unsat Iron Binding Transferrin Ferritin Total Bilirubin 0.80 AST 14 ALT 5 L Alkaline Phosphatase 139 H Total Protein 5.4 L Albumin 1.9 L Globulin 3.5 Albumin/Globulin Ratio 0.5 L Vitamin B12 Folate Urine Color Urine Appearance Urine pH Ur Specific [place] Urine Protein Urine Ketones Urine Blood Urine Nitrate Urine Bilirubin Urine Urobilinogen Ur Leukocyte Esterase Urine WBC (Auto) Urine RBC (Auto) Urine Bacteria Urine Glucose Urine Ascorbic Acid Blood Type Antibody Screen Crossmatch 01/03/18 01/03/18 01/04/18 07:17 10:15 05:26 WBC 11.1 H 13.4 H RBC 2.94 L 2.84 L RBC (Retic) Hgb 8.0 L 7.7 L Hct 25 L 24 L HCT (Retic) MCV 85 86 MCH 27 27 MCHC 32 32 RDW 17 H 17 H Plt Count 285 283 MPV 7 L 7 L Neut % (Auto) 89.7 H 91.6 H Lymph % (Auto) 4.6 L 3.6 L Barren % (Auto) 4.9 4.4 Eos % (Auto) 0.4 0.2 Baso % (Auto) 0.4 0.2 Absolute Neuts (auto) 9.9 H 12.3 H Absolute Lymphs (auto) 0.5 L 0.5 L Absolute Monos (auto) 0.5 0.6 Absolute Eos (auto) 0 0 Absolute Basos (auto) 0 0 Absolute Nucleated RBC 0 0 Nucleated RBC % 0 0 Hypochromasia Stomatocytes Retic Count, Calc Corrected Retic Count Retic Shift Factor Retic Production Index Immature Retic Fraction Mean Retic Volume Sodium Potassium Chloride Carbon Dioxide Anion Gap BUN Creatinine Est GFR ( Amer) Est GFR (Non-Af Amer) BUN/Creatinine Ratio Glucose Calcium Iron TIBC % Saturation Unsat Iron Binding Transferrin Ferritin Total Bilirubin AST ALT Alkaline Phosphatase Total Protein Albumin Globulin Albumin/Globulin Ratio Vitamin B12 Folate Urine Color Urine Appearance Turbid Urine pH 7.0 Ur Specific [place] 1.010 Urine Protein 1+(30 mg/dl) H Urine Ketones Negative Urine Blood 3+ H Urine Nitrate Negative Urine Bilirubin Negative Urine Urobilinogen Negative Ur Leukocyte Esterase 3+ H Urine WBC (Auto) 3+(>20/hpf) H Urine RBC (Auto) Trace(0-2/hpf) Urine Bacteria 2+ H Urine Glucose Negative Urine Ascorbic Acid * H Blood Type Antibody Screen Crossmatch 01/06/18 01/08/18 01/08/18 06:22 08:26 08:26 WBC 11.9 H 10.2 RBC 2.77 L 2.55 L RBC (Retic) Hgb 7.3 L 6.9 L Hct 24 L 22 L HCT (Retic) MCV 86 85 MCH 27 27 MCHC 31 32 RDW 17 H 17 H Plt Count 343 345 MPV 7 L 7 L Neut % (Auto) 90.7 H 87.9 H Lymph % (Auto) 4.1 L 5.3 L Barren % (Auto) 4.5 5.8 Eos % (Auto) 0.3 0.5 Baso % (Auto) 0.4 0.5 Absolute Neuts (auto) 10.8 H 9.0 H Absolute Lymphs (auto) 0.5 L 0.5 L Absolute Monos (auto) 0.5 0.6 Absolute Eos (auto) 0 0 Absolute Basos (auto) 0 0 Absolute Nucleated RBC 0 0 Nucleated RBC % 0 0 Hypochromasia Stomatocytes Retic Count, Calc Corrected Retic Count Retic Shift Factor Retic Production Index Immature Retic Fraction Mean Retic Volume Sodium 137 Potassium 3.7 Chloride 101 Carbon Dioxide 30 Anion Gap 6 BUN 23 Creatinine 2.96 H Est GFR ( Amer) 20.8 Est GFR (Non-Af Amer) 16.2 BUN/Creatinine Ratio 7.8 L Glucose 88 Calcium 8.1 L Iron TIBC % Saturation Unsat Iron Binding Transferrin Ferritin Total Bilirubin 0.60 AST 12 L ALT 5 L Alkaline Phosphatase 85 Total Protein 5.6 L Albumin 1.9 L Globulin 3.7 Albumin/Globulin Ratio 0.5 L Vitamin B12 Folate Urine Color Urine Appearance Urine pH Ur Specific [place] Urine Protein Urine Ketones Urine Blood Urine Nitrate Urine Bilirubin Urine Urobilinogen Ur Leukocyte Esterase Urine WBC (Auto) Urine RBC (Auto) Urine Bacteria Urine Glucose Urine Ascorbic Acid Blood Type Antibody Screen Crossmatch 01/08/18 08:26 WBC RBC RBC (Retic) Hgb Hct HCT (Retic) MCV MCH MCHC RDW Plt Count MPV Neut % (Auto) Lymph % (Auto) Barren % (Auto) Eos % (Auto) Baso % (Auto) Absolute Neuts (auto) Absolute Lymphs (auto) Absolute Monos (auto) Absolute Eos (auto) Absolute Basos (auto) Absolute Nucleated RBC Nucleated RBC % Hypochromasia Stomatocytes Retic Count, Calc Corrected Retic Count Retic Shift Factor Retic Production Index Immature Retic Fraction Mean Retic Volume Sodium Potassium Chloride Carbon Dioxide Anion Gap BUN Creatinine Est GFR ( Amer) Est GFR (Non-Af Amer) BUN/Creatinine Ratio Glucose Calcium Iron TIBC % Saturation Unsat Iron Binding Transferrin Ferritin Total Bilirubin AST ALT Alkaline Phosphatase Total Protein Albumin Globulin Albumin/Globulin Ratio Vitamin B12 Folate Urine Color Urine Appearance Urine pH Ur Specific [place] Urine Protein Urine Ketones Urine Blood Urine Nitrate Urine Bilirubin Urine Urobilinogen Ur Leukocyte Esterase Urine WBC (Auto) Urine RBC (Auto) Urine Bacteria Urine Glucose Urine Ascorbic Acid Blood Type O Negative Antibody Screen Negative Crossmatch See Detail Exam Appearance: Other - Frail appearing Hygiene: Normal Grooming: Fairly Well Kept Psychomotor Activities: Normal Exhibits Abnormal Movement: No Attitude and Relatedness: Cooperative - Speech Quality: Unpressured Latencies: Normal Quantity: Appropriate Patient's Decription of Mood: "Okay" Observed Affect: Fair Affect Consistent with: Euthymia Patient's Thought Process: Coherent Thought Content: No Passive Wish, No Suicidal Planning, No Homicidal Ideation, No Paranoid Ideation Experiencing Hallucinations: No, Sensorium is Clear Type of Hallucinations: Visual: No, Auditory: No, Command: No Level of Consciousness: Alert Orientation: Yes Intact, Yes Orientated to Time, Yes Orientated to Place, Yes Orientated to Person Impulse Control: Tenuous Insight and Judgement: Fair Impression - Impression Clinical Impression: 62 y.o. , white female with no prior mental health history admitted to [facility] following inadvertent ischemic event following bilateral renal artery embolization at outside hospital rendering her paraplegic at T10 spinal level. The patient is depressed with associated neurovegetative symptoms of depression necessitating antidepressant therapy. Inpatient DSM-V Dx: F32.0 Merits Inpatient Hospitalization: No Problem List - MHU Problems Type of Problem: Mood Status of Problem: Resolved Plan - Treatment Plan Treatment Plan: The patient's mood continues to show improvement. She is tolerating sertraline 100mg PO qday and mirtazapine 15mg PO qhs without untoward effects. Psychiatry will sign off and patient can follow up with care in the [facility] or outpatient settings. Thank you for allowing us to participate in the care of this very unfortunate, but very friendly patient. Continued Medication Management: Start Medication Medications: Current Medications Acetaminophen (Tylenol Tab*) 650 mg PO Q6H PRN PRN Reason: FEVER/PAIN Last Admin: 01/08/18 06:24 Dose: 650 mg Ascorbic Acid (Vitamin C Tab*) 500 mg PO DAILY [facility] Last Admin: 01/08/18 09:46 Dose: 500 mg Aspirin (Aspirin Ec Low Dose*) 81 mg PO DAILY [facility] Last Admin: 01/08/18 09:46 Dose: 81 mg Atorvastatin Calcium (Lipitor*) 40 mg PO 1700 [facility] Last Admin: 01/07/18 16:46 Dose: 40 mg Bisacodyl (Dulcolax Supp*) 10 mg DC DAILY PRN PRN Reason: CONSTIPATION Bisoprolol Fumarate (Zebeta Tab*) 5 mg PO DAILY [facility] Last Admin: 01/08/18 09:46 Dose: 5 mg Docusate Sodium (Colace Cap*) 100 mg PO BID PRN PRN Reason: CONSTIPATION Last Admin: 12/30/17 17:23 Dose: 100 mg Fentanyl (Duragesic Patch 25 Mcg/Hr*) 25 mcg TRANSDERM Q72H [facility] Last Admin: 01/05/18 13:28 Dose: 25 mcg Hydrocortisone (Anusol Hc Supp*) 25 mg DC BID [facility] Last Admin: 01/08/18 09:46 Dose: 25 mg Metoclopramide HCl (Reglan Tab*) 5 mg PO AC [facility] Last Admin: 01/08/18 13:42 Dose: Not Given Mirtazapine (Remeron Tab*) 15 mg PO BEDTIME [facility] Last Admin: 01/07/18 19:16 Dose: 15 mg Morphine Sulfate (Morphine Inj (Syringe)*) 2 mg IV Q6H PRN PRN Reason: PAIN - MODERATE TO SEVERE Last Admin: 01/07/18 05:33 Dose: 2 mg Ondansetron HCl (Zofran Odt Tab*) 4 mg PO Q6H PRN PRN Reason: NAUSEA/VOMITING Last Admin: 01/05/18 09:36 Dose: 4 mg Oxycodone HCl (Roxycodone Tab*) 5 mg PO Q4H PRN PRN Reason: PAIN - MODERATE TO SEVERE Last Admin: 01/06/18 11:45 Dose: 5 mg Pantoprazole Sodium (Protonix Tab (Nf)) 40 mg PO DAILY [facility] Last Admin: 01/08/18 09:46 Dose: 40 mg Pharmacy Profile Note (Scopolamine Patch Remove*) 1 note PATCH OFF Q72H [facility] Last Admin: 01/05/18 17:21 Dose: 1 patch Pharmacy Profile Note (Fentanyl Patch Check Q Shift) 1 note N/A 0700,1900 [facility] Last Admin: 01/08/18 07:41 Dose: 1 note Phenol/Menthol (Chloroseptic Throat [place]*) 1 spray MT TID PRN PRN Reason: SORE THROAT Last Admin: 12/29/17 12:34 Dose: 1 spray Polyethylene Glycol/Electrolytes (Miralax*) 17 gm PO DAILY [facility] Last Admin: 01/08/18 10:00 Dose: Not Given Scopolamine (Transderm-Scop 1.5 Mg Patch*) 1 patch TRANSDERM Q72H [facility] Last Admin: 01/05/18 17:19 Dose: 1 patch Senna (Senokot Tab*) 2 tab PO BEDTIME PRN PRN Reason: CONSTIPATION Last Admin: 12/31/17 20:04 Dose: 2 tab Sertraline HCl (Zoloft*) 100 mg PO DAILY [facility] Last Admin: 01/08/18 09:46 Dose: 100 mg - Discharge Plan Discharge Plan: Outpatient Follow Up
--- NOTE | 2018-01-08 15:43 | TRS ---
[facility]: [facility] * TRANSFER SUMMARY: DATE OF ADMISSION: 12/09/17 DATE OF DISCHARGE: The patient is being transferred to [facility]. DISCHARGE DIAGNOSES: 1. T10 JAC (C) paraplegia. 2. End-stage renal disease, on hemodialysis. 3. Anemia. 4. Polycystic kidney disease. 5. Hematuria. 6. Left lower quadrant pain. 7. Anorexia. 8. Depression. HISTORY OF ILLNESS AND HOSPITAL COURSE: For a complete history of the events leading up to her rehab stay, please see the history and physical dictated by me on 12/09/17. The patient was admitted to rehab on 12/09/17. While on the rehab unit, the patient complained of significant nausea. Her nausea was eventually treated with a scopolamine patch, which seemed to help. The patient felt like she was depressed. She was started on Zoloft. The patient's spirits got slightly better. She continued to have difficulties with anorexia. In an attempt to improve her appetite, she was treated with Reglan. The patient unfortunately refused this for the first 2 weeks it was ordered. This was also ordered to help with nausea. The patient did begin to take the Reglan at the same time her nausea got better. The patient's appetite; however, did not get any better. Mirtazapine was added to her Zoloft in an attempt to improve her appetite. It was not entirely successful. A trial of Marinol was considered, but never begun. Hospitalist consult was obtained because of the patient's significant nausea. She did have a CAT scan of her abdomen and pelvis. The patient had been transfused on at least 2 occasions while on the rehab unit after her hemoglobin and hematocrit dropped. It is presumed that the source of her hemoglobin dropping is her polycystic kidney disease. It is felt that when her cyst ruptured, she continues to bleed and this leads to lowering of her hemoglobin and hematocrit. The patient did have 1 episode of bright red blood per rectum. This occurred on 01/01/18. The patient had a flexible sigmoidoscopy done on that day by Dr. Moncada from the GI service. Rectal ulcers were seen, but nothing to explain a big drop in her hemoglobin and hematocrit. She was started on Anusol suppositories. The patient otherwise was fairly stable from a medical point of view. She continues to have bloody drainage from her Guzman catheter. The patient does have neurogenic bowel and bladder as a result of her spinal cord injury. Her neurogenic bladder is managed with a Guzman catheter. The patient was recommended to have bilateral nephrectomies originally. This never occurred. The question of whether to transfer her to a tertiary care facility to consider bilateral nephrectomies can be reexamined if the patient continues to bleed from her polycystic kidneys. The patient was seen by both physical and occupational therapy. Unfortunately, her many medical complications at the beginning prevented her from participating fully in rehab. Over the course of the past 2 weeks, she has been better able to participate in rehab. Unfortunately, this has not resulted in significant functional gains and transfers and wheelchair mobilities. The patient is being transferred to [facility] in order to undergo continued rehabilitation on a slightly slower scale so that she might return home with her at a wheelchair level. DISCHARGE DIET: Regular. The patient was on a renal diet, but this was changed to regular as her oral intake was so poor. DISCHARGE MEDICATIONS: Include: 1. Vitamin C of 500 mg daily. 2. Aspirin 81 mg daily. 3. Lipitor 40 mg daily. 4. Zebeta 5 mg daily. 5. Fentanyl patch 25 mcg to her chest wall changing every 72 hours. 6. Anusol suppositories 25 mg twice a day per rectum. 7. Reglan 5 mg before meals. 8. Remeron 15 mg at bedtime. 9. Oxycodone 5 mg every 4 hours as needed for pain. 10. Protonix 40 mg daily. 11. Scopolamine patch behind her ear changing every 72 hours. 12. Zoloft 100 mg daily. SERVICES AFTER DISCHARGE: She should have restored her physical therapy and occupational therapy. FOLLOWUP: The patient will need to continue to get dialysis 3 times a week. She may need to follow up with her enterprise sales person at [facility]. The patient's dialysis is currently taking place at [facility] in [place]. [id number]/CPS #: [id number] MTDD
[2018-01-08] MEDS: Atorvastatin* 40 MG TAB PO SCH (17:20)
[2018-01-08] MEDS: Scopolamine 1.5 mg* PATCH TRANSDERM SCH (17:23)
[2018-01-08] MEDS: Scopolamine PATCH Remove* 1 NOTE MISC PATCH OFF SCH (17:25)
--- NOTE | 2018-01-08 20:41 | PN ---
Progress Note Date of Service: 01/08/18 Note: USAMA Avel KAPADIA was visited. Therapy notes read and reviewed.He Hb was below 7 today, transfused 1 unit PRBCs. Will discuss with Usama and Sushil tomorrow transfer to [facility] [place]. Current Medications: Active Medications Generic Name Dose Route Start Last Admin Trade Name Freq PRN Reason Stop Dose Admin Acetaminophen 650 mg 12/09/17 16:04 01/08/18 06:24 Tylenol Tab* PO 650 mg Q6H PRN Administration FEVER/PAIN Ascorbic Acid 500 mg 12/11/17 09:00 01/08/18 09:46 Vitamin C Tab* PO 500 mg DAILY [facility] Administration Aspirin 81 mg 12/10/17 09:00 01/08/18 09:46 Aspirin Ec Low Dose* PO 81 mg DAILY [facility] Administration Atorvastatin Calcium 40 mg 12/09/17 17:00 01/08/18 17:20 Lipitor* PO 40 mg 1700 [facility] Administration Bisacodyl 10 mg 12/09/17 16:04 Dulcolax Supp* [place] DAILY PRN CONSTIPATION Bisoprolol Fumarate 5 mg 12/10/17 09:00 01/08/18 09:46 Zebeta Tab* PO 5 mg DAILY [facility] Administration Docusate Sodium 100 mg 12/20/17 10:06 12/30/17 17:23 Colace Cap* PO 100 mg BID PRN Administration CONSTIPATION Fentanyl 25 mcg 12/24/17 12:00 01/08/18 14:27 Duragesic Patch 25 Mcg/Hr* TRANSDERM 25 mcg Q72H [facility] Administration Hydrocortisone 25 mg 01/01/18 21:00 01/08/18 19:45 Anusol Hc Supp* [place] Not Given BID [facility] Metoclopramide HCl 5 mg 12/17/17 16:30 01/08/18 17:20 Reglan Tab* PO 5 mg AC [facility] Administration Mirtazapine 15 mg 12/31/17 21:00 01/07/18 19:16 Remeron Tab* PO 15 mg BEDTIME [facility] Administration Morphine Sulfate 2 mg 12/23/17 17:15 01/07/18 05:33 Morphine Inj (Syringe)* IV 2 mg Q6H PRN Administration PAIN - MODERATE TO SEVERE Ondansetron HCl 4 mg 12/12/17 12:50 01/05/18 09:36 Zofran Odt Tab* PO 4 mg Q6H PRN Administration NAUSEA/VOMITING Oxycodone HCl 5 mg 12/09/17 16:22 01/06/18 11:45 Roxycodone Tab* PO 5 mg Q4H PRN Administration PAIN - MODERATE TO SEVERE Pantoprazole Sodium 40 mg 12/10/17 09:00 01/08/18 09:46 Protonix Tab (Nf) PO 40 mg DAILY [facility] Administration Pharmacy Profile Note 1 note 12/21/17 18:00 01/08/18 17:25 Scopolamine Patch Remove* PATCH OFF 1 patch Q72H [facility] Administration Pharmacy Profile Note 1 note 12/24/17 19:00 01/08/18 07:41 Fentanyl Patch Check Q Shift N/A 1 note 0700,1900 [facility] Administration Phenol/Menthol 1 spray 12/29/17 11:39 12/29/17 12:34 Chloroseptic Throat [place]* MT 1 spray TID PRN Administration SORE THROAT Polyethylene Glycol/Electrolytes 17 gm 01/02/18 09:00 01/08/18 10:00 Miralax* PO Not Given DAILY [facility] Scopolamine 1 patch 12/18/17 18:00 01/08/18 17:23 Transderm-Scop 1.5 Mg Patch* TRANSDERM 1 patch Q72H [facility] Administration Senna 2 tab 12/09/17 16:04 12/31/17 20:04 Senokot Tab* PO 2 tab BEDTIME PRN Administration CONSTIPATION Sertraline HCl 100 mg 12/25/17 09:00 01/08/18 09:46 Zoloft* PO 100 mg DAILY [facility] Administration Vital Signs: Vital Signs Temp Pulse Resp BP Pulse Ox 99.2 F 87 22 127/63 96 01/08/18 16:59 01/08/18 16:59 01/08/18 16:59 01/08/18 16:59 01/08/18 17:48 Lab Results: Laboratory Results - last 24 hr 01/08/18 01/08/18 01/08/18 08:26 08:26 08:26 WBC 10.2 RBC 2.55 L Hgb 6.9 L Hct 22 L MCV 85 MCH 27 MCHC 32 RDW 17 H Plt Count 345 MPV 7 L Neut % (Auto) 87.9 H Lymph % (Auto) 5.3 L Stephenson % (Auto) 5.8 Eos % (Auto) 0.5 Baso % (Auto) 0.5 Absolute Neuts (auto) 9.0 H Absolute Lymphs (auto) 0.5 L Absolute Monos (auto) 0.6 Absolute Eos (auto) 0 Absolute Basos (auto) 0 Absolute Nucleated RBC 0 Nucleated RBC % 0 Sodium 137 Potassium 3.7 Chloride 101 Carbon Dioxide 30 Anion Gap 6 BUN 23 Creatinine 2.96 H Est GFR ( Amer) 20.8 Est GFR (Non-Af Amer) 16.2 BUN/Creatinine Ratio 7.8 L Glucose 88 Calcium 8.1 L Total Bilirubin 0.60 AST 12 L ALT 5 L Alkaline Phosphatase 85 Total Protein 5.6 L Albumin 1.9 L Globulin 3.7 Albumin/Globulin Ratio 0.5 L Blood Type O Negative Antibody Screen Negative Crossmatch See Detail Exam: LUNGS: Clear bilaterally HEART: regular rate and rhythm ABDOMEN: +BS, soft. LLQ less tender to palpation. non distended. EXTREMITIES: No edema. : Holley in place draining bloody urine. NEUROLOGIC: Decreased sensation below T10. Some quadriceps in RLE, able to wiggle toes bilat Assessment/Plan: 1. T10 JAC Class "C" Paraplegia: PT/OT 2. Anemia: Off Plavix and pletal. Gets EPO in dialysis. Seems likely to be coming from PCKD 3. ESRD: Hemodialysis //Sat. Follow urine output 4. 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 On Fentanyl Patch, 25 mcg/hr. Morphine IV, Oxycodone PRN. 5. Neurogenic bladder: holley changed December 25. 6. Neurogenic bowel: Bowel program now includes miralax and anusol hc per GI. 7. PVD: off pletal 8. DVT Prophylaxis: SCDs. 9. Advanced directives: full code 10. Depression: Zoloft increased [place] [address] Flores. Also on Remeron at hs. 11. Nausea: On Scopolamine patch. Has been taking Reglan. Nausea better 12. Anorexia: started Remeron, but not clearly helping. Refuses NGT. Diet liberalized to regular 13. Leukocytosis and fever with UTI/pyelonephritis of pseudomonas aeruginosa sensitive to gentamicin: Temp this am. Blood cultures negative. CXR: NAD. Received 1 dose of IV gentamycin 150mg. 01/08/18 20:42
[2018-01-08] MEDS: Mirtazapine TAB* 15 MG PO SCH (22:02)
[2018-01-09] MEDS: fentaNYL Patch Check Q Shift 1 NOTE SCH ×2 (07:31→23:19)
[2018-01-09] MEDS: Metoclopramide TAB* 10 MG PO SCH ×2 (08:00→17:18)
[2018-01-09] MEDS: Aspirin EC Low Dose* 81 MG TAB.EC PO SCH (17:17)
[2018-01-09] MEDS: Bisoprolol TAB* 5 MG PO SCH (17:17)
[2018-01-09] MEDS: CMC:Pantoprazole TAB (NF) 40 MG TAB PO SCH (17:17)
[2018-01-09] MEDS: Sertraline* 100 MG TAB PO SCH (17:17)
[2018-01-09] MEDS: Ascorbic Acid TAB* 500 MG PO SCH (17:17)
[2018-01-09] MEDS: Hydrocortisone SUPP* 25 MG SUPP (2.5%) PR SCH ×2 (17:17→20:18)
[2018-01-09] MEDS: Polyethylene Glycol 3350* 17 GM PACKET PO SCH (17:17)
[2018-01-09] MEDS: Atorvastatin* 40 MG TAB PO SCH (17:18)
--- NOTE | 2018-01-09 20:05 | PN ---
Progress Note Date of Service: 01/09/18 Note: USAMA KAPADIA was visited. Therapy notes read and reviewed. She and her do not want her to go to [facility]. [facility] Anorexia remains a big problem Current Medications: Active Medications Generic Name Dose Route Start Last Admin Trade Name Freq PRN Reason Stop Dose Admin Acetaminophen 650 mg 12/09/17 16:04 01/08/18 06:24 Tylenol Tab* PO 650 mg Q6H PRN Administration FEVER/PAIN Ascorbic Acid 500 mg 12/11/17 09:00 01/09/18 17:17 Vitamin C Tab* PO Not Given DAILY [facility] Aspirin 81 mg 12/10/17 09:00 01/09/18 17:17 Aspirin Ec Low Dose* PO Not Given DAILY [facility] Atorvastatin Calcium 40 mg 12/09/17 17:00 01/09/18 17:18 Lipitor* PO Not Given 1700 [facility] Bisacodyl 10 mg 12/09/17 16:04 Dulcolax Supp* [place] DAILY PRN CONSTIPATION Bisoprolol Fumarate 5 mg 12/10/17 09:00 01/09/18 17:17 Zebeta Tab* PO Not Given DAILY [facility] Docusate Sodium 100 mg 12/20/17 10:06 12/30/17 17:23 Colace Cap* PO 100 mg BID PRN Administration CONSTIPATION Fentanyl 25 mcg 12/24/17 12:00 01/08/18 14:27 Duragesic Patch 25 Mcg/Hr* TRANSDERM 25 mcg Q72H [facility] Administration Hydrocortisone 25 mg 01/01/18 21:00 01/09/18 17:17 Anusol Hc Supp* [place] Not Given BID [facility] Metoclopramide HCl 5 mg 12/17/17 16:30 01/09/18 17:18 Reglan Tab* PO Not Given AC [facility] Mirtazapine 15 mg 12/31/17 21:00 01/08/18 22:02 Remeron Tab* PO Not Given BEDTIME [facility] Morphine Sulfate 2 mg 12/23/17 17:15 01/07/18 05:33 Morphine Inj (Syringe)* IV 2 mg Q6H PRN Administration PAIN - MODERATE TO SEVERE Ondansetron HCl 4 mg 12/12/17 12:50 01/05/18 09:36 Zofran Odt Tab* PO 4 mg Q6H PRN Administration NAUSEA/VOMITING Oxycodone HCl 5 mg 12/09/17 16:22 01/06/18 11:45 Roxycodone Tab* PO 5 mg Q4H PRN Administration PAIN - MODERATE TO SEVERE Pantoprazole Sodium 40 mg 12/10/17 09:00 01/09/18 17:17 Protonix Tab (Nf) PO Not Given DAILY [facility] Pharmacy Profile Note 1 note 12/21/17 18:00 01/08/18 17:25 Scopolamine Patch Remove* PATCH OFF 1 patch Q72H [facility] Administration Pharmacy Profile Note 1 note 12/24/17 19:00 01/09/18 07:31 Fentanyl Patch Check Q Shift N/A 1 note 0700,1900 [facility] Administration Phenol/Menthol 1 spray 12/29/17 11:39 12/29/17 12:34 Chloroseptic Throat [place]* MT 1 spray TID PRN Administration SORE THROAT Polyethylene Glycol/Electrolytes 17 gm 01/02/18 09:00 01/09/18 17:17 Miralax* PO Not Given DAILY [facility] Scopolamine 1 patch 12/18/17 18:00 01/08/18 17:23 Transderm-Scop 1.5 Mg Patch* TRANSDERM 1 patch Q72H [facility] Administration Senna 2 tab 12/09/17 16:04 12/31/17 20:04 Senokot Tab* PO 2 tab BEDTIME PRN Administration CONSTIPATION Sertraline HCl 100 mg 12/25/17 09:00 01/09/18 17:17 Zoloft* PO Not Given DAILY [facility] Vital Signs: Vital Signs Temp Pulse Resp BP Pulse Ox 99.5 F 93 18 118/60 98 01/09/18 15:37 01/09/18 15:37 01/09/18 18:10 01/09/18 15:37 01/09/18 18:12 Lab Results: Laboratory Results - last 24 hr 01/08/18 08:26 Blood Type O Negative Antibody Screen Negative Crossmatch See Detail Exam: LUNGS: Clear bilaterally HEART: regular rate and rhythm ABDOMEN: +BS, soft. LLQ less tender to palpation. non distended. EXTREMITIES: No edema. : Holley in place draining bloody urine. NEUROLOGIC: Decreased sensation below T10. Some quadriceps in RLE, able to wiggle toes bilat Assessment/Plan: 1. T10 JAC Class "C" Paraplegia: PT/OT 2. Anemia: Off Plavix and pletal. Gets EPO in dialysis. Seems likely to be coming from PCKD 3. ESRD: Hemodialysis //Sat. Follow urine output 4. 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 On Fentanyl Patch, 25 mcg/hr. Morphine IV, Oxycodone PRN. 5. Neurogenic bladder: holley changed December 25. 6. Neurogenic bowel: Bowel program now includes miralax and anusol hc per GI. 7. PVD: off pletal 8. DVT Prophylaxis: SCDs. 9. Advanced directives: full code 10. Depression: Zoloft increased [place] [address] Flores. Also on Remeron at hs. 11. Nausea: On Scopolamine patch. Has been taking Reglan. Nausea better 12. Anorexia: started Remeron, but not clearly helping. Refuses NGT. Diet liberalized to regular 13. Leukocytosis and fever with UTI/pyelonephritis of pseudomonas aeruginosa sensitive to gentamicin: Temp this am. Blood cultures negative. CXR: NAD. Received 1 dose of IV gentamycin 150mg. 14. Disposition: will need SNF rehab. Trying for [facility], at families request. Waiting to hear if dialysis can be done there 01/09/18 20:06
[2018-01-09] MEDS: Mirtazapine TAB* 15 MG PO SCH (20:19)
[2018-01-10] MEDS: fentaNYL Patch Check Q Shift 1 NOTE SCH (06:45)
[2018-01-10 06:49] VITALS: BP 114/58
[2018-01-10] MEDS: Metoclopramide TAB* 10 MG PO SCH ×2 (09:22→12:44)
[2018-01-10] MEDS: Bisoprolol TAB* 5 MG PO SCH (09:22)
[2018-01-10] MEDS: Aspirin EC Low Dose* 81 MG TAB.EC PO SCH (09:23)
[2018-01-10] MEDS: Ascorbic Acid TAB* 500 MG PO SCH (09:23)
[2018-01-10] MEDS: Sertraline* 100 MG TAB PO SCH (09:23)
[2018-01-10] MEDS: Polyethylene Glycol 3350* 17 GM PACKET PO SCH (09:23)
[2018-01-10] MEDS: Hydrocortisone SUPP* 25 MG SUPP (2.5%) PR SCH (09:23)
[2018-01-10] MEDS: CMC:Pantoprazole TAB (NF) 40 MG TAB PO SCH (09:23)
--- NOTE | 2018-01-10 10:13 | PN ---
Progress Note Date of Service: 01/10/18 Note: USAMA Vallecillo KANG was visited. Nursing and therapy notes read and reviewed. production manufacturing worker assisting with disposition planning. Unclear if there is a dialysis chair for Usama in [place]. No new concerns. No chest pain, shortness of breath or new abdominal pain. Current Medications: Active Medications Generic Name Dose Route Start Last Admin Trade Name Freq PRN Reason Stop Dose Admin Acetaminophen 650 mg 12/09/17 16:04 01/08/18 06:24 Tylenol Tab* PO 650 mg Q6H PRN Administration FEVER/PAIN Ascorbic Acid 500 mg 12/11/17 09:00 01/10/18 09:23 Vitamin C Tab* PO 500 mg DAILY [facility] Administration Aspirin 81 mg 12/10/17 09:00 01/10/18 09:23 Aspirin Ec Low Dose* PO 81 mg DAILY [facility] Administration Atorvastatin Calcium 40 mg 12/09/17 17:00 01/09/18 17:18 Lipitor* PO Not Given 1700 [facility] Bisacodyl 10 mg 12/09/17 16:04 Dulcolax Supp* [place] DAILY PRN CONSTIPATION Bisoprolol Fumarate 5 mg 12/10/17 09:00 01/10/18 09:22 Zebeta Tab* PO 5 mg DAILY [facility] Administration Docusate Sodium 100 mg 12/20/17 10:06 12/30/17 17:23 Colace Cap* PO 100 mg BID PRN Administration CONSTIPATION Fentanyl 25 mcg 12/24/17 12:00 01/08/18 14:27 Duragesic Patch 25 Mcg/Hr* TRANSDERM 25 mcg Q72H [facility] Administration Hydrocortisone 25 mg 01/01/18 21:00 01/10/18 09:23 Anusol Hc Supp* [place] 25 mg BID [facility] Administration Metoclopramide HCl 5 mg 12/17/17 16:30 01/10/18 09:22 Reglan Tab* PO 5 mg AC [facility] Administration Mirtazapine 15 mg 12/31/17 21:00 01/09/18 20:19 Remeron Tab* PO Not Given BEDTIME [facility] Morphine Sulfate 2 mg 12/23/17 17:15 01/07/18 05:33 Morphine Inj (Syringe)* IV 2 mg Q6H PRN Administration PAIN - MODERATE TO SEVERE Ondansetron HCl 4 mg 12/12/17 12:50 01/05/18 09:36 Zofran Odt Tab* PO 4 mg Q6H PRN Administration NAUSEA/VOMITING Oxycodone HCl 5 mg 12/09/17 16:22 01/06/18 11:45 Roxycodone Tab* PO 5 mg Q4H PRN Administration PAIN - MODERATE TO SEVERE Pantoprazole Sodium 40 mg 12/10/17 09:00 01/10/18 09:23 Protonix Tab (Nf) PO 40 mg DAILY [facility] Administration Pharmacy Profile Note 1 note 12/21/17 18:00 01/08/18 17:25 Scopolamine Patch Remove* PATCH OFF 1 patch Q72H [facility] Administration Pharmacy Profile Note 1 note 12/24/17 19:00 01/10/18 06:45 Fentanyl Patch Check Q Shift N/A 1 note 0700,1900 [facility] Administration Phenol/Menthol 1 spray 12/29/17 11:39 12/29/17 12:34 Chloroseptic Throat [place]* MT 1 spray TID PRN Administration SORE THROAT Polyethylene Glycol/Electrolytes 17 gm 01/02/18 09:00 01/10/18 09:23 Miralax* PO Not Given DAILY [facility] Scopolamine 1 patch 12/18/17 18:00 01/08/18 17:23 Transderm-Scop 1.5 Mg Patch* TRANSDERM 1 patch Q72H [facility] Administration Senna 2 tab 12/09/17 16:04 12/31/17 20:04 Senokot Tab* PO 2 tab BEDTIME PRN Administration CONSTIPATION Sertraline HCl 100 mg 12/25/17 09:00 01/10/18 09:23 Zoloft* PO 100 mg DAILY [facility] Administration Vital Signs: Vital Signs Temp Pulse Resp BP Pulse Ox 98.6 F 92 18 114/58 96 01/10/18 06:49 01/10/18 06:49 01/10/18 06:55 01/10/18 06:49 01/10/18 06:55 Lab Results: Exam: GEN: no acute distress. alert and appropriate. LUNGS: Clear bilaterally HEART: regular rate and rhythm ABDOMEN: +BS, soft. LLQ element winding machine tender to palpation. non distended. EXTREMITIES: No edema. NEUROLOGIC: Decreased sensation below T10. 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 1. T10 JAC Class "C" Paraplegia: PT/OT 2. Anemia: Off Plavix and pletal. Gets EPO in dialysis. Seems likely to be coming from PCKD 3. ESRD: Hemodialysis //Sat. Follow urine output 4. 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 On Fentanyl Patch, 25 mcg/hr. Morphine IV, Oxycodone PRN. 5. Neurogenic bladder: holley changed December 25. 6. Neurogenic bowel: Bowel program now includes miralax and anusol hc per GI. 7. PVD: off pletal 8. DVT Prophylaxis: SCDs. 9. Advanced directives: full code 10. Depression: Zoloft increased [place] [address] Flores. Also on Remeron at hs. Psychiatry has signed off. 11. Nausea: On Scopolamine patch. Nausea better. Refused reglan yesterday. 12. Anorexia: started Remeron, but not clearly helping. Refuses NGT. Diet liberalized to regular 13. Leukocytosis and fever with UTI/pyelonephritis of pseudomonas aeruginosa sensitive to gentamicin s/p 1 IV dose on 01/03/18. Blood cultures negative. CXR: NAD. 14. Disposition: will need SNF rehab. Trying for [facility], at families request. Waiting to hear if dialysis can be done there 01/10/18 10:10
--- NOTE | 2018-01-11 11:19 | DS ---
REHABILITATION DISCHARGE SUMMARY: DATE OF ADMISSION: 12/09/17 DATE OF DISCHARGE: 01/10/18 REASON FOR ADMISSION: T10 incomplete paraplegia. HISTORY OF PRESENT ILLNESS: For full details of her acute hospitalization leading up to her rehabilitation admission, please see the note dictated by Dr. Bey on 12/09/17. Very briefly, Ms. Ortiz has polycystic kidney disease and was having ongoing episodes of hematuria and pain. She originally presented to [facility] and was transferred to [facility]. Nephrectomy was considered but ultimately she underwent a procedure for renal artery embolization in the setting of severe refractory pain and hematuria and immediately following the procedure was noted to have paraplegia. She was found to have an anterior spinal cord infarct extending T10 to L1. Plavix that she had previous been on for her history of cardiac stents was stopped. She was put on Duragesic patch, OxyContin and oxycodone for pain and then transferred here for acute inpatient rehabilitation for her paraplegia. REHABILITATION COURSE: During her time on the [facility], she has been battling with depression. She was seen by our psychiatry service headed by Dr. Flores and was started on Zoloft. This was increased to 100 mg a day, which she has tolerated and this has helped her mood. In addition, she has had poor appetite and anorexia throughout her stay. Initially there were episodes of significant nausea and some vomiting. This seemed to do better with a scopolamine patch. In addition, she has scheduled Reglan, but there are many times when she refuses to take the scheduled Reglan. Because her symptoms early on were significant with anorexia and nausea, she was seen by the hospitalist service. They did not have any additional recommendations. She has anemia of chronic disease related to her kidney renal failure. She has been hemodialysis since the procedure at [facility]. She has been receiving dialysis here every Saturday, , and Saturday. Despite receiving some Epogen in dialysis , she was noted to have a slowly falling hemoglobin and hematocrit. The hospitalist service was consulted to help assist with determining whether she should go back off of Plavix as she had been at [facility] and also whether Pletal should also be discontinued and to determine if there is some other bleeding source. She had a CT of the abdomen and pelvis on 12/22/17, which showed no evidence of hematoma. She has massively enlarged kidneys due to polycystic kidney disease and a small burden of nephrolithiasis without evidence of obstructive uropathy. She was status post cholecystectomy. She received 2 units of packed red blood cells that day after discussion with the brushing operator who has been following her in dialysis. Along with this, she continued with left lower abdominal pain and hematuria. It has been suspected along that pain was likely due to her polycystic kidney disease, as no other etiology has been determined. Hospitalists agreed to continue holding Plavix and Pletal and receiving EPO per Nephrology recommendations. On 01/01/18, it was noted that she was having bright red blood per rectum. Her hemoglobin and hematocrit once again had dropped down. She received 1 unit of packed red blood cells and was seen by Dr. Moncada from Gastroenterology. She was prepped as best as could be done in the short term and that day had a flexible sigmoidoscopy. It was noted that she had a few small erosions noted in the distal rectum consistent with rectal ulcer syndrome secondary to severe constipation. It was noted that her preparation was poor and that she did have retained stool within the rectum and distal sigmoid colon. She stopped Metamucil and began MiraLAX on a daily basis as well as mineral oil enema until she had better stool results. She was put on a low fiber diet and started with Anusol hydrocortisone suppository twice a day for healing. Bleeding stopped from the rectum. However, she does have stool incontinence because stools are not formed and loose as well as she has neurogenic bowel. She developed a fever with leukocytosis on 01/03/18. Urinalysis was consistent with urinary tract infection. This was discussed with Nephrology and since she was allergic to CIPROFLOXACIN, it was recommended that she get a one-time IV dose of 150 mg of gentamicin. Ultimately, her culture grew out Pseudomonas aeruginosa that was sensitive to the gentamicin. Her urine which was very cloudy, dense, and purulent on the initial day, went back to the usual hematuria after that treatment. She continues to have an indwelling holley catheter, which was last changed on 12/25/17 and should be changed monthly. During her time on the [facility], she participated as she was able and developed increasing tolerance for physical therapy and occupational therapy. At the time of discharge, she required total assistance for bed mobility. She is being transferred by [facility] and is dependent for transfers. With occupational therapy, for upper body dressing, she can do this with minimum to moderate amount of assistance. For lower body dressing, she requires a total assist of 2. She can groom herself with supervision. She requires a total amount of assistance for lower body bathing and a total amount of assistance for hygiene and toileting. Unfortunately, she did develop a sacral pressure ulcer which is now stage II and covered with mepilex. The mepilex dressing is changed typically every few days due to soiling from stool in the area. She was instructed in pressure relieving procedures. She has multipodus boots to protect her heels and has had some evidence of stage I pressure sores. These have been also covered with mepilex as a precautionary measure. It became apparent that while her was willing to learn how to take care of her and take her home, unfortunately, the architecture of their current setting did not support the ability to have her at home in a wheelchair. They looked for accessible housing, but it appears that will not be available in the near future and therefore, it was recommended that she go to a subacute rehabilitation facility. She was accepted in [place] but she refused to go. She is not safe to go to her own home. Initially, longterm care was considered, but given her dialysis needs ultimately she was determined she would go to a swing bed status. We have been in touch with [facility]; however, and tried to determine if she can have dialysis in [facility]. She would like to go to [facility]. The situation is evolving. DISCHARGE CONDITION: Fair. DISCHARGE DISPOSITION: Change to swing bed at [facility]. MEDICATIONS: 1. Anusol hydrocortisone suppository 25 mg p.r. twice daily. 2. Aspirin 81 mg daily. 3. Duragesic patch 25 mcg q. 72 hours. 4. Lipitor 40 mg q. p.m. 5. MiraLAX 17 g daily. 6. Protonix 40 mg daily. 7. Reglan 5 mg before meals. 8. Remeron 50 mg q.h.s. 9. Scopolamine patch 1.5 mg q. 72 hours. 10. Vitamin C 500 mg daily. 11. Zebeta 5 mg daily. 12. Zoloft 100 mg daily. 13. Colace p.r.n. 14. Dulcolax p.r.n. 15. Oxycodone 5 mg q. 4 hours p.r.n. pain. 16. Morphine 2 mg IV q. 6 hours p.r.n. pain, which will be discontinued. 17. Senokot 2 tabs p.o. at q. p.m. p.r.n. 18. Tylenol 650 mg q. 6 hours p.r.n. 19. Zofran 4 mg q. 6 hours p.r.n. nausea and vomiting. DISCHARGE DIAGNOSES: 1. T10 JAC C paraplegia, spinal cord injury. 2. Anemia of chronic disease. 3. Endstage renal disease on hemodialysis. 4. Left lower quadrant abdominal pain. 5. Neurogenic bladder. 6. Neurogenic bowel. 7. Peripheral vascular disease. 8. Coronary artery disease, status post stenting. 9. Depression. 10. Nausea. 11. Anorexia. 12. Urinary tract infection with Pseudomonas aeruginosa, status post treatment. 13. Polycystic kidney disease. 14. Sacral decubitus ulcer stage II 15. Heel pressure ulcers state I. FOLLOWUP: Ultimately after her disposition is determined, she needs to followup with her primary care provider as well as her brushing operator and evaluation specialist. [id number]/[facility] #: [id number] YAMILE
== END 2018-01-10 15:30 | disposition short-term general hospital (02) | DRG 52 ==
LOC: PMRU 14:40
PROVIDERS: ADMIT Physical Medicine & Rehabilitation; ATTEND Physical Medicine & Rehabilitation
PROC: 5A1D70Z Performance of Urinary Filtration, Intermittent, Less than 6 Hours Per Day (ICD-10-PCS; 2017-12-10)
PROC: 5A1D70Z Performance of Urinary Filtration, Intermittent, Less than 6 Hours Per Day (ICD-10-PCS; 2017-12-10)
PROC: 5A1D70Z Performance of Urinary Filtration, Intermittent, Less than 6 Hours Per Day (ICD-10-PCS; 2017-12-10)
PROC: 5A1D70Z Performance of Urinary Filtration, Intermittent, Less than 6 Hours Per Day (ICD-10-PCS; 2017-12-10)
PROC: 5A1D70Z Performance of Urinary Filtration, Intermittent, Less than 6 Hours Per Day (ICD-10-PCS; 2017-12-10)
PROC: 5A1D70Z Performance of Urinary Filtration, Intermittent, Less than 6 Hours Per Day (ICD-10-PCS; 2017-12-10)
PROC: 5A1D70Z Performance of Urinary Filtration, Intermittent, Less than 6 Hours Per Day (ICD-10-PCS; 2017-12-10)
PROC: 5A1D70Z Performance of Urinary Filtration, Intermittent, Less than 6 Hours Per Day (ICD-10-PCS; 2017-12-10)
PROC: 5A1D70Z Performance of Urinary Filtration, Intermittent, Less than 6 Hours Per Day (ICD-10-PCS; 2017-12-10)
PROC: 5A1D70Z Performance of Urinary Filtration, Intermittent, Less than 6 Hours Per Day (ICD-10-PCS; 2017-12-10)
PROC: 5A1D70Z Performance of Urinary Filtration, Intermittent, Less than 6 Hours Per Day (ICD-10-PCS; 2017-12-10)
PROC: 5A1D70Z Performance of Urinary Filtration, Intermittent, Less than 6 Hours Per Day (ICD-10-PCS; 2017-12-10)
PROC: 5A1D70Z Performance of Urinary Filtration, Intermittent, Less than 6 Hours Per Day (ICD-10-PCS; 2017-12-10)
PROC: 5A1D70Z Performance of Urinary Filtration, Intermittent, Less than 6 Hours Per Day (ICD-10-PCS; 2017-12-10)
PROC: 30233N1 Transfusion of Nonautologous Red Blood Cells into Peripheral Vein, Percutaneous Approach (ICD-10-PCS; principal; 2017-12-22)
PROC: F07Z5ZZ Bed Mobility Treatment (ICD-10-PCS; 2017-12-30)
PROC: F07Z8ZZ Transfer Training Treatment (ICD-10-PCS; 2017-12-30)
PROC: F07Z9ZZ Gait Training/Functional Ambulation Treatment (ICD-10-PCS; 2017-12-30)
PROC: F07Z4ZZ Wheelchair Mobility Treatment (ICD-10-PCS; 2017-12-30)
PROC: F08Z0ZZ Bathing/Showering Techniques Treatment (ICD-10-PCS; 2017-12-30)
PROC: F08Z1ZZ Dressing Techniques Treatment (ICD-10-PCS; 2017-12-30)
PROC: F08Z3ZZ Feeding/Eating Treatment (ICD-10-PCS; 2017-12-30)
PROC: 0DJD8ZZ Inspection of Lower Intestinal Tract, Via Natural or Artificial Opening Endoscopic (ICD-10-PCS; 2018-01-01)
DX: G82.22 Paraplegia, incomplete (principal); N18.6 End stage renal disease; L89.152 Pressure ulcer of sacral region, stage 2; K59.2 Neurogenic bowel, not elsewhere classified; I13.11 Hypertensive heart and chronic kidney disease without heart failure, with stage 5 chronic kidney disease, or end stage renal disease; N10 Acute pyelonephritis; F32.0 Major depressive disorder, single episode, mild; K62.6 Ulcer of anus and rectum; Q61.3 Polycystic kidney, unspecified; K62.5 Hemorrhage of anus and rectum; N39.0 Urinary tract infection, site not specified; L89.601 Pressure ulcer of unspecified heel, stage 1; D63.8 Anemia in other chronic diseases classified elsewhere; R31.9 Hematuria, unspecified; K59.00 Constipation, unspecified; B96.5 Pseudomonas (aeruginosa) (mallei) (pseudomallei) as the cause of diseases classified elsewhere; N31.9 Neuromuscular dysfunction of bladder, unspecified; I73.9 Peripheral vascular disease, unspecified; I25.10 Atherosclerotic heart disease of native coronary artery without angina pectoris; R63.0 Anorexia; J02.9 Acute pharyngitis, unspecified; R10.32 Left lower quadrant pain; R11.0 Nausea; K21.9 Gastro-esophageal reflux disease without esophagitis; Z99.2 Dependence on renal dialysis; Z68.24 Body mass index [BMI] 24.0-24.9, adult; Z95.5 Presence of coronary angioplasty implant and graft; Z88.1 Allergy status to other antibiotic agents; Z88.8 Allergy status to other drugs, medicaments and biological substances; Z87.891 Personal history of nicotine dependence
CPT/HCPCS: 36415; 71045; 74176; 80053; 81003; 81015; 82607; 82728; 82746; 83540; 83550; 84466; 85025; 86850; 86900; 86901; 86922; 87040; 87077; 87086; 87186; 99156; A9270-GY; J0885; J1580; J2250; J2270; J3010; P9040

== ENCOUNTER 2018-01-10 10:05 | Inpatient (IN) | payer MEDICARE ==
[2018-01-10] MEDS ORDERED: Docusate CAP* 100 MG PO PRN (16:00)
[2018-01-10] MEDS ORDERED: Morphine INJ* 2 MG/ML 1 ML CARPUJECT IV PRN (16:00)
[2018-01-10] MEDS ORDERED: oxyCODONE TAB* 5 MG TAB PO PRN (16:00)
[2018-01-10] MEDS ORDERED: Mirtazapine TAB* 15 MG PO PRN (16:00)
[2018-01-10] MEDS ORDERED: Phenol 1.4% Spray* 177 ML BTL MT PRN (16:00)
[2018-01-10] MEDS ORDERED: fentaNYL PATCH 25 MCG/HR TRANSDERM SCH (16:00)
[2018-01-10] MEDS ORDERED: Hydrocortisone SUPP* 25 MG SUPP (2.5%) PR PRN (16:00)
[2018-01-10] MEDS ORDERED: Senna TAB PO PRN (16:00)
[2018-01-10] MEDS ORDERED: Acetaminophen TAB* 325 MG PO PRN (16:00)
[2018-01-10] MEDS ORDERED: Ondansetron ODT TAB* 4 MG SL PRN (16:00)
[2018-01-10] MEDS ORDERED: Bisacodyl SUPP* 10 MG SUPP PR PRN (16:00)
[2018-01-10] MEDS ORDERED: Polyethylene Glycol 3350* 17 GM PACKET PO PRN (16:00)
[2018-01-10 16:51] LABS: ABS Basophils 0 10^3/ul (0-0.2); ABS Eosinophils 0.1 10^3/ul (0-0.6); ABS Lymphocytes 0.5 10^3/ul (1.0-4.8); ABS Monocytes 0.6 10^3/ul (0-0.8); ABS Neutrophils 12.4 10^3/ul (1.5-7.7); ABS Nucleated RBC 0 10^3/ul; Eosinophil % 0.4 % (0-6); Hematocrit 27 % (35-47); Hemoglobin 8.6 g/dl (12.0-16.0); Lymphocyte % 3.4 % (25-47); Mean Corpuscular HGB Conc 32 g/dl (31-36); Mean Corpuscular Hemoglobin 27 pg (27-31); Mean Corpuscular Volume 84 fL (80-97); Mean Platelet Volume 7 um3 (7.4-10.4); Nucleated Red Blood Cells % 0; Platelet Count 410 10^3/ul (150-450); Red Blood Count 3.24 10^6/ul (4.0-5.4); Red Cell Distribution Width 18 % (10.5-15); White Blood Count 13.6 10^3/ul (3.5-10.8)
[2018-01-10 16:55] LABS: EGFR Non-African American 15.4 (>60)
[2018-01-10] MEDS: Ciprofloxacin 400MG IVPREMIX(* 400 MG/200 ML BAG IVPB ONE ×2 (17:43→19:41)
[2018-01-10] MEDS: Metoclopramide TAB* 10 MG PO SCH (17:48)
[2018-01-10] MEDS: Atorvastatin* 40 MG TAB PO SCH (17:48)
[2018-01-10] MEDS: Scopolamine 1.5 mg* PATCH TRANSDERM SCH (17:52)
[2018-01-10] MEDS: fentaNYL Patch Check Q Shift 1 NOTE SCH (19:14)
[2018-01-10] MEDS ORDERED: Ciprofloxacin 400MG IVPREMIX(* 400 MG/200 ML BAG IVPB ONE (20:30)
--- NOTE | 2018-01-10 23:16 | HP ---
CC: Dr. Lawson Vaughan ADMISSION HISTORY AND PHYSICAL: DATE OF ADMISSION: 01/10/18 PRIMARY CARE PROVIDER: Unknown at this time. MY ATTENDING WHILE IN THE HOSPITAL: Lawson Vaughan MD* (dictated by JUANJOSE Miller). 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 HISTORY OF PRESENT ILLNESS: Ms. Ortiz is a 62-year-old female with a past medical history for polycystic kidney disease. The patient was transferred to this facility on 12/09/17 after she had an unfortunate series of events where in she started bleeding into her cyst in her kidneys. Since both unable to be controlled, it was determined at that time to go through with bilateral artery embolization; however, unfortunately, after this procedure, the patient was unable to move her legs. MRI of the spine showed anterior cord syndrome with probable accidental embolization of the great segmental artery of [place] causing infarct in the anterior cords from T10 to L1. The patient was paraplegic from this. The patient had continuous bladder irrigation and was transferred to physical medical rehab unit at [facility] for physical therapy and occupational therapy. While inpatient, the patient had many complications including persistent nausea, poorly controlled with medication, poor oral intake as well as anemia down to as low as the hemoglobin of 6. With extensive workup, determined this was likely related to combination of her chronic kidney disease as well as blood loss anemia from her ongoing hematuria. The patient has been transfused a total of 4 units since she has been in the hospital. The patient had her Plavix and Trental stopped with possible slight improvement in her hematuria, but it continues to this time. The patient had significant pain in her flanks believed to be due to her kidneys but without cause, it is not very responsive to medication as well as pain in her anterior abdomen, which may be due to the flaccid musculature, which is not very responsive to abdominal binders. The patient was found to have fevers up to 102.1. On 01/03/18, the patient was found to have a positive urine culture for pseudomonas. The patient was treated with one dose of 150 mg of IV gentamicin and had improvement in her fever, but has had intermittent fevers since then. The patient had a persistent leukocytosis until her most recent lab work on 01/08/18. The patient has no current complaints of subjective fevers, chills, but has persistent consistent nausea and pain in her lower abdomen and bilateral CVA areas as above making it difficult to determine if the patient is having symptoms of pyelonephritis. The patient was offered a bed at [facility] which she declined as well as [facility], which she declined due to various reasons. The patient was going to be made skilled nursing care; but due to her continued symptomatic pyelonephritis in the setting of chronic indwelling Guzman catheter and under treatment, the patient will be admitted to observation for IV antibiotics for her ongoing pyelonephritis as well as having her Guzman changed out, repeat laboratory work and transfusions as needed. The patient has coronary artery disease and a hemoglobin target of 8.0 would be recommended. PAST MEDICAL HISTORY: Polycystic kidney disease; chronic kidney disease, end- stage, on dialysis; hematuria; coronary artery disease; anterior cord syndrome; GERD; hypertension; nausea; peripheral vascular disease. MEDICATIONS: At the time of admission: 1. Tylenol 650 mg p.o. q.6 hours as needed for fever or pain. 2. Ascorbic acid 500 mg p.o. daily. 3. Aspirin 81 mg p.o. daily. 4. Atorvastatin 40 mg p.o. q.p.m. 5. Dulcolax 10 mg P.R. daily as needed for constipation. 6. Zebeta 5 mg p.o. daily scheduled. 7. Docusate 100 mg p.o. b.i.d. as needed for constipation. 8. Fentanyl 25 mcg transdermal q.72 hours as scheduled. 9. Anusol 25 mg P.R. b.i.d. as needed for constipation. 10. Reglan 5 mg p.o. a.c. scheduled. 11. Mirtazapine 150 mg p.o. at bedtime as needed for sleep. 12. Morphine 2 mg IV q.6 hours as needed for pain. 13. Zofran 4 mg sublingual q.4 hours as needed for nausea and vomiting. 14. Oxycodone 5 mg p.o. q.4 hours as needed for pain. 15. Pantoprazole 40 mg p.o. daily. 16. Scopolamine patch 1.5 mg q.72 hours. 17. MiraLAX 17 g p.o. daily as needed for constipation. 18. Chloraseptic throat spray 1 spray t.i.d. as needed for sore throat. 19. Senokot 2 tabs p.o. at bedtime as needed for constipation. 20. Zoloft 100 mg p.o. daily. ALLERGIES: The patient has allergies to CLONIDINE, CIPROFLOXACIN which consist of GI upset; PENTOXIFYLLINE, SIMVASTATIN, ADHESIVE TAPE, CODEINE, and METRONIDAZOLE. FAMILY HISTORY: Positive for kidney disease, otherwise noncontributory. SOCIAL HISTORY: She is a nonsmoker, nondrinker. She previously lived in a trailer with a couple of steps to enter with her . The patient lives in [facility]. The patient denies illicit drug use. REVIEW OF SYSTEMS: A 14-point review of systems was reviewed and is negative except as above. PHYSICAL EXAMINATION GENERAL: The patient is a 62-year-old female, who appears stated age and sitting comfortably in the bed, in no acute distress. HEENT: Head normocephalic, atraumatic. Sclerae anicteric. No conjunctival injection. Nasal mucosa moist. Oral mucosa moist. No pharyngeal erythema, discharge, or exudate. NECK: Supple, nontender. No lymphadenopathy. No carotid bruit auscultated. Dialysis catheter is palpated on the right side of the patient's neck. RESPIRATORY: Clear to auscultation bilaterally. No wheezes, rales, or rhonchi. Good air exchange bilaterally. CARDIAC: Regular rate and rhythm. No clicks, murmurs, gallops, or rubs. Pulses 2+ in the bilateral dorsalis pedis, posterior tibialis, and radial areas. ABDOMEN: Somewhat distended. No voluntary or involuntary guarding. Warm to touch. No rash. No hepatosplenomegaly. No abdominal bruits auscultated. Bowel sounds present. Normoactive in all 4 quadrants. Pain with palpation over the left lower quadrant without rebound or referred tenderness or mass. GENITOURINARY: The patient has both suprapubic and CVA tenderness. Guzman is draining scant amount of dark red urine. NEUROLOGIC: Cranial nerves II through XII intact. Strength 5/5 in bilateral upper extremities. The patient has 2/5 strength in the right lower extremity. The patient has 0/5 strength in the left lower extremity. The patient has no preserved sensation. Negative reflexes. Nonreactive Babinski sign. Performed cerebellar testing without difficulty. SKIN: The patient has a scar consistent with previous laparoscopic surgery over the umbilicus. No other rash. PSYCHIATRIC: The patient is pleasant and cooperative. LABORATORY DATA: Pending. ASSESSMENT AND PLAN: Ms. Ortiz is a 62-year-old female with past medical history significant for polycystic kidney disease with end-stage kidney disease status post hemorrhage and renal artery embolization with associated anterior cord syndrome from possible embolization of spinal artery of [place] as well as coronary artery disease, status post stent placement and gastroesophageal reflux disease, who has been admitted to this institution for rehab after being admitted to [facility] for the above mentioned hemorrhage. The patient will now be admitted inpatient for treatment of pyelonephritis for observation before being transferred to a care home facility. 1. Pyelonephritis. The patient has signs and symptoms consistent with pyelonephritis. On 01/03/18, the patient was treated with one dose of IV gentamicin. The patient was never redosed despite persistent laboratory and vital signs abnormalities indicating active infection. The patient will be treated with ciprofloxacin at this time, IV dose x1 due to renal impairment and then transitioning to oral therapy. Pseudomonas in her urine culture was susceptible only to ciprofloxacin for oral treatment. The patient had GI upset associated with ciprofloxacin. The risks and benefits of this medication is weighed and it will be continued at this time. The patient's clinical state will be reassessed if she has undue side effects to this medication. The patient will have her Guzman catheter removed and replaced due to probable biofilm contamination by pseudomonas which was definitely not eradicated with one dose of gentamicin. 2. Polycystic kidney disease, chronic kidney disease, renal hemorrhage. The patient continues to have hematuria which is the probable cause of her anemia. The patient will continue hemodialysis 3 times a week with erythropoietin infusions. The patient's creatinine is trending down. The appropriateness of continued hemodialysis will be assessed by Dr. Serrato on an as-needed basis. 3. Anemia. This is likely due to chronic kidney disease and slow hematuria. We will transfuse as needed. Continue erythropoietin injections. The patient was not iron deficient previously. 4. Coronary artery disease. The patient has no signs of acute coronary syndrome at this time. Continue beta-rea, simvastatin, and aspirin. Hold Plavix due to bleeding. 5. Peripheral vascular disease. Continue to hold the patient's Pletal due to antiplatelet effects and no need to prevent claudication due to the patient's nonambulatory status. 6. Nausea and vomiting. Continue Zofran as needed, Reglan scheduled, and scopolamine patch scheduled. 7. DVT prophylaxis: The patient will be on SCDs only due to continued hematuria. 8. FEN: The patient will have a regular, unrestricted diet. The patient will have no fluids at this time. 9. Code status: The patient is a full code. The patient's surrogate decision maker is her , Sushil Ortiz. DISPOSITION: The patient is admitted to observation. TIME SPENT: Approximately 60 minutes were spent on this admission, 30 of which was spent [id number] with the patient obtaining history and physical and discussing the treatment plan. This plan has been discussed with my attending, Dr. Lawson Vaughan, and he is in agreement. JUANJOSE MILLER [id number]/[facility] #: [id number] MTDD
[2018-01-11] MEDS: fentaNYL Patch Check Q Shift 1 NOTE SCH ×2 (09:20→19:17)
[2018-01-11] MEDS: Metoclopramide TAB* 10 MG PO SCH ×3 (09:26→15:57)
[2018-01-11] MEDS: Sertraline* 100 MG TAB PO SCH (09:26)
[2018-01-11] MEDS: Aspirin EC Low Dose* 81 MG TAB.EC PO SCH (09:27)
[2018-01-11] MEDS: Bisoprolol TAB* 5 MG PO SCH (09:27)
[2018-01-11] MEDS: Omeprazole CAP* 20 MG PO SCH (09:29)
[2018-01-11] MEDS: Ascorbic Acid TAB* 500 MG PO SCH (09:29)
--- NOTE | 2018-01-11 10:14 | PN ---
Subjective Date of Service: 01/11/18 Interval History: She denies pain. Poor appetite. Constipated. Objective Active Medications: Acetaminophen (Tylenol Tab*) 650 mg PO Q6H PRN PRN Reason: FEVER/PAIN Ascorbic Acid (Vitamin C Tab*) 500 mg PO DAILY [facility] Last Admin: 01/11/18 09:29 Dose: 500 mg Aspirin (Aspirin Ec Low Dose*) 81 mg PO DAILY [facility] Last Admin: 01/11/18 09:27 Dose: 81 mg Atorvastatin Calcium (Lipitor*) 40 mg PO 1700 [facility] Last Admin: 01/10/18 17:48 Dose: 40 mg Bisacodyl (Dulcolax Supp*) 10 mg OR DAILY PRN PRN Reason: CONSTIPATION Bisoprolol Fumarate (Zebeta Tab*) 5 mg PO DAILY [facility] Last Admin: 01/11/18 09:27 Dose: 5 mg Ciprofloxacin (Cipro Tab*) 500 mg PO Q24HR [facility] Docusate Sodium (Colace Cap*) 100 mg PO BID PRN PRN Reason: CONSTIPATION Fentanyl (Duragesic Patch 25 Mcg/Hr*) 25 mcg TRANSDERM Q72H [facility] Last Admin: 01/10/18 17:55 Dose: 25 mcg Hydrocortisone (Anusol Hc Supp*) 25 mg OR BID PRN PRN Reason: CONSTIPATION Metoclopramide HCl (Reglan Tab*) 5 mg PO AC [facility] Last Admin: 01/11/18 09:26 Dose: 5 mg Mirtazapine (Remeron Tab*) 15 mg PO BEDTIME PRN PRN Reason: SLEEP Morphine Sulfate (Morphine Inj (Syringe)*) 2 mg IV Q6H PRN PRN Reason: PAIN - MILD Omeprazole (Prilosec Cap*) 40 mg PO DAILY@0730 [facility] Last Admin: 01/11/18 09:29 Dose: 40 mg Ondansetron HCl (Zofran Odt Tab*) 4 mg SL Q6H PRN PRN Reason: NAUSEA/VOMITING Oxycodone HCl (Roxycodone Tab*) 5 mg PO Q4H PRN PRN Reason: PAIN Pharmacy Profile Note (Fentanyl Patch Check Q Shift) 1 note N/A 0700,1900 [facility] Last Admin: 01/11/18 09:20 Dose: 1 note Pharmacy Profile Note (Scopolamine Patch Remove*) 1 note PATCH OFF Q72H [facility] Phenol/Menthol (Chloroseptic Throat Boling*) 1 spray MT TID PRN PRN Reason: SORE THROAT Polyethylene Glycol/Electrolytes (Miralax*) 17 gm PO DAILY PRN PRN Reason: CONSTIPATION Scopolamine (Transderm-Scop 1.5 Mg Patch*) 1 patch TRANSDERM Q72H [facility] Last Admin: 01/10/18 17:52 Dose: 1 patch Senna (Senokot Tab*) 2 tab PO BEDTIME PRN PRN Reason: CONSTIPATION Sertraline HCl (Zoloft*) 100 mg PO DAILY [facility] Last Admin: 01/11/18 09:26 Dose: 100 mg Vital Signs - 8 hr 01/11/18 01/11/18 03:13 07:15 Temperature 99.4 F 98.4 F Pulse Rate 92 88 Respiratory 20 18 Rate Blood Pressure 108/54 114/58 (mmHg) O2 Sat by Pulse 96 Oximetry Oxygen Devices in Use Now: None Appearance: Alert, supine in bed. Somewhat angry, otherwise looks comfortable. Eyes: No Scleral Icterus Extremities: No Edema, No Clubbing, Cyanosis, - Skin: No Rash or Ulcers, No Nodules or Sclerosis, - Neurological: Alert and Oriented x 3, NL Sensation Result Diagrams: 01/10/18 16:26 01/10/18 16:26 Assess/Plan/Problems-Billing Assessment: - Patient Problems (1) End stage renal disease on dialysis Current Visit: No Status: Acute Code(s): N18.6 - END STAGE RENAL DISEASE; Z99.2 - DEPENDENCE ON RENAL DIALYSIS SNOMED Code(s): 012190485 Comment: Inpt HD MWF. Patient states she cannot tolerate a renal diet and will only eat an urestricted diet. (2) Urinary tract infection associated with indwelling urethral catheter Current Visit: No Status: Acute Code(s): T83.511A - I/I REACT D/T INDWELLING URETHRAL CATHETER, INIT; N39.0 - URINARY TRACT INFECTION, SITE NOT SPECIFIED SNOMED Code(s): 58340039 Comment: Pseudomonas sens to cipro. Received IV cipro 01/10, start 500 mg q 24 6 PM 01/11. Pt could not do self-cath at home. (3) Neurogenic bladder Current Visit: No Status: Acute Code(s): N31.9 - NEUROMUSCULAR DYSFUNCTION OF BLADDER, UNSPECIFIED SNOMED Code(s): 910602239 Comment: Due to cord syndrome. (4) T10 spinal cord injury Current Visit: No Status: Acute Code(s): S24.103A - UNSP INJURY AT T7-T10 LEVEL OF THORACIC SPINAL CORD, INIT SNOMED Code(s): 40953768 Comment: Due to embolization procedure. Consider STR. (5) Coronary artery disease Current Visit: No Status: Acute Code(s): I25.10 - ATHSCL HEART DISEASE OF [place] CORONARY ARTERY W/O ANG PCTRS SNOMED Code(s): 84614420 Comment: Continue ASA, statin.
[2018-01-11] MEDS: Atorvastatin* 40 MG TAB PO SCH (17:10)
[2018-01-11] MEDS: Ciprofloxacin TAB* 500 MG PO SCH (17:10)
[2018-01-11] MEDS: Polyethylene Glycol 3350* 17 GM PACKET PO SCH (20:39)
[2018-01-12] MEDS: fentaNYL Patch Check Q Shift 1 NOTE SCH ×2 (08:01→19:33)
[2018-01-12] MEDS: Bisoprolol TAB* 5 MG PO SCH (09:19)
[2018-01-12] MEDS: Omeprazole CAP* 20 MG PO SCH (09:19)
[2018-01-12] MEDS: Sertraline* 100 MG TAB PO SCH (09:19)
[2018-01-12] MEDS: Ascorbic Acid TAB* 500 MG PO SCH (09:20)
[2018-01-12] MEDS: Ciprofloxacin TAB* 500 MG PO SCH (09:20)
[2018-01-12] MEDS: Metoclopramide TAB* 10 MG PO SCH ×3 (09:20→17:08)
[2018-01-12] MEDS: Aspirin EC Low Dose* 81 MG TAB.EC PO SCH (09:20)
[2018-01-12] MEDS: Polyethylene Glycol 3350* 17 GM PACKET PO SCH (09:20)
[2018-01-12] MEDS ORDERED: Magnesium Hydroxide LIQ* 30 ML UDC PO ONE (10:10)
--- NOTE | 2018-01-12 10:17 | PN ---
Subjective Date of Service: 01/12/18 Interval History: Denies pain in past 24 hrs. Pt states her last BM was 7 days ago. She could not stand taking PEG. Objective Active Medications: Acetaminophen (Tylenol Tab*) 650 mg PO Q6H PRN PRN Reason: FEVER/PAIN Ascorbic Acid (Vitamin C Tab*) 500 mg PO DAILY [facility] Last Admin: 01/12/18 09:20 Dose: 500 mg Aspirin (Aspirin Ec Low Dose*) 81 mg PO DAILY [facility] Last Admin: 01/12/18 09:20 Dose: 81 mg Atorvastatin Calcium (Lipitor*) 40 mg PO 1700 [facility] Last Admin: 01/11/18 17:10 Dose: 40 mg Bisacodyl (Dulcolax Supp*) 10 mg [place] DAILY PRN PRN Reason: CONSTIPATION Bisoprolol Fumarate (Zebeta Tab*) 5 mg PO DAILY [facility] Last Admin: 01/12/18 09:19 Dose: 5 mg Ciprofloxacin (Cipro Tab*) 500 mg PO Q24HR [facility] Last Admin: 01/12/18 09:20 Dose: 500 mg Docusate Sodium (Colace Cap*) 100 mg PO BID PRN PRN Reason: CONSTIPATION Fentanyl (Duragesic Patch 25 Mcg/Hr*) 25 mcg TRANSDERM Q72H [facility] Last Admin: 01/10/18 17:55 Dose: 25 mcg Hydrocortisone (Anusol Hc Supp*) 25 mg [place] BID PRN PRN Reason: CONSTIPATION Lactulose (Lactulose*) 30 ml PO BID [facility] Magnesium Hydroxide (Milk Of Magnesia Liq*) 60 ml PO ONCE ONE Stop: 01/12/18 10:11 Metoclopramide HCl (Reglan Tab*) 5 mg PO AC [facility] Last Admin: 01/12/18 09:20 Dose: 5 mg Mirtazapine (Remeron Tab*) 15 mg PO BEDTIME PRN PRN Reason: SLEEP Morphine Sulfate (Morphine Inj (Syringe)*) 2 mg IV Q6H PRN PRN Reason: PAIN - MILD Omeprazole (Prilosec Cap*) 40 mg PO DAILY@0730 [facility] Last Admin: 01/12/18 09:19 Dose: 40 mg Ondansetron HCl (Zofran Odt Tab*) 4 mg SL Q6H PRN PRN Reason: NAUSEA/VOMITING Oxycodone HCl (Roxycodone Tab*) 5 mg PO Q4H PRN PRN Reason: PAIN Pharmacy Profile Note (Fentanyl Patch Check Q Shift) 1 note N/A 0700,1900 [facility] Last Admin: 01/12/18 08:01 Dose: 1 note Pharmacy Profile Note (Scopolamine Patch Remove*) 1 note PATCH OFF Q72H [facility] Phenol/Menthol (Chloroseptic Throat [place]*) 1 spray MT TID PRN PRN Reason: SORE THROAT Scopolamine (Transderm-Scop 1.5 Mg Patch*) 1 patch TRANSDERM Q72H [facility] Last Admin: 01/10/18 17:52 Dose: 1 patch Senna (Senokot Tab*) 2 tab PO BEDTIME PRN PRN Reason: CONSTIPATION Sertraline HCl (Zoloft*) 100 mg PO DAILY [facility] Last Admin: 01/12/18 09:19 Dose: 100 mg Vital Signs - 8 hr 01/12/18 01/12/18 02:47 07:42 Temperature 99.8 F 98.7 F Pulse Rate 88 87 Respiratory 14 16 Rate Blood Pressure 115/55 126/63 (mmHg) O2 Sat by Pulse 96 97 Oximetry Oxygen Devices in Use Now: None Appearance: Alert, partly u p in bed. In gair spirits. Looks comfortable. Eyes: No Scleral Icterus Extremities: No Edema, No Clubbing, Cyanosis, - Skin: No Rash or Ulcers, No Nodules or Sclerosis, - Neurological: Alert and Oriented x 3, - - diminished sensation in legs. Result Diagrams: 01/10/18 16:26 01/10/18 16:26 Assess/Plan/Problems-Billing Assessment: - Patient Problems (1) End stage renal disease on dialysis Current Visit: No Status: Acute Code(s): N18.6 - END STAGE RENAL DISEASE; Z99.2 - DEPENDENCE ON RENAL DIALYSIS SNOMED Code(s): 414066012 Comment: Inpt HD MWF. Patient states she cannot tolerate a renal diet and will only eat an urestricted diet. (2) Urinary tract infection associated with indwelling urethral catheter Current Visit: No Status: Acute Code(s): T83.511A - I/I REACT D/T INDWELLING URETHRAL CATHETER, INIT; N39.0 - URINARY TRACT INFECTION, SITE NOT SPECIFIED SNOMED Code(s): 49823053 Comment: Pseudomonas sens to cipro. Start 500 mg q 24 6 PM 01/11. Last dose 3 /10. Pt could not do self-cath at home. (3) Neurogenic bladder Current Visit: No Status: Acute Code(s): N31.9 - NEUROMUSCULAR DYSFUNCTION OF BLADDER, UNSPECIFIED SNOMED Code(s): 171868772 Comment: Due to cord syndrome. (4) T10 spinal cord injury Current Visit: No Status: Acute Code(s): S24.103A - UNSP INJURY AT T7-T10 LEVEL OF THORACIC SPINAL CORD, INIT SNOMED Code(s): 50034673 Comment: Due to embolization procedure. Consider STR. (5) Coronary artery disease Current Visit: No Status: Acute Code(s): I25.10 - ATHSCL HEART DISEASE OF [place] CORONARY ARTERY W/O ANG PCTRS SNOMED Code(s): 15188562 Comment: Continue ASA, statin. (6) Constipation Current Visit: Yes Status: Acute Code(s): K59.00 - CONSTIPATION, UNSPECIFIED SNOMED Code(s): 65638981 Comment: Lactulose 30 ml bid to start 01/12. One dose MOM 600 ml 01/12.
[2018-01-12] MEDS: fentaNYL PATCH 12 MCG/HR TRANSDERM SCH (11:34)
[2018-01-12] MEDS: Atorvastatin* 40 MG TAB PO SCH (17:08)
[2018-01-13] MEDS: fentaNYL Patch Check Q Shift 1 NOTE SCH ×2 (06:33→19:42)
--- NOTE | 2018-01-13 11:47 | PN ---
Subjective Date of Service: 01/13/18 Interval History: Large BM today. Appetite fair. She denies pain. No new c/o. Objective Active Medications: Acetaminophen (Tylenol Tab*) 650 mg PO Q6H PRN PRN Reason: FEVER/PAIN Ascorbic Acid (Vitamin C Tab*) 500 mg PO DAILY [facility] Last Admin: 01/12/18 09:20 Dose: 500 mg Aspirin (Aspirin Ec Low Dose*) 81 mg PO DAILY [facility] Last Admin: 01/12/18 09:20 Dose: 81 mg Atorvastatin Calcium (Lipitor*) 40 mg PO 1700 [facility] Last Admin: 01/12/18 17:08 Dose: 40 mg Bisacodyl (Dulcolax Supp*) 10 mg [place] DAILY PRN PRN Reason: CONSTIPATION Bisoprolol Fumarate (Zebeta Tab*) 5 mg PO DAILY [facility] Last Admin: 01/12/18 09:19 Dose: 5 mg Ciprofloxacin (Cipro Tab*) 500 mg PO Q24HR [facility] Last Admin: 01/12/18 09:20 Dose: 500 mg Docusate Sodium (Colace Cap*) 100 mg PO BID PRN PRN Reason: CONSTIPATION Fentanyl (Duragesic Patch 12 Mcg/Hr *) 12 mcg TRANSDERM Q72H [facility] Last Admin: 01/12/18 11:34 Dose: 12 mcg Hydrocortisone (Anusol Hc Supp*) 25 mg [place] BID PRN PRN Reason: CONSTIPATION Lactulose (Lactulose*) 30 ml PO BID [facility] Last Admin: 01/12/18 20:46 Dose: Not Given Metoclopramide HCl (Reglan Tab*) 5 mg PO AC [facility] Last Admin: 01/12/18 17:08 Dose: 5 mg Mirtazapine (Remeron Tab*) 15 mg PO BEDTIME PRN PRN Reason: SLEEP Morphine Sulfate (Morphine Inj (Syringe)*) 2 mg IV Q6H PRN PRN Reason: PAIN - MILD Omeprazole (Prilosec Cap*) 40 mg PO DAILY@0730 [facility] Last Admin: 01/12/18 09:19 Dose: 40 mg Ondansetron HCl (Zofran Odt Tab*) 4 mg SL Q6H PRN PRN Reason: NAUSEA/VOMITING Last Admin: 01/12/18 11:44 Dose: 4 mg Oxycodone HCl (Roxycodone Tab*) 5 mg PO Q4H PRN PRN Reason: PAIN Pharmacy Profile Note (Fentanyl Patch Check Q Shift) 1 note N/A 0700,1900 [facility] Last Admin: 01/13/18 06:33 Dose: 1 note Pharmacy Profile Note (Scopolamine Patch Remove*) 1 note PATCH OFF Q72H [facility] Phenol/Menthol (Chloroseptic Throat [place]*) 1 spray MT TID PRN PRN Reason: SORE THROAT Scopolamine (Transderm-Scop 1.5 Mg Patch*) 1 patch TRANSDERM Q72H [facility] Last Admin: 01/10/18 17:52 Dose: 1 patch Senna (Senokot Tab*) 2 tab PO BEDTIME PRN PRN Reason: CONSTIPATION Sertraline HCl (Zoloft*) 100 mg PO DAILY [facility] Last Admin: 01/12/18 09:19 Dose: 100 mg Vital Signs - 8 hr 01/13/18 01/13/18 07:22 08:00 Temperature 98.5 F Pulse Rate 81 Respiratory 16 16 Rate Blood Pressure 116/62 (mmHg) O2 Sat by Pulse 96 Oximetry Oxygen Devices in Use Now: None Appearance: Alert, partly up on dialysis recliner. In fair spirits. Looks comfortable. Eyes: No Scleral Icterus Respiratory: Symmetrical Chest Expansion and Respiratory Effort, Clear to Auscultation, Clear to Percussion Cardiovascular: NL Sounds; No Murmurs; No JVD, RRR, No Edema, - Extremities: No Edema, No Clubbing, Cyanosis, - Skin: No Rash or Ulcers, No Nodules or Sclerosis, - Neurological: Alert and Oriented x 3, NL Sensation Result Diagrams: 01/10/18 16:26 01/10/18 16:26 Assess/Plan/Problems-Billing Assessment: - Patient Problems (1) End stage renal disease on dialysis Current Visit: No Status: Acute Code(s): N18.6 - END STAGE RENAL DISEASE; Z99.2 - DEPENDENCE ON RENAL DIALYSIS SNOMED Code(s): 039053487 Comment: Inpt HD MWF. Patient states she cannot tolerate a renal diet and will only eat an urestricted diet. (2) Urinary tract infection associated with indwelling urethral catheter Current Visit: No Status: Acute Code(s): T83.511A - I/I REACT D/T INDWELLING URETHRAL CATHETER, INIT; N39.0 - URINARY TRACT INFECTION, SITE NOT SPECIFIED SNOMED Code(s): 35493377 Comment: Pseudomonas sens to cipro. Start 500 mg q 24 6 PM 01/11. Last dose . Pt could not do self-cath at home. (3) Neurogenic bladder Current Visit: No Status: Acute Code(s): N31.9 - NEUROMUSCULAR DYSFUNCTION OF BLADDER, UNSPECIFIED SNOMED Code(s): 756465638 Comment: Due to cord syndrome. (4) T10 spinal cord injury Current Visit: No Status: Acute Code(s): S24.103A - UNSP INJURY AT T7-T10 LEVEL OF THORACIC SPINAL CORD, INIT SNOMED Code(s): 28551326 Comment: Due to embolization procedure. Consider STR. (5) Coronary artery disease Current Visit: No Status: Acute Code(s): I25.10 - ATHSCL HEART DISEASE OF [place] CORONARY ARTERY W/O ANG PCTRS SNOMED Code(s): 75290208 Comment: Continue ASA, statin. (6) Constipation Current Visit: Yes Status: Acute Code(s): K59.00 - CONSTIPATION, UNSPECIFIED SNOMED Code(s): 49883349 Comment: Lactulose 30 ml bid to start 01/12. One dose MOM 600 ml 01/12. (7) Decubital ulcer Current Visit: Yes Status: Acute Code(s): L89.90 - PRESSURE ULCER OF UNSPECIFIED SITE, UNSPECIFIED STAGE SNOMED Code(s): 683372594 Comment: [facility] nurse to evaluate 3/5 PM. Nutrition consult requested.
[2018-01-13] MEDS: Metoclopramide TAB* 10 MG PO SCH ×3 (12:23→17:09)
[2018-01-13] MEDS ORDERED: Heparin DIALYSIS ONLY(*) 1,000 UNITS/ML VIAL DIALYSIS ONE (13:00)
[2018-01-13] MEDS ORDERED: Epoetin Alfa* 10,000 UNITS/ML VIAL IV ONE (13:00)
[2018-01-13] MEDS: Aspirin EC Low Dose* 81 MG TAB.EC PO SCH (15:24)
[2018-01-13] MEDS: Ascorbic Acid TAB* 500 MG PO SCH (15:24)
[2018-01-13] MEDS: Omeprazole CAP* 20 MG PO SCH (15:25)
[2018-01-13] MEDS: Ciprofloxacin TAB* 500 MG PO SCH (15:26)
[2018-01-13] MEDS: Sertraline* 100 MG TAB PO SCH (15:27)
[2018-01-13] MEDS: Bisoprolol TAB* 5 MG PO SCH (15:27)
[2018-01-13] MEDS: Scopolamine 1.5 mg* PATCH TRANSDERM SCH (15:28)
[2018-01-13] MEDS ORDERED: Scopolamine PATCH Remove* 1 NOTE MISC PATCH OFF SCH (16:00)
[2018-01-13] MEDS: Atorvastatin* 40 MG TAB PO SCH (16:59)
[2018-01-13] MEDS: Collagenase 250 MG/GM OINT* 30 GM TOPICAL SCH (17:00)
[2018-01-13] MEDS: Mirtazapine TAB* 15 MG PO SCH (21:37)
[2018-01-14] MEDS: fentaNYL Patch Check Q Shift 1 NOTE SCH ×2 (06:59→19:00)
[2018-01-14] MEDS: Metoclopramide TAB* 10 MG PO SCH ×3 (09:57→15:16)
[2018-01-14] MEDS: Ciprofloxacin TAB* 500 MG PO SCH (09:58)
[2018-01-14] MEDS: Sertraline* 100 MG TAB PO SCH (09:58)
[2018-01-14] MEDS: Omeprazole CAP* 20 MG PO SCH (09:58)
[2018-01-14] MEDS: Ascorbic Acid TAB* 500 MG PO SCH (10:00)
[2018-01-14] MEDS: Aspirin EC Low Dose* 81 MG TAB.EC PO SCH (10:00)
[2018-01-14] MEDS: Collagenase 250 MG/GM OINT* 30 GM TOPICAL SCH (10:02)
--- NOTE | 2018-01-14 13:32 | PN ---
Subjective Date of Service: 01/14/18 Interval History: No pain. Appetite fair at best. No new c/o. Objective Active Medications: Acetaminophen (Tylenol Tab*) 650 mg PO Q6H PRN PRN Reason: FEVER/PAIN Ascorbic Acid (Vitamin C Tab*) 500 mg PO DAILY [facility] Last Admin: 01/14/18 10:00 Dose: 500 mg Aspirin (Aspirin Ec Low Dose*) 81 mg PO DAILY [facility] Last Admin: 01/14/18 10:00 Dose: 81 mg Atorvastatin Calcium (Lipitor*) 40 mg PO 1700 [facility] Last Admin: 01/13/18 16:59 Dose: 40 mg Bisacodyl (Dulcolax Supp*) 10 mg [place] DAILY PRN PRN Reason: CONSTIPATION Bisoprolol Fumarate (Zebeta Tab*) 5 mg PO DAILY [facility] Last Admin: 01/13/18 15:27 Dose: 5 mg Ciprofloxacin (Cipro Tab*) 500 mg PO Q24HR [facility] Last Admin: 01/14/18 09:58 Dose: 500 mg Collagenase (Santyl 250 Mg/Gm Oint*) 1 applic TOPICAL DAILY [facility] Last Admin: 01/14/18 10:02 Dose: 1 applic Docusate Sodium (Colace Cap*) 100 mg PO BID PRN PRN Reason: CONSTIPATION Fentanyl (Duragesic Patch 12 Mcg/Hr *) 12 mcg TRANSDERM Q72H [facility] Last Admin: 01/12/18 11:34 Dose: 12 mcg Hydrocortisone (Anusol Hc Supp*) 25 mg [place] BID PRN PRN Reason: CONSTIPATION Lactulose (Lactulose*) 30 ml PO BID [facility] Last Admin: 01/14/18 10:02 Dose: Not Given Metoclopramide HCl (Reglan Tab*) 5 mg PO AC [facility] Last Admin: 01/14/18 11:51 Dose: Not Given Mirtazapine (Remeron Tab*) 7.5 mg PO BEDTIME [facility] Last Admin: 01/13/18 21:37 Dose: Not Given Morphine Sulfate (Morphine Inj (Syringe)*) 2 mg IV Q6H PRN PRN Reason: PAIN - MILD Omeprazole (Prilosec Cap*) 40 mg PO DAILY@0730 [facility] Last Admin: 01/14/18 09:58 Dose: 40 mg Ondansetron HCl (Zofran Odt Tab*) 4 mg SL Q6H PRN PRN Reason: NAUSEA/VOMITING Last Admin: 01/12/18 11:44 Dose: 4 mg Oxycodone HCl (Roxycodone Tab*) 5 mg PO Q4H PRN PRN Reason: PAIN Pharmacy Profile Note (Fentanyl Patch Check Q Shift) 1 note N/A 0700,1900 [facility] Last Admin: 01/14/18 06:59 Dose: 1 note Pharmacy Profile Note (Scopolamine Patch Remove*) 1 note PATCH OFF Q72H [facility] Last Admin: 01/13/18 15:33 Dose: 1 applic Phenol/Menthol (Chloroseptic Throat [place]*) 1 spray [place] TID PRN PRN Reason: SORE THROAT Scopolamine (Transderm-Scop 1.5 Mg Patch*) 1 patch TRANSDERM Q72H [facility] Last Admin: 01/13/18 15:28 Dose: 1 patch Senna (Senokot Tab*) 2 tab PO BEDTIME PRN PRN Reason: CONSTIPATION Sertraline HCl (Zoloft*) 100 mg PO DAILY [facility] Last Admin: 01/14/18 09:58 Dose: 100 mg Vital Signs - 8 hr 01/14/18 01/14/18 07:17 08:00 Temperature 98.9 F Pulse Rate 90 Respiratory 16 18 Rate Blood Pressure 110/55 (mmHg) O2 Sat by Pulse 95 Oximetry Oxygen Devices in Use Now: None Appearance: Alert, partly up in bed. In good spirits. Looks comfortable. Eyes: No Scleral Icterus Extremities: No Edema, No Clubbing, Cyanosis, - Skin: No Rash or Ulcers, No Nodules or Sclerosis, - Neurological: Alert and Oriented x 3, NL Sensation Result Diagrams: 01/10/18 16:26 01/10/18 16:26 Assess/Plan/Problems-Billing Assessment: - Patient Problems (1) End stage renal disease on dialysis Current Visit: No Status: Acute Code(s): N18.6 - END STAGE RENAL DISEASE; Z99.2 - DEPENDENCE ON RENAL DIALYSIS SNOMED Code(s): 954199277 Comment: Inpt HD MWF. Patient states she cannot tolerate a renal diet and will only eat an urestricted diet. (2) Urinary tract infection associated with indwelling urethral catheter Current Visit: No Status: Acute Code(s): T83.511A - I/I REACT D/T INDWELLING URETHRAL CATHETER, INIT; N39.0 - URINARY TRACT INFECTION, SITE NOT SPECIFIED SNOMED Code(s): 82212829 Comment: Pseudomonas sens to cipro. Start 500 mg q 24 6 PM 01/11. Last dose . Pt could not do self-cath at home. (3) Neurogenic bladder Current Visit: No Status: Acute Code(s): N31.9 - NEUROMUSCULAR DYSFUNCTION OF BLADDER, UNSPECIFIED SNOMED Code(s): 614503188 Comment: Due to cord syndrome. (4) T10 spinal cord injury Current Visit: No Status: Acute Code(s): S24.103A - UNSP INJURY AT T7-T10 LEVEL OF THORACIC SPINAL CORD, INIT SNOMED Code(s): 15940803 Comment: Due to embolization procedure. Plan STR. (5) Coronary artery disease Current Visit: No Status: Acute Code(s): I25.10 - ATHSCL HEART DISEASE OF [place] CORONARY ARTERY W/O ANG PCTRS SNOMED Code(s): 49757189 Comment: Continue ASA, statin. (6) Constipation Current Visit: Yes Status: Acute Code(s): K59.00 - CONSTIPATION, UNSPECIFIED SNOMED Code(s): 54633686 Comment: Lactulose 30 ml bid to start 01/12. One dose MOM 600 ml 01/12. (7) Decubital ulcer Current Visit: Yes Status: Acute Code(s): L89.90 - PRESSURE ULCER OF UNSPECIFIED SITE, UNSPECIFIED STAGE SNOMED Code(s): 158950309 Comment: Wound Clinic nurse evaluated 3/5 PM. Collagenase dressing daily. Nutrition consult requested.
[2018-01-14] MEDS: Bisoprolol TAB* 5 MG PO SCH (15:50)
[2018-01-14] MEDS: Atorvastatin* 40 MG TAB PO SCH (15:50)
[2018-01-14] MEDS: Mirtazapine TAB* 15 MG PO SCH (23:02)
[2018-01-15 06:55] LABS: ABS Basophils 0 10^3/ul (0-0.2); ABS Eosinophils 0 10^3/ul (0-0.6); ABS Lymphocytes 0.5 10^3/ul (1.0-4.8); ABS Monocytes 0.5 10^3/ul (0-0.8); ABS Neutrophils 11.2 10^3/ul (1.5-7.7); ABS Nucleated RBC 0 10^3/ul; Eosinophil % 0.2 % (0-6); Hematocrit 23 % (35-47); Hemoglobin 7.4 g/dl (12.0-16.0); Lymphocyte % 3.7 % (25-47); Mean Corpuscular HGB Conc 32 g/dl (31-36); Mean Corpuscular Hemoglobin 27 pg (27-31); Mean Corpuscular Volume 84 fL (80-97); Mean Platelet Volume 7 um3 (7.4-10.4); Nucleated Red Blood Cells % 0; Platelet Count 443 10^3/ul (150-450); Red Blood Count 2.77 10^6/ul (4.0-5.4); Red Cell Distribution Width 18 % (10.5-15); White Blood Count 12.2 10^3/ul (3.5-10.8)
[2018-01-15] MEDS: fentaNYL Patch Check Q Shift 1 NOTE SCH ×2 (07:37→18:53)
[2018-01-15] MEDS ORDERED: Epoetin Alfa* 10,000 UNITS/ML VIAL IV STA (11:38)
[2018-01-15] MEDS ORDERED: Heparin DIALYSIS ONLY(*) 1,000 UNITS/ML VIAL DIALYSIS STA (11:38)
[2018-01-15] MEDS: fentaNYL PATCH 12 MCG/HR TRANSDERM SCH (14:06)
[2018-01-15] MEDS: Omeprazole CAP* 20 MG PO SCH (16:02)
[2018-01-15] MEDS: Aspirin EC Low Dose* 81 MG TAB.EC PO SCH (16:02)
[2018-01-15] MEDS: Ascorbic Acid TAB* 500 MG PO SCH (16:02)
[2018-01-15] MEDS: Metoclopramide TAB* 10 MG PO SCH ×2 (16:02→17:06)
[2018-01-15] MEDS: Sertraline* 25 MG TAB PO SCH (16:03)
[2018-01-15] MEDS: Bisoprolol TAB* 5 MG PO SCH (16:03)
[2018-01-15] MEDS: Collagenase 250 MG/GM OINT* 30 GM TOPICAL SCH (16:03)
[2018-01-15] MEDS: Ciprofloxacin TAB* 500 MG PO SCH (16:03)
--- NOTE | 2018-01-15 16:48 | PN ---
Subjective Date of Service: 01/15/18 Interval History: Patient too nauseated to take her pills. She states she always gets nauseous after HD but it was worse today. Objective Active Medications: Acetaminophen (Tylenol Tab*) 650 mg PO Q6H PRN PRN Reason: FEVER/PAIN Ascorbic Acid (Vitamin C Tab*) 500 mg PO DAILY [facility] Last Admin: 01/15/18 16:02 Dose: Not Given Aspirin (Aspirin Ec Low Dose*) 81 mg PO DAILY [facility] Last Admin: 01/15/18 16:02 Dose: Not Given Atorvastatin Calcium (Lipitor*) 40 mg PO 1700 [facility] Last Admin: 01/14/18 15:50 Dose: 40 mg Bisacodyl (Dulcolax Supp*) 10 mg [place] DAILY PRN PRN Reason: CONSTIPATION Bisoprolol Fumarate (Zebeta Tab*) 5 mg PO DAILY [facility] Last Admin: 01/15/18 16:03 Dose: Not Given Ciprofloxacin (Cipro Tab*) 500 mg PO Q24HR [facility] Last Admin: 01/15/18 16:03 Dose: Not Given Collagenase (Santyl 250 Mg/Gm Oint*) 1 applic TOPICAL DAILY [facility] Last Admin: 01/15/18 16:03 Dose: Not Given Docusate Sodium (Colace Cap*) 100 mg PO BID PRN PRN Reason: CONSTIPATION Fentanyl (Duragesic Patch 12 Mcg/Hr *) 12 mcg TRANSDERM Q72H [facility] Last Admin: 01/15/18 14:06 Dose: 12 mcg Hydrocortisone (Anusol Hc Supp*) 25 mg [place] BID PRN PRN Reason: CONSTIPATION Ciprofloxacin/Dextrose (Cipro 400 Mg Ivpremix(*)) 400 mg in 200 mls @ 200 mls/ hr IVPB ONCE ONE Stop: 01/15/18 18:54 Lactulose (Lactulose*) 30 ml PO BID [facility] Last Admin: 01/15/18 16:03 Dose: Not Given Metoclopramide HCl (Reglan Tab*) 5 mg PO AC [facility] Last Admin: 01/15/18 16:02 Dose: Not Given Mirtazapine (Remeron Tab*) 7.5 mg PO BEDTIME [facility] Last Admin: 01/14/18 23:02 Dose: Not Given Morphine Sulfate (Morphine Inj (Syringe)*) 2 mg IV Q6H PRN PRN Reason: PAIN - MILD Omeprazole (Prilosec Cap*) 40 mg PO DAILY@0730 [facility] Last Admin: 01/15/18 16:02 Dose: Not Given Ondansetron HCl (Zofran Odt Tab*) 4 mg SL Q6H PRN PRN Reason: NAUSEA/VOMITING Last Admin: 01/12/18 11:44 Dose: 4 mg Oxycodone HCl (Roxycodone Tab*) 5 mg PO Q4H PRN PRN Reason: PAIN Pharmacy Profile Note (Fentanyl Patch Check Q Shift) 1 note N/A 0700,1900 [facility] Last Admin: 01/15/18 07:37 Dose: 1 note Pharmacy Profile Note (Scopolamine Patch Remove*) 1 note PATCH OFF Q72H [facility] Last Admin: 01/13/18 15:33 Dose: 1 applic Phenol/Menthol (Chloroseptic Throat [place]*) 1 spray MT TID PRN PRN Reason: SORE THROAT Scopolamine (Transderm-Scop 1.5 Mg Patch*) 1 patch TRANSDERM Q72H [facility] Last Admin: 01/13/18 15:28 Dose: 1 patch Senna (Senokot Tab*) 2 tab PO BEDTIME PRN PRN Reason: CONSTIPATION Sertraline HCl (Zoloft*) 25 mg PO DAILY [facility] Last Admin: 01/15/18 16:03 Dose: Not Given Vital Signs - 8 hr 01/15/18 14:06 Respiratory 16 Rate Oxygen Devices in Use Now: None Appearance: Alert, partly up in bed. In fair spirits. Looks comfortable but weak. Eyes: No Scleral Icterus Abdominal: NL Sounds; No Tenderness; No Distention, No Hepatosplenomegaly, - Extremities: No Edema, No Clubbing, Cyanosis, - Skin: No Rash or Ulcers, No Nodules or Sclerosis, - Neurological: Alert and Oriented x 3, NL Sensation Result Diagrams: 01/15/18 06:12 01/15/18 11:15 Assess/Plan/Problems-Billing Assessment: - Patient Problems (1) End stage renal disease on dialysis Current Visit: No Status: Acute Code(s): N18.6 - END STAGE RENAL DISEASE; Z99.2 - DEPENDENCE ON RENAL DIALYSIS SNOMED Code(s): 630058387 Comment: Inpt HD MWF. Patient states she cannot tolerate a renal diet and will only eat an urestricted diet. (2) Urinary tract infection associated with indwelling urethral catheter Current Visit: No Status: Acute Code(s): T83.511A - I/I REACT D/T INDWELLING URETHRAL CATHETER, INIT; N39.0 - URINARY TRACT INFECTION, SITE NOT SPECIFIED SNOMED Code(s): 23950462 Comment: Pseudomonas sens to cipro. Start 500 mg q 24 6 PM 01/11. Last dose . Pt could not do self-cath at home. IV cipro given 01/15 to replace the po dose she refused. (3) Neurogenic bladder Current Visit: No Status: Acute Code(s): N31.9 - NEUROMUSCULAR DYSFUNCTION OF BLADDER, UNSPECIFIED SNOMED Code(s): 351423440 Comment: Due to cord syndrome. (4) T10 spinal cord injury Current Visit: No Status: Acute Code(s): S24.103A - UNSP INJURY AT T7-T10 LEVEL OF THORACIC SPINAL CORD, INIT SNOMED Code(s): 09959974 Comment: Due to embolization procedure. Plan STR. (5) Coronary artery disease Current Visit: No Status: Acute Code(s): I25.10 - ATHSCL HEART DISEASE OF [place] CORONARY ARTERY W/O ANG PCTRS SNOMED Code(s): 44339173 Comment: Continue ASA, statin. (6) Constipation Current Visit: Yes Status: Acute Code(s): K59.00 - CONSTIPATION, UNSPECIFIED SNOMED Code(s): 86895763 Comment: Lactulose 30 ml bid to start 01/12. One dose MOM 600 ml 01/12. (7) Decubital ulcer Current Visit: Yes Status: Acute Code(s): L89.90 - PRESSURE ULCER OF UNSPECIFIED SITE, UNSPECIFIED STAGE SNOMED Code(s): 178089168 Comment: Wound Clinic nurse evaluated 3/5 PM. Collagenase dressing daily. Nutrition consult requested.
[2018-01-15] MEDS: Atorvastatin* 40 MG TAB PO SCH (17:06)
[2018-01-15] MEDS ORDERED: Ciprofloxacin 400MG IVPREMIX(* 400 MG/200 ML BAG IVPB ONE (17:55)
[2018-01-15] MEDS: Mirtazapine TAB* 15 MG PO SCH (21:47)
[2018-01-16] MEDS: fentaNYL Patch Check Q Shift 1 NOTE SCH (07:14)
--- NOTE | 2018-01-16 07:51 | PN ---
Progress Note - Progress Note Date of Service: 01/16/18 Note: Time spent on discharge 50 minutes.
[2018-01-16] MEDS: Ciprofloxacin TAB* 500 MG PO SCH (08:08)
[2018-01-16] MEDS: Collagenase 250 MG/GM OINT* 30 GM TOPICAL SCH (08:39)
[2018-01-16] MEDS: Omeprazole CAP* 20 MG PO SCH (08:39)
[2018-01-16] MEDS: Metoclopramide TAB* 10 MG PO SCH (08:39)
[2018-01-16] MEDS: Sertraline* 25 MG TAB PO SCH (08:39)
[2018-01-16] MEDS: Bisoprolol TAB* 5 MG PO SCH (08:39)
[2018-01-16] MEDS: Aspirin EC Low Dose* 81 MG TAB.EC PO SCH (08:39)
--- NOTE | 2018-01-16 08:39 | TRS ---
[facility] DATE OF ADMISSION: 01/12/18 DATE OF TRANSFER: 01/16/18 HISTORY OF PRESENT ILLNESS: This 62-year-old woman presented with pyelonephritis or other urinary tract infection. 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 She is paraplegic and has urinary retention. She had continuous bladder irrigation. She went to [facility] for physical therapy and rehabilitation. She had a lot of medical problems there with nausea, poor oral intake, and anemia. She received 4 units of blood. She had her clopidogrel and pentoxyfilline stopped because of hematuria. On 01/03/18, her urine culture showed pseudomonas. She received a dose of Gentamicin and then was treated with Ciprofloxacin. She was transferred to the acute medical bed because of her medical problems, particularly a urinary tract infection. She received an intravenous dose of Ciprofloxacin, and was given oral therapy. On 01/15/18 after dialysis, she was too nauseated to take her Ciprofloxacin tablet, and was given it IV. Her last day of Ciprofloxacin is planned to be 01/18/18. She was afebrile throughout her acute medical hospitalization. Unfortunately, the Guzman catheter will need to remain because of her neurogenic bladder. On the day of transfer, 01/16/18, I started her on Dronabinol for her persistent anorexia. She was on a regular unrestricted diet as she said the renal diet was not palatable to her; in fact, on the regular unrestricted diet she eats very little as well. She was started on Lactulose for constipation. Her Sertraline dose was titrated down. FINAL DIAGNOSES: 1. End-stage renal disease, on hemodialysis. 2. Urinary tract infection associated with indwelling urethral catheter. 3. Neurogenic bladder. 4. T1 spinal injury. 5. Coronary artery disease. 6. Constipation. 7. Sacral decubitus ulcer. DISCHARGE MEDICATIONS: 1. Acetaminophen 650 mg every 6 hours prn. 2. Aspirin 81 mg daily. 3. Atorvastatin 40 mg daily. 4. Bisacodyl suppository 10 mg daily prn constipation. 5. Bisoprolol 5 mg daily. 6. Ciprofloxacin 500 mg daily through 01/18/18. 7. Collagenase to sacral wound daily. 8. Docusate 100 mg bid prn. 9. Dronabinol 2.5 mg a.c. 10. Fentanyl patch 12 mcg every 72 hours. 11. Hydrocortisone suppository 25 mg bid prn. 12. Lactulose 30 mg bid. 13. Metoclopramide 5 mg a.c. 14. Mirtazapine 7.5 mg hs. 15. Omeprazole 40 mg daily. 16. Ondansetron ODT 4 mg every 6 hours prn. 17. Oxycodone 5 mg every 4 hours prn. 18. Sopalamine 1.5 mg patch every 72 hours. 19. Sertraline 25 mg daily. The patient is transferred to [facility]. [id number]/[facility] #: [id number] MTDD
[2018-01-16 09:17] VITALS: BP 124/58
[2018-01-16] MEDS ORDERED: Dronabinol CAP* 2.5 MG PO SCH (11:30)
== END 2018-01-16 10:55 | DRG 698 ==
LOC: MED 10:05 → OBSVTOIN 01-12 10:05
PROVIDERS: ADMIT Internal Medicine; ATTEND Internal Medicine
PROC: 5A1D70Z Performance of Urinary Filtration, Intermittent, Less than 6 Hours Per Day (ICD-10-PCS; principal; 2018-01-12)
PROC: 5A1D70Z Performance of Urinary Filtration, Intermittent, Less than 6 Hours Per Day (ICD-10-PCS; 2018-01-13)
DX: T83.518A Infection and inflammatory reaction due to other urinary catheter, initial encounter (principal); S24.101A Unspecified injury at T1 level of thoracic spinal cord, initial encounter; L89.159 Pressure ulcer of sacral region, unspecified stage; G82.20 Paraplegia, unspecified; I12.0 Hypertensive chronic kidney disease with stage 5 chronic kidney disease or end stage renal disease; N12 Tubulo-interstitial nephritis, not specified as acute or chronic; N18.6 End stage renal disease; Q61.3 Polycystic kidney, unspecified; N31.9 Neuromuscular dysfunction of bladder, unspecified; K59.00 Constipation, unspecified; B96.5 Pseudomonas (aeruginosa) (mallei) (pseudomallei) as the cause of diseases classified elsewhere; R33.8 Other retention of urine; D63.1 Anemia in chronic kidney disease; X58.XXXA Exposure to other specified factors, initial encounter; R31.9 Hematuria, unspecified; T45.525A Adverse effect of antithrombotic drugs, initial encounter; T46.7X5A Adverse effect of peripheral vasodilators, initial encounter; Y73.1 Therapeutic (nonsurgical) and rehabilitative gastroenterology and urology devices associated with adverse incidents; I25.10 Atherosclerotic heart disease of native coronary artery without angina pectoris; K21.9 Gastro-esophageal reflux disease without esophagitis; I73.9 Peripheral vascular disease, unspecified; Z99.2 Dependence on renal dialysis; Z88.1 Allergy status to other antibiotic agents; Z88.5 Allergy status to narcotic agent; Y92.009 Unspecified place in unspecified non-institutional (private) residence as the place of occurrence of the external cause; Z88.8 Allergy status to other drugs, medicaments and biological substances; Z79.82 Long term (current) use of aspirin
CPT/HCPCS: 36415; 80053; 80074; 85025; 86140; 90935; 96365; A9270-GY; G0257; G0378; J0744; J0885; J1644

== ENCOUNTER 2018-02-27 12:54 | Inpatient (IN) | payer MEDICARE ==
[2018-02-27] MEDS ORDERED: Bisacodyl SUPP* 10 MG SUPP PR PRN (16:49)
[2018-02-27] MEDS ORDERED: oxyCODONE TAB* 5 MG TAB PO PRN (16:49)
[2018-02-27] MEDS ORDERED: Ondansetron TAB* 4 MG PO PRN (16:49)
--- NOTE | 2018-02-27 17:10 | ADMNOTE ---
Subjective Date of Service: 02/27/18 Interval History: ADMISSION HISTORY AND PHYSICAL EXAM: Allergies Allergy/AdvReac Type Severity Reaction Status Date / Time clonidine Allergy Severe Swelling Verified 12/13/17 11:00 Of Face,Lips,& Throat ciprofloxacin [From Cipro] Allergy Mild GI Upset Verified 12/13/17 11:00 pentoxifylline [From Trental] Allergy Unknown Unknown Verified 12/13/17 11:00 Reaction Details simvastatin Allergy Unknown Unknown Verified 12/13/17 11:00 Reaction Details Adhesive Tape Allergy Rash Verified 12/09/17 17:06 codeine AdvReac Mild GI Upset Verified 12/13/17 11:00 metronidazole AdvReac Unknown GI Upset Verified 12/13/17 11:00 Home Medications Medication Instructions Recorded Confirmed Type Acetaminophen TAB* [Tylenol TAB*] 650 mg PO Q4H PRN 02/27/18 02/27/18 History Aspirin EC TAB* [Ecotrin EC Low 81 mg PO DAILY 02/27/18 02/27/18 History Dose 81 MG*] Atorvastatin* [Lipitor*] 20 mg PO QPM 02/27/18 02/27/18 History Bisacodyl SUPP* [Dulcolax Supp*] 10 mg DC DAILY PRN 02/27/18 02/27/18 History Bisoprolol TAB* [Zebeta TAB*] 2.5 mg PO DAILY 02/27/18 02/27/18 History Cephalexin CAP* [Keflex CAP*] 500 mg PO TID 02/27/18 02/27/18 History Dronabinol CAP* [Marinol CAP*] 2.5 mg PO DAILY 02/27/18 02/27/18 History Gabapentin CAP(*) [Neurontin 100 100 mg PO BID PRN 02/27/18 02/27/18 History mg CAP(*)] Hydrocortisone SUPP* [Anusol HC 25 mg DC BID 02/27/18 02/27/18 History Supp*] Lidocaine 2.5%/Prilocain 2.5%* 1 applic TOPICAL TUTHSA 02/27/18 02/27/18 History [Emla 5 GM*] Mirtazapine TAB* [Remeron TAB*] 15 mg PO BEDTIME 02/27/18 02/27/18 History Multivitamins/Minerals TAB* 1 tab PO DAILY 02/27/18 02/27/18 History [Theragran/minerals TAB*] Ondansetron TAB* [Zofran 4 MG Tab*] 4 mg PO BID PRN 02/27/18 02/27/18 History Pantoprazole TAB (NF) [Protonix 40 mg PO QAM 02/27/18 02/27/18 History TAB (NF)] Saccharomyces Boulardii 250 mg PO QAM 02/27/18 02/27/18 History [Florastorkids] Senna TAB* [Senokot TAB*] 2 tab PO BEDTIME 02/27/18 02/27/18 History oxyCODONE TAB* [Roxycodone TAB 5 5 mg PO TID PRN 02/27/18 02/27/18 History mg*] Family History: Findings - kidney disease Social History: Findings - Lives with her who is her SDM. No alcohol or tobacco use. 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 Review of Systems - Measurements Intake and Output: Intake and Output Last 24 Hours 02/25/18 02/26/18 02/27/18 02/28/18 06:59 06:59 06:59 06:59 Weight 129 lb 8 oz - Review of Systems Constitutional Symptoms: Negative: Weight Gain, Weight Loss, Weakness, Fatigue, Fever, Night Sweats, Unexplained Falls, Other Dermatology: Positive: Normal HEENT: Positive: Normal Eyes: Positive: Normal Thyroid: Positive: Normal Pulmonary: Positive: Normal Cardiology: Positive: Normal Gastroenterology: Positive: Anorexia Genital - Urinary: Positive: Normal Musculoskeletal: Positive: Arthritis Endocrinology: Positive: Normal Objective Active Medications: Aspirin (Aspirin Ec Tab*) 81 mg PO DAILY [facility] Atorvastatin Calcium (Lipitor*) 20 mg PO QPM [facility] Bisacodyl (Dulcolax Supp*) 10 mg DC DAILY PRN PRN Reason: CONSTIPATION Bisoprolol Fumarate (Zebeta Tab*) 2.5 mg PO DAILY [facility] Dronabinol (Marinol Cap*) 2.5 mg PO DAILY [facility] Heparin Sodium (Porcine) (Heparin Vial(*)) 5,000 units SUBCUT Q12HR [facility] Mirtazapine (Remeron Tab*) 15 mg PO BEDTIME [facility] Multivitamins/Minerals (Theragran/Minerals Tab*) 1 tab PO DAILY [facility] Omeprazole (Prilosec Cap*) 20 mg PO QAM [facility] Ondansetron HCl (Zofran Tab*) 4 mg PO BID PRN PRN Reason: NAUSEA Oxycodone HCl (Roxycodone Tab*) 5 mg PO TID PRN PRN Reason: PAIN Vital Signs - 8 hr 02/27/18 15:40 Temperature 99.2 F Pulse Rate 94 Respiratory 16 Rate Blood Pressure 95/49 (mmHg) O2 Sat by Pulse 97 Oximetry Oxygen Devices in Use Now: None Appearance: Alert, partly up in bed. In fair spirits. Looks comfortable. Ears/Nose/Mouth/Throat: Clear Oropharnyx, Mucous Membranes Moist Neck: NL Appearance and Movements; NL JVP, No Thyroid Enlargement, Masses Respiratory: Symmetrical Chest Expansion and Respiratory Effort, Clear to Auscultation, Clear to Percussion Skin: No Nodules or Sclerosis, - - large sacral decubitus--see nurse's notes Neurological: Alert and Oriented x 3, NL Sensation Result Diagrams: 02/28/18 05:51 02/28/18 05:52 Assess/Plan/Problems-Billing Assessment: - Patient Problems (1) Decubital ulcer Current Visit: No Status: Acute Code(s): L89.90 - PRESSURE ULCER OF UNSPECIFIED SITE, UNSPECIFIED STAGE SNOMED Code(s): 442902409 Comment: ID and surgical consult requested. (2) Anemia Current Visit: No Status: Acute Code(s): D64.9 - ANEMIA, UNSPECIFIED SNOMED Code(s): 454981005 Comment: Hematology consult requested. SPEP ordered. (3) Coronary artery disease Current Visit: No Status: Acute Code(s): I25.10 - ATHSCL HEART DISEASE OF [place] CORONARY ARTERY W/O ANG PCTRS SNOMED Code(s): 77714495 Comment: Continue ASA, statin. (4) T10 spinal cord injury Current Visit: No Status: Acute Code(s): S24.103A - UNSP INJURY AT T7-T10 LEVEL OF THORACIC SPINAL CORD, INIT SNOMED Code(s): 87680438 Comment: Due to embolization procedure. Return to [facility] when appropriate.
[2018-02-27] MEDS: Atorvastatin* 20 MG TAB PO SCH (17:18)
[2018-02-27] MEDS: Heparin VIAL(*) 5000 UNITS/ML VIAL (FIVE THOUSAND) SUBCUT SCH (20:38)
[2018-02-27] MEDS: Mirtazapine TAB* 15 MG PO SCH (20:38)
[2018-02-28 06:01] LABS: ABS Basophils 0 10^3/ul (0-0.2); ABS Eosinophils 0.1 10^3/ul (0-0.6); ABS Lymphocytes 0.9 10^3/ul (1.0-4.8); ABS Monocytes 0.4 10^3/ul (0-0.8); ABS Neutrophils 5.5 10^3/ul (1.5-7.7); ABS Nucleated RBC 0 10^3/ul; Eosinophil % 1.5 % (0-6); Hematocrit 23 % (35-47); Hemoglobin 7.5 g/dl (12.0-16.0); Lymphocyte % 13.5 % (25-47); Mean Corpuscular HGB Conc 33 g/dl (31-36); Mean Corpuscular Hemoglobin 27 pg (27-31); Mean Corpuscular Volume 83 fL (80-97); Mean Platelet Volume 6.9 um3 (7.4-10.4); Nucleated Red Blood Cells % 0; Platelet Count 266 10^3/ul (150-450); Red Blood Count 2.78 10^6/ul (4.0-5.4); Red Cell Distribution Width 16 % (10.5-15)
[2018-02-28 06:21] LABS: EGFR Non-African American 19.3 (>60)
[2018-02-28] MEDS ORDERED: Dronabinol CAP* 2.5 MG PO SCH (09:00)
[2018-02-28] MEDS: Bisoprolol TAB* 5 MG PO SCH (10:16)
[2018-02-28] MEDS: Omeprazole CAP* 20 MG PO SCH (10:16)
[2018-02-28] MEDS: Multivitamins/Minerals TAB PO SCH (10:17)
[2018-02-28] MEDS: Aspirin EC TAB* 81 MG TAB.EC PO SCH (10:17)
[2018-02-28] MEDS: Heparin VIAL(*) 5000 UNITS/ML VIAL (FIVE THOUSAND) SUBCUT SCH ×2 (10:17→21:22)
--- NOTE | 2018-02-28 14:53 | PN ---
Subjective Interval History: No subj change. Anorexic, denies nausea. Her states she did worse with eating when the marinol was stopped. It was re-started abut a week ago. Family History: Findings - kidney disease Social History: Findings - Lives with her who is her SDM. No alcohol or tobacco use. 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 Objective Active Medications: Aspirin (Aspirin Ec Tab*) 81 mg PO DAILY [facility] Last Admin: 02/28/18 10:17 Dose: 81 mg Atorvastatin Calcium (Lipitor*) 20 mg PO QPM [facility] Last Admin: 02/27/18 17:18 Dose: 20 mg Bisacodyl (Dulcolax Supp*) 10 mg [place] DAILY PRN PRN Reason: CONSTIPATION Bisoprolol Fumarate (Zebeta Tab*) 2.5 mg PO DAILY [facility] Last Admin: 02/28/18 10:16 Dose: 2.5 mg Dronabinol (Marinol Cap*) 2.5 mg PO 0800,1700 [facility] Heparin Sodium (Porcine) (Heparin Vial(*)) 5,000 units SUBCUT Q12HR [facility] Last Admin: 02/28/18 10:17 Dose: 5,000 units Mirtazapine (Remeron Tab*) 15 mg PO BEDTIME [facility] Last Admin: 02/27/18 20:38 Dose: 15 mg Multivitamins/Minerals (Theragran/Minerals Tab*) 1 tab PO DAILY [facility] Last Admin: 02/28/18 10:17 Dose: 1 tab Omeprazole (Prilosec Cap*) 20 mg PO QAM [facility] Last Admin: 02/28/18 10:16 Dose: 20 mg Ondansetron HCl (Zofran Tab*) 4 mg PO BID PRN PRN Reason: NAUSEA Oxycodone HCl (Roxycodone Tab*) 5 mg PO TID PRN PRN Reason: PAIN Vital Signs - 8 hr 02/28/18 02/28/18 02/28/18 08:08 10:17 11:30 Temperature 99.7 F 99.5 F Pulse Rate 95 93 Respiratory 18 16 22 Rate Blood Pressure 114/52 93/52 (mmHg) O2 Sat by Pulse 96 Oximetry Oxygen Devices in Use Now: None Appearance: Alert, partly up in bed. In fair spirits. Looks comfortable. Eyes: No Scleral Icterus Extremities: No Edema, No Clubbing, Cyanosis Neurological: Alert and Oriented x 3 Result Diagrams: 02/28/18 05:51 02/28/18 05:52 Assess/Plan/Problems-Billing Assessment: - Patient Problems (1) Decubital ulcer Current Visit: No Status: Acute Code(s): L89.90 - PRESSURE ULCER OF UNSPECIFIED SITE, UNSPECIFIED STAGE SNOMED Code(s): 912214657 Comment: ID consult pending. I spoke to Dr. West who said he would arrange for a WoundVac. (2) Anemia Current Visit: No Status: Acute Code(s): D64.9 - ANEMIA, UNSPECIFIED SNOMED Code(s): 440863183 Comment: Dr Bennett will see patient 02/28. SPEP ordered. (3) Coronary artery disease Current Visit: No Status: Acute Code(s): I25.10 - ATHSCL HEART DISEASE OF [place] CORONARY ARTERY W/O ANG PCTRS SNOMED Code(s): 82583286 Comment: Continue ASA, statin. (4) T10 spinal cord injury Current Visit: No Status: Acute Code(s): S24.103A - UNSP INJURY AT T7-T10 LEVEL OF THORACIC SPINAL CORD, INIT SNOMED Code(s): 21013196 Comment: Due to embolization procedure. Return to [facility] when appropriate.
--- NOTE | 2018-02-28 15:54 | CONS ---
CC: [facility]; Wound Center at [facility], attn: Dr. Maciej Guerrero* CONSULTATION REPORT: DATE OF CONSULT: 02/28/18 REFERRING PROVIDER: Bao Merida MD. REASON FOR CONSULT: Sacral decubiti. HISTORY OF PRESENT ILLNESS: Ms. Evelyn Ortiz is a 62-year-old woman who was paraplegic and is a resident at the [facility] at [facility]. She has been seeing Dr. Guerrero in the wound center out at [facility] for chronic sacral decubiti. This has been treated aggressively with debridement and subsequently had a wound VAC placed. Cultures of exposed bone were recently obtained, which showed corynebacterium striatum. I believe that Dr. Guerrero had started her on Keflex. She had a visit on Saturday, but she did not keep and she was not certain why this was not done. Apparently she has been transferred here to the hospital for evaluation of the bone cultures with the possible osteomyelitis and continued wound care. She was also noted to be anemic with a hemoglobin 7.5. She has chronic renal disease. The patient is on hemodialysis. PHYSICAL EXAM: Vital Signs: Temperature 99.5, pulse 93, blood pressure 93/52. General: She is a slender elderly female, appears to be in no apparent distress. She is awake and alert, but is a very poor historian and unable to give the answers as to her recent treatments or her reason for admission. In the mid lower back over the sacral promontory is a clean 6 cm x 6 cm sacral ulcer which she has some exposed sacral bone. There is some undermining along the superior aspects of it. There is no odor, surrounding redness, purulence, or significant drainage. Skin around the ulcer has excellent integrity. Also of note there is some discoloration to the skin over the right greater trochanter with concern for early pressure changes. There was no skin breakdown , however. IMPRESSION: Chronic sacral ulcer. This does not appear to be acutely infected or would it be the cause of any acute sepsis at this point. There is exposed bone and certainly highly suspicious for osteomyelitis. She has been started on Keflex for the culture results from the bone that was done last week by Dr. Guerrero. At this point, I would recommend continuing with the wound VAC. This would be applied today and I wrote orders. In addition aggressive skin care and offloading is needed for her, especially considering the appearance of the right greater trochanteric area. She is on an air mattress at this time. Dr. Garcia is to see her from Infectious Disease for antibiotic recommendations. We will follow her with you. Thank you for this consultation. [id number]/[facility] #: [id number] YAMILE
[2018-02-28] MEDS: Dronabinol CAP* 2.5 MG PO SCH (17:08)
[2018-02-28] MEDS: Atorvastatin* 20 MG TAB PO SCH (17:08)
--- NOTE | 2018-02-28 20:24 | CONS ---
CONSULTATION REPORT: DATE OF CONSULT: 02/28/18. REQUESTING PHYSICIAN: Dr. Merida. CONSULTING SERVICE: Infectious Disease. REASON FOR CONSULTATION: Large sacral decubitus ulcer and chronic osteomyelitis. IMPRESSION: 1. Sacral decubitus ulceration, followed by Dr. Guerrero in the Wound Clinic. She had a bone biopsy that showed chronic osteomyelitis. It has grown a number of skin floral organisms including coryneba cterium most recently. There were some bowel lebron back in January, enterococcus and bacteroides, whic h seem to have gone away. It is hard to say if any of those were actual to pathogen in the bone, it i s more common in the gram-positive organisms. 2. Thoracic level paraplegia. 3. End-stage renal disease, on hemodialysis. 4. Normocytic anemia, question anemia of chronic disease in addition to low Epogen versus other. RECOMMENDATIONS: Doxycycline 100 mg by mouth twice a day, we discussed the need for 6 to 8 weeks of this treatment assuming she tolerates it pretty well. Alternatives include linezolid, which we will h old off on for now because of the combination of Remeron that she is taking and end-stage renal disea se, I think it does put her at some risk of serotonin syndrome. We discussed as well that there is n ot a big increase in benefit from IV antibiotics in chronic osteomyelitis of the sacrum. Dr. Merida is addressing her low appetite and low albumin. HISTORY OF PRESENT ILLNESS: This is a 62-year-old woman with end-stage renal disease, on hemodialysi s after embolization for polycystic kidney disease that led to embolization of her lower spine as wel l. She was in rehab here, then an inpatient for urinary tract infection, then has been at [facility]. I discussed the case with Dr. Barron yesterday, who provides some details of her history. She rodriguez s been following with the Wound Clinic, Dr. Guerrero, has been using a vacuum dressing over the last c ouple of weeks, not having a lot of improvement in wound size apparently and because he could see lester charles, he did a bone biopsy that came back with chronic osteomyelitis, the culture with corynebacterium. She has been noted to have low-grade fever at the skilled nursing, though she denies feeling feverish. She has had chills from time to time, no drenching sweats. Her appetite has been decreased. She has no Guzman catheter. She has regular bladder scanning and then straight catheterization when the volu me reaches 200 cc. She denies having a prosthetic material present. PAST MEDICAL HISTORY: 1. Polycystic kidney disease, treated with renal artery embolization, complicated by embolization of lumbar spine anterior cord T10 to L1. 2. End-stage renal disease, on hemodialysis. 3. Hematuria. 4. Coronary artery disease. 5. Gastroesophageal reflux disease. 6. Hypertension. 7. Nausea. 8. Peripheral vascular disease. MEDICATIONS: 1. Aspirin. 2. Lipitor. 3. Bisoprolol. 4. Dronabinol. 5. Heparin subcutaneous injection. 6. Remeron. 7. Omeprazole. 8. Oxycodone. ALLERGIES: CLONIDINE, CIPROFLOXACIN, PENTOXIFYLLINE, SIMVASTATIN, ADHESIVE TAPE, CODEINE, METRONIDAZ OLE. FAMILY HISTORY: Polycystic kidneys. Otherwise, no recurrent infection or tuberculosis. SOCIAL HISTORY: She has been living at [facility]. She is from [facility]. Her is here with her. REVIEW OF SYSTEMS: A 14-point review of systems was all negative except as noted above. PHYSICAL EXAM: Vital Signs: Temperature 37.5, heart rate 90, respiratory rate 20, blood pressure 93 /50, oxygen saturation 96% on room air. In general, she is awake, not in distress. Neurologic: She is oriented x3. Follows all commands. HEENT: There is no conjunctival hemorrhage. Oropharynx mois t. Neck: Neck is supple without mass. Lymph Nodes: There is no inguinal, axillary, or epitrochlea r lymphadenopathy. Heart: Regular rate and rhythm without murmurs, rubs, or gallops. Lungs are radha ar to auscultation bilaterally. Abdomen: Soft, nontender, nondistended. There is bowel sounds pres ent. Skin: There is no rash or splinter hemorrhages. There is a large sacral decubitus ulceration with some granulation tissue, there is some bone visible. No surrounding cellulitis. Musculoskeleta l: There is no spine tenderness to palpation. No joint synovitis. LABORATORY DATA: White blood cell count of 7, hemoglobin 7.5, MCV 80, platelets 266. Creatinine 2.5 . CRP 115. Potassium 4. Please see impressions and recommendation as outlined above, which I have discussed with Dr. Merida. Thank you for asking me to see Ms. Ortiz in consultation. [id number]/[facility] #: [id number]
[2018-02-28] MEDS ORDERED: Linezolid TAB* 600 MG PO SCH (21:00)
[2018-02-28] MEDS: DOXYcycline CAP(*) 100 MG PO SCH (21:22)
[2018-02-28] MEDS: Mirtazapine TAB* 15 MG PO SCH (21:22)
[2018-03-01 07:05] LABS: ABS Basophils 0.1 10^3/ul (0-0.2); ABS Eosinophils 0.1 10^3/ul (0-0.6); ABS Lymphocytes 0.9 10^3/ul (1.0-4.8); ABS Monocytes 0.4 10^3/ul (0-0.8); ABS Neutrophils 4.3 10^3/ul (1.5-7.7); ABS Nucleated RBC 0 10^3/ul; Corrected Retic Count 0.8 % (0.5-1.5); Eosinophil % 1.3 % (0-6); Hematocrit 23 % (35-47); Hematocrit for Retic CNT 23 % (35-47); Hemoglobin 7.4 g/dl (12.0-16.0); Immature Retic Fraction 0.51; Lymphocyte % 15.9 % (25-47); Mean Corpuscular HGB Conc 32 g/dl (31-36); Mean Corpuscular Hemoglobin 27 pg (27-31); Mean Corpuscular Volume 84 fL (80-97); Nucleated Red Blood Cells % 0; Platelet Count 260 10^3/ul (150-450); RBC Retic Count 2.74 10^6/ul (4.6-6.2); Red Blood Count 2.74 10^6/ul (4.0-5.4); Red Cell Distribution Width 16 % (10.5-15); White Blood Count 5.8 10^3/ul (3.5-10.8)
[2018-03-01] MEDS: Bisoprolol TAB* 5 MG PO SCH (09:32)
[2018-03-01] MEDS: DOXYcycline CAP(*) 100 MG PO SCH ×2 (09:33→19:37)
[2018-03-01] MEDS: Dronabinol CAP* 2.5 MG PO SCH ×2 (09:33→18:02)
[2018-03-01] MEDS: Omeprazole CAP* 20 MG PO SCH (09:34)
[2018-03-01] MEDS: Aspirin EC TAB* 81 MG TAB.EC PO SCH (09:34)
[2018-03-01] MEDS: Multivitamins/Minerals TAB PO SCH (09:34)
[2018-03-01] MEDS: Heparin VIAL(*) 5000 UNITS/ML VIAL (FIVE THOUSAND) SUBCUT SCH ×2 (09:34→19:38)
[2018-03-01] MEDS ORDERED: Acetaminophen TAB* 325 MG ONE (12:04)
[2018-03-01] MEDS: Acetaminophen TAB* 325 MG PO PRN ×2 (12:12→19:37)
[2018-03-01] MEDS ORDERED: Mirtazapine TAB* 15 MG PO SCH (12:53)
--- NOTE | 2018-03-01 13:14 | PN ---
Subjective Date of Service: 03/01/18 Interval History: No new c/o. states she is eating better. Family History: Findings - kidney disease Social History: Findings - Lives with her who is her SDM. No alcohol or tobacco use. 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 Objective Active Medications: Acetaminophen (Tylenol Tab*) 650 mg PO Q4H PRN PRN Reason: TEMP EQUAL OR GREATER 101 F Last Admin: 03/01/18 12:12 Dose: 650 mg Aspirin (Aspirin Ec Tab*) 81 mg PO DAILY [facility] Last Admin: 03/01/18 09:34 Dose: 81 mg Atorvastatin Calcium (Lipitor*) 20 mg PO QPM [facility] Last Admin: 02/28/18 17:08 Dose: 20 mg Bisacodyl (Dulcolax Supp*) 10 mg [place] DAILY PRN PRN Reason: CONSTIPATION Bisoprolol Fumarate (Zebeta Tab*) 2.5 mg PO DAILY [facility] Last Admin: 03/01/18 09:32 Dose: 2.5 mg Doxycycline Hyclate (Vibramycin Cap(*)) 100 mg PO BID [facility] Stop: 03/01/18 23:30 Last Admin: 03/01/18 09:33 Dose: 100 mg Dronabinol (Marinol Cap*) 2.5 mg PO 0800,1700 [facility] Last Admin: 03/01/18 09:33 Dose: 2.5 mg Heparin Sodium (Porcine) (Heparin Vial(*)) 5,000 units SUBCUT Q12HR [facility] Last Admin: 03/01/18 09:34 Dose: 5,000 units Linezolid (Zyvox Tab*) 600 mg PO Q12H [facility] Mirtazapine (Remeron Tab*) 7.5 mg PO BEDTIME [facility] Stop: 03/02/18 14:00 Multivitamins/Minerals (Theragran/Minerals Tab*) 1 tab PO DAILY [facility] Last Admin: 03/01/18 09:34 Dose: 1 tab Omeprazole (Prilosec Cap*) 20 mg PO QAM [facility] Last Admin: 03/01/18 09:34 Dose: 20 mg Ondansetron HCl (Zofran Tab*) 4 mg PO BID PRN PRN Reason: NAUSEA Oxycodone HCl (Roxycodone Tab*) 5 mg PO TID PRN PRN Reason: PAIN Vital Signs - 8 hr 03/01/18 03/01/18 03/01/18 07:58 09:33 11:27 Temperature 100.0 F 100.1 F Pulse Rate 95 94 Respiratory 17 24 17 Rate Blood Pressure 130/65 118/59 (mmHg) O2 Sat by Pulse 96 97 Oximetry Oxygen Devices in Use Now: None Appearance: Alert, partly up in bed. In good spirits. Looks comfortable. Eyes: No Scleral Icterus Extremities: No Edema, No Clubbing, Cyanosis Skin: No Rash or Ulcers Neurological: Alert and Oriented x 3, NL Sensation Result Diagrams: 03/01/18 06:25 02/28/18 05:52 Microbiology and Other Data: Microbiology 03/01/18 00:10 Stool Gross Appearance - Final Stool C. difficile DNA Amplification - Final 027 Presumptive NEGATIVE Toxigenic C.diff NEGATIVE 02/27/18 17:43 Aerobic Blood Culture - Preliminary Blood Venous No Growth Day 1 Anaerobic Blood Culture - Preliminary No Growth Day 1 02/27/18 17:43 Aerobic Blood Culture - Preliminary Blood Venous No Growth Day 1 Anaerobic Blood Culture - Preliminary No Growth Day 1 Assess/Plan/Problems-Billing Assessment: - Patient Problems (1) Decubital ulcer Current Visit: No Status: Acute Code(s): L89.90 - PRESSURE ULCER OF UNSPECIFIED SITE, UNSPECIFIED STAGE SNOMED Code(s): 696862283 Comment: Discussed with Dr. Garcia. I am rapidly tapering off the mirtazapine and will start linezolid 03/02 so we can observe her in the hospital for a full day before she returns to her SNF. (2) Anemia Current Visit: No Status: Acute Code(s): D64.9 - ANEMIA, UNSPECIFIED SNOMED Code(s): 185676692 Comment: Dr Bennett saw patient 02/28. EPO level ordered. (3) Coronary artery disease Current Visit: No Status: Acute Code(s): I25.10 - ATHSCL HEART DISEASE OF [place] CORONARY ARTERY W/O ANG PCTRS SNOMED Code(s): 18775139 Comment: Continue ASA, statin. (4) T10 spinal cord injury Current Visit: No Status: Acute Code(s): S24.103A - UNSP INJURY AT T7-T10 LEVEL OF THORACIC SPINAL CORD, INIT SNOMED Code(s): 88467393 Comment: Due to embolization procedure. Return to [facility] when appropriate.
[2018-03-01] MEDS: Atorvastatin* 20 MG TAB PO SCH (18:02)
[2018-03-02 07:00] LABS: EGFR Non-African American 9.5 (>60)
[2018-03-02] MEDS: Bisoprolol TAB* 5 MG PO SCH (08:27)
[2018-03-02] MEDS: Acetaminophen TAB* 325 MG PO PRN (08:28)
[2018-03-02] MEDS: Dronabinol CAP* 2.5 MG PO SCH ×2 (08:28→16:53)
[2018-03-02] MEDS: Aspirin EC TAB* 81 MG TAB.EC PO SCH (08:29)
[2018-03-02] MEDS: Linezolid TAB* 600 MG PO SCH ×2 (08:29→22:03)
[2018-03-02] MEDS: Multivitamins/Minerals TAB PO SCH (08:29)
[2018-03-02] MEDS: Heparin VIAL(*) 5000 UNITS/ML VIAL (FIVE THOUSAND) SUBCUT SCH ×2 (08:29→22:04)
[2018-03-02] MEDS: Omeprazole CAP* 20 MG PO SCH (08:29)
--- NOTE | 2018-03-02 14:36 | PN ---
Subjective Date of Service: 03/02/18 Interval History: No new c/o. No pain. Appetite fair. Family History: Findings - kidney disease Social History: Findings - Lives with her who is her SDM. No alcohol or tobacco use. 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 Objective Active Medications: Acetaminophen (Tylenol Tab*) 650 mg PO Q4H PRN PRN Reason: TEMP EQUAL OR GREATER 101 F Last Admin: 03/02/18 08:28 Dose: 650 mg Aspirin (Aspirin Ec Tab*) 81 mg PO DAILY [facility] Last Admin: 03/02/18 08:29 Dose: 81 mg Atorvastatin Calcium (Lipitor*) 20 mg PO QPM [facility] Last Admin: 03/01/18 18:02 Dose: 20 mg Bisacodyl (Dulcolax Supp*) 10 mg IN DAILY PRN PRN Reason: CONSTIPATION Bisoprolol Fumarate (Zebeta Tab*) 2.5 mg PO DAILY [facility] Last Admin: 03/02/18 08:27 Dose: 2.5 mg Dronabinol (Marinol Cap*) 2.5 mg PO 0800,1700 [facility] Last Admin: 03/02/18 08:28 Dose: 2.5 mg Heparin Sodium (Porcine) (Heparin Vial(*)) 5,000 units SUBCUT Q12HR [facility] Last Admin: 03/02/18 08:29 Dose: 5,000 units Linezolid (Zyvox Tab*) 600 mg PO Q12H [facility] Last Admin: 03/02/18 08:29 Dose: 600 mg Multivitamins/Minerals (Theragran/Minerals Tab*) 1 tab PO DAILY [facility] Last Admin: 03/02/18 08:29 Dose: 1 tab Omeprazole (Prilosec Cap*) 20 mg PO QAM [facility] Last Admin: 03/02/18 08:29 Dose: 20 mg Ondansetron HCl (Zofran Tab*) 4 mg PO BID PRN PRN Reason: NAUSEA Oxycodone HCl (Roxycodone Tab*) 5 mg PO TID PRN PRN Reason: PAIN Vital Signs - 8 hr 03/02/18 03/02/18 03/02/18 08:00 08:14 08:28 Temperature 102.0 F Pulse Rate 102 Respiratory 14 20 14 Rate Blood Pressure 137/75 (mmHg) O2 Sat by Pulse 94 Oximetry 03/02/18 03/02/18 10:28 10:58 Temperature 98.9 F Pulse Rate 93 Respiratory 14 15 Rate Blood Pressure 105/55 (mmHg) O2 Sat by Pulse 96 Oximetry Oxygen Devices in Use Now: None Appearance: Alert, on her L side in bed. In fair spirits. Looks comfortable. Eyes: No Scleral Icterus Extremities: No Edema, No Clubbing, Cyanosis, - Skin: - - WoundVac in place over sacrum. Neurological: Alert and Oriented x 3, NL Sensation Result Diagrams: 03/01/18 06:25 03/02/18 06:15 Microbiology and Other Data: Microbiology 03/01/18 00:10 Stool Gross Appearance - Final Stool C. difficile DNA Amplification - Final 027 Presumptive NEGATIVE Toxigenic C.diff NEGATIVE 02/27/18 17:43 Aerobic Blood Culture - Preliminary Blood Venous No Growth Day 1 Anaerobic Blood Culture - Preliminary No Growth Day 1 02/27/18 17:43 Aerobic Blood Culture - Preliminary Blood Venous No Growth Day 1 Anaerobic Blood Culture - Preliminary No Growth Day 1 Assess/Plan/Problems-Billing Assessment: - Patient Problems (1) Decubital ulcer Current Visit: No Status: Acute Code(s): L89.90 - PRESSURE ULCER OF UNSPECIFIED SITE, UNSPECIFIED STAGE SNOMED Code(s): 722998063 Comment: Linezolid started 03/02, mirtazapine stopped. Temps up, blood C&S x 2 sent 03/01 AND 03/02. Urine C&S sent 03/02. Add cefepime, start 03/02. (2) Anemia Current Visit: No Status: Acute Code(s): D64.9 - ANEMIA, UNSPECIFIED SNOMED Code(s): 741863040 Comment: Dr Bennett saw patient 02/28. EPO level ordered. (3) Coronary artery disease Current Visit: No Status: Acute Code(s): I25.10 - ATHSCL HEART DISEASE OF [place] CORONARY ARTERY W/O ANG PCTRS SNOMED Code(s): 76341828 Comment: Continue ASA, statin. (4) T10 spinal cord injury Current Visit: No Status: Acute Code(s): S24.103A - UNSP INJURY AT T7-T10 LEVEL OF THORACIC SPINAL CORD, INIT SNOMED Code(s): 91946596 Comment: Due to embolization procedure. Return to [facility] when appropriate. (5) Neurogenic bladder Current Visit: No Status: Acute Code(s): N31.9 - NEUROMUSCULAR DYSFUNCTION OF [place], UNSPECIFIED SNOMED Code(s): 062577185 Comment: Due to cord syndrome. Straight cath daily.
[2018-03-02] MEDS ORDERED: Cefepime(*) 1 GM in D5W 50 ML BAG* 50 ML IVPB SCH (16:00)
[2018-03-02] MEDS: Atorvastatin* 20 MG TAB PO SCH (16:53)
--- NOTE | 2018-03-02 22:26 | CONS ---
MEDICAL ONCOLOGY/HEMATOLOGY CONSULTATION NOTE: DATE OF CONSULT: 02/28/18 REASON FOR CONSULTATION: Anemia. HISTORY OF PRESENT ILLNESS: Evelyn Ortiz is a 62-year-old female who has relevant history dates back to November 2017. At that time, she had a history of polycystic kidney disease and underwent an embolization procedure to both kidneys at [facility]. 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 She has had multiple hospitalizations since that period of time, having been at [facility] from 12/09/17 through 01/10/18 on rehab and then as an inpatient with pyelonephritis from 02/26 through 01/16/18. At that point, she was admitted to [facility]. She has required multiple transfusions over the past several months. She has required at least 10 units with 2 units on 12/22/17 with a hemoglobin of 6 rising to 8.4; 01/01/18, one unit with a hemoglobin of 7 rising to 9; 01/08/18, one unit 6.9 up to 8.6; 01/20/18, two units 6.6 to 7.9; 02/01/18, two units from 6.9 to an unknown value; and then on 02/26/18 received 2 units going from 6.1 to 7.5. Workup has included laboratory values as follows: Iron saturation of 19%, B12 of 596, folic acid level was 3.18 in January but had been 5.85 in December. She has a normal LDH. She has laboratory values consistent with very , very low nutritional parameters with a prealbumin of 5 and a cholesterol of 66. She has been on dialysis 3 times a week through [facility] being done over in [place]. She has been receiving erythropoietin. She reports that erythropoietin has given each time she has dialysis and that the dose was recently increased. I do not have those doses available to me but do note that she had doses of 10,000 units 3 times per week when receiving dialysis here in the past. On 02/19/18, a bone with soft tissue biopsy at the coccyx area was obtained because of a known stage IV pressure ulcer to the coccyx present over the last several months, which she is followed in the wound clinic. Per the transfer note from [facility] from 02/27/18, the more recent dose of Epogen had been 5400 units each treatment. The stool guaiac has recently been obtained but results are not available. She is unaware of any prior anemia before developing the renal failure and having the paraplegia developed. There are no old hemoglobin values in the [facility] system. Most recent CBC on 02/28/18 with a white count of 7000, H and H of 23/7.5, platelet count 266,000 with a normal differential. PAST MEDICAL HISTORY: 1. Otherwise significant for polycystic kidney disease with the above complication noted in November 2017. 2. End-stage renal disease, on dialysis 3 times per week. 3. Hematuria. 4. Coronary artery disease. 5. GERD. 6. Hypertension. 7. Peripheral vascular disease. MEDICATIONS AT THE TIME OF ADMISSION: Included: 1. Aspirin. 2. Lipitor. 3. Bisoprolol. 4. Dronabinol. 5. Remeron. 6. Oxycodone. 7. Omeprazole. ALLERGIES: CLONIDINE, CIPRO, PENTOXIFYLLINE, SIMVASTATIN, CODEINE, and METRONIDAZOLE. FAMILY HISTORY: Includes that of polycystic kidney disease. There is no family history of any anemia or malignancy that she is aware of. SOCIAL HISTORY: Nonsmoker, nondrinker. Previously lives in a trailer. Currently living at [facility]. is still in the area. REVIEW OF SYSTEMS: Denies any recent fever, sweats, chills, cough, or other signs of systemic infection. Denies any significant shortness of breath, chest pain, or palpitations. Denies any major pain outside of the back. Review of systems otherwise negative on complete review. PHYSICAL EXAM: A 62-year-old female lying comfortably in bed. Vital Signs: Stable except for slightly low BP of 93/50. HEENT: PERRL. EOMI. No erythema or exudate. No palpable cervical, supraclavicular, or axillary adenopathy. Lungs: Clear. Heart: Regular rate and rhythm without murmurs, rubs, or gallops. Abdomen: Soft, nontender without masses or organomegaly. Extremities : No clubbing, cyanosis, or edema. Patient has little to no movement of the lower extremities. IMPRESSION AND PLAN: A 62-year-old female with paraplegia as a result of a failed embolization procedure. She has been on dialysis since November. She has been receiving Epogen in the past, the dose is as high as 10,000 three times a week, although recently at 5400 units per week and per her report just increased in the last few days associated with this. She has continued to require frequent blood transfusions, having had 10 units since November. I do not see any erythropoietin levels available. Given her chronic elevated creatinine and dialysis with creatinines typically in the 2 to 4 range, it is very possible that this is mostly an issue with anemia of chronic disease/renal failure. She has had a low folic acid level as recently as 01/20/18 and is known to be markedly malnourished, so that could be a nutritional component as well. Iron levels were slightly below normal levels with saturation at 19% on 01/20/18, having been 25% on 12/18/17. Strong recommendation, when one is receiving erythropoietin along with renal failure or dialysis is to maintain adequate iron levels as one needs the adequate substrate of the iron and in this case of the folic acid in order to have the erythropoietin help produce more red cells. The patient will have laboratory studies performed on 03/01/18 to include a reticulocyte count, folic acid, iron, TIBC, ferritin, transferrin, and repeat CBC. If the patient is found to continue to be iron deficient, no matter what her level of ferritin is (ferritin acting as an acute phase reactant ), then iron repletion would be necessary. Given the fact that she has been folic acid deficient in the recent past then unless the folic acid levels are high, it would be reasonable to supplement these as well. She should certainly continue on the erythropoietin along with her dialysis. We need to try to determine the best dose for her but something on the order of 10,000 units might be reasonable, although this would be higher than typically used in renal failure by itself. If in spite of correcting the potential iron deficiency and folic acid deficiency and continuing higher doses of erythropoietin, she continues to still be significantly anemic without improvement, then further workup such as looking for the causes of bone marrow might be required. [id number]/[facility] #: [id number] [facility]
--- NOTE | 2018-03-03 08:53 | RAD ---
INDICATION: Fever. COMPARISON: Comparison is made with a prior study from January 02, 2018. TECHNIQUE: A portable view of the chest was obtained. FINDINGS: Cardiac and mediastinal contours appear to be within normal limits. There is a central venous catheter present entering on the right side. The catheter tip projects over the right atrium. There is a small infiltrate at the left lung base. The right lung appears clear. No pleural effusion is seen. IMPRESSION: SMALL LEFT BASILAR INFILTRATE.
[2018-03-03 09:07] LABS: ABS Basophils 0.1 10^3/ul (0-0.2); ABS Eosinophils 0.1 10^3/ul (0-0.6); ABS Lymphocytes 1.1 10^3/ul (1.0-4.8); ABS Monocytes 0.4 10^3/ul (0-0.8); ABS Neutrophils 6.3 10^3/ul (1.5-7.7); ABS Nucleated RBC 0 10^3/ul; Eosinophil % 1.6 % (0-6); Hematocrit 24 % (35-47); Hemoglobin 7.8 g/dl (12.0-16.0); Lymphocyte % 13.3 % (25-47); Mean Corpuscular HGB Conc 32 g/dl (31-36); Mean Corpuscular Hemoglobin 27 pg (27-31); Mean Corpuscular Volume 85 fL (80-97); Mean Platelet Volume 7.1 um3 (7.4-10.4); Nucleated Red Blood Cells % 0; Platelet Count 297 10^3/ul (150-450); Red Blood Count 2.86 10^6/ul (4.0-5.4); Red Cell Distribution Width 17 % (10.5-15); White Blood Count 7.9 10^3/ul (3.5-10.8)
[2018-03-03] MEDS: Dronabinol CAP* 2.5 MG PO SCH ×2 (09:56→17:45)
[2018-03-03] MEDS: Heparin VIAL(*) 5000 UNITS/ML VIAL (FIVE THOUSAND) SUBCUT SCH ×2 (10:12→20:54)
[2018-03-03 10:47] LABS: EGFR Non-African American 7.8 (>60)
[2018-03-03 11:17] LABS: Urine Appearance Turbid; Urine Blood 2+ (Negative); Urine Color Yellow; Urine Ketones Negative (Negative); Urine Protein 2+(100 mg/dL) (Negative); Urine Specific Gravity 1.023 (1.010-1.030); Urine Urobilinogen Negative (Negative)
[2018-03-03] MEDS: Aspirin EC TAB* 81 MG TAB.EC PO SCH (12:26)
[2018-03-03] MEDS: Bisoprolol TAB* 5 MG PO SCH (12:26)
[2018-03-03] MEDS: Multivitamins/Minerals TAB PO SCH (12:26)
[2018-03-03] MEDS: Omeprazole CAP* 20 MG PO SCH (12:27)
[2018-03-03 12:59] LABS: INR 1.18 (0.77-1.02)
--- NOTE | 2018-03-03 14:42 | PN ---
Subjective Date of Service: 03/03/18 Interval History: HOSPITALIST PROGRESS NOTE Patient seen and examined at bedside. She offers no complaints at this time. Denies pain, N/V. Family History: Unchanged from Admission Social History: Unchanged from Admission Past Medical History: Unchanged from Admission Objective Active Medications: Acetaminophen (Tylenol Tab*) 650 mg PO Q4H PRN PRN Reason: TEMP EQUAL OR GREATER 101 F Last Admin: 03/02/18 08:28 Dose: 650 mg Aspirin (Aspirin Ec Tab*) 81 mg PO DAILY [facility] Last Admin: 03/03/18 12:26 Dose: 81 mg Atorvastatin Calcium (Lipitor*) 20 mg PO QPM [facility] Last Admin: 03/02/18 16:53 Dose: 20 mg Bisacodyl (Dulcolax Supp*) 10 mg OK DAILY PRN PRN Reason: CONSTIPATION Bisoprolol Fumarate (Zebeta Tab*) 2.5 mg PO DAILY [facility] Last Admin: 03/03/18 12:26 Dose: 2.5 mg Doxycycline Hyclate (Vibramycin Cap(*)) 100 mg PO BID [facility] Dronabinol (Marinol Cap*) 2.5 mg PO 0800,1700 [facility] Last Admin: 03/03/18 09:56 Dose: Not Given Heparin Sodium (Porcine) (Heparin Vial(*)) 5,000 units SUBCUT Q12HR [facility] Last Admin: 03/03/18 10:12 Dose: 5,000 units Multivitamins/Minerals (Theragran/Minerals Tab*) 1 tab PO DAILY [facility] Last Admin: 03/03/18 12:26 Dose: 1 tab Omeprazole (Prilosec Cap*) 20 mg PO QAM [facility] Last Admin: 03/03/18 12:27 Dose: 20 mg Ondansetron HCl (Zofran Tab*) 4 mg PO BID PRN PRN Reason: NAUSEA Oxycodone HCl (Roxycodone Tab*) 5 mg PO TID PRN PRN Reason: PAIN Vital Signs - 8 hr 03/03/18 03/03/18 07:39 08:36 Temperature 99.6 F Pulse Rate 96 Respiratory 14 16 Rate Blood Pressure 138/62 (mmHg) O2 Sat by Pulse 99 Oximetry Oxygen Devices in Use Now: None Appearance: Pleasant lady lying in bed in NAD. Eyes: No Scleral Icterus Ears/Nose/Mouth/Throat: Mucous Membranes Moist Neck: Trachea Midline Respiratory: Symmetrical Chest Expansion and Respiratory Effort, Clear to Auscultation Cardiovascular: RRR - Normal S1 and S2 Neurological: Alert and Oriented x 3 Result Diagrams: 03/03/18 08:39 03/03/18 08:39 Assess/Plan/Problems-Billing Assessment: Mrs. Ortiz is a 62yo F with PMH of polycystic kidney disease, ESRD on HD, CAD, GERD, HTN, PVD, paraplegia secondary to spinal cord infarct after renal embolization, who presented from [facility] with sacral decubitus/ osteomyelitis and significant anemia. - Patient Problems (1) Decubital ulcer Comment: - All cultures so far are negative. - D/w Dr. Osman who recommended discontinuation of Cefepime and Linezolid and start doxycycline. There is concern she would be at risk for serotonin syndrome with the combination of ESRD, Remeron, and Linezolid. (2) Anemia Comment: - Multifactorial - hematology consult appreciated. - Ferritin elevated, compatible with anemia of chronic disease. Awaiting erythropoietin level. (3) End stage renal disease on dialysis Comment: - HD catheter appears to be occluded - for IR procedure in AM. - Kayexalate 15gm today and plan for HD tomorrow after catheter working again. (4) Coronary artery disease Comment: - Stable. - Continue Aspirin and statin. (5) T10 spinal cord injury Comment: - Due to embolization procedure. - Return to STR when appropriate. (6) Neurogenic bladder Comment: - Straight cath. (7) DVT prophylaxis Comment: - SQ heparin. (8) Full code status Status and Disposition: Inpatient.
[2018-03-03] MEDS ORDERED: Sodium Polystyrene ORAL.SOL* 15 GM/60 ML BTL PO ONE (14:48)
--- NOTE | 2018-03-03 15:35 | RAD ---
Indication: Inability to draw back blood from the arterial limb of the hemodialysis catheter History: Chest x-ray dated March 03, 2018 Anaesthesia: None Antibiotic prophylaxis: None Fluoroscopy time: 7 seconds Procedure note and findings: The risks and benefits of the procedure were carefully explained to the patient and informed consent was obtained. The patient was appropriately positioned on the fluoroscopy and a formal time out was performed. The hemodialysis catheter and surrounding site was prepped and draped in standard sterile fashion. Sterile precautions including cap, mask, gown and sterile gloves were utilized. Contrast was injected into the longer of the 2 limbs of the hemodialysis catheter and contrast is seen filling the cavoatrial junction and pulmonary arteries. Contrast was injected into the shorter of the hemodialysis limbs which appear to fill the dependent SVC rapidly and continuing into the pulmonary arteries. IMPRESSION: Contrast study of each limb of the hemodialysis catheter does not reveal any severe fibrin sheath formation or filling defect in the lower SVC and right heart.
[2018-03-03] MEDS: Atorvastatin* 20 MG TAB PO SCH (17:45)
[2018-03-03] MEDS: DOXYcycline CAP(*) 100 MG PO SCH (20:54)
[2018-03-04] MEDS: Heparin VIAL(*) 5000 UNITS/ML VIAL (FIVE THOUSAND) SUBCUT SCH ×2 (08:22→20:54)
[2018-03-04] MEDS ORDERED: fentaNYL* 50 MCG/ML 2 ML VIAL (100 MCG VIAL) ONE (09:20)
[2018-03-04] MEDS ORDERED: Midazolam* 1 MG/ML 10 ML VIAL (10 MG) ONE (09:20)
[2018-03-04] MEDS ORDERED: Epoetin Alfa* 10,000 UNITS/ML VIAL SUBCUT ONE (13:00)
[2018-03-04] MEDS ORDERED: Iron Sucrose* 20 MG/ML 5 ML VIAL IV PUSH ONE (13:00)
[2018-03-04] MEDS ORDERED: Heparin DIALYSIS ONLY(*) 1,000 UNITS/ML VIAL DIALYSIS ONE (13:00)
--- NOTE | 2018-03-04 14:35 | RAD ---
CPT II Codes: G9500 Procedures performed: Exchange over a wire of a right internal jugular vein tunneled hemodialysis catheter with fluoroscopic guidance. Date of service: March 04, 2018 Indication for procedure: Nonfunctioning tunneled hemodialysis catheter in a woman with renal failure. Comparison: Fluoroscopic catheter tube check March 03, 2018 Contrast: 20 mL Omnipaque 300 Fluoroscopy Time: 30 seconds Vessels Accessed: Right internal jugular vein towards the cavoatrial junction. Anesthesia: Conscious sedation with IV Fentanyl and Versed as well as local 1% lidocaine injected locally at the venotomy site. Conscious sedation time: Timeout: 1054 hours Case end: 1129 hours Total conscious sedation time: 35 minutes Additional medications: Ancef 1 gram IV. Heparin 100 units per mL injected into each catheter lumen according to plate and frame filter operator's recommendation. Procedure narration and imaging findings: In the holding area prior to entering the angiography suite, the risks, benefits and alternative therapies of the procedure were discussed with the patient and informed consent was obtained. The patient was placed in the supine position in the fluoroscopy suite and the neck, upper chest and existing tunneled hemodialysis catheter were prepped and draped according to standard sterile protocol. A formal time out was performed by Dr. Glover in the presence of the IR staff and all agreed on the patient, procedure and laterality. The skin surrounding the existing tunneled dialysis catheter and upper chest was anesthetized with 1% lidocaine. Using sharp and blunt dissection the existing hemodialysis catheter cough was freed from the subcutaneous skin and tail the catheter could freely be moved back and forth in the tunnel and at the venotomy site. Under fluoroscopic control a wire was advanced into the existing catheter and advanced into the inferior vena cava. With the wire securing access through the tunnel and at the venotomy site, the old hemodialysis catheter was removed in its entirety. Over the wire a new [place], 23 cm length Bard HemoSplit dialysis catheter was advanced until the distal tip was located in the right atrium. Approximately 10 mL of contrast was injected into each lumen of the catheter confirming patency of the lower SVC and right atrium. Injection into both lumens demonstrated contrast promptly filling the pulmonary arterial system. Each lumen of the catheter was tested for adequate blood flow, flushed with sterile saline and finally filled with an appropriate volume of 100 units/mL of Heparin according to the device specifications. A fluoroscopic image was saved demonstrating appropriate position of the entire length of the hemodialysis catheter. A "purse string" suture was tied around the upper chest catheter exit site with non-absorbable suture. The catheter was secured to the skin with additional non-absorbable sutures. The catheter exit site were dressed with sterile gauze and Tegaderm. The patient tolerated the procedure well and left the fluoroscopy suite in stable condition to return to her inpatient room. SUMMARY OF PROCEDURE, IMAGING FINDINGS AND INTERVENTIONS PERFORMED: 1. Diagnostic studies performed: * Contrast venography was performed through each lumen of the tunneled dialysis catheter located in the SVC and right atrium respectively. 2. Interpretation of diagnostic studies performed: * Venography demonstrated adequately patent SVC with a rapid filling of contrast into the pulmonary arterial system. 3. Surgical interventions performed: * Exchange of an existing tunneled hemodialysis catheter over a wire for a new [place], 23 cm Bard HemoSplit tunneled dialysis catheter. 4. Interpretation of interventions performed: * Final fluoroscopic images as well as catheter venography demonstrate the new hemodialysis catheter to be in appropriate position with the catheter tips at the cavoatrial junction and right atrium, respectively. PLAN: 1. The hemodialysis catheter may be accessed immediately for hemodialysis. 2. The "pursestring" suture tied around the catheter exit site should be removed 5-7 days post procedure. If this cannot be done at the hemodialysis center please refer the patient back to Interventional Radiology for suture removal.
[2018-03-04] MEDS: Dronabinol CAP* 2.5 MG PO SCH ×2 (14:58→16:40)
[2018-03-04] MEDS: Omeprazole CAP* 20 MG PO SCH (14:59)
[2018-03-04] MEDS: DOXYcycline CAP(*) 100 MG PO SCH ×2 (16:40→20:47)
[2018-03-04] MEDS: Bisoprolol TAB* 5 MG PO SCH (16:40)
[2018-03-04] MEDS: Aspirin EC TAB* 81 MG TAB.EC PO SCH (16:40)
[2018-03-04] MEDS: Multivitamins/Minerals TAB PO SCH (16:40)
[2018-03-04] MEDS: Atorvastatin* 20 MG TAB PO SCH (18:25)
[2018-03-04] MEDS ORDERED: Ondansetron ODT TAB* 4 MG SL PRN (18:56)
--- NOTE | 2018-03-04 20:23 | PN ---
Subjective Date of Service: 03/04/18 Interval History: No overnight events. She feels okay today, no specific complaints but just wants to get back to [place]. She has no pain, has been afebrile, and her permcath was exchanged this morning, after which she underwent dialysis through the new catheter. Family History: Unchanged from Admission Social History: Unchanged from Admission Past Medical History: Unchanged from Admission Objective Active Medications: Acetaminophen (Tylenol Tab*) 650 mg PO Q4H PRN PRN Reason: TEMP EQUAL OR GREATER 101 F Last Admin: 03/02/18 08:28 Dose: 650 mg Aspirin (Aspirin Ec Tab*) 81 mg PO DAILY [facility] Last Admin: 03/04/18 16:40 Dose: 81 mg Atorvastatin Calcium (Lipitor*) 20 mg PO QPM [facility] Last Admin: 03/04/18 18:25 Dose: 20 mg Bisacodyl (Dulcolax Supp*) 10 mg IN DAILY PRN PRN Reason: CONSTIPATION Bisoprolol Fumarate (Zebeta Tab*) 2.5 mg PO DAILY [facility] Last Admin: 03/04/18 16:40 Dose: 2.5 mg Doxycycline Hyclate (Vibramycin Cap(*)) 100 mg PO BID [facility] Last Admin: 03/04/18 16:40 Dose: 100 mg Dronabinol (Marinol Cap*) 2.5 mg PO 0800,1700 [facility] Last Admin: 03/04/18 16:40 Dose: 2.5 mg Heparin Sodium (Porcine) (Heparin Vial(*)) 5,000 units SUBCUT Q12HR [facility] Last Admin: 03/04/18 08:22 Dose: Not Given Multivitamins/Minerals (Theragran/Minerals Tab*) 1 tab PO DAILY [facility] Last Admin: 03/04/18 16:40 Dose: 1 tab Omeprazole (Prilosec Cap*) 20 mg PO QAM [facility] Last Admin: 03/04/18 14:59 Dose: Not Given Ondansetron HCl (Zofran Odt Tab*) 4 mg SL Q6H PRN PRN Reason: NAUSEA/VOMITING Last Admin: 03/04/18 19:07 Dose: 4 mg Oxycodone HCl (Roxycodone Tab*) 5 mg PO TID PRN PRN Reason: PAIN Vital Signs - 8 hr 03/04/18 03/04/18 03/04/18 16:40 18:28 19:30 Pulse Rate 103 Respiratory 18 16 20 Rate Blood Pressure 117/65 (mmHg) O2 Sat by Pulse 96 Oximetry 03/04/18 19:58 Pulse Rate Respiratory 18 Rate Blood Pressure (mmHg) O2 Sat by Pulse Oximetry Oxygen Devices in Use Now: None Appearance: thin woman in no distress Eyes: No Scleral Icterus, PERRLA Ears/Nose/Mouth/Throat: NL Teeth, Lips, Gums Neck: NL Appearance and Movements; NL JVP Respiratory: Symmetrical Chest Expansion and Respiratory Effort, Clear to Auscultation Cardiovascular: NL Sounds; No Murmurs; No JVD, RRR Abdominal: NL Sounds; No Tenderness; No Distention Lymphatic: No Cervical Adenopathy Extremities: - Skin: - - wound vac in place over sacrum Neurological: - - her right leg has 1+ strength, left leg has 0+. she has sensation to light touch. Result Diagrams: 03/03/18 08:39 03/03/18 08:39 Microbiology and Other Data: Microbiology 03/01/18 00:10 Stool Gross Appearance - Final Stool C. difficile DNA Amplification - Final 027 Presumptive NEGATIVE Toxigenic C.diff NEGATIVE 02/27/18 17:43 Aerobic Blood Culture - Preliminary Blood Venous No Growth Day 1 Anaerobic Blood Culture - Preliminary No Growth Day 1 02/27/18 17:43 Aerobic Blood Culture - Preliminary Blood Venous No Growth Day 1 Anaerobic Blood Culture - Preliminary No Growth Day 1 Assess/Plan/Problems-Billing Assessment: Mrs. Ortiz is a 62yo F with history of ADPCKD, ESRD on HD, CAD, GERD, HTN, PVD , paraplegia due to spinal cord infarct after renal embolization, who presented as a transfer from [facility] with asacral decubitus ulcer and chronic osteomyelitis and anemia. - Patient Problems (1) Anemia Current Visit: Yes Status: Acute Code(s): D64.9 - ANEMIA, UNSPECIFIED SNOMED Code(s): 517411016 Comment: thought to be related to esrd, ckd, and also poor nutritional status epo level is pending, spep is pending stable and no evidence of bleeding (2) Coronary artery disease Current Visit: Yes Status: Acute Code(s): I25.10 - ATHSCL HEART DISEASE OF [place] CORONARY ARTERY W/O ANG PCTRS SNOMED Code(s): 45903025 Comment: ASA/statin (3) End stage renal disease on dialysis Current Visit: Yes Status: Acute Code(s): N18.6 - END STAGE RENAL DISEASE; Z99.2 - DEPENDENCE ON RENAL DIALYSIS SNOMED Code(s): 901239238 Comment: s/p permcath exchange this morning T//S hd euvolemic, lytes acceptable (4) Neurogenic bladder Current Visit: Yes Status: Acute Code(s): N31.9 - NEUROMUSCULAR DYSFUNCTION OF BLADDER, UNSPECIFIED SNOMED Code(s): 785377888 Comment: daily straight cath (5) T10 spinal cord injury Current Visit: Yes Status: Acute Code(s): S24.103A - UNSP INJURY AT T7-T10 LEVEL OF THORACIC SPINAL CORD, INIT SNOMED Code(s): 84294543 Comment: plan to return to [place] [facility] Status and Disposition: Inpatient.
[2018-03-05 08:14] LABS: ABS Basophils 0.1 10^3/ul (0-0.2); ABS Eosinophils 0.1 10^3/ul (0-0.6); ABS Lymphocytes 1.1 10^3/ul (1.0-4.8); ABS Monocytes 0.4 10^3/ul (0-0.8); ABS Neutrophils 6.7 10^3/ul (1.5-7.7); ABS Nucleated RBC 0 10^3/ul; Eosinophil % 1.4 % (0-6); Hematocrit 24 % (35-47); Hemoglobin 7.5 g/dl (12.0-16.0); Lymphocyte % 12.9 % (25-47); Mean Corpuscular HGB Conc 32 g/dl (31-36); Mean Corpuscular Hemoglobin 27 pg (27-31); Mean Corpuscular Volume 84 fL (80-97); Mean Platelet Volume 6.9 um3 (7.4-10.4); Nucleated Red Blood Cells % 0; Platelet Count 335 10^3/ul (150-450); Red Blood Count 2.83 10^6/ul (4.0-5.4); Red Cell Distribution Width 16 % (10.5-15); White Blood Count 8.4 10^3/ul (3.5-10.8)
[2018-03-05 08:31] LABS: EGFR Non-African American 13.3 (>60)
[2018-03-05] MEDS: Dronabinol CAP* 2.5 MG PO SCH (09:26)
[2018-03-05] MEDS: Multivitamins/Minerals TAB PO SCH (09:26)
[2018-03-05] MEDS: Aspirin EC TAB* 81 MG TAB.EC PO SCH (09:26)
[2018-03-05] MEDS: Omeprazole CAP* 20 MG PO SCH (09:26)
[2018-03-05] MEDS: DOXYcycline CAP(*) 100 MG PO SCH (09:26)
[2018-03-05] MEDS: Bisoprolol TAB* 5 MG PO SCH (09:27)
[2018-03-05] MEDS: Heparin VIAL(*) 5000 UNITS/ML VIAL (FIVE THOUSAND) SUBCUT SCH (09:28)
--- NOTE | 2018-03-05 11:59 | DS ---
CC: Dr. Barron; Dr. Garcia* DISCHARGE SUMMARY: DATE OF ADMISSION: 02/27/18 DATE OF DISCHARGE: 03/05/18 PRINCIPAL DISCHARGE DIAGNOSES: 1. Sacral decubitus ulcer. 2. Chronic osteomyelitis. 3. Anemia of chronic disease. 4. Iron deficiency anemia. 5. End-stage renal disease. 6. T10 paraplegia. HOSPITAL COURSE BY PROBLEMS: 1. Sacral decubitus ulcer/chronic osteomyelitis. Ms. Ortiz was transferred to [facility] from [facility] for surgical and ID evaluation of her decubitus ulcer, which has had a wound VAC in place. She had been started on Keflex at [facility] due to corynebacterium from a recent culture at the wound clinic. At admission, there was no evidence of infection and she was evaluated by Surgery, who recommended continuing wound VAC and aggressive wound care, but no surgical indication. She was also evaluated by Dr. Garcia, who agreed with the diagnosis of chronic osteomyelitis due to the exposed bone as well as a recent bone biopsy, which confirmed chronic osteomyelitis. He agreed that there was no acute infectious component and recommended doxycycline 100 mg twice a day for 6 to 8 weeks. She was started on this during this admission. She should be continued on doxycycline b.i.d. for 6 to 8 weeks and followup should be arranged with Dr. Garcia. The wound VAC should be continued per Dr. Guerrero in the wound clinic at [facility]. Please note that the doxycycline that she is prescribed should not be taken within 2 hours of the ferrous sulfate/vitamin C combination she was also prescribed. 2. Normocytic anemia. A Hematology consult was also obtained while she was here and her anemia was worked up with iron, TIBC, percent sat, and ferritin levels. Based on these findings, her anemia was thought to be multifactorial. Her labs indicate an iron deficiency anemia as well as an anemia of chronic disease and in addition, she also has a folic acid deficiency. Hematology recommendations were to increase her Epogen dose to 10,000 units 3 times weekly with dialysis from 5600 units 3 times weekly. They also recommended supplementing with p.o. folic acid as well as p.o. ferrous sulfate that can be taken with vitamin C to help absorption. 3. Paraplegia at the T10 level. This was related to a failed renal artery embolization done at an outside hospital. She was at baseline from this standpoint. 4. End-stage renal disease. She is on a Saturday, , Saturday schedule. She most recently received dialysis on 03/04/18. On the day of discharge, her potassium was 3.8. She is euvolemic and she should return to her usual dialysis schedule tomorrow, 03/06/18. 5. Malfunctioning PermCath. Her right chest wall PermCath was noted not to be working during this admission, so it was exchanged by the Interventional Radiology on 03/04/18. She received dialysis successfully on 03/04/18 through the new catheter in the right chest wall. DISPOSITION: Ms. Ortiz is being discharged back to [facility] on 03/05/18. Her new medications include an increased dose of erythropoietin, folic acid, ferrous sulfate, vitamin C, and doxycycline. If PPN is intended to be started as she indicates, it would be appropriate for the folic acid and the ferrous sulfate to be added to the PPN. PHYSICAL EXAMINATION AT THE TIME OF DISCHARGE: Temperature 99.1, heart rate 97 , respiratory rate 14, blood pressure 112/62. General: Alert female, in no distress. She is nontoxic appearing, requesting to go home. HEENT: Pupils equal, round, and reactive to light. No nystagmus. Moist oral mucosa. No pharyngeal exudates or erythema. Neck: No cervical lymphadenopathy. No JVD. Chest: PermCath is present on the right chest wall without surrounding drainage or erythema. She is in a regular rate and rhythm with no murmurs. Her PMI is nondisplaced. Her lungs are clear bilaterally. No rhonchi or wheezes. Abdomen : Soft, nontender, and nondistended. No guarding or rigidity. A wound VAC is present over the upper sacrum. She has no surrounding cellulitis. The wound VAC is draining thick fluid. Extremities: No edema. She does have a 1-cm scab on her right heel. Her upper extremity strength is 5/5 bilaterally. Her lower extremity strength is 0/5 in the right lower extremity and 1/5 in the left lower extremity. Sensation to light touch is intact. DISCHARGE MEDICATIONS: 1. Dulcolax suppository p.r.n. 2. Atorvastatin 20 mg q.h.s. 3. Aspirin 81 mg daily. 4. Bisoprolol 2.5 mg daily. 5. Tylenol 650 mg q.4 p.r.n. pain. 6. Oxycodone 5 mg t.i.d. p.r.n. pain. 7. Senna 2 tabs q.h.s. 8. Mirtazapine 15 mg q.h.s. 9. Zofran 4 mg b.i.d. p.r.n. nausea. 10. Dronabinol 2.5 mg daily. 11. Saccharomyces 250 mg daily. 12. Gabapentin 100 mg b.i.d. p.r.n. neuropathy. 13. Vitamin C 500 mg daily to be taken with ferrous sulfate. 14. Doxycycline 100 mg b.i.d. This should not be taken within 2 hours of the ferrous sulfate/ascorbic acid combination. 15. Ferrous sulfate 325 mg daily. 16. Folic acid 1 mg daily. 17. Epogen 10,000 units 3 times weekly with dialysis. [id number]/[facility] #: [id number] MTDD
[2018-03-05 12:02] VITALS: BP 117/58
[2018-03-06] MEDS ORDERED: Ferrous Sulfate TAB* 325 MG PO SCH (09:00)
[2018-03-06] MEDS ORDERED: Folic Acid TAB* 1 MG PO SCH (09:00)
[2018-03-06] MEDS ORDERED: Ascorbic Acid TAB* 500 MG PO SCH (09:00)
== END 2018-03-05 13:10 | DRG 539 ==
LOC: MED 15:25
PROVIDERS: ADMIT Internal Medicine; ATTEND Internal Medicine
PROC: 0J2SXYZ Change Other Device in Head and Neck Subcutaneous Tissue and Fascia, External Approach (ICD-10-PCS; principal; 2018-03-04)
PROC: 5A1D70Z Performance of Urinary Filtration, Intermittent, Less than 6 Hours Per Day (ICD-10-PCS; 2018-03-04)
DX: M86.68 Other chronic osteomyelitis, other site (principal); S24.103A Unspecified injury at T7-T10 level of thoracic spinal cord, initial encounter; N18.6 End stage renal disease; G82.20 Paraplegia, unspecified; Q61.3 Polycystic kidney, unspecified; I12.0 Hypertensive chronic kidney disease with stage 5 chronic kidney disease or end stage renal disease; T82.41XA Breakdown (mechanical) of vascular dialysis catheter, initial encounter; L89.159 Pressure ulcer of sacral region, unspecified stage; I25.10 Atherosclerotic heart disease of native coronary artery without angina pectoris; I73.9 Peripheral vascular disease, unspecified; K21.9 Gastro-esophageal reflux disease without esophagitis; D63.1 Anemia in chronic kidney disease; X58.XXXA Exposure to other specified factors, initial encounter; N31.9 Neuromuscular dysfunction of bladder, unspecified; D50.9 Iron deficiency anemia, unspecified; Y73.1 Therapeutic (nonsurgical) and rehabilitative gastroenterology and urology devices associated with adverse incidents; Y92.239 Unspecified place in hospital as the place of occurrence of the external cause; Y92.9 Unspecified place or not applicable; Z99.2 Dependence on renal dialysis; Z88.1 Allergy status to other antibiotic agents; Z88.5 Allergy status to narcotic agent; Z88.8 Allergy status to other drugs, medicaments and biological substances; Z84.1 Family history of disorders of kidney and ureter; Z79.82 Long term (current) use of aspirin
CPT/HCPCS: 36415; 36581; 36598; 71045; 77001; 80048; 80053; 81003; 81015; 82668; 82728; 82746; 83540; 83550; 83615; 84100; 84134; 84238; 85025; 85045; 85610; 85730; 86140; 87040; 87071; 87086; 87493; 90935; 99156; 99157; 99223; 99232; A9270-GY; C1769; G0257; J0692; J0885; J1642; J1644; J1756; J2250; J3010; Q9965; Q9967

== ENCOUNTER 2018-03-11 12:12 | Inpatient (IN) | payer MEDICARE ==
[2018-03-11 14:39] LABS: ABS Basophils 0.1 10^3/ul (0-0.2); ABS Eosinophils 0.1 10^3/ul (0-0.6); ABS Lymphocytes 1.5 10^3/ul (1.0-4.8); ABS Monocytes 0.7 10^3/ul (0-0.8); ABS Neutrophils 11.7 10^3/ul (1.5-7.7); ABS Nucleated RBC 0 10^3/ul; Eosinophil % 0.6 % (0-6); Hematocrit 27 % (35-47); Hemoglobin 8.1 g/dl (12.0-16.0); Lymphocyte % 10.8 % (25-47); Mean Corpuscular HGB Conc 30 g/dl (31-36); Mean Corpuscular Hemoglobin 26 pg (27-31); Mean Corpuscular Volume 87 fL (80-97); Mean Platelet Volume 6.8 um3 (7.4-10.4); Nucleated Red Blood Cells % 0; Platelet Count 452 10^3/ul (150-450); Red Blood Count 3.08 10^6/ul (4.0-5.4); Red Cell Distribution Width 18 % (10.5-15); White Blood Count 14.2 10^3/ul (3.5-10.8)
[2018-03-11 14:45] LABS: EGFR Non-African American 9.3 (>60)
[2018-03-11] MEDS ORDERED: Magnesium Sulfate 2 GM IV* 2 GM/50 ML BAG IVPB ONE (15:18)
[2018-03-11] MEDS ORDERED: Bisacodyl SUPP* 10 MG SUPP PR PRN (15:28)
[2018-03-11] MEDS ORDERED: oxyCODONE TAB* 5 MG TAB PO PRN (15:28)
--- NOTE | 2018-03-11 15:42 | RAD ---
HISTORY: Hypoxic respiratory failure COMPARISONS: March 03, 2018 VIEWS: 1: frontal portable view of the chest at 3:26 PM FINDINGS: LINES AND TUBES: A dual lumen central venous catheter is noted from a right internal jugular vein approach with the tip overlying the cavoatrial junction. CARDIOMEDIASTINAL SILHOUETTE: The cardiomediastinal silhouette is normal for portable technique. PLEURA: The costophrenic angles are sharp. No pleural abnormalities are noted. LUNG PARENCHYMA: The lungs are clear. ABDOMEN: The upper abdomen is clear. There is no subphrenic gas. BONES AND SOFT TISSUES: No bone or soft tissue abnormalities are noted. IMPRESSION: LINES AND TUBES ABOVE. NO ACTIVE CARDIOPULMONARY DISEASE.
[2018-03-11] MEDS ORDERED: Metoprolol Tartrate TAB* 25 MG PO SCH (16:00)
[2018-03-11] MEDS ORDERED: Aspirin EC TAB* 81 MG TAB.EC PO SCH (16:00)
[2018-03-11] MEDS: Aspirin 81 mg CHEW TAB* 81 MG TAB.CHEW PO SCH (16:37)
[2018-03-11] MEDS: Multivitamins/Minerals TAB PO SCH (16:37)
[2018-03-11] MEDS: Atorvastatin* 80 MG TAB PO SCH ×2 (16:37→16:56)
--- NOTE | 2018-03-11 19:16 | HP ---
HISTORY AND PHYSICAL: DATE OF ADMISSION: 03/11/18 ADMITTING PROVIDER: Lawson Vaughan MD PRIMARY CARE PROVIDER: Ramon Martinez MD OUTPATIENT SOFTWARE BUILD ENGINEER: Frederick Pizano MD CHIEF COMPLAINT: Shortness of breath, hypoxic respiratory failure, elevated troponins, transferred from [facility]. HISTORY OF PRESENT ILLNESS: Evelyn Ortiz is a 62-year-old female with a complex past medical history most significant for infarction of the artery of Adamkiewicz and a T10 paraplegia in attempt to embolize polycystic kidney disease which is now end-stage renal disease, has iron deficiency anemia, sacral decubitus ulcer stage 4, being treated with doxycycline for chronic osteomyelitis. She reports history of CAD with 99% occlusion to her "main artery" approximately 8 years ago. At that time, she had been using nitroglycerin frequently but not since. She has been recently discharged to [facility] with a wound VAC, getting dialysis Saturday, , Saturday. She was in a normal state of health on the day prior to admission, but woke up and was very short of breath, was noted to be satting 77% on room air. She initially had blood pressures of 103 systolic. They tried to take her for dialysis with suspicion of maybe volume overload contributing to her hypoxia; however, her systolic were 80s/[address] time [address] Jean was not comfortable dialyzing her and referred her to [facility] for further medical evaluation. She reports that upon waking and during this hypoxia episode, she had chest pressure 9/10 and troponin checked at [facility] was initially 0.20. Because they were not able to do any inpatient hemodialysis, which it was felt like she may need, she was referred for transfer to [facility] for further stabilization and cardiac workup. She attests now that her chest pressure resolved in the morning (after supplemental oxygen)and was most significantly associated with her hypoxia. She denies getting any aspirin at [facility] or at the half-way. Her initial EKG there showed T waves flat V4 and V5, T wave inversion at V3. initial EKG showed some mild t wave inversions in V1 at [facility], Repeat EKG on transfer shows more distinct T wave inversions and in V1 through V3, still flat at V4. Repeat troponin here was 0.46. She continues to be chest pain- free. She is satting high 90s on [address] Serrato of Nephrology was consulted prior to the patient's arrival and likely plans to dialyze the patient tomorrow given non- urgency. She does have elevated white count of 14.2. She has been treated with doxycylcine 100 mg b.i.d. for the chronic osteomyelitis, recently discharged on 03/05/18 after admission on 02/27/18 for concern of possible surgical management of the sacral decubitus (which was not ultimately needed) and at that time had evaluation by Dr. Dionicio Garcia who planned a course of doxy for 6 to 8 weeks. No bleeding. The wound VAC was removed prior to transfer from [facility] as it was a rental. Her right chest wall Perm-A-Cath was malfunctioning during prior admission and was exchanged on 03/04/18. She currently denies any chest pain, chest pressure, headache, shortness of breath. She has no sensation below her umbilicus. PAST MEDICAL HISTORY: 1. Polycystic kidney disease. 2. T10 paraplegia after accidental embolization of the artery of Adamkiewicz during attempted ablation procedure. 3. End-stage renal disease. 4. Coronary artery disease. 5. GERD. 6. Hypertension. 7. Peripheral vascular disease. 8. Chronic osteomyelitis. 9. Anterior cord syndrome. 10. Nausea, greatly improved since admission early 2017 with Marinol. MEDICATIONS: NOT completely confirmed through [facility] yet, but I believe they include: 1. Aspirin 81 mg daily. 2. Roxicodone 5 mg p.o. t.i.d. p.r.n. 3. Zofran 4 mg p.o. b.i.d. p.r.n. 4. Theragen 1 tab p.o. daily. 5. Remeron 15 mg p.o. q.h.s. 6. Lidocaine 2.5%. 7. Prilocaine 2.5% topical Saturday, , Saturday. 8. Hydrocortisone suppository 25 mg per rectum b.i.d. 9. Gabapentin 100 mg p.o. b.i.d. p.r.n. 10. Folic acid 1 mg p.o. daily. 11. Ascorbic acid 500 mg p.o. daily. 12. Acetaminophen 650 mg p.o. q.4 hours p.r.n. 13. Ferrous sulfate 325 mg p.o. daily. 14. Marinol 2.5 mg p.o. daily. 15. Bisoprolol 2.5 mg daily. 16. Bisacodyl, Dulcolax suppository 10 mg per rectum daily. 17. Atorvastatin 20 mg p.o. q.p.m. 18. Doxycycline 100 mg p.o. b.i.d. for a 6 to 8 week course. 19. Senna 2 tabs p.o. at bedtime (could not be confirmed). 20. Epogen 10,000 units IV every other day with dialysis. ALLERGIES: Include CLONIDINE, severe angioedema; CIPRO, GI upset; SIMVASTATIN, unknown; ADHESIVE TAPE, rash; CODEINE, GI upset; FLAGYL, GI upset; PENTOXIFYLLINE unknown. SOCIAL HISTORY: The patient is a former smoker. Nondrinker. Medical surrogate is her , Juju Ortiz. She desires to be a full code. No illicit drug use. FAMILY HISTORY: Both father and sister with lung and brain cancer. Another sister with [employer] cancer. REVIEW OF SYSTEMS: Complete 14-point review of systems is negative, except as per HPI. PHYSICAL EXAMINATION GENERAL: The patient is in no acute distress, lying in the hospital bed. VITAL SIGNS: Temperature 97.4, pulse rate 107, respiratory rate 16, satting 100 % on 2 L, blood pressure 100/68. HEENT: Normocephalic, atraumatic. Pupils are equal, round, and reactive to light. Extraocular motions are intact. No scleral icterus. NECK: Supple. No cervical lymphadenopathy. LUNGS: Clear to auscultation. No wheezing, rales, or rhonchi. CARDIOVASCULAR: Regular, tachycardic. No murmurs, rubs, or gallops. ABDOMEN: Soft, nontender, nondistended. EXTREMITIES: 1+ edema bilaterally. BACK: With a sacral decubitus with exposed bone, no malodor or drainage or surrounding erythema, approximately 6 cm in diameter. DIAGNOSTIC STUDIES/LABORATORY DATA: Labs: White blood cells 14.2, hemoglobin 8.1, hematocrit 27, RDW 18, platelets 452, neutrophils 82.4%. Sodium 140, potassium 4.3, chloride 102, carbon dioxide 25, BUN 40, creatinine 4.78, glucose 131. Magnesium 1.7. Troponin 0.46, up from 0.226. Albumin 2.0. Imaging: Chest x-ray demonstrated no active cardiopulmonary disease. EKG as mentioned in the HPI. ASSESSMENT AND PLAN: Evelyn Ortiz is a 62-year-old female with a complex past medical history significant for T10 paraplegia, end-stage renal disease, remote coronary artery disease, presenting with non-ST elevation myocardial infarction , hypoxic respiratory failure. Trend troponins every 3 hours until peak. She apparently did not get any aspirin at the half-way or with [facility]; giving her 324 mg now. I am increasing her atorvastatin to 80 mg, it will be given now (takes 20 at home). She is completely chest pain free. I suspect she has a degree of demand ischemia from hypoxic respiratory failure. Given her severe anemia, iron deficiency and likely chronic disease from renal failure with hemoglobin now 8.1, I am going to hold off on a heparin drip or therapeutic anticoagulation for now. I ordered a transthoracic echocardiogram to look for any wall motion abnormalities. We do not have prior echocardiograms in our system. She meets systemic inflammatory response syndrome criteria with elevated pulse of 107, leukocytosis 14.2. I am awaiting a lactic acidosis. She has this chronic osteomyelitis, we will continue the doxycycline for now, it does not look infected. I will add blood cultures. She does have an indwelling catheter that was exchanged, Perm-A-Cath was exchanged on 03/04/18. For her hypoxic respiratory failure, it seems more stable than initially. Initially in this morning, she does not meet criteria for emergent dialysis. Dr. Serrato is aware and will be dialyzing her likely tomorrow. Continue supplemental nasal oxygen, maintain sats above 92%. We will continue her chronic medications for nausea, constipation, her hydrocortisone suppository and lidocaine topical. I will put her on metoprolol 25 mg p.o. q.8 hours for the NSTEMI, holding her bisoprolol. BNP is also pending. She likely would not be a good candidate for left heart catheterization, though consider consulting with Cardiology in the morning if chest pain returns. She is on telemetry. She is a full code. Medical surrogate is her , Juju Ortiz. She is getting some magnesium supplementation for hypomagnesium. [id number]/[facility] #: [id number] [facility]
[2018-03-11] MEDS ORDERED: NS 0.9% 500 ML* 500 ML IV ONE (20:13)
[2018-03-11] MEDS: cefTRIAXone(*) 1 GM in NS 0.9% 50 ML* 50 ML IVPB SCH (20:20)
[2018-03-11] MEDS: Mirtazapine TAB* 15 MG PO SCH (20:21)
[2018-03-11] MEDS: Hydrocortisone SUPP* 25 MG SUPP (2.5%) PR SCH (20:21)
[2018-03-11] MEDS ORDERED: DOXYcycline CAP(*) 100 MG PO SCH (21:00)
[2018-03-11] MEDS: Ondansetron TAB* 4 MG PO PRN (22:00)
[2018-03-12] MEDS: Ferrous Sulfate TAB* 325 MG PO SCH (05:15)
[2018-03-12 06:07] LABS: ABS Basophils 0.1 10^3/ul (0-0.2); ABS Eosinophils 0.1 10^3/ul (0-0.6); ABS Lymphocytes 1.7 10^3/ul (1.0-4.8); ABS Monocytes 0.6 10^3/ul (0-0.8); ABS Neutrophils 9.3 10^3/ul (1.5-7.7); ABS Nucleated RBC 0 10^3/ul; Eosinophil % 0.4 % (0-6); Hematocrit 24 % (35-47); Hemoglobin 7.5 g/dl (12.0-16.0); Lymphocyte % 14.1 % (25-47); Mean Corpuscular HGB Conc 31 g/dl (31-36); Mean Corpuscular Hemoglobin 27 pg (27-31); Mean Corpuscular Volume 87 fL (80-97); Nucleated Red Blood Cells % 0; Platelet Count 325 10^3/ul (150-450); Red Blood Count 2.78 10^6/ul (4.0-5.4); Red Cell Distribution Width 18 % (10.5-15); White Blood Count 11.7 10^3/ul (3.5-10.8)
[2018-03-12 06:23] LABS: EGFR Non-African American 8.6 (>60)
[2018-03-12] MEDS ORDERED: Magnesium Sulfate 1 GM IV* 1 GM/100 ML BAG IV ONE (08:31)
[2018-03-12] MEDS: Ondansetron TAB* 4 MG PO PRN (08:42)
[2018-03-12] MEDS ORDERED: Aspirin EC TAB* 81 MG TAB.EC PO SCH (09:00)
--- NOTE | 2018-03-12 09:14 | RAD ---
Indication: Non-ST elevation myocardial infarction. Hypoxic respiratory failure. Comparison: March 11, 2018 Technique: Upright AP 0845 hours Report: Tips of the dual-lumen tunneled RIGHT side central venous catheter at level of the RIGHT atrium. Negative for pneumothorax. Decreased lung volumes compared with the prior exam. Mild consolidation at the LEFT lung base is most suspicious for atelectasis given the volume loss. Grossly clear pleural spaces. The heart, pulmonary vasculature, and mediastinal contours are unremarkable. Negative for free air beneath the diaphragm. IMPRESSION: Low lung volumes with mild LEFT basilar atelectasis. Negative for pulmonary edema.
[2018-03-12] MEDS: Hydrocortisone SUPP* 25 MG SUPP (2.5%) PR SCH ×2 (10:16→20:11)
[2018-03-12] MEDS: Aspirin 81 mg CHEW TAB* 81 MG TAB.CHEW PO SCH (10:17)
[2018-03-12] MEDS: Folic Acid TAB* 1 MG PO SCH (10:18)
[2018-03-12] MEDS: CMC:Midodrine (NF) 5 MG TAB PO SCH ×2 (10:18→14:29)
[2018-03-12] MEDS: Dronabinol CAP* 2.5 MG PO SCH (10:18)
[2018-03-12] MEDS: Multivitamins/Minerals TAB PO SCH (10:18)
--- NOTE | 2018-03-12 12:55 | ECHO ---
Patient: USAMA KAPADIA [facility] Rec#: [id number] : 1955 Date: 03/12/2018 Age: 62y Height: 162.56 cm / 64.0 in Weight: 54.43 kg / 120.0 lbs Sex: F BSA: 1.57 Room#: [facility] Admit Date#: 03/11/2018 Type: Inpatient Referring: Lawson Vaughan Reading: Sandy Velasquez MD Warehouse Team Member: Estela Gallo [facility] CC: Wilmer AGUERO,Joseph Transthoracic Echocardiogram Indication: NSTEMI//hypotension BP: 92/58 HR: 93 Rhythm: NSR Findings History: ESRD with dialysis,CAD,HTN,PVD,paraplegia,spinal cord infarct. Technical Comments: The study quality is good. Completed at 1225. Left Ventricle: The left ventricular chamber size is decreased. Posterior wall hypertrophy is observed. There is a focal wall motion abnormality present.Septum is D shaped and dysychronous, the base of the posterior wall on 3 chamber and short axis views is dyskinetic. The estimated ejection fraction is 50-55%. Abnormal left ventricular diastolic filling is observed, consistent with impaired relaxation. Left Atrium: The left atrial chamber size is normal. Right Ventricle: The right ventricle is mildly dilated. The right ventricular global systolic function is moderately reduced. Flattened in systole and diastole consistent with right ventricular pressure and volume overload. Right Atrium: The right atrial cavity size is normal. Aortic Valve: The aortic valve is trileaflet. There is no evidence of aortic valve thickening. There is no evidence of aortic regurgitation. There is no evidence of aortic stenosis. Mitral Valve: The mitral valve leaflets are mildly thickened. There is trace to mild mitral regurgitation. There is no evidence of mitral stenosis. Tricuspid Valve: The tricuspid valve leaflets are normal. There is moderate to severe tricuspid regurgitation. The tricuspid regurgitant jet is directed toward the RA free wall. The right ventricular systolic pressure is estimated to be 50-55 mmHg. or greater, RA pressure unable to be estimated. There is evidence that pulmonary hypertension may be underestimated. There is no tricuspid stenosis. Pulmonic Valve: The pulmonic valve appears normal. There is no evidence of pulmonic regurgitation. There is no pulmonic stenosis. Pericardium: There is a small pericardial effusion. There are no signs of significant hemodynamic compromise. A left pleural effusion is present. There is a moderate pleural effusion. Aorta: There is no dilatation of the ascending aorta. There is no dilatation of the aortic arch. There is no dilation of the aortic root. There is plaque visualized in the ascending aorta. Pulmonary Artery: The main pulmonary artery appears normal. Venous: The venous system is not well visualized. Due to c/o nausea. Conclusions The left ventricular chamber size is decreased. There is a focal wall motion abnormality present.Septum is D shaped and dysychronous, the base of the posterior wall on 3 chamber and short axis views is dyskinetic. The estimated ejection fraction is 55%. Abnormal left ventricular diastolic filling is observed, consistent with impaired relaxation. The right ventricle is mildly dilated. The right ventricular global systolic function is moderately reduced. Interventricular septum is flattened consistent with right ventricular pressure and volume overload. There is trace to mild mitral regurgitation. There is moderate to severe tricuspid regurgitation. The right ventricular systolic pressure is estimated to be 50-55 mmHg or greater, RA pressure unable to be estimated. A left pleural effusion is present. There is a small pericardial effusion, no signs of significant hemodynamic compromise. There is plaque visualized in the ascending aorta. No prior echo to compare. Measurements Name Value Normal Range RVIDd (AP) 2D 3.9 cm (0.9 - 2.6) RVDdMajor (2D) 4.5 cm (2.2 - 4.4) RAd ISD 4CH 4.8 cm (3.4 - 4.9) RA (A4C)W 3.9 cm (2.9 - 4.6) IVSd (2D) 1 cm (0.6 - 1) LVPWd (2D) 1.2 cm (0.6 - 1) LVIDd (2D) 2.6 cm (3.6 - 5.4) LVIDs (2D) 1.7 cm - LV FS (2D) 35 % (25 - 45) Aortic Annulus 2.1 cm (1.4 - 2.6) Ao root diameter (2D) 3.5 cm (2.1 - 3.5) Ascending Ao 2.9 cm (2.1 - 3.4) Aortic arch 2.2 cm (1.8 - 3.4) Descending Ao 0.5 cm - LA dimension (AP) 2D 3.2 cm (2.3 - 3.8) LAd ISD 4CH 4.2 cm (2.9 - 5.3) LA ISD 4CH W 3.8 cm (2.5 - 4.5) Name Value Normal Range LA ESV SP 4CH (A/L) 63 ml - LA ESV SP 2CH (A/L) 38 ml - LA ESV BP (A/L) 52 ml - LA ESV BP (A/L) index 33.21 ml/m2 - LA ESV SP 4CH (MOD) 57 ml - LA ESV SP 2CH (MOD) 35 ml - Name Value Normal Range MV E-wave Vmax 0.5 m/sec - MV deceleration time 143 msec - MV A-wave Vmax 0.5 m/sec - MV E:A ratio 0.86 ratio - LV septal e' Vmax 0.06 m/sec - LV lateral e' Vmax 0.06 m/sec - LV E:e' septal ratio 8.33 ratio - LV E:e' lateral ratio 8.33 ratio - Name Value Normal Range AV Vmax 1 m/sec - AV VTI 12.8 cm - AV peak gradient 3.61 mmHg - AV mean gradient 1.89 mmHg - LVOT Vmax 0.8 m/sec - LVOT VTI 12.2 cm - LVOT peak gradient 2.82 mmHg - LVOT mean gradient 1.4 mmHg - Name Value Normal Range TR Vmax 3.5 m/sec - TR peak gradient 50 mmHg - Name Value Normal Range PV Vmax 0.4 m/sec - PV peak gradient 0.64 mmHg -
[2018-03-12] MEDS ORDERED: Midodrine (NF) 5 MG TAB PO ONE (13:00)
--- NOTE | 2018-03-12 13:40 | CONS ---
CONSULTATION REPORT: DATE OF CONSULT: 03/12/18 REQUESTING PROVIDER: Dr. Vaughan. CONSULTING SERVICE: Infectious Disease. REASON FOR CONSULTATION: Dyspnea, question infection. IMPRESSION: 1. Sudden onset yesterday of dyspnea and malaise. She had a low-grade temp of 37.9 overnight, mild leukocytosis at 14,000. Her blood cultures from her last admission are negative. Cultures here are negative to date. She had a mildly elevated troponin of 0.4. Chest x-ray showed left-sided atelectasis. She is requiring 2 L nasal cannula, saturation of 100%. 2. End stage renal disease on hemodialysis 3. Sacral decubitus ulcer with chronic osteomyelitis; unchanged on exam RECOMMENDATIONS: 1. Continue ceftriaxone, await blood cultures, follow O2 saturation and consider further chest imaging. HISTORY OF PRESENT ILLNESS: 62 year old woman transferred from [facility] with sudden onset of dyspnea yesterday morning that precluded dialysis. She had chest pressure but no cough or hemoptysis. Here, she was hypotensive to the 70s this morning while asleep. This morning, she denies pain or shortness of breath while at rest. She does not have any chest pain. She had chest pressure yesterday, which has resolved. She has had no fever, chills or sweats. Her appetite is about the same. She has been on doxycycline since leaving here for her osteomyelitis of the sacrum and had a VAC dressing, which had apparently some thin serous drainage. The VAC is off with a topical dressing without much in the way of drainage per the nurse. She denies any nausea or diarrhea or abdominal pain either. PAST MEDICAL HISTORY: 1. Polycystic kidney disease, end-stage renal disease, on hemodialysis. 2. T10 spinal cord level after unintentional embolization of an artery during attempted ablation procedure. 3. Coronary artery disease. 4. Gastroesophageal reflux disease. 5. Hypertension. 6. Peripheral vascular disease. 7. Sacral decubitus ulcer disease with chronic osteomyelitis. MEDICATIONS: 1. Aspirin. 2. Lipitor. 3. Bisacodyl. 4. Dronabinol. 5. Ferrous sulfate. 6. Folic acid. 7. Gabapentin. 8. Hydrocortisone suppository. 9. Lidocaine topical. 10. Midodrine. 11. Mirtazapine. 12. Ceftriaxone 1 g a day. ALLERGIES: 1. CIPRO, which causes GI upset. 2. STATIN. 3. ADHESIVE TAPE. 4. CODEINE. 5. FLAGYL. SOCIAL HISTORY: She lives at [facility]. She has no travel. No sick contacts. Nonsmoker. FAMILY HISTORY: A sister with gynecologic cancer. Father and sister with lung and brain cancer. REVIEW OF SYSTEMS: A 14-point review of systems was all negative except as noted above. PHYSICAL EXAM: Vital Signs: Temperature is 36.4, heart rate is 93, respiratory rate 18, blood pressure 90/55, oxygen saturation 100% on 2 L. General: She is awake and not in distress. Neurologic: She is oriented x3, follows all commands. HEENT: There is no conjunctival hemorrhage. Oropharynx without lesions. Neck: Supple without mass. Lymph Nodes: There is no inguinal , axillary, or epitrochlear lymphadenopathy. Heart: Regular rate and rhythm without murmurs, rubs, or gallops. Lungs: Clear to auscultation bilaterally. Abdomen: Soft, nontender and nondistended. Bowel sounds present. Skin: There is no rash or splinter hemorrhages. Musculoskeletal: There is no spine tenderness to palpation. There is a sacral decubitus ulcer about 4 to 5 cm in diameter with underlying granulation. There is no surrounding erythema in the skin. LABORATORY DATA: White blood cell count 11, hemoglobin 7, platelets 225. Creatinine is 5, potassium 4.9, lactate 2.8, procalcitonin 1.6. BNP 1100, troponin 0.38. Please see impression and recommendations outlined above. Thanks for asking me to see Ms. Ortiz in consultation. [id number] #: [id number] MTDD
[2018-03-12] MEDS ORDERED: NS 0.9% 500 ML* 500 ML IV ONE (15:33)
--- NOTE | 2018-03-12 15:44 | RAD ---
INDICATION: Pain and swelling. COMPARISON: None TECHNIQUE: Duplex interrogation of the Lowerextremity was performed. FINDINGS: Deep veins: The common femoral, great saphenous, profunda femoris, proximal, mid, and distal deep femoral, popliteal, posterior tibial, and peroneal veins were interrogated. There is deep venous thrombosis involving the left deep femoral and popliteal veins. This nonocclusive. On the right there is thrombosis of one of the posterior tibial veins. The remaining deep venous structures are patent. Superficial veins: There are no findings of superficial thrombophlebitis. Popliteal fossa:There is no evidence of a popliteal cyst. Soft tissues:There are no soft tissue abnormalities. Other: There is a left femoral popliteal bypass graft which appears occluded. IMPRESSION: Acute deep venous thrombosis as described.
--- NOTE | 2018-03-12 15:55 | PN ---
Subjective Date of Service: 03/12/18 Interval History: Patient has persistent chest pressure which is intermittent without SOB but persistent hypoxia. Patient has been having persistent "heartburn" pain. Patient denies dizziness, palpitations, N/V, abdominal pain, diarrhea, F/C. Patient has not recovered any functionality in her legs and cannot feel any pain in her sacrum or legs. No tenderness to palpation over LE. Patient was being bladder scanned nightly at [facility] and was straight catheterized for anything over 200mls. Family History: Unchanged from Admission Social History: Unchanged from Admission Past Medical History: Unchanged from Admission Objective Active Medications: Aspirin (Aspirin 81 Mg Chew Tab*) 324 mg PO DAILY [facility] Last Admin: 03/12/18 10:17 Dose: 324 mg Atorvastatin Calcium (Lipitor*) 80 mg PO 1700 [facility] Last Admin: 03/11/18 16:56 Dose: Not Given Bisacodyl (Dulcolax Supp*) 10 mg [place] DAILY PRN PRN Reason: CONSTIPATION Dronabinol (Marinol Cap*) 2.5 mg PO DAILY [facility] Last Admin: 03/12/18 10:18 Dose: 2.5 mg Ferrous Sulfate (Ferrous Sulfate Tab*) 325 mg PO DAILY@0600 [facility] Last Admin: 03/12/18 05:15 Dose: 325 mg Folic Acid (Folvite Tab*) 1 mg PO DAILY [facility] Last Admin: 03/12/18 10:18 Dose: 1 mg Gabapentin (Neurontin Cap(*)) 100 mg PO BID PRN PRN Reason: PAIN Hydrocortisone (Anusol Hc Supp*) 25 mg [place] BID [facility] Last Admin: 03/12/18 10:16 Dose: Not Given Ceftriaxone Sodium 1 gm/ (Sodium Chloride) 50 mls @ 200 mls/hr IVPB Q24H [facility] Last Admin: 03/11/18 20:20 Dose: 200 mls/hr Sodium Chloride (Ns 0.9% 500 Ml*) 500 mls @ 1,000 mls/hr IV ONCE ONE Stop: 03/12/18 16:02 Lidocaine/Prilocaine (Emla 5 Gm*) 1 applic TOPICAL TuThSa@0900 [facility] Midodrine (Midodrine (Nf)) 10 mg PO TID [place] PRN Reason: Protocol Last Admin: 03/12/18 14:29 Dose: Not Given Mirtazapine (Remeron Tab*) 15 mg PO BEDTIME [facility] Last Admin: 03/11/18 20:21 Dose: 15 mg Multivitamins/Minerals (Theragran/Minerals Tab*) 1 tab PO DAILY [facility] Last Admin: 03/12/18 10:18 Dose: 1 tab Omeprazole (Prilosec Cap*) 20 mg PO 0600 [facility] Ondansetron HCl (Zofran Tab*) 4 mg PO BID PRN PRN Reason: NAUSEA Last Admin: 03/12/18 08:42 Dose: 4 mg Vital Signs - 8 hr 03/12/18 03/12/18 03/12/18 08:00 08:15 09:34 Temperature 97.5 F Pulse Rate 93 Respiratory 18 18 18 Rate Blood Pressure 76/59 (mmHg) O2 Sat by Pulse 100 Oximetry 03/12/18 03/12/18 03/12/18 09:41 10:18 13:30 Temperature Pulse Rate Respiratory 22 Rate Blood Pressure 90/55 76/48 (mmHg) O2 Sat by Pulse Oximetry Oxygen Devices in Use Now: Nasal Cannula Appearance: Patient is an emaciated 62yo female who appears older than stated age and is sitting in the bed in [facility]. Eyes: No Scleral Icterus, PERRLA Ears/Nose/Mouth/Throat: NL Teeth, Lips, Gums, Clear Oropharnyx, Mucous Membranes Moist Neck: NL Appearance and Movements; NL JVP, Trachea Midline Respiratory: Symmetrical Chest Expansion and Respiratory Effort, - - Diminished. Cardiovascular: NL Sounds; No Murmurs; No JVD, RRR, No Edema Abdominal: NL Sounds; No Tenderness; No Distention, No Hepatosplenomegaly Lymphatic: No Cervical Adenopathy Extremities: No Edema, No Clubbing, Cyanosis Skin: - - Sacral ulcer covered with bulky dressing not visualized. Neurological: Alert and Oriented x 3, NL Sensation, NL Muscle Strength and Tone Result Diagrams: 03/12/18 05:45 03/12/18 05:45 Microbiology and Other Data: Microbiology 03/11/18 14:20 Nasal Screen MRSA (PCR)(JEROME) - Final Nasal Mrsa Not Detected Assess/Plan/Problems-Billing Assessment: Patient is a 62yo female with a PMH for ADPKD with ESRD and renal artery embolization due to hemorrhage with inadvertent embolization of her spinal artery leading to Paralysis at T10 from which she has not recovered. Patient also has a remote history of CAD and AL with stenting. Patient is currently hypotensive and not tolerating dialysis and is being treated for DVT and PE with a heparin drip. - Patient Problems (1) Pulmonary embolism Current Visit: Yes Status: Acute Code(s): I26.99 - OTHER PULMONARY EMBOLISM WITHOUT ACUTE COR PULMONALE SNOMED Code(s): 97001453 Comment: Patient has DVT, and high probability V/Q scan for PE with multiple areas of restricted perfusion. Patient is hemodynamically unstable with dilated RV on echo. Is not a candidate for thrombolysis. Heparin Drip. Bolus fluids for MAP> 60 and monitor closely in ICU. (2) Lactic acidosis Current Visit: Yes Status: Acute Code(s): E87.2 - ACIDOSIS SNOMED Code(s) : 57069219 Comment: Likely due to hypotension, will keep MAP>60 with boluses and recheck. (3) Anemia Current Visit: No Status: Acute Code(s): D64.9 - ANEMIA, UNSPECIFIED SNOMED Code(s): 806291130 Comment: Multifactorial. Likely related to ESRD, CKD, poor nutritional status, folate and Iron deficiency. Likely absorbing iron poorly due to CKD and increased inflammation. Consider IV iron when not hypotensive. Continue EPO with dialysis and oral Iron. (4) Coronary artery disease Current Visit: No Status: Acute Code(s): I25.10 - ATHSCL HEART DISEASE OF [place] CORONARY ARTERY W/O ANG PCTRS SNOMED Code(s): 12606322 Comment: Continue ASA, statin. Appreciate cardiology consult. NSTEMI likely due to PE and [place] ischemia. Trop trended down. 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 (5) Decubital ulcer Current Visit: No Status: Acute Code(s): L89.90 - PRESSURE ULCER OF UNSPECIFIED SITE, UNSPECIFIED STAGE SNOMED Code(s): 012185167 Comment: Wound vac. Associated with possible chronic osteomyelitis of sacrum due to corynebacterium Appreciate ID consult, continue ceftriaxone. Not likely a cause of sepsis and hypotension. (6) End stage renal disease on dialysis Current Visit: No Status: Acute Code(s): N18.6 - END STAGE RENAL DISEASE; Z99.2 - DEPENDENCE ON RENAL DIALYSIS SNOMED Code(s): 204087904 Comment: Unable to tolerate dialysis due to hypotension. Watch BMP closely for need for emergent dialysis. Renal diet when able to tolerate. Continue dialysis when able to tolerate. (7) Hematuria Current Visit: No Status: Acute Code(s): R31.9 - HEMATURIA, UNSPECIFIED SNOMED Code(s): 82854356 Comment: Persistent hematuria at last UA. None available for this hospitalization. Discussed with the family and patient the risk of re-bleeding on heparin drip and they would like to continue with the heparin drip. Monitor CBC Q12H and BP closely. (8) Neurogenic bladder Current Visit: No Status: Acute Code(s): N31.9 - NEUROMUSCULAR DYSFUNCTION OF BLADDER, UNSPECIFIED SNOMED Code(s): 035363780 Comment: Straight Cath based on bladder scan >200mls daily. (9) T10 spinal cord injury Current Visit: No Status: Acute Code(s): S24.103A - UNSP INJURY AT T7-T10 LEVEL OF THORACIC SPINAL CORD, INIT SNOMED Code(s): 73678459 Comment: Due to embolization, no significant improvement in function since injury. STR at D/C. (10) Full code status Current Visit: No Status: Acute Code(s): Z78.9 - OTHER SPECIFIED HEALTH STATUS SNOMED Code(s): 787695350 Status and Disposition: Patient is admitted inpatient.
--- NOTE | 2018-03-12 16:05 | RAD ---
INDICATION: Evaluate for pulmonary embolus. DVT. COMPARISON: Chest x-ray March 12, 2018; venous duplex examination March 12, 2008 TECHNIQUE: Following the administration of 14.2 millicuries of xenon gas, anterior and posterior deep breath, equilibrium, and washout phase imaging was performed. Following the intravenous administration of 6.2 millicuries of technetium 99m, MAA, anterior, posterior, lateral, and oblique imaging of the chest was performed. FINDINGS: Ventilation images show normal ventilation. The perfusion images show multiple segmentally absent areas of ventilation/perfusion mismatch. The probability of acute pulmonary embolus is high. IMPRESSION: HIGH PROBABILITY FOR ACUTE PULMONARY EMBOLUS. Findings called to JUANJOSE Polk.
[2018-03-12] MEDS ORDERED: Heparin VIAL(*) 5000 UNITS/ML VIAL (FIVE THOUSAND) IV SCH (17:00)
--- NOTE | 2018-03-12 17:48 | CONS ---
CC: Flakito Mckinley [facility]; Hospitalist CONSULTATION REPORT: DATE OF CONSULT: 03/12/18 REASON FOR CONSULT: Chest pressure and elevated troponins. HISTORY OF PRESENT ILLNESS: Ms. Ortiz is a 62-year-old woman with a history of paraplegia, chart is no longer on the floor to refer to. According to the patient, yesterday morning she became acutely short of breath and was referred to our hospital. She said she also had chest pressure. She was found to be hypoxic with an oxygen saturation of 77% on room air and troponins were mildly elevated in [place] and she was transferred here. The patient's breathing has improved with oxygen as well as chest pressure. The patient additionally has a history of end-stage renal disease, on dialysis and has undergone dialysis. The patient's echocardiogram done today showed an ejection fraction of 55% with a septal dyssynchrony and abnormal left ventricular diastolic filling, her right ventricle was mildly dilated. The right ventricular systolic function was reduced. Her septum was flat and consistent with RV pressure volume overload. There was [id number] tricuspid insufficiency and PA pressure was at minimum 50 to 55 mmHg. She had a left pleural effusion and small pericardial effusion noted, but no evidence of hemodynamic compromise. PAST MEDICAL HISTORY: The patient has a past medical history of: 1. Polycystic kidney disease, end-stage, on dialysis. 2. T10 paraplegia, iatrogenic (secondary to spinal cord infarct from embolization procedure for kidneys). 3. Coronary artery disease, followed in [facility] in [place], [place]. 4. Hypertension. 5. Peripheral vascular disease of the lower extremities. 6. Reflux. 7. Chronic osteomyelitis with recent hospitalization in February 2018. 8. Anterior cord syndrome. 9. Urinary tract infection. 10. Dyslipidemia. 11. Neuromuscular bladder dysfunction. 12. COPD, former smoker. 13. Decubitus ulcer, right heel and sacrum. 14. Anemia. PAST SURGICAL HISTORY: Full report not available at this time. -LLE bypass. MEDICATIONS: Inpatient medications include: 1. Aspirin 324 mg a day. 2. Lipitor 80 mg a day. 3. Dulcolax p.r.n. 4. Ceftriaxone IV. 5. Marinol 2.5 mg a day. 6. Iron sulfate 325 mg a day. 7. Folvite 1 mg a day. 8. Neurontin 100 mg b.i.d. 9. Anusol 25 mg per rectum b.i.d. 10. Lidocaine/prilocaine topical. 11. Midodrine 10 mg t.i.d. 12. Remeron 15 mg q.h.s. 13. Theragran Multi-Srini. 14. Prilosec 20 mg a day. 15. Zofran p.r.n. ALLERGIES: Include CLONIDINE, CIPRO, FLAGYL, TRENTAL, ZOCOR, PENTOXIFYLLINE, SIMVASTATIN. FAMILY HISTORY: Significant in that she has a father and sister with lung and brain cancer and another sister with [employer]PER[employer] cancer. SOCIAL HISTORY: The patient smoked a pack a day in the past, is . No history of recreational drug use. Lives in [facility]. REVIEW OF SYSTEMS: Significant for her chest pressure and she points to the mid sternum and the acute onset of shortness of breath. She is a vague historian. PHYSICAL EXAM: On exam, the patient is 5 feet 4 inches, weighs 126 pounds with a BMI of 22. Vital Signs: Currently, blood pressure 90/55, 76/48; respiratory rate is 18 to 22; temperature 97.5, oxygen 100% on 2 L nasal cannula. General Appearance: Chronically ill-appearing, frail, cachectic woman, lying in the bed. She is getting venous ultrasound. Psychologically, pleasant and cooperative, but vague. Neurologically, awake, alert and oriented to person and place. I did not check for time. Speech is articulate. She follows commands well. Skin: Dusky color consistent with chronic renal insufficiency, but no appreciable cyanosis of the lips or nail beds. HEENT: Pupils are equal and round. Mucous membranes moist. Neck: With distended external jugular. Breath sounds were clear anteriorly and laterally. Coronary: S1, S2, regular. 3/6 low pitched pansystolic murmur heard at the left lower sternal border radiating to the apex. Abdomen: Flat, active bowel sounds, soft, nontender. No abdominal bruits heard. Right lower extremity: Femoral pulses were palpable. She has an extensive scar in the right medial thigh from prior bypass surgery. Lower extremities were free of edema and warm. Distal pulses hard to palpate. DIAGNOSTIC STUDIES/LAB DATA: Echocardiogram done today as above showed an ejection fraction of 55% on the left ventricle, but with D-shaped septum, right ventricular enlargement, hypokinesis, [id number] tricuspid insufficiency and PA pressure at least 50 to 55 mmHg, pleural and pericardial effusions noted. Labs: On admission, white count 14.2, today 11.7; hemoglobin 7.5; hematocrit 24 ; platelets 325. D-dimer was greater than 1050. Sodium 140, potassium 4.9, chloride 103, bicarb 23, BUN 45, creatinine 5.13 (baseline creatinines in 2018 run from 2.85 to 4.13 prior to this admission). Lactic acid 3.4. Troponin #1 of 0.38, #2 of 0.46. Venous Doppler study shows bilateral DVT's of the lower extremities. Chest x-ray, 03/11/18, showed no active cardiopulmonary disease. A 12-lead ECG from 03/11/18 showed sinus tachycardia at 103 beats per minute, QRS axis of +60, normal intraventricular conduction times, inverted T-waves V1 through V3, and diffuse nonspecific ST changes. No prior EKGs available in the system to compare. IMPRESSION AND PLAN: In summary, Evelyn Ortiz is a 62-year-old woman who was admitted with acute onset of shortness of breath and very hypoxic with an echo showing preserved left ventricular systolic function, evidence of pulmonary hypertension and right ventricular hypokinesis suspicious for pulmonary embolism and DVT's seen on venous Doppler. She is a paraplegic with multiple medical problems and comorbidities. I am most suspicious of acute presentation is from an acute pulmonary embolism and agree with workup in progress. I think she should be started empirically on unfractionated heparin with the aim of converting to chronic oral anticoagulants in the near future. For her history of coronary artery disease and elevated troponins, we will get her records from [facility], prior echo, stress tests as well, but I think we perform a nonurgent chemical stress test to follow up on chest pressure and elevated troponins. I agree with continuation of her statin. For her low blood pressure, I do not have any contraindication for midodrine. I will let Dr. Serrato decide on any changes in dialysis needed in the setting of her probable pulmonary embolus induced pulmonary hypertension and this may compromise the ability to effectively dialyze her and she may need more volume than her prior baseline. Infectious history is noted and we will defer to the hospitalist and infectious disease specialist. [id number]/CPS #: [id number] YAMILE
[2018-03-12] MEDS: NS 0.9% 1000 ML* 1,000 ML IV ONE ×2 (18:00→18:30)
[2018-03-12] MEDS ORDERED: Norepinephrine 16MCG/ML IVPRE* 4,000 MCG/250 ML BAG IV SCH ×2 (18:00→21:08)
[2018-03-12] MEDS: Heparin DRIP 25,000 UNITS(*) 25,000 UNITS/500 ML BAG IV SCH (19:27)
[2018-03-12 19:28] LABS: ABS Basophils 0.1 10^3/ul (0-0.2); ABS Eosinophils 0.1 10^3/ul (0-0.6); ABS Lymphocytes 1.7 10^3/ul (1.0-4.8); ABS Monocytes 0.8 10^3/ul (0-0.8); ABS Neutrophils 11.4 10^3/ul (1.5-7.7); ABS Nucleated RBC 0 10^3/ul; Eosinophil % 0.4 % (0-6); Hematocrit 22 % (35-47); Hemoglobin 6.8 g/dl (12.0-16.0); Lymphocyte % 12.1 % (25-47); Mean Corpuscular HGB Conc 31 g/dl (31-36); Mean Corpuscular Hemoglobin 27 pg (27-31); Mean Corpuscular Volume 88 fL (80-97); Mean Platelet Volume 7.1 um3 (7.4-10.4); Nucleated Red Blood Cells % 0.1; Platelet Count 376 10^3/ul (150-450); Red Blood Count 2.53 10^6/ul (4.0-5.4); Red Cell Distribution Width 18 % (10.5-15); White Blood Count 14.1 10^3/ul (3.5-10.8)
--- NOTE | 2018-03-12 19:33 | RAD ---
HISTORY: Central line placement COMPARISONS: March 12, 2018 VIEWS: 1: frontal portable view of the chest at 6:19 PM FINDINGS: LINES AND TUBES: A dual-lumen central venous catheter is noted from a right internal jugular vein approach with the tip overlying the cavoatrial junction. There has been interval placement of a left internal jugular venous catheter with the tip overlying the cavoatrial junction. CARDIOMEDIASTINAL SILHOUETTE: The cardiomediastinal silhouette is normal for portable technique. PLEURA: The costophrenic angles are sharp. No pleural abnormalities are noted. There is no appreciable pneumothorax. LUNG PARENCHYMA: The lungs are clear. ABDOMEN: The upper abdomen is clear. There is no subphrenic gas. BONES AND SOFT TISSUES: No bone or soft tissue abnormalities are noted. IMPRESSION: LINES AND TUBES ABOVE. NO ACTIVE CARDIOPULMONARY DISEASE.
[2018-03-12 19:46] LABS: EGFR Non-African American 8.6 (>60)
[2018-03-12] MEDS: Omeprazole CAP* 20 MG PO SCH (19:49)
[2018-03-12] MEDS: cefTRIAXone(*) 1 GM in NS 0.9% 50 ML* 50 ML IVPB SCH (20:08)
[2018-03-12] MEDS: Atorvastatin* 80 MG TAB PO SCH (20:10)
[2018-03-12] MEDS: Mirtazapine TAB* 15 MG PO SCH (20:11)
[2018-03-12] MEDS: Hydrocortisone INJ* 100 MG VIAL IV SCH (23:45)
[2018-03-13 03:55] LABS: Urine Appearance Turbid; Urine Blood 1+ (Negative); Urine Color Yellow; Urine Ketones Negative (Negative); Urine Protein 2+(100 mg/dL) (Negative); Urine Red Blood Cell 3+(>10/hpf) (Absent); Urine Specific Gravity 1.028 (1.010-1.030); Urine Urobilinogen Negative (Negative); Urine White Blood Cell 3+(>20/hpf) (Absent)
[2018-03-13] MEDS: Omeprazole CAP* 20 MG PO SCH (06:05)
[2018-03-13] MEDS: Ferrous Sulfate TAB* 325 MG PO SCH (06:05)
[2018-03-13 06:35] LABS: EGFR Non-African American 8.4 (>60)
[2018-03-13 07:01] LABS: ABS Basophils 0.1 10^3/ul (0-0.2); ABS Eosinophils 0 10^3/ul (0-0.6); ABS Lymphocytes 1.1 10^3/ul (1.0-4.8); ABS Monocytes 0.3 10^3/ul (0-0.8); ABS Neutrophils 14.3 10^3/ul (1.5-7.7); ABS Nucleated RBC 0 10^3/ul; Eosinophil % 0.2 % (0-6); Hematocrit 30 % (35-47); Hemoglobin 9.2 g/dl (12.0-16.0); Lymphocyte % 7.2 % (25-47); Mean Corpuscular HGB Conc 31 g/dl (31-36); Mean Corpuscular Hemoglobin 27 pg (27-31); Mean Corpuscular Volume 87 fL (80-97); Mean Platelet Volume 7.5 um3 (7.4-10.4); Nucleated Red Blood Cells % 0.2; Platelet Count 392 10^3/ul (150-450); Red Blood Count 3.42 10^6/ul (4.0-5.4); Red Cell Distribution Width 17 % (10.5-15); White Blood Count 15.9 10^3/ul (3.5-10.8)
[2018-03-13] MEDS: Hydrocortisone INJ* 100 MG VIAL IV SCH ×2 (08:26→16:24)
[2018-03-13] MEDS: Dronabinol CAP* 2.5 MG PO SCH (08:26)
[2018-03-13] MEDS: Folic Acid TAB* 1 MG PO SCH (08:26)
[2018-03-13] MEDS: Multivitamins/Minerals TAB PO SCH (08:26)
[2018-03-13] MEDS: Lidocaine 2.5%/Prilocain 2.5%* 5 GM TUBE TOPICAL SCH (08:27)
--- NOTE | 2018-03-13 08:56 | PN ---
Progress Note - Progress Note Date of Service: 03/13/18 SOAP: Subjective: CC: pulmonary embolism HPI: 62 yo woman ESRD/HD with hypotension, decr RV function, DVT and PE; no fever, rash, or diarrhea. On pressors, notes her to look better and be more alert. She denies pain. Objective: Vital Signs Temp 36.4 C 03/13/18 08:00 Pulse 91 03/13/18 07:15 Resp 22 03/13/18 07:15 BP 107/69 03/13/18 07:15 Pulse Ox 97 03/13/18 07:15 Intake & Output 03/12/18 03/13/18 03/13/18 18:59 06:59 18:59 Intake Total 60 1814 Output Total 150 Balance 60 1664 Weight 136 lb 10.986 oz Intake: IV Fluids 1057 NS (0.9%) 1057 IVPB 60 ABX - CEFTRIAXONE 60 Medicated IV 169 CC - Norepinephrine/ 169 Levophed Heparin 197 Oral 60 60 Packed Cells 271 Output: Straight Cath 150 Other: Date of Last Bowel 03/12/2018 Movement # Bowel Movements 3 Estimated Stool Amount Small Gen:awake, no distress HEENT:no thrush Heart:RRR no murmur Lungs:CTA BL Abd:+BS NTND soft Skin: no rash MSK: sacral decub now with vac Laboratory Results - last 24 hr 03/12/18 03/12/18 03/12/18 14:03 14:10 19:15 WBC RBC Hgb Hct MCV MCH MCHC RDW Plt Count MPV Neut % (Auto) Lymph % (Auto) [place] % (Auto) Eos % (Auto) Baso % (Auto) Absolute Neuts (auto) Absolute Lymphs (auto) Absolute Monos (auto) Absolute Eos (auto) Absolute Basos (auto) Absolute Nucleated RBC Nucleated RBC % APTT D-Dimer, Quantitative > 1050 H Sodium Potassium Chloride Carbon Dioxide Anion Gap BUN Creatinine Est GFR ( Amer) Est GFR (Non-Af Amer) BUN/Creatinine Ratio Glucose Lactic Acid 3.4 H* 2.4 H* Calcium Urine Color Urine Appearance Urine pH Ur Specific [place] Urine Protein Urine Ketones Urine Blood Urine Nitrate Urine Bilirubin Urine Urobilinogen Ur Leukocyte Esterase Urine WBC (Auto) Urine RBC (Auto) Urine Bacteria Urine Glucose Blood Type Antibody Screen Crossmatch 0503/12/[id number] 03/12/18 19:15 19:15 19:15 WBC 14.1 H RBC 2.53 L Hgb 6.8 L Hct 22 L MCV 88 MCH 27 MCHC 31 RDW 18 H Plt Count 376 MPV 7.1 L Neut % (Auto) 80.8 Lymph % (Auto) 12.1 L [place] % (Auto) 5.9 Eos % (Auto) 0.4 Baso % (Auto) 0.8 Absolute Neuts (auto) 11.4 H Absolute Lymphs (auto) 1.7 Absolute Monos (auto) 0.8 Absolute Eos (auto) 0.1 Absolute Basos (auto) 0.1 Absolute Nucleated RBC 0 Nucleated RBC % 0.1 APTT 32.2 D-Dimer, Quantitative Sodium Potassium Chloride Carbon Dioxide Anion Gap BUN 48 H Creatinine 5.13 H Est GFR ( Amer) 11.0 Est GFR (Non-Af Amer) 8.6 BUN/Creatinine Ratio Glucose Lactic Acid Calcium Urine Color Urine Appearance Urine pH Ur Specific [place] Urine Protein Urine Ketones Urine Blood Urine Nitrate Urine Bilirubin Urine Urobilinogen Ur Leukocyte Esterase Urine WBC (Auto) Urine RBC (Auto) Urine Bacteria Urine Glucose Blood Type Antibody Screen Crossmatch 03/12/18 03/12/18 03/13/18 19:15 23:55 02:00 WBC RBC Hgb Hct MCV MCH MCHC RDW Plt Count MPV Neut % (Auto) Lymph % (Auto) [place] % (Auto) Eos % (Auto) Baso % (Auto) Absolute Neuts (auto) Absolute Lymphs (auto) Absolute Monos (auto) Absolute Eos (auto) Absolute Basos (auto) Absolute Nucleated RBC Nucleated RBC % APTT 132.8 H* D-Dimer, Quantitative Sodium Potassium Chloride Carbon Dioxide Anion Gap BUN Creatinine Est GFR ( Amer) Est GFR (Non-Af Amer) BUN/Creatinine Ratio Glucose Lactic Acid 3.7 H* Calcium Urine Color Urine Appearance Urine pH Ur Specific [place] Urine Protein Urine Ketones Urine Blood Urine Nitrate Urine Bilirubin Urine Urobilinogen Ur Leukocyte Esterase Urine WBC (Auto) Urine RBC (Auto) Urine Bacteria Urine Glucose Blood Type O Negative Antibody Screen Negative Crossmatch See Detail 03/13/18 03/13/18 03/13/18 03:15 03:15 06:00 WBC 15.9 H RBC 3.42 L Hgb 9.2 L Hct 30 L MCV 87 MCH 27 MCHC 31 RDW 17 H Plt Count 392 MPV 7.5 Neut % (Auto) 90.0 H Lymph % (Auto) 7.2 L [place] % (Auto) 2.2 Eos % (Auto) 0.2 Baso % (Auto) 0.4 Absolute Neuts (auto) 14.3 H Absolute Lymphs (auto) 1.1 Absolute Monos (auto) 0.3 Absolute Eos (auto) 0 Absolute Basos (auto) 0.1 Absolute Nucleated RBC 0 Nucleated RBC % 0.2 APTT 100.9 H* D-Dimer, Quantitative Sodium Potassium Chloride Carbon Dioxide Anion Gap BUN Creatinine Est GFR ( Amer) Est GFR (Non-Af Amer) BUN/Creatinine Ratio Glucose Lactic Acid Calcium Urine Color Yellow Urine Appearance Turbid Urine pH 7.0 Ur Specific [place] 1.028 Urine Protein 2+(100 mg/dl) A Urine Ketones Negative Urine Blood 1+ A Urine Nitrate Negative Urine Bilirubin Negative Urine Urobilinogen Negative Ur Leukocyte Esterase 2+ A Urine WBC (Auto) 3+(>20/hpf) A Urine RBC (Auto) 3+(>10/hpf) A Urine Bacteria Absent Urine Glucose 1+(50 mg/dl) A Blood Type Antibody Screen Crossmatch 03/13/18 03/13/18 06:00 06:00 WBC RBC Hgb Hct MCV MCH MCHC RDW Plt Count MPV Neut % (Auto) Lymph % (Auto) [place] % (Auto) Eos % (Auto) Baso % (Auto) Absolute Neuts (auto) Absolute Lymphs (auto) Absolute Monos (auto) Absolute Eos (auto) Absolute Basos (auto) Absolute Nucleated RBC Nucleated RBC % APTT D-Dimer, Quantitative Sodium 140 Potassium 5.5 H Chloride 107 Carbon Dioxide 20 L Anion Gap 13 H BUN 51 H Creatinine 5.20 H Est GFR ( Amer) 10.9 Est GFR (Non-Af Amer) 8.4 BUN/Creatinine Ratio 9.8 Glucose 166 H Lactic Acid 2.3 H* Calcium 8.3 L Urine Color Urine Appearance Urine pH Ur Specific [place] Urine Protein Urine Ketones Urine Blood Urine Nitrate Urine Bilirubin Urine Urobilinogen Ur Leukocyte Esterase Urine WBC (Auto) Urine RBC (Auto) Urine Bacteria Urine Glucose Blood Type Antibody Screen Crossmatch Assessment: 1. DVT/PE with decr RV function on echo 2. sacral decub with chronic osteomyelitis of pelvis 3. ESRD/HD Plan: 1. change ctx back to doxycycline 2. anticoag and pressors per ICU
[2018-03-13] MEDS ORDERED: Norepinephrine 16MCG/ML IVPRE* 4,000 MCG/250 ML BAG IV SCH (09:55)
[2018-03-13] MEDS: Hydrocortisone SUPP* 25 MG SUPP (2.5%) PR SCH (10:46)
[2018-03-13] MEDS: Aspirin 81 mg CHEW TAB* 81 MG TAB.CHEW PO SCH (10:46)
[2018-03-13] MEDS: DOXYcycline CAP(*) 100 MG PO SCH ×2 (10:47→20:09)
[2018-03-13] MEDS: Aspirin EC TAB* 81 MG TAB.EC PO SCH (10:47)
--- NOTE | 2018-03-13 11:57 | PN ---
Progress Note - Progress Note Date of Service: 03/13/18 Note: CRITICAL CARE MEDICINE Date: 03/13/18 Time: 935 SUBJECTIVE: Patient seen and examined. at bedside. PHYSICAL EXAM: not looking acutely bad Vital Signs: Reviewed. Hr ~100. SBP >120 on eval. RR teens. 2L O2 Neurologic: awake, communicating. chronic para HEENT: pupils equal. Sclera anicteric. Trachea midline. Cardiovascular: S1 S2, loud 4/6 kathleen Respiratory: dec but clear, phases fairly nml Abdomen: Soft, nt. No r/g/r. Extremities: Warm. Chronic edema and scars. sacral decub not visualized at this time Access: left IJ. tunnel cath. fistula. LABS: Reviewed. IMAGING: Reviewed. MEDICATIONS: Reviewed. ASSESSMENT: 62 F Submassive pulmonary embolism leading to acute cor pulmonale and cardiogenic shock However, chronic hypotention and vasodil state post hd initiation in Nov and has remained with such, and therefore for her she is able to tolerate this current state. Left fem, pop DVT Right post tibial dvt ESRD needing HD Paraplegia Stage IV sacral decub/osteomyelitis Neurogenic bladder h/o pckd h/o hemorrhage PLAN: With her present we discussed her dx, plans of care in great detail. Explaining the dynamics and testing of her pe, dvt. she is tolerating and for her, rather as well as I would have expected. Clearly off the text books, based on her baseline dynamics but now needing to tolerate parameters of HD. Explained to them where we see things and anticipated plans today of HD tolerability with levophed use. Add midodrine routinely for now. If able to tolerate HD then can wean off levophed. Would not anticipate inotropic needs, and if this came about we'd truly be lost. But not a tpa candidate. even on submassive criteria, would be a bad candidate and even catheter directed tpa may be low benefit vs risks, and we'd still need CTA to better define burden. No plans to pursue at present. See how she can handle HD today and then slow and steady from there towards oupt needs. Needs ICU for now. Neurologic: denies pain. Cardiovascular: She is perfusing despite lingering venous la. Vol status good to a touch up. maintain sbp >90. as above. Respiratory: Suppl O2. no flow requirement. Gastrointestinal: po. Nutrition consult and close support for prot-tod needs although she will likely be deficient on this today. Renal/Metabolic: hd today. Infectious Disease: ID following and converted to doxy for corb. decub Hematology: heparin gtt. will need vasc/ir f/u eventually of stent thrombosis Endocrine: stress dose steroids for now Musculoskeletal: Her sacral decub and osteo are very non-helpful and makes her catabolic potential remain high and therefore metabolic demands will remain high. Psych/Social: family updated; pt seems to be in adequate spirits Supportive and preventative care as ordered. SUP: ppi VTE prophylaxis: heparin gtt Straight catheter as needed Disposition: ICU Code Status: Full presently Critical Care Time: 35min FSukhdev Dowling DO
[2018-03-13] MEDS ORDERED: Omeprazole CAP* 20 MG PO SCH (12:45)
[2018-03-13] MEDS ORDERED: Epoetin Alfa* 10,000 UNITS/ML VIAL IV ONE (14:00)
[2018-03-13] MEDS: CMCS: Midodrine (NF) 5 MG TAB PO SCH ×2 (14:09→20:09)
[2018-03-13] MEDS: Atorvastatin* 80 MG TAB PO SCH (16:24)
[2018-03-13] MEDS: Mirtazapine TAB* 15 MG PO SCH (20:10)
[2018-03-14] MEDS: Hydrocortisone INJ* 100 MG VIAL IV SCH ×2 (00:06→06:02)
[2018-03-14] MEDS: Ferrous Sulfate TAB* 325 MG PO SCH (06:02)
[2018-03-14] MEDS: Omeprazole CAP* 20 MG PO SCH (06:02)
[2018-03-14 06:25] LABS: ABS Basophils 0.1 10^3/ul (0-0.2); ABS Eosinophils 0 10^3/ul (0-0.6); ABS Monocytes 0.4 10^3/ul (0-0.8); ABS Neutrophils 9.4 10^3/ul (1.5-7.7); ABS Nucleated RBC 0.1 10^3/ul; Eosinophil % 0 % (0-6); Hematocrit 28 % (35-47); Lymphocyte % 9.3 % (25-47); Mean Corpuscular HGB Conc 32 g/dl (31-36); Mean Corpuscular Hemoglobin 28 pg (27-31); Mean Corpuscular Volume 86 fL (80-97); Mean Platelet Volume 7.2 um3 (7.4-10.4); Platelet Count 339 10^3/ul (150-450); Red Blood Count 3.28 10^6/ul (4.0-5.4); Red Cell Distribution Width 17 % (10.5-15); White Blood Count 10.8 10^3/ul (3.5-10.8)
[2018-03-14 06:42] LABS: EGFR Non-African American 12.3 (>60)
[2018-03-14] MEDS: Multivitamins/Minerals TAB PO SCH (08:50)
[2018-03-14] MEDS: Folic Acid TAB* 1 MG PO SCH (08:50)
[2018-03-14] MEDS: Dronabinol CAP* 2.5 MG PO SCH (08:51)
[2018-03-14] MEDS: DOXYcycline CAP(*) 100 MG PO SCH ×2 (08:51→20:23)
[2018-03-14] MEDS: CMCS: Midodrine (NF) 5 MG TAB PO SCH ×3 (08:51→20:23)
[2018-03-14] MEDS: Aspirin EC TAB* 81 MG TAB.EC PO SCH (09:01)
[2018-03-14] MEDS ORDERED: predniSONE TAB* 20 MG PO ONE (11:09)
--- NOTE | 2018-03-14 11:11 | PN ---
Progress Note - Progress Note Date of Service: 03/14/18 Note: CRITICAL CARE MEDICINE Date: 03/14/18 Time: 900 SUBJECTIVE: Patient seen and examined. at bedside. PHYSICAL EXAM: Vital Signs: Reviewed. Hr <800. SBP >120 Neurologic: awake, communicating. nad HEENT: pupils equal. Sclera anicteric. Trachea midline. Cardiovascular: S1 S2, 2/6 kathleen Respiratory: dec but clear, phases nml Abdomen: Soft, nt. No r/g/r. Extremities: Warm. Chronic edema and scars. Access: left IJ. tunnel cath. fistula. LABS: Reviewed. IMAGING: Reviewed. MEDICATIONS: Reviewed. ASSESSMENT: 62 F Submassive pulmonary embolism leading to acute cor pulmonale and cardiogenic shock However, chronic hypotention and vasodil state post hd initiation in Nov and has remained with such, and therefore for her she is able to tolerate this current state. Left fem, pop DVT Right post tibial dvt ESRD needing HD Paraplegia Stage IV sacral decub/osteomyelitis Neurogenic bladder h/o pckd h/o hemorrhage PLAN: Doing quite well all things considered. Neurologic: denies pain. Cardiovascular: Perfusing well with reserve now. Hr down. off levo. left on midorine for now, but hopefully can titrate off, or at least only use with HD if needed. vol status ok. Respiratory: Suppl O2 weaning. Gastrointestinal: PO. Nutrition support. Renal/Metabolic: hd/nephro f/u today and then looking to resume nml yessenia soon Infectious Disease: ID following. po doxy Hematology: heparin gtt for now. start coumadin tonight. pharm f/u for inr goal 2-3. will need vasc/ir f/u eventually of venous gortex thrombosis Endocrine: stress dose steroid taper relatively quickly Musculoskeletal: sacral decub and osteo f/u. wound care needs. pt. Psych/Social: updated Supportive and preventative care as ordered. SUP: ppi VTE prophylaxis: heparin gtt Straight catheter as needed Disposition: ICU today but potential floor later today or more likely tomorrow Code Status: Full presently Critical Care Time: 30min FSukhdev Dowling DO
[2018-03-14] MEDS ORDERED: Warfarin TAB(*) 7.5 MG PO ONE (17:00)
[2018-03-14] MEDS: Atorvastatin* 80 MG TAB PO SCH (17:18)
[2018-03-14] MEDS: Ondansetron ODT TAB* 4 MG SL PRN (18:08)
[2018-03-14] MEDS: Mirtazapine TAB* 15 MG PO SCH (20:23)
[2018-03-15] MEDS: Ferrous Sulfate TAB* 325 MG PO SCH (05:45)
[2018-03-15] MEDS: Omeprazole CAP* 20 MG PO SCH (05:45)
[2018-03-15 06:13] LABS: ABS Basophils 0 10^3/ul (0-0.2); ABS Eosinophils 0 10^3/ul (0-0.6); ABS Lymphocytes 1.5 10^3/ul (1.0-4.8); ABS Monocytes 0.7 10^3/ul (0-0.8); ABS Neutrophils 9.9 10^3/ul (1.5-7.7); ABS Nucleated RBC 0.3 10^3/ul; Eosinophil % 0 % (0-6); Hematocrit 30 % (35-47); Hemoglobin 9.6 g/dl (12.0-16.0); Lymphocyte % 12.2 % (25-47); Mean Corpuscular HGB Conc 32 g/dl (31-36); Mean Corpuscular Hemoglobin 28 pg (27-31); Mean Corpuscular Volume 86 fL (80-97); Mean Platelet Volume 7.3 um3 (7.4-10.4); Nucleated Red Blood Cells % 2.6; Platelet Count 377 10^3/ul (150-450); Red Blood Count 3.48 10^6/ul (4.0-5.4); Red Cell Distribution Width 18 % (10.5-15); White Blood Count 12.1 10^3/ul (3.5-10.8)
[2018-03-15 06:27] LABS: EGFR Non-African American 13.6 (>60)
[2018-03-15 06:35] LABS: INR 1.44 (0.77-1.02)
[2018-03-15] MEDS: Aspirin EC TAB* 81 MG TAB.EC PO SCH (08:17)
[2018-03-15] MEDS: Folic Acid TAB* 1 MG PO SCH (08:17)
[2018-03-15] MEDS: Multivitamins/Minerals TAB PO SCH (08:17)
[2018-03-15] MEDS: Dronabinol CAP* 2.5 MG PO SCH (08:17)
[2018-03-15] MEDS: Ondansetron ODT TAB* 4 MG SL PRN ×2 (08:17→15:14)
[2018-03-15] MEDS: predniSONE TAB* 20 MG PO SCH (08:18)
[2018-03-15] MEDS: DOXYcycline CAP(*) 100 MG PO SCH ×2 (08:20→20:20)
[2018-03-15] MEDS: CMCS: Midodrine (NF) 5 MG TAB PO SCH ×3 (08:21→20:20)
[2018-03-15] MEDS: Lidocaine 2.5%/Prilocain 2.5%* 5 GM TUBE TOPICAL SCH (08:49)
--- NOTE | 2018-03-15 10:52 | PN ---
Progress Note - Progress Note Date of Service: 03/15/18 Note: CRITICAL CARE MEDICINE Date: 03/15/18 Time: 900 SUBJECTIVE: Patient seen and examined. not present PHYSICAL EXAM: Vital Signs: Reviewed. stable Neurologic: awake, communicating. nad HEENT: pupils equal. Sclera anicteric. Trachea midline. Cardiovascular: S1 S2, 2/6 kathleen Respiratory: dec but clear Abdomen: Soft, nt. Extremities: Warm. Chronic edema same Access: left IJ. tunnel cath. fistula. LABS: Reviewed. IMAGING: Reviewed. MEDICATIONS: Reviewed. ASSESSMENT: 62 F Submassive pulmonary embolism leading to acute cor pulmonale and cardiogenic shock - resolving Left fem, pop DVT Right post tibial dvt ESRD on HD Paraplegia Stage IV sacral decub/osteomyelitis Neurogenic bladder h/o pckd PLAN: doing well. good perfusion. vol status well. anticipate hd needs come saturday. pt efforts. encourage inc nutrition. wound vac f/u. abx per ID. steroid taper. heparin gtt transition to coumadin. 7.5mg yesterday, 5mg tonight and pharm f/u Ok for floor. See how she can tolerate getting back to outpt HD regimen and midodrine needs, and then dispositions plans early next week. Supportive and preventative care as ordered. Straight catheter as needed Disposition: floor with tele for now Code Status: Full Critical Care Time: 30min FSukhdev Dowling DO
--- NOTE | 2018-03-15 11:01 | PN ---
Progress Note - Progress Note Date of Service: 03/15/18 Note: CRITICAL CARE MEDICINE Date: 03/15/18 Time: 945 SUBJECTIVE: Patient seen and examined. daughter present. PHYSICAL EXAM: Vital Signs: Reviewed. stable. 30% Neurologic: communicating. HEENT: pupils equal. Sclera anicteric. Trachea midline. Cardiovascular: S1 S2 distant Respiratory: distant but likely improved air movement. cpap nice Abdomen: Soft, nt. No r/g/r. Extremities: Warm. LABS: Reviewed. IMAGING: Reviewed. cxr copd no infiltrate MEDICATIONS: Reviewed. ASSESSMENT: 62 F with acute on chronic hypercapnic > hypoxic resp failure. copd exac, h/o tob use. PLAN: Doing well and can liberate directly to high flow as no further benefit from vent. luckily abg not as bad as last admit but unfortunately still required intubation. see how she liberates to hfo2. would be nice to have outpt hfo2 therapy for her. copd tx. keep steroids and can convert to po later. no abx needs. prn anxiolytics and morphine Supportive and preventative care as ordered. VTE prophylaxis: heparin Guzman catheter given critical illness, monitoring needs for accurate assessment of MITCHELL and KDIGO criteria for critically ill patients and to avoid potential harms of urinary retention, skin breakdown/ulcers. Restraints: Reviewed and required. Disposition: ICU Code Status: Full Critical Care Time: 45min FSukhdev Dowling DO
[2018-03-15] MEDS: Heparin DRIP 25,000 UNITS(*) 25,000 UNITS/500 ML BAG IV SCH (12:08)
[2018-03-15] MEDS ORDERED: Warfarin TAB(*) 5 MG PO ONE (17:00)
[2018-03-15] MEDS: Atorvastatin* 80 MG TAB PO SCH (18:51)
[2018-03-15] MEDS: Mirtazapine TAB* 15 MG PO SCH (20:20)
[2018-03-15] MEDS: oxyCODONE TAB* 5 MG TAB PO PRN (20:20)
[2018-03-16] MEDS: Ferrous Sulfate TAB* 325 MG PO SCH (05:28)
[2018-03-16] MEDS: Omeprazole CAP* 20 MG PO SCH (05:28)
[2018-03-16] MEDS: oxyCODONE TAB* 5 MG TAB PO PRN (05:40)
[2018-03-16 05:54] LABS: ABS Basophils 0 10^3/ul (0-0.2); ABS Eosinophils 0 10^3/ul (0-0.6); ABS Lymphocytes 1.7 10^3/ul (1.0-4.8); ABS Monocytes 0.8 10^3/ul (0-0.8); ABS Neutrophils 13.1 10^3/ul (1.5-7.7); ABS Nucleated RBC 0.2 10^3/ul; Eosinophil % 0.1 % (0-6); Hematocrit 28 % (35-47); Hemoglobin 8.6 g/dl (12.0-16.0); Lymphocyte % 11.1 % (25-47); Mean Corpuscular HGB Conc 31 g/dl (31-36); Mean Corpuscular Hemoglobin 27 pg (27-31); Mean Corpuscular Volume 88 fL (80-97); Mean Platelet Volume 7.3 um3 (7.4-10.4); Nucleated Red Blood Cells % 0.9; Platelet Count 327 10^3/ul (150-450); Red Blood Count 3.18 10^6/ul (4.0-5.4); Red Cell Distribution Width 17 % (10.5-15); White Blood Count 15.7 10^3/ul (3.5-10.8)
[2018-03-16 06:01] LABS: INR 3.13 (0.77-1.02)
[2018-03-16 06:10] LABS: EGFR Non-African American 10.7 (>60)
--- NOTE | 2018-03-16 09:10 | PN ---
Subjective Date of Service: 03/16/18 Interval History: No pain. Less SOB. No new c/o. Family History: Unchanged from Admission Social History: Unchanged from Admission Past Medical History: Unchanged from Admission Objective Active Medications: Aspirin (Aspirin Ec Tab*) 81 mg PO DAILY [facility] Last Admin: 03/15/18 08:17 Dose: 81 mg Atorvastatin Calcium (Lipitor*) 80 mg PO 1700 [facility] Last Admin: 03/15/18 18:51 Dose: 80 mg Bisacodyl (Dulcolax Supp*) 10 mg [place] DAILY PRN PRN Reason: CONSTIPATION Doxycycline Hyclate (Vibramycin Cap(*)) 100 mg PO BID [facility] Last Admin: 03/15/18 20:20 Dose: 100 mg Dronabinol (Marinol Cap*) 2.5 mg PO BID [facility] Ferrous Sulfate (Ferrous Sulfate Tab*) 325 mg PO DAILY@0600 [facility] Last Admin: 03/16/18 05:28 Dose: 325 mg Folic Acid (Folvite Tab*) 1 mg PO DAILY [facility] Last Admin: 03/15/18 08:17 Dose: 1 mg Gabapentin (Neurontin Cap(*)) 100 mg PO BID PRN PRN Reason: PAIN Heparin Sodium (Porcine) (Heparin Vial(*)) 0 units IV .PER PROTOCOL [facility] Last Admin: 03/12/18 19:24 Dose: 4,300 units Heparin Sodium/Dextrose (Heparin Drip 25,000 Units(*)) 25,000 units in 500 mls @ 0 mls/hr IV PER RATE [facility]; Per Protocol PRN Reason: Protocol Last Admin: 03/15/18 12:08 Dose: 16 mls/hr Norepinephrine Bitartrate (Levophed 16 Mcg/Ml Premix Bag*) 4,000 mcg in 250 mls @ 18.75 mls/hr IV .INITIAL RATE [facility]; 5 MCG/MIN PRN Reason: Protocol Last Admin: 03/13/18 11:56 Dose: 11.3 mls/hr Lidocaine/Prilocaine (Emla 5 Gm*) 1 applic TOPICAL TuThSa@0900 [facility] Last Admin: 03/15/18 08:49 Dose: Not Given Midodrine (Midodrine (Nf)) 10 mg PO TID [facility] PRN Reason: Protocol Last Admin: 03/15/18 20:20 Dose: 10 mg Mirtazapine (Remeron Tab*) 15 mg PO BEDTIME [facility] Last Admin: 03/15/18 20:20 Dose: 15 mg Multivitamins/Minerals (Theragran/Minerals Tab*) 1 tab PO DAILY [facility] Last Admin: 03/15/18 08:17 Dose: 1 tab Omeprazole (Prilosec Cap*) 20 mg PO 0600 [facility] Last Admin: 03/16/18 05:28 Dose: 20 mg Ondansetron HCl (Zofran Odt Tab*) 4 mg SL BID PRN PRN Reason: NAUSEA Last Admin: 03/15/18 15:14 Dose: 4 mg Oxycodone HCl (Roxycodone Tab*) 5 mg PO Q6H PRN PRN Reason: PAIN Last Admin: 03/16/18 05:40 Dose: 5 mg Pharmacy Profile Note (Coumadin Per Pharmacy*) 1 note FOLLOW UP .PER PHARMACY PROTOC [facility] PRN Reason: Protocol Prednisone (Deltasone Tab*) 20 mg PO DAILY [facility] Stop: 03/17/18 09:01 Last Admin: 03/15/18 08:18 Dose: 20 mg Warfarin Sodium (Coumadin Tab(*)) 1 mg PO DAILY@1700 [facility] PRN Reason: Protocol Vital Signs - 8 hr 03/16/18 03/16/18 03/16/18 03:38 05:40 07:30 Temperature 97.7 F Pulse Rate 63 68 Respiratory 16 18 20 Rate Blood Pressure 126/63 116/64 (mmHg) O2 Sat by Pulse 100 100 Oximetry Oxygen Devices in Use Now: Nasal Cannula Appearance: Alert, supine in bed. In good spirits. Looks comfortable. Eyes: No Scleral Icterus Respiratory: Symmetrical Chest Expansion and Respiratory Effort, Clear to Auscultation, Clear to Percussion Cardiovascular: NL Sounds; No Murmurs; No JVD, RRR, No Edema, - Extremities: No Edema, No Clubbing, Cyanosis, - Skin: No Rash or Ulcers, No Nodules or Sclerosis, - Neurological: Alert and Oriented x 3, NL Sensation Result Diagrams: 03/16/18 05:36 03/16/18 05:36 Microbiology and Other Data: Microbiology 03/11/18 14:20 Nasal Screen MRSA (PCR)(JEROME) - Final Nasal Mrsa Not Detected Assess/Plan/Problems-Billing Assessment: Patient is a 62yo female with a PMH for ADPKD with ESRD and renal artery embolization due to hemorrhage with inadvertent embolization of her spinal artery leading to Paralysis at T10 from which she has not recovered. Patient also has a remote history of CAD and CA with stenting. Patient is currently hypotensive and not tolerating dialysis and is being treated for DVT and PE with a heparin drip. - Patient Problems (1) Pulmonary embolism Current Visit: Yes Status: Acute Code(s): I26.99 - OTHER PULMONARY EMBOLISM WITHOUT ACUTE COR PULMONALE SNOMED Code(s): 91260797 Comment: Patient has DVT, and high probability V/Q scan for PE with multiple areas of restricted perfusion. Continue heparin until she has had 5 doses warfarin. She had 7.5 mg on 03/14, 5 mg on 03/15. Zero on 03/16. 1 mg daily to start 03/17 if INR not still increasing. (2) End stage renal disease on dialysis Current Visit: No Status: Acute Code(s): N18.6 - END STAGE RENAL DISEASE; Z99.2 - DEPENDENCE ON RENAL DIALYSIS SNOMED Code(s): 933618191 Comment: Due to PCKD. Continue inpt HD MWF. (3) Malnutrition Current Visit: Yes Status: Acute Code(s): E46 - UNSPECIFIED PROTEIN-CALORIE MALNUTRITION SNOMED Code(s): 64388340 Comment: Add on prealbumin requested 03/16. She did much better with bid dronabinol, better appetite. (4) Sacral decubitus ulcer, stage II Current Visit: No Status: Acute Code(s): L89.152 - PRESSURE ULCER OF SACRAL REGION, STAGE 2 SNOMED Code(s): 242096871 Comment: Sacral osteo bone bzx 02/20/18. Continue doxycycline indefinitely. (5) Coronary artery disease Current Visit: No Status: Acute Code(s): I25.10 - ATHSCL HEART DISEASE OF [place] CORONARY ARTERY W/O ANG PCTRS SNOMED Code(s): 37472583 Comment: Continue ASA, statin. (6) T10 spinal cord injury Current Visit: No Status: Acute Code(s): S24.103A - UNSP INJURY AT T7-T10 LEVEL OF THORACIC SPINAL CORD, INIT SNOMED Code(s): 91118662 Comment: Due to embolization, no significant improvement in function since injury. Resident of [facility]. Status and Disposition: Patient is admitted inpatient.
[2018-03-16] MEDS: CMCS: Midodrine (NF) 5 MG TAB PO SCH ×3 (09:30→20:36)
[2018-03-16] MEDS: DOXYcycline CAP(*) 100 MG PO SCH ×2 (09:30→20:36)
[2018-03-16] MEDS: predniSONE TAB* 20 MG PO SCH (09:30)
[2018-03-16] MEDS: Multivitamins/Minerals TAB PO SCH (09:30)
[2018-03-16] MEDS: Gabapentin CAP(*) 100 MG PO PRN (09:31)
[2018-03-16] MEDS: Aspirin EC TAB* 81 MG TAB.EC PO SCH (09:31)
[2018-03-16] MEDS: Dronabinol CAP* 2.5 MG PO SCH ×2 (09:31→20:36)
[2018-03-16] MEDS: Folic Acid TAB* 1 MG PO SCH (09:32)
[2018-03-16] MEDS: Atorvastatin* 80 MG TAB PO SCH (18:27)
[2018-03-16] MEDS: Mirtazapine TAB* 15 MG PO SCH (20:37)
[2018-03-17] MEDS: Omeprazole CAP* 20 MG PO SCH (06:23)
[2018-03-17] MEDS: Ferrous Sulfate TAB* 325 MG PO SCH (06:23)
[2018-03-17 07:10] LABS: INR 3.6 (0.77-1.02)
[2018-03-17] MEDS: CMCS: Midodrine (NF) 5 MG TAB PO SCH ×3 (09:06→20:52)
[2018-03-17] MEDS: Aspirin EC TAB* 81 MG TAB.EC PO SCH (09:32)
[2018-03-17] MEDS: DOXYcycline CAP(*) 100 MG PO SCH ×2 (09:32→20:53)
[2018-03-17] MEDS: Multivitamins/Minerals TAB PO SCH (09:32)
[2018-03-17] MEDS: Folic Acid TAB* 1 MG PO SCH (09:33)
[2018-03-17] MEDS: predniSONE TAB* 20 MG PO SCH (09:33)
[2018-03-17] MEDS: Dronabinol CAP* 2.5 MG PO SCH ×2 (09:34→20:53)
[2018-03-17] MEDS ORDERED: Epoetin Alfa* 10,000 UNITS/ML VIAL IV ONE (14:00)
[2018-03-17] MEDS: Gabapentin CAP(*) 100 MG PO PRN (15:47)
[2018-03-17] MEDS: oxyCODONE TAB* 5 MG TAB PO PRN (15:47)
[2018-03-17] MEDS ORDERED: Warfarin TAB(*) 1 MG PO SCH (17:00)
--- NOTE | 2018-03-17 17:21 | PN ---
Subjective Date of Service: 03/17/18 Interval History: Feels good today and is anxious to go home. No shortness of breath, no pain. No bleeding. She had dialysis today and tolerated it well via her permacath. Family History: Unchanged from Admission Social History: Unchanged from Admission Past Medical History: Unchanged from Admission Objective Active Medications: Aspirin (Aspirin Ec Tab*) 81 mg PO DAILY [facility] Last Admin: 03/17/18 09:32 Dose: 81 mg Atorvastatin Calcium (Lipitor*) 80 mg PO 1700 [facility] Last Admin: 03/16/18 18:27 Dose: 80 mg Bisacodyl (Dulcolax Supp*) 10 mg [place] DAILY PRN PRN Reason: CONSTIPATION Doxycycline Hyclate (Vibramycin Cap(*)) 100 mg PO BID [facility] Last Admin: 03/17/18 09:32 Dose: 100 mg Dronabinol (Marinol Cap*) 2.5 mg PO BID [facility] Last Admin: 03/17/18 09:34 Dose: 2.5 mg Ferrous Sulfate (Ferrous Sulfate Tab*) 325 mg PO DAILY@0600 [facility] Last Admin: 03/17/18 06:23 Dose: 325 mg Folic Acid (Folvite Tab*) 1 mg PO DAILY [facility] Last Admin: 03/17/18 09:33 Dose: 1 mg Gabapentin (Neurontin Cap(*)) 100 mg PO BID PRN PRN Reason: PAIN Last Admin: 03/17/18 15:47 Dose: 100 mg Heparin Sodium (Porcine) (Heparin Vial(*)) 0 units IV .PER PROTOCOL [facility] Last Admin: 03/12/18 19:24 Dose: 4,300 units Heparin Sodium/Dextrose (Heparin Drip 25,000 Units(*)) 25,000 units in 500 mls @ 0 mls/hr IV PER RATE [facility]; Per Protocol PRN Reason: Protocol Last Admin: 03/15/18 12:08 Dose: 16 mls/hr Lidocaine/Prilocaine (Emla 5 Gm*) 1 applic TOPICAL TuThSa@0900 [facility] Last Admin: 03/15/18 08:49 Dose: Not Given Midodrine (Midodrine (Nf)) 10 mg PO TID [facility] PRN Reason: Protocol Last Admin: 03/17/18 14:34 Dose: 10 mg Mirtazapine (Remeron Tab*) 15 mg PO BEDTIME [facility] Last Admin: 03/16/18 20:37 Dose: 15 mg Multivitamins/Minerals (Theragran/Minerals Tab*) 1 tab PO DAILY [facility] Last Admin: 03/17/18 09:32 Dose: 1 tab Omeprazole (Prilosec Cap*) 20 mg PO 0600 [facility] Last Admin: 03/17/18 06:23 Dose: 20 mg Ondansetron HCl (Zofran Odt Tab*) 4 mg SL BID PRN PRN Reason: NAUSEA Last Admin: 03/15/18 15:14 Dose: 4 mg Oxycodone HCl (Roxycodone Tab*) 5 mg PO Q6H PRN PRN Reason: PAIN Last Admin: 03/17/18 15:47 Dose: 5 mg Warfarin Sodium (Coumadin Tab(*)) 1 mg PO DAILY@1700 [facility] PRN Reason: Protocol Vital Signs - 8 hr 03/17/18 03/17/18 03/17/18 09:34 12:27 15:47 Respiratory 16 16 16 Rate Oxygen Devices in Use Now: Nasal Cannula Appearance: alert, well appearing, nontoxic Eyes: No Scleral Icterus, PERRLA Ears/Nose/Mouth/Throat: NL Teeth, Lips, Gums, Clear Oropharnyx Neck: NL Appearance and Movements; NL JVP Respiratory: Symmetrical Chest Expansion and Respiratory Effort, Clear to Auscultation Cardiovascular: NL Sounds; No Murmurs; No JVD, RRR, No Edema Abdominal: NL Sounds; No Tenderness; No Distention Lymphatic: No Cervical Adenopathy Extremities: No Edema Skin: No Rash or Ulcers Neurological: Alert and Oriented x 3, - - lower extremity strength 0/5. wound vac in place. Result Diagrams: 03/16/18 05:36 03/16/18 05:36 Microbiology and Other Data: Microbiology 03/11/18 14:20 Nasal Screen MRSA (PCR)([facility]) - Final Nasal Mrsa Not Detected Assess/Plan/Problems-Billing Assessment: Patient is a 62yo female with a PMH for ADPKD with ESRD and renal artery embolization due to hemorrhage with inadvertent embolization of her spinal artery leading to paralysis at T10 from which she has not recovered. Patient also has a remote history of CAD and CT with stent. Admitted with shortness of breath and found to have a PE. - Patient Problems (1) Pulmonary embolism Current Visit: Yes Status: Acute Code(s): I26.99 - OTHER PULMONARY EMBOLISM WITHOUT ACUTE COR PULMONALE SNOMED Code(s): 64522882 Comment: Patient has confirmed DVT, and high probability V/Q scan for PE with multiple areas of restricted perfusion. Heparin/warfarin have been overlapped now for 4 days and given the bleeding risk with her rising INR, the risk of bleeding being on both heparin and warfarin at this point outweighs the risk of warfarin induced hypercoagulability She had 7.5 mg on 03/14, 5 mg on 03/15. Zero on 03/16. INR still increasing, so will not restart today. (2) Decubital ulcer Current Visit: No Status: Acute Code(s): L89.90 - PRESSURE ULCER OF UNSPECIFIED SITE, UNSPECIFIED STAGE SNOMED Code(s): 635815396 Comment: Wound vac. Associated with possible chronic osteomyelitis of sacrum. Evaluated by wound RN today, who recommended surgery consult. I discussed with Dr. West, who will see her tomorrow. (3) End stage renal disease on dialysis Current Visit: No Status: Acute Code(s): N18.6 - END STAGE RENAL DISEASE; Z99.2 - DEPENDENCE ON RENAL DIALYSIS SNOMED Code(s): 685709199 Comment: Due to PCKD. Continue inpt HD MWF. ([facility] at [facility]) (4) T10 spinal cord injury Current Visit: No Status: Acute Code(s): S24.103A - UNSP INJURY AT T7-T10 LEVEL OF THORACIC SPINAL CORD, INIT SNOMED Code(s): 99946788 Comment: Uses motorized wheelchair. Resident of [facility]. Status and Disposition: Patient is admitted inpatient.
[2018-03-17] MEDS: Atorvastatin* 80 MG TAB PO SCH (17:36)
[2018-03-17] MEDS: Mirtazapine TAB* 15 MG PO SCH (20:53)
[2018-03-18] MEDS: Omeprazole CAP* 20 MG PO SCH (05:53)
[2018-03-18] MEDS: Ferrous Sulfate TAB* 325 MG PO SCH (05:53)
[2018-03-18 08:29] LABS: INR 2.58 (0.77-1.02)
[2018-03-18] MEDS: Lidocaine 2.5%/Prilocain 2.5%* 5 GM TUBE TOPICAL SCH (09:06)
[2018-03-18] MEDS: Multivitamins/Minerals TAB PO SCH (09:07)
[2018-03-18] MEDS: Dronabinol CAP* 2.5 MG PO SCH ×2 (09:07→21:27)
[2018-03-18] MEDS: Folic Acid TAB* 1 MG PO SCH (09:07)
[2018-03-18] MEDS: DOXYcycline CAP(*) 100 MG PO SCH ×2 (09:07→21:26)
[2018-03-18] MEDS: Aspirin EC TAB* 81 MG TAB.EC PO SCH (09:07)
[2018-03-18] MEDS ORDERED: Warfarin TAB(*) 3 MG PO ONE (09:20)
[2018-03-18] MEDS: CMCS: Midodrine (NF) 5 MG TAB PO SCH ×3 (11:02→21:26)
[2018-03-18] MEDS: Atorvastatin* 80 MG TAB PO SCH (17:20)
--- NOTE | 2018-03-18 19:07 | PN ---
Subjective Date of Service: 03/18/18 Interval History: No events, feels good, very anxious to get back to [place] [facility]. No pain, no shortness of breath, no palpitations, no n/v, no fevers. Family History: Unchanged from Admission Social History: Unchanged from Admission Past Medical History: Unchanged from Admission Objective Active Medications: Aspirin (Aspirin Ec Tab*) 81 mg PO DAILY [facility] Last Admin: 03/18/18 09:07 Dose: 81 mg Atorvastatin Calcium (Lipitor*) 80 mg PO 1700 [facility] Last Admin: 03/18/18 17:20 Dose: 80 mg Bisacodyl (Dulcolax Supp*) 10 mg SD DAILY PRN PRN Reason: CONSTIPATION Doxycycline Hyclate (Vibramycin Cap(*)) 100 mg PO BID [facility] Last Admin: 03/18/18 09:07 Dose: 100 mg Dronabinol (Marinol Cap*) 2.5 mg PO BID [facility] Last Admin: 03/18/18 09:07 Dose: 2.5 mg Ferrous Sulfate (Ferrous Sulfate Tab*) 325 mg PO DAILY@0600 [facility] Last Admin: 03/18/18 05:53 Dose: 325 mg Folic Acid (Folvite Tab*) 1 mg PO DAILY [facility] Last Admin: 03/18/18 09:07 Dose: 1 mg Gabapentin (Neurontin Cap(*)) 100 mg PO BID PRN PRN Reason: PAIN Last Admin: 03/17/18 15:47 Dose: 100 mg Heparin Sodium (Porcine) (Heparin Vial(*)) 0 units IV .PER PROTOCOL [facility] Last Admin: 03/12/18 19:24 Dose: 4,300 units Lidocaine/Prilocaine (Emla 5 Gm*) 1 applic TOPICAL TuThSa@0900 [facility] Last Admin: 03/18/18 09:06 Dose: Not Given Midodrine (Midodrine (Nf)) 10 mg PO TID [facility] PRN Reason: Protocol Last Admin: 03/18/18 12:57 Dose: Not Given Mirtazapine (Remeron Tab*) 15 mg PO BEDTIME [facility] Last Admin: 03/17/18 20:53 Dose: 15 mg Multivitamins/Minerals (Theragran/Minerals Tab*) 1 tab PO DAILY [facility] Last Admin: 03/18/18 09:07 Dose: 1 tab Omeprazole (Prilosec Cap*) 20 mg PO 0600 [facility] Last Admin: 03/18/18 05:53 Dose: 20 mg Ondansetron HCl (Zofran Odt Tab*) 4 mg SL BID PRN PRN Reason: NAUSEA Last Admin: 03/15/18 15:14 Dose: 4 mg Oxycodone HCl (Roxycodone Tab*) 5 mg PO Q6H PRN PRN Reason: PAIN Last Admin: 03/17/18 15:47 Dose: 5 mg Pharmacy Profile Note (Coumadin Daily Reminder*) 0 note FOLLOW UP 1700 [facility] Last Admin: 03/18/18 16:42 Dose: Not Given Vital Signs - 8 hr 03/18/18 03/18/18 11:21 15:04 Temperature 98.4 F 97.9 F Pulse Rate 77 83 Respiratory 20 16 Rate Blood Pressure 149/74 112/62 (mmHg) O2 Sat by Pulse 98 94 Oximetry Oxygen Devices in Use Now: Nasal Cannula Appearance: alert, resting in bed Eyes: No Scleral Icterus, PERRLA Ears/Nose/Mouth/Throat: NL Teeth, Lips, Gums, Clear Oropharnyx Neck: NL Appearance and Movements; NL JVP Respiratory: Symmetrical Chest Expansion and Respiratory Effort, Clear to Auscultation Cardiovascular: NL Sounds; No Murmurs; No JVD, RRR Abdominal: NL Sounds; No Tenderness; No Distention, - - wound vac in place on sacrum, foul smelling Lymphatic: No Cervical Adenopathy Extremities: No Edema Skin: No Rash or Ulcers Neurological: Alert and Oriented x 3, - - LE strength 0/5, upper extremities 5/ 5 b/l Result Diagrams: 03/16/18 05:36 03/16/18 05:36 Microbiology and Other Data: Microbiology 03/11/18 14:20 Nasal Screen MRSA (PCR)(JEROME) - Final Nasal Mrsa Not Detected Assess/Plan/Problems-Billing Assessment: Patient is a 62yo female with a PMH for ADPKD with ESRD and renal artery embolization due to hemorrhage with inadvertent embolization of her spinal artery leading to paralysis at T10 from which she has not recovered. Patient also has a remote history of CAD and MA with stent. Admitted with shortness of breath and found to have a PE. - Patient Problems (1) Pulmonary embolism Current Visit: Yes Status: Acute Code(s): I26.99 - OTHER PULMONARY EMBOLISM WITHOUT ACUTE COR PULMONALE SNOMED Code(s): 15524586 Comment: Patient has confirmed DVT, and high probability V/Q scan for PE with multiple areas of restricted perfusion. S/P heparin/warfarin overlap; now with rapidly falling INR She had 7.5 mg on 03/14, 5 mg on 03/15. Zero on 03/16. 1mg on 03/17, will give 3mg today. I have a call out to Dr. Barron at [facility] to see what their capabilities for monitoring her INR will be there; she should be able to be discharged as soon as a plan for this is established. (2) Decubital ulcer Current Visit: No Status: Acute Code(s): L89.90 - PRESSURE ULCER OF UNSPECIFIED SITE, UNSPECIFIED STAGE SNOMED Code(s): 607265532 Comment: Wound vac. Associated with possible chronic osteomyelitis of sacrum. Evaluated by wound RN yesterday, who recommended surgery consult. I discussed with Dr. West, who will see her tomorrow () when vac is changed. May need another debridement (3) End stage renal disease on dialysis Current Visit: No Status: Acute Code(s): N18.6 - END STAGE RENAL DISEASE; Z99.2 - DEPENDENCE ON RENAL DIALYSIS SNOMED Code(s): 017296987 Comment: Due to PCKD. Continue inpt HD MWF. ([facility] at [facility]) (4) T10 spinal cord injury Current Visit: No Status: Acute Code(s): S24.103A - UNSP INJURY AT T7-T10 LEVEL OF THORACIC SPINAL CORD, INIT SNOMED Code(s): 94451526 Comment: Uses motorized wheelchair. Resident of [facility]. Status and Disposition: Patient is admitted inpatient.
[2018-03-18] MEDS: Mirtazapine TAB* 15 MG PO SCH (21:27)
[2018-03-19] MEDS: Ferrous Sulfate TAB* 325 MG PO SCH (05:18)
[2018-03-19] MEDS: Omeprazole CAP* 20 MG PO SCH (05:18)
[2018-03-19 06:46] LABS: INR 2.15 (0.77-1.02)
[2018-03-19 07:30] VITALS: BP 132/72
[2018-03-19] MEDS: Folic Acid TAB* 1 MG PO SCH (08:53)
[2018-03-19] MEDS: Dronabinol CAP* 2.5 MG PO SCH (08:53)
[2018-03-19] MEDS: DOXYcycline CAP(*) 100 MG PO SCH (08:53)
[2018-03-19] MEDS: Multivitamins/Minerals TAB PO SCH (08:53)
[2018-03-19] MEDS: Aspirin EC TAB* 81 MG TAB.EC PO SCH (08:54)
[2018-03-19 10:22] LABS: Hematocrit 29 % (35-47); Hemoglobin 9.3 g/dl (12.0-16.0); Mean Corpuscular HGB Conc 32 g/dl (31-36); Mean Corpuscular Hemoglobin 28 pg (27-31); Mean Corpuscular Volume 89 fL (80-97); Mean Platelet Volume 7.4 um3 (7.4-10.4); Platelet Count 237 10^3/ul (150-450); Red Blood Count 3.27 10^6/ul (4.0-5.4); Red Cell Distribution Width 18 % (10.5-15)
[2018-03-19 10:35] LABS: EGFR Non-African American 9.3 (>60)
[2018-03-19] MEDS ORDERED: CMC Midodrine (NF) 5 MG TAB PO SCH (11:00)
[2018-03-19] MEDS ORDERED: Epoetin Alfa* 2,000 UNITS/ML VIAL IV ONE ×2 (11:30)
[2018-03-19] MEDS ORDERED: Epoetin Alfa* 3,000 UNITS/ML VIAL IV ONE (11:30)
--- NOTE | 2018-03-19 11:37 | PN ---
Progress Note - Progress Note Date of Service: 03/19/18 SOAP: Subjective: She is without complaint Objective: Temp Pulse Resp BP Pulse Ox 98.5 F 80 16 132/72 97 03/19/18 07:22 03/19/18 07:22 03/19/18 08:53 03/19/18 07:22 03/19/18 07:22 PEX: Sacral decubitus is clean with some odor but no purulence or drainage. There is some necrotic tissue present superiorly in the ulcer with some undermining noted.l Assessment: Sacral decubitus--chronic on antibiotics Plan: Ulcer debrided at bedside--please see separate dictated note. Continue wound vac OK for transfer back to [facility] and follow up in wound clinic at [facility] with Dr. Guerrero next Saturday. Continue oral antibiotics.
--- NOTE | 2018-03-19 12:15 | TRS ---
DATE OF ADMISSION: 03/11/2018. DATE OF TRANSFER: 03/19/2018. HISTORY OF PRESENT ILLNESS: This 62-year-old woman presented with shortness of breath, hypoxia, and elevated troponin. The history and physical exam are detailed in the admission note. She was found to have a pulmonary embolism and was treated with Heparin and Warfarin. Her INR sabrina rapidly in the hospital. Warfarin was started on March 14. Today will be her sixth day of Warfarin. Her INR has been in the therapeutic range since March 16. On the day of transfer, March 19, it was 2.15. I am estimating her maintenance dose to be about 2 mg a day and she will start that today. I would check her INR daily until it is stable. Otherwise, she did quite well. She got hemodialysis on the day of transfer, March 19; it was only a partial dialysis due to her low blood pressure. She did not get Midodrine until sometime into the dialysis period. We are recommending she get Midodrine 10 mg three times a week before each dialysis session. FINAL DIAGNOSES: 1. Pulmonary embolism. 2. Decubitus ulcer with osteomyelitis. 3. End-stage renal disease. 4. T10 spinal cord injury. MEDICATIONS ON TRANSFER: 1. Midodrine 10 mg daily before dialysis Saturday, , and Saturday. 2. Oxycodone 5 mg every 6 hours prn. 3. Warfarin 2 mg daily at 5:00 p.m. 4. Hydrocortisone suppository 25 mg b.i.d. 5. Bisacodyl suppository 10 mg rectally daily prn. 6. Atorvastatin 20 mg at bedtime. 7. Aspirin 81 mg daily. 8. Bisoprolol 2.5 mg daily. 9. Acetaminophen 650 mg every 4 hours prn. 10. Lidocaine/Prilocaine EMLA ointment applied before dialysis. 11. Oxycodone 5 mg t.i.d. prn. 12. Senna two tablets at bedtime. 13. Mirtazapine 15 mg at bedtime. 14. Ondansetron 4 mg b.i.d. prn. 15. Multivitamin with mineral daily. 16. Dronabinol 2.5 mg b.i.d. 17. Saccharomyces 250 mg daily. 18. Gabapentin 100 mg b.i.d. prn 19. Doxycycline 100 mg b.i.d. indefinitely. 20. Ferrous Sulfate 325 mg daily. 21. Folic acid 1 mg daily. 22. Epogen 10,000 units in dialysis 3 times a week. [id number]/[facility] #: [id number] MTDD
[2018-03-19] MEDS ORDERED: Warfarin TAB(*) 2 MG PO SCH (17:00)
--- NOTE | 2018-03-20 07:32 | OP ---
CC: [facility], Attn: Dr. Maciej Guerrero. * DATE OF OPERATION: 03/19/18 - ROOM #431 DATE OF : 59 SURGEON: Edu West MD ANESTHESIA: None. PRE-OP DIAGNOSIS: Sacral decubitus. POST-OP DIAGNOSIS: Sacral decubitus. OPERATIVE PROCEDURE: Excisional debridement of sacral decubitus with measurements of 6 cm x 6 cm in diameter. Debridement included subcutaneous fat and muscle. ESTIMATED BLOOD LOSS: Minimal. SPECIMEN: None. DESCRIPTION OF PROCEDURE: Written informed consent was obtained, the site was marked with indelible ink, and the patient was placed in left lateral decubitus position. A time-out verification was completed. Sharp debridement using a scissors and pickups was performed of some necrotic skin edges and some necrotic tissue overlying the subcutaneous fat. There was also some deeper muscle which was discolored was debrided to healthy bleeding tissue. There was exposed bone and this has been known previously. Hemostasis was assured with pressure and the wound was packed with 4 x 4 gauze and covered with an ABD pad. The patient tolerated the procedure well. [id number]/[facility] #: [id number] [facility]
== END 2018-03-19 13:40 | DRG 981 ==
LOC: INTOOBSV 13:31 → MEDTELE 13:31 → OBSVTOIN 03-12 09:30 → ICU 03-12 17:37 → MEDTELE 03-15 18:23
PROVIDERS: ADMIT Internal Medicine; ATTEND Internal Medicine
PROC: 30233N1 Transfusion of Nonautologous Red Blood Cells into Peripheral Vein, Percutaneous Approach (ICD-10-PCS; 2018-03-13)
PROC: 02HV33Z Insertion of Infusion Device into Superior Vena Cava, Percutaneous Approach (ICD-10-PCS; 2018-03-13)
PROC: 5A1D70Z Performance of Urinary Filtration, Intermittent, Less than 6 Hours Per Day (ICD-10-PCS; 2018-03-14)
PROC: 5A1D70Z Performance of Urinary Filtration, Intermittent, Less than 6 Hours Per Day (ICD-10-PCS; 2018-03-17)
PROC: 0KBP0ZZ Excision of Left Hip Muscle, Open Approach (ICD-10-PCS; principal; 2018-03-19)
PROC: 0KBN0ZZ Excision of Right Hip Muscle, Open Approach (ICD-10-PCS; 2018-03-19)
PROC: 5A1D70Z Performance of Urinary Filtration, Intermittent, Less than 6 Hours Per Day (ICD-10-PCS; 2018-03-19)
PROC: 5A1D70Z Performance of Urinary Filtration, Intermittent, Less than 6 Hours Per Day (ICD-10-PCS; 2018-03-19)
DX: I26.99 Other pulmonary embolism without acute cor pulmonale (principal); J96.21 Acute and chronic respiratory failure with hypoxia; I21.4 Non-ST elevation (NSTEMI) myocardial infarction; L89.154 Pressure ulcer of sacral region, stage 4; N18.6 End stage renal disease; R57.0 Cardiogenic shock; J96.22 Acute and chronic respiratory failure with hypercapnia; G82.20 Paraplegia, unspecified; J90 Pleural effusion, not elsewhere classified; I31.3 Pericardial effusion (noninflammatory); J98.11 Atelectasis; M46.28 Osteomyelitis of vertebra, sacral and sacrococcygeal region; I82.412 Acute embolism and thrombosis of left femoral vein; I82.432 Acute embolism and thrombosis of left popliteal vein; I82.441 Acute embolism and thrombosis of right tibial vein; E87.2 Acidosis; J44.1 Chronic obstructive pulmonary disease with (acute) exacerbation; E46 Unspecified protein-calorie malnutrition; I12.0 Hypertensive chronic kidney disease with stage 5 chronic kidney disease or end stage renal disease; D50.9 Iron deficiency anemia, unspecified; I25.10 Atherosclerotic heart disease of native coronary artery without angina pectoris; Z87.448 Personal history of other diseases of urinary system; K21.9 Gastro-esophageal reflux disease without esophagitis; G83.82 Anterior cord syndrome; I73.9 Peripheral vascular disease, unspecified; D63.8 Anemia in other chronic diseases classified elsewhere; K59.00 Constipation, unspecified; I07.1 Rheumatic tricuspid insufficiency; E78.5 Hyperlipidemia, unspecified; N31.9 Neuromuscular dysfunction of bladder, unspecified; E83.42 Hypomagnesemia; I27.20 Pulmonary hypertension, unspecified; Z88.1 Allergy status to other antibiotic agents; Z88.5 Allergy status to narcotic agent; Z88.8 Allergy status to other drugs, medicaments and biological substances; Z91.048 Other nonmedicinal substance allergy status; Z87.891 Personal history of nicotine dependence; Z80.1 Family history of malignant neoplasm of trachea, bronchus and lung; Z80.49 Family history of malignant neoplasm of other genital organs; Z80.8 Family history of malignant neoplasm of other organs or systems; I95.9 Hypotension, unspecified; Z95.5 Presence of coronary angioplasty implant and graft; I25.2 Old myocardial infarction; Z68.22 Body mass index [BMI] 22.0-22.9, adult; Z99.2 Dependence on renal dialysis; Z79.01 Long term (current) use of anticoagulants; Z79.82 Long term (current) use of aspirin; Z87.440 Personal history of urinary (tract) infections
CPT/HCPCS: 36415; 71045; 78582; 80048; 80053; 81003; 81015; 82565; 83605; 83735; 83880; 84134; 84145; 84484; 84520; 85025; 85027; 85379; 85610; 85730; 86850; 86900; 86901; 86922; 87040; 87086; 87641; 90935; 93005; 93306; 93970; A9270-GY; A9540; A9558; G0257; J0696; J0885; J1644; J1720; J3475; J7512; P9040